=== PATIENT | male | born 1945 | race African-American/Black ===

== ENCOUNTER 2018-11-27 11:47 | Inpatient (IN) | payer MEDICARE, MEDICAID ==
[2018-11-27 12:30] LABS: #Eosinphils 0.1 thou/uL (0.0-0.7); #Lymphocytes 0.9 thou/uL (1.20-3.40); #Monocytes 0.3 thou/uL (0.11-0.59); #Neutrophils 4.3 thou/uL (1.40-6.50); %Basophils 0.2 % (0.0-1.0); %Eosinophils 1.9 % (0.0-10.0); %Lymphocytes 16.8 % (21.0-51.0); %Monocytes 5.3 % (0.0-10.0); %Neutrophils 75.8 % (42.0-75.0); Hemoglobin 13.3 g/dL (14.0-18.0); Mean Corpuscular HGB CONC 33.2 g/dL (32.0-36.0); Mean Corpuscular Hemoglobin 34.6 pg (27.0-31.0); Mean Platelet Volume 7.8 fL (7.4-10.4); Platelet Count 265 thou/uL (130-400); RBC Distribution Width 13.5 % (11.5-14.5); Red Blood Cell (RBC) Count 3.84 mill/uL (4.70-6.10); White Blood Cell (WBC) Count 5.6 thou/uL (4.8-10.8)
[2018-11-27] MEDS ORDERED: Magnesium 2 GM/50 ML BAG (IN WATER) ONE (12:34)
[2018-11-27] MEDS ORDERED: Dexamethasone 4 mg/ml Vial ONE (12:34)
[2018-11-27 12:43] LABS: ALT (SGPT) 41 U/L (8-55); AST (SGOT) 27 U/L (5-34); Albumin 3.7 g/dL (3.4-4.8); Alkaline Phosphatase 59 U/L (40-110); Anion Gap 14 mmol/L (10-20); BUN (Urea Nitrogen) 23 mg/dL (8.4-25.7); Bilirubin, Total 0.5 mg/dL (0.2-1.2); CK (CPK) 101 U/L (30-200); Calc. Creatinine Clearance 0 mL/min (70-130); Calcium 9.9 mg/dL (7.8-10.44); Carbon Dioxide 26 mmol/L (23-31); Chloride 103 mmol/L (98-107); Estimated GFR-MDRD 50; Globulin 3.9 g/dL (2.4-3.5); Glucose 93 mg/dL (83-110); Lipase 46 U/L (8-78); Potassium 3.5 mmol/L (3.5-5.1); Protein, Total 7.6 g/dL (5.8-8.1); Sodium 139 mmol/L (136-145)
[2018-11-27 12:49] LABS: Actual Bicarbonate (HCO3a) 24.7 mEq/L (22-28); Analyzer IN Cardio ER; CO2 Tension 36.5 mmHg (35.0-45.0); Calcium, Ionized 1.21 mmol/L (1.12-1.30); Carboxyhemoglobin (COHb) 2.1 gm% (0.0-3.0); Hemoglobin (Hb) 13.6 g/dL (14.0-18.0); O2 Tension (PaO2) 78.7 mmHg (> 70.0); Potassium - ABG Lab 3.58 mmol/L (3.70-5.30); pH, Arterial 7.45 (7.35-7.45)
[2018-11-27 12:50] LABS: ALV-art Gradient 25.405 (0-20); Puncture Site RB
--- NOTE | 2018-11-27 13:20 | CT ---
CT abdomen and pelvis with IV contrast HISTORY: Pelvic pain. FINDINGS: Mild atelectasis at the lung bases. Mild bilateral hydroureteronephrosis without stones or point of transition apparent. Urinary bladder is unremarkable. Dystrophic calcification of the prostate gland. Deformity of the right side of the pubic symphysis has the appearance of an old fract ure. Tiny low-density nodules of each adrenal gland. Probable small adenomas. Hyperdense stones within the gallbladder lumen. No evidence of bowel obstruction. Degenerative changes lumbar spine. No evidence of inguinal hernia. IMPRESSION: Mild bilateral hydroureteronephrosis. Cause is not evident. No stones visualized. Possibl y due to chronic low-grade bladder outlet obstruction. Cholelithiasis. Atherosclerosis.
--- NOTE | 2018-11-27 13:35 | RAD ---
Chest one view HISTORY: Chest and abdomen pain. COMPARISON: 08/21/2015 and 09/07/2016. FINDINGS: Cardiac silhouette is magnified by projection. Pulmonary vasculature slightly engorged. An oval 1.5 cm nodular density projects just lateral to the left hilum. No evidence of pneumothorax. 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 campus monitor leads overlie the chest. IMPRESSION: Possible left lung nodule. Please consider upright PA and lateral views of the chest when patient can undergo that exam. Borderline pulmonary vascular congestion.
[2018-11-27] MEDS ORDERED: Morphine 4 MG/ML VIAL ONE (13:44)
[2018-11-27] MEDS ORDERED: Albuterol Sulfate 2.5 mg/3 ml Neb ONE ×2 (14:13)
[2018-11-27 14:27] LABS: Bacteria/HPF 4+ HPF (None Seen); Bilirubin Negative (Negative); Blood, Urine 2+ (Negative); Clarity Extra Turbid (Clear); Glucose, Urine (Dipstick) Normal (Negative); Leukocyte 500 Leu/uL (Negative); Nitrite Negative (Negative); Protein, Urine (Dipstick) 100 mg/dL (Neg-Trace); RBC/HPF 0-3 HPF (0-3); Squamous Epithelial None Seen HPF (0-3); Urobilinogen Normal mg/dL (Less than 2); WBC/HPF Greater than 50 HPF (0-3)
[2018-11-27] MEDS ORDERED: Sodium Chloride 0.9% 1,000 ML IV SCH (17:25)
[2018-11-27] MEDS ORDERED: Ondansetron PF 4 MG/2 ML Vial IVP PRN ×2 (17:25→20:24)
[2018-11-27] MEDS ORDERED: Acetaminophen 325 MG TAB PO PRN (17:25)
[2018-11-27] MEDS ORDERED: HYDROcodone/Acetaminophen 5/325 mg Tablet PO PRN ×2 (17:25)
[2018-11-27] MEDS ORDERED: Ondansetron ODT 4 MG TAB SL PRN (17:25)
[2018-11-27] MEDS ORDERED: Morphine 4 MG/ML VIAL SLOW IVP PRN (17:34)
[2018-11-27 19:24] VITALS: BMI 27.9
[2018-11-27] MEDS ORDERED: Senokot S 8.6-50 MG TAB PO PRN (20:24)
[2018-11-27] MEDS ORDERED: Acetaminophen 500 MG TAB PO PRN (20:24)
[2018-11-27] MEDS ORDERED: Bisacodyl 5 MG TAB PO PRN (20:24)
[2018-11-27] MEDS ORDERED: Ondansetron ODT 4 MG TAB PO PRN (20:24)
[2018-11-27] MEDS ORDERED: hydrALAZINE 20 MG/ML VIAL SLOW IVP PRN (20:24)
[2018-11-27] MEDS ORDERED: Mometasone/Formoterol 120 PUFF INHALER INH SCH (20:45)
[2018-11-27] MEDS ORDERED: predniSONE 20 MG TAB PO SCH (20:45)
[2018-11-27] MEDS: Sodium Chloride 0.9% 1,000 ML IV SCH (21:10)
[2018-11-27] MEDS: Famotidine 20 MG TAB PO SCH (21:18)
--- NOTE | 2018-11-27 22:15 | HP ---
PRIMARY CARE PROVIDER: Christianne Oneil MD. CHIEF COMPLAINT: Abdominal pain and difficulty urinating. HISTORY OF PRESENT ILLNESS: This is a 73-year-old male who presented to [facility] Emergency Department complaining of penile pain with discharge, difficulty having bowel movements with maximum pain rated 6/10. The patient states that symptoms have been intermittent over the last week, worsening in the last 24 to 48 hours. The patient admits to some difficulty having bowel movements with constipation with last bowel movement in the last 24 hours. The patient denied any blood in the stool or urine recently, but notes he has had decreased oral intake including water in the last 24-48 hours, feeling like he was dehydrated. The patient also admits to increased alcohol use and drinking more soft drinks. The patient states he has had some difficulty with repair of a hydrocele in the past with pain in the scrotal region causing him to have some difficulty with passing of stool. The patient denied any direct trauma injury. Sexual activity with last sexual intercourse over 1 year prior to this evaluation. The patient does state his mobility is limited due to rheumatoid arthritis. Occasionally uses a rolling walker for ambulation. The patient denied any increased cough, shortness of breath, exposure history, recent travel. The patient states he resides in the [facility], living in his mother's home after she . In the emergency room, the patient underwent general evaluation with concern for initial sepsis criteria. The patient received IV Levaquin, morphine sulfate, Decadron, albuterol sulfate, and DuoNeb in addition to magnesium sulfate. The patient was also noted with penile discharge prompting the initiation of antibiotic therapy. Cultures were submitted, however, pending at the time of this dictation. PAST MEDICAL HISTORY: 1. Tobacco abuse. 2. Hydrocele status post repair x2. 3. Chronic obstructive pulmonary disease. 4. Rheumatoid arthritis. 5. Limited mobility. 6. Hypertension. 7. Tobacco abuse. 8. Alcohol abuse. 9. Anxiety/depression. PAST SURGICAL HISTORY: 1. Status post carpal tunnel release on the left. 2. Status post hydrocele repair x2. 3. Status post right shoulder and left heel repair. CURRENT MEDICATIONS: Reviewed; however, the patient will provide an accurate list in the next 24 hours. ALLERGIES: PENICILLIN. FAMILY HISTORY: Positive for hypertension and diabetes mellitus. SOCIAL HISTORY: Resides in [place], [place]. . Smokes up to a pack of cigarettes daily. Drinks alcohol daily. No illicit drug use. Disabled. REVIEW OF SYSTEMS: CONSTITUTIONAL: Negative for weight loss or gain, ability to conduct usual activities. SKIN: Negative for rash, itching. EYES: Negative for double vision, pain. ENT/MOUTH: Negative for nose bleeding, neck stiffness, pain, tenderness. CARDIOVASCULAR: Negative for palpitations, dyspnea on exertion, orthopnea. RESPIRATORY: Negative for shortness of breath, wheezing, cough, hemoptysis, fever or night sweats. GASTROINTESTINAL: Negative for poor appetite, abdominal pain, heartburn, nausea, vomiting, constipation, or diarrhea. GENITOURINARY: Negative for urgency, frequency, dysuria, nocturia. MUSCULOSKELETAL: Negative for pain, swelling. NEUROLOGIC/PSYCHIATRIC: Negative for anxiety, depression. ALLERGY/IMMUNOLOGIC: Negative for skin rash, bleeding tendency. Otherwise negative except as stated per HPI. PHYSICAL EXAMINATION: VITAL SIGNS: On admission, blood pressure 156/83, pulse 96, respiratory rate 18, temperature 97.6 degrees Fahrenheit, O2 saturation 94% on room air. GENERAL APPEARANCE: This is a 73-year-old male, alert and oriented x3, pleasant, responsive, in no acute distress. HEENT: Pupils are equal, round, reactive to light and accommodation. Extraocular muscles are intact. No scleral icterus. No conjunctival injection. Nares patent. OP is clear. Teeth in fair repair. NECK: Supple. No cervical adenopathy. No thyromegaly. No carotid bruits. No JVD appreciated. Cervical spine with full active and passive range of motion. No meningeal signs noted. CHEST: Diminished breath sounds bilaterally with coarse breath sounds and expiratory wheezes bilaterally. CARDIOVASCULAR: S1, S2 with distant heart sounds. No murmur, rub, or gallop appreciated. ABDOMEN: Obese, soft, nontender, and nondistended. Bowel sounds are positive in all 4 quadrants. There is no palpable mass. The landmarks are difficult to palpate due to patient's body habitus. EXTREMITIES: Warm and dry with fair turgor. No clubbing, cyanosis, or asymmetric edema appreciated. Joint deformity noted of the hands and wrists bilaterally, left greater than right. GENITOURINARY: Per ER exam showed purulence coming from the urethral meatus and tip of the uncircumcised penis. VASCULAR: Pulses are palpable distally at the dorsalis pedis, posterior tibial, and popliteal arteries bilaterally. NEUROLOGIC: Cranial nerves 2 through 12 are grossly intact. No focal or lateralizing signs appreciated. The patient not observed ambulatory during this exam. PERTINENT LABORATORY AND X-RAY FINDINGS: Sodium 139, potassium 3.5, chloride 103, CO2 of 26, BUN 23, creatinine 1.65, estimated GFR 50, glucose 93, lactic acid level 1.0, calcium 9.9. LFTs within normal limits. BNP 24. Lipase 46. CBC showed a white blood cell count of 5.6, hemoglobin 13, hematocrit 40, MCV 104, platelet count 265 with 76% neutrophils. ABG at the time of admission 11/27/2018, showed a pH 7.45, pCO2 of 36.5, pO2 of 79, bicarb 24.7, O2 saturation 96% on 21% FiO2. Urinalysis positive for protein, blood, leukocyte esterase with urine wbc's showing greater than 50 per high-powered field and 4+ bacteria. CT of the abdomen and pelvis dated 11/27/2018, showed mild bilateral hydroureteronephrosis. Portable chest x-ray dated 11/27/2018, showed question of left lung nodule. No pneumothorax appreciated. EKG dated 11/27/2018, by my interpretation shows the sinus mechanism with heart rates in the 90s. Normal R-wave progression noted in the precordial leads. Normal axis. No acute ST-T wave changes appreciated. ASSESSMENT AND PLAN: 1. Urinary tract infection. Suspected. Questionable balanitis in addition. Continue Levaquin 750 mg IV q.24 hours. We will consult Urology Service for evaluation and consideration of surgical intervention versus medical management. Blood and urine cultures are pending. GC and chlamydia pending. 2. Acute kidney injury. Suspect secondary to hypovolemia. We will continue intravenous normal saline at 100 mL/h. Avoid nephrotoxic agents and limit contrast exposure. Encourage increased free water intake orally. Repeat creatinine in the a.m. 3. Bilateral hydroureteronephrosis. Suspect chronic condition with questionable bladder outlet obstruction or BPH. Consult Urology Service for evaluation and recommendations for long-term management. 4. Chronic obstructive pulmonary disease. No current evidence to suggest an acute exacerbation. We will continue DuoNebs q.4 hours p.r.n. Add Dulera 2 puffs inhaled b.i.d. Prednisone 40 mg p.o. daily. 5. Constipation. Add Senokot S with Dulcolax and monitor clinical response. 6. Tobacco abuse. We will offer smoking cessation resources prior to discharge. 7. Macrocytic anemia. Chronic after review of electronic medical record. We will repeat CBC in the a.m. and monitor trend. Check folate and B12 level in the a.m. 8. Prophylaxis. SCDs while in bed. Pepcid 20 mg p.o. b.i.d. 9. Code status is full. Surrogate medical decision maker is Keisha Lea. Job ID: [id number]
[2018-11-27] MEDS ORDERED: Dexamethasone 10 MG in Sodium Chloride 0.9% 50 ML IVPB SCH (23:59)
[2018-11-28] MEDS: HYDROcodone/Acetaminophen 5/325 mg Tablet PO PRN ×4 (02:38→17:01)
[2018-11-28] MEDS: Sodium Chloride 0.9% 1,000 ML IV SCH ×3 (04:43→18:15)
[2018-11-28] MEDS: Mometasone/Formoterol 120 PUFF INHALER INH SCH ×2 (06:37→19:29)
[2018-11-28 07:11] LABS: Hemoglobin 12.5 g/dL (14.0-18.0); Mean Corpuscular HGB CONC 33.4 g/dL (32.0-36.0); Mean Corpuscular Hemoglobin 33.9 pg (27.0-31.0); Mean Platelet Volume 7.2 fL (7.4-10.4); Platelet Count 207 thou/uL (130-400); RBC Distribution Width 13.3 % (11.5-14.5)
[2018-11-28 07:45] LABS: Lymphocytes 8 % (21-51); MDiff Complete? YES; Monocytes 2 % (0-10); Neutrophil 90 % (42-75); Platelet Morphology Comment Appears Adequate; Polychromasia SLIGHT = 2-3 cells (100X) (0-2/hpf)
[2018-11-28 07:55] LABS: BUN (Urea Nitrogen) 23 mg/dL (8.4-25.7); Calc. Creatinine Clearance 56 mL/min (70-130); Calcium 7.9 mg/dL (7.8-10.44); Carbon Dioxide 20 mmol/L (23-31); Chloride 105 mmol/L (98-107); Estimated GFR-MDRD 53; Glucose 162 mg/dL (83-110); Potassium 4.3 mmol/L (3.5-5.1); Sodium 135 mmol/L (136-145)
[2018-11-28] MEDS: predniSONE 20 MG TAB PO SCH (08:32)
[2018-11-28 09:15] LABS: Anion Gap 14 mmol/L (10-20)
[2018-11-28] MEDS ORDERED: Non-Formulary Item 1 EACH (Acetaminophen With Codeine [Tylenol With Codeine #4] 1 TABLET) PO PRN (09:40)
[2018-11-28] MEDS ORDERED: Non-Formulary Item 1 EACH (Tramadol Hcl [Tramadol Hcl Er] 300 MG) PO SCH (10:00)
[2018-11-28] MEDS ORDERED: Allopurinol 100 MG TAB PO SCH (11:30)
[2018-11-28] MEDS ORDERED: DULoxetine 60 MG CAP PO SCH (11:30)
--- NOTE | 2018-11-28 16:15 | CON ---
DATE OF CONSULTATION: 11/28/2018 HISTORY OF PRESENT ILLNESS: This is a 73-year-old male, I have been asked to see by Dr. Schultz. He was admitted last night, apparently having trouble with abdominal pain and constipation, who also eight days ago may have had some urethral discharge. On talking with him, he spends a great deal of time talking about his constipation. We talked more about his urinary tract symptoms. He does get up at night about five times. Daytime frequency is not so bad. He does take a diuretic, probably Lasix and he says when he takes that, he voids quite frequently and sometimes has double voiding. He relates that his urinary tract strain is diminished, but he has no blood in the urine. He acknowledge no urinary tract infections. He has a little bit of burning with urination. He does not really have any urinary tract urgency and has no difficulty in putting off although if he needs to. He has no history of prostate cancer. He has no history of kidney stones. He has no history of prostate surgery. He had bilateral hydroceles done by Dr. Man a few years ago, one was done in a few months later another one was done and he has had discomfort, tension, or pulling sensation across his lower abdomen since that time and he seems to relate his constipation to this, although anatomically that does not make sense. He still relates in that way. He is not sexually active. His white count when he came in was normal at 5.6 and his hemoglobin 13.3. His creatinine when he came in 1.65 and it is 1.56 today. Urinalysis showed 0 to 3 red cells, over 50 white cells, and 4+ bacteria. Urine culture has been set up, it is actually no growth at 24 hours. Blood cultures have been done and are pending. He is on Levaquin currently. I cannot see that he actually had any antibiotics given in the ER. His vital signs, he has been afebrile, pulse is 80 to 93, blood pressure is fine, and room air saturations okay. PAST MEDICAL HISTORY: He does have a history of degenerative joint disease and rheumatoid arthritis, COPD, hypertension, and history of some anxiety. He has smoked and drank in the past. PAST SURGICAL HISTORY: He has had a bilateral hydrocele repairs. He has had carpal tunnel surgery. He has had some shoulder surgery. ALLERGIES: HE HAS AN ALLERGY TO PENICILLIN. CURRENT MEDICATIONS: He is on; 1. Hydrocodone. 2. DuoNeb inhaler. 3. Zyloprim. 4. Cymbalta. 5. Neurontin. 6. Apresoline. 7. Prednisone. 8. Zocor. 9. Zanaflex. 10. He is not currently on a diuretic. PHYSICAL EXAMINATION: He is not circumcised. There is no phimosis. There is no penile or scrotal lesions. The testicles descended without mass or tenderness. IMAGING: He has had a CAT scan done, which I reviewed. The CAT scan was read as mild bilateral hydronephrosis. The bladder was mildly distended. There was some prostatic calcification. Bilateral hydronephrosis was very mild. IMPRESSION AND PLAN: 1. Probably a urinary tract infection based on the white cells and bacteria, although the culture is coming back negative. White count was not high and his vital signs are currently stable. 2. Mild bilateral hydronephrosis, which is probably a relatively soft call. I think at this point, we will see if his creatinine improves, maybe we can get a contrast study done. If not, we could do a Lasix renal scan and see if he actually is obstructed on either side. 3. Lower urinary tract symptoms. He gets up at night to go. He has a weak urinary stream. He has some double voiding. He could probably benefit by we starting an alpha pro on him, tamsulosin 0.4 mg one p.o. 30 minutes after supper each day. I will get him started on that. I will follow along with you. We will also go and get a PSA on him and see where that stands. Job ID: [id number]
[2018-11-28] MEDS: Simvastatin 5 MG TAB PO SCH (16:57)
[2018-11-28] MEDS: Tamsulosin HCl 0.4 MG CAP PO SCH (16:57)
[2018-11-28] MEDS ORDERED: Non-Formulary Item 1 EACH (Lovastatin [Lovastatin] 10 MG) PO SCH (17:00)
--- NOTE | 2018-11-28 18:14 | PDOC.HOSPP ---
- Subjective Encounter Date: 11/28/18 Encounter Time: 18:10 Subjective: f/u for suspected UTI, EVELINE and bilat hydronephrosis. Feels better overall but having urinary incontinence. No fever reported. - Objective Vital Signs & Weight: Vital Signs (12 hours) Temp Pulse Resp BP BP BP Pulse Ox 11/28/18 16:00 98.0 F 107 H 20 143/74 H 95 11/28/18 14:44 101 H 16 94 L 11/28/18 10:59 97.9 F 97 20 157/57 H 94 L 11/28/18 10:58 93 L 11/28/18 10:49 90 16 95 11/28/18 08:00 98.0 F 93 20 137/70 137/70 93 L 11/28/18 06:34 87 20 95 Weight Weight 202 lb 13.204 oz I&O: 11/27/18 11/28/18 11/29/18 06:59 06:59 06:59 Intake Total 1 Balance 1 Result Diagrams: 11/28/18 06:40 11/28/18 06:39 Additional Labs: Microbiology 11/27/18 13:55 Urine voided Urine Culture - Preliminary NO GROWTH AT 24 HOURS 11/27/18 12:28 Venous blood - Left Arm Blood Culture - Preliminary Specimen has been received and culture in progress. No Growth to date. 11/27/18 12:10 Venous blood - Left Hand Blood Culture - Preliminary Specimen has been received and culture in progress. No Growth to date. Laboratory Tests 11/27/18 11/27/18 11/27/18 12:10 12:10 12:10 Hgb 13.3 L Neutrophils % 75.8 H Neutrophils % (Manual) Creatinine 1.65 H Lactic Acid B-Natriuretic Peptide 24.1 Vitamin B12 Folate 11/27/18 11/28/18 11/28/18 12:10 06:39 06:39 Hgb Neutrophils % Neutrophils % (Manual) Creatinine Lactic Acid 1.0 B-Natriuretic Peptide Vitamin B12 630 Folate 5.80 L 11/28/18 06:40 Hgb Neutrophils % Neutrophils % (Manual) 90 H Creatinine Lactic Acid B-Natriuretic Peptide Vitamin B12 Folate Hospitalist ROS - Medication Medications: Active Medications Generic Name Dose Route Start Last Admin Trade Name Freq PRN Reason Stop Dose Admin Hydrocodone Bitart/Acetaminophen 1 tab 11/27/18 20:24 11/28/18 17:01 Custer 5/325 PO 1 tab Q4H PRN Administration Moderate Pain (4-6) Albuterol/Ipratropium 3 ml 11/27/18 22:30 11/28/18 14:44 Duoneb NEB 3 ml [id number] MARTA Administration Famotidine 20 mg 11/27/18 21:00 11/27/18 21:18 Pepcid PO 20 mg 2100 MARTA Administration Levofloxacin 750 mg/ Device 150 mls @ 100 mls/hr 11/28/18 14:00 11/28/18 14: 54 IVPB 150 mls 1400 MARTA Administration Mometasone Furoate/Formoterol Fumar 2 puff 11/28/18 06:30 11/28/18 06:37 Dulera 200 Mcg/5 Mcg Inhaler INH 2 puff BID-RT MARTA Administration Prednisone 40 mg 11/28/18 08:00 11/28/18 08:32 Prednisone PO 40 mg QAM-WM MARTA Administration Simvastatin 5 mg 11/28/18 17:00 11/28/18 16:57 Zocor PO 5 mg QPM-WM MARTA Administration Tamsulosin HCl 0.4 mg 11/28/18 17:30 11/28/18 16:57 Flomax PO 0.4 mg 1730 MARTA Administration - Exam General Appearance: NAD, awake alert Eye: PERRL, anicteric sclera ENT: normocephalic atraumatic, no oropharyngeal lesions Neck: supple, symmetric, no JVD, no thyromegaly, no lymphadenopathy Heart: RRR, no murmur, no gallops, no rubs, normal peripheral pulses Respiratory - other findings: few coarse sounds and diminished in bases Gastrointestinal: soft, non-tender, non-distended, normal bowel sounds, no palpable masses Extremities: no cyanosis, 1+ LE edema Skin: normal turgor, no lesions Neurological: cranial nerve grossly intact, no new deficit Musculoskeletal: normal tone, generalized weakness Psychiatric: normal affect, A&O x 3 Hosp A/P (1) UTI (urinary tract infection) Status: Acute Plan: Initial UCx negative @ 24h, continue IV Levaquin another 24h then de-escalate to po option (2) Bilateral hydronephrosis Code(s): N13.30 - UNSPECIFIED HYDRONEPHROSIS Status: Chronic Plan: Likely BPH, continue Flomax, appreciate Urology assistance (3) EVELINE (acute kidney injury) Code(s): N17.9 - ACUTE KIDNEY FAILURE, UNSPECIFIED Status: Acute Plan: Improved, continue low-volume IVF's, avoid nephrotoxic meds and limit contrast exposure (4) Macrocytic anemia Code(s): D53.9 - NUTRITIONAL ANEMIA, UNSPECIFIED Status: Chronic Plan: Folate deficiency noted, start Folate 1mg daily (5) COPD (chronic obstructive pulmonary disease) Status: Chronic Plan: No exacerbation, continue Duonebs, Prednisone and Dulera (6) Tobacco abuse Code(s): Z72.0 - TOBACCO USE Status: Chronic Plan: Tobacco cessation resources - Plan continue antibiotics, PT/OT, foster care social worker, out of bed/ambulate, DVT proph w/ SCDs Stable overall Continue Levaquin Continue IVF's Flomax initiated PT for mobilization Senokot-S/Mag Citrate for constipation AM lab: BMP
[2018-11-28] MEDS ORDERED: Senokot S 8.6-50 MG TAB PO PRN (18:15)
[2018-11-28] MEDS ORDERED: Magnesium Citrate 300 ML BOT PO SCH (18:15)
[2018-11-28] MEDS ORDERED: tiZANidine HCl 4 MG TAB PO PRN (21:00)
[2018-11-28] MEDS: Famotidine 20 MG TAB PO SCH (21:16)
[2018-11-28] MEDS: Gabapentin 400 MG CAP PO SCH (21:16)
[2018-11-29] MEDS: HYDROcodone/Acetaminophen 5/325 mg Tablet PO PRN ×3 (01:48→21:02)
[2018-11-29 07:09] LABS: Anion Gap 12 mmol/L (10-20); BUN (Urea Nitrogen) 25 mg/dL (8.4-25.7); Calc. Creatinine Clearance 66 mL/min (70-130); Calcium 9.2 mg/dL (7.8-10.44); Carbon Dioxide 24 mmol/L (23-31); Chloride 109 mmol/L (98-107); Estimated GFR-MDRD 65; Glucose 102 mg/dL (83-110); Potassium 3.6 mmol/L (3.5-5.1); Sodium 141 mmol/L (136-145)
[2018-11-29] MEDS: Allopurinol 100 MG TAB PO SCH (08:15)
[2018-11-29] MEDS: Gabapentin 100 MG CAP PO SCH (08:15)
[2018-11-29] MEDS: DULoxetine 60 MG CAP PO SCH (08:16)
[2018-11-29] MEDS: predniSONE 20 MG TAB PO SCH (08:16)
[2018-11-29] MEDS: Folic Acid 1 MG TAB PO SCH (08:16)
[2018-11-29] MEDS: Mometasone/Formoterol 120 PUFF INHALER INH SCH ×2 (10:55→19:27)
--- NOTE | 2018-11-29 12:48 | PRG ---
DATE OF SERVICE: 11/29/2018 SUBJECTIVE: I saw this patient today up in room 4432 at [facility]. His vital signs have been stable and good O2 sats. His urine culture came back final negative. Blood cultures are negative so far. White count yesterday returned to normal. His creatinine is now down to 1.32. His PSA was elevated at 16.18. He says he is feeling well. He is having some urgency and occasional urge incontinence he needs to urinate, but no burning. His abdominal pain seems to have resolved. He is eating and drinking without difficulty. He is on tamsulosin and it does not appear he has had any trouble starting that. IMPRESSION AND PLAN: Pyuria with a negative urine culture and had bacteriuria. My suspicion is that this is either bladder infection, where he actually was started on some antibiotics before the culture was taken, which is a possibility that does happen or perhaps this is prostatitis with the PSA being elevated. In any event, I think the most reasonable thing would be to treat him with 2 weeks of Cipro or 2 weeks of Levaquin. I also would appreciate if we could send him home on tamsulosin 0.4 mg to be taken 30 minutes after meal once a day. I am going to arrange followup with him in my office, and we will see him probably in a couple of weeks to see how he is doing, see what his urine looks like and we will readdress the mild bilateral hydronephrosis that was seen on the CAT scan recently. We will address that at that point and recheck his urine and see how his voiding symptoms are after being treated with antibiotics and see what his PSA does after being treated with antibiotics. So, at this point, I will sign off unless there has been any other acute issues that require urologic evaluation during this admission. Job ID: [id number]
[2018-11-29] MEDS: Simvastatin 5 MG TAB PO SCH (15:13)
[2018-11-29] MEDS: Sodium Chloride 0.9% 1,000 ML IV SCH (15:14)
[2018-11-29] MEDS: Tamsulosin HCl 0.4 MG CAP PO SCH (17:01)
--- NOTE | 2018-11-29 17:22 | PDOC.HOSPP ---
- Subjective Encounter Date: 11/29/18 Encounter Time: 17:10 Subjective: f/u for EVELINE, UTI and hydronephrosis. States no BM to date. Appetite ok. No fever or chills. - Objective Vital Signs & Weight: Vital Signs (12 hours) Temp Pulse Resp BP Pulse Ox 11/29/18 15:08 85 22 H 96 11/29/18 10:54 79 20 96 11/29/18 08:00 96 11/29/18 07:38 98.3 F 79 19 153/83 H 96 Weight Weight 202 lb 13.204 oz I&O: 11/28/18 11/29/18 11/30/18 06:59 06:59 06:59 Intake Total 1 2702 900 Output Total 200 Balance 1 2502 900 Result Diagrams: 11/28/18 06:40 11/29/18 05:54 Additional Labs: Microbiology 11/27/18 13:55 Urine voided Urine Culture - Preliminary NO GROWTH AT 24 HOURS 11/27/18 12:28 Venous blood - Left Arm Blood Culture - Preliminary Specimen has been received and culture in progress. No Growth to date. 11/27/18 12:10 Venous blood - Left Hand Blood Culture - Preliminary Specimen has been received and culture in progress. No Growth to date. Laboratory Tests 11/27/18 11/27/18 11/27/18 12:10 12:10 12:10 Hgb 13.3 L Neutrophils % 75.8 H Neutrophils % (Manual) Creatinine 1.65 H Lactic Acid B-Natriuretic Peptide 24.1 Vitamin B12 Folate 11/27/18 11/28/18 11/28/18 12:10 06:39 06:39 Hgb Neutrophils % Neutrophils % (Manual) Creatinine Lactic Acid 1.0 B-Natriuretic Peptide Vitamin B12 630 Folate 5.80 L 11/28/18 06:40 Hgb Neutrophils % Neutrophils % (Manual) 90 H Creatinine Lactic Acid B-Natriuretic Peptide Vitamin B12 Folate Hospitalist ROS - Medication Medications: Active Medications Generic Name Dose Route Start Last Admin Trade Name Freq PRN Reason Stop Dose Admin Hydrocodone Bitart/Acetaminophen 1 tab 11/27/18 20:24 11/29/18 17:04 Morton 5/325 PO 1 tab Q4H PRN Administration Moderate Pain (4-6) Albuterol/Ipratropium 3 ml 11/27/18 22:30 11/29/18 15:08 Duoneb NEB 3 ml [id number] MARTA Administration Allopurinol 100 mg 11/29/18 09:00 11/29/18 08:15 Zyloprim PO 100 mg DAILY MARTA Administration Bisacodyl 10 mg 11/27/18 20:24 11/29/18 08:15 Dulcolax PO 10 mg DAILYPRN PRN Administration Constipation Duloxetine HCl 60 mg 11/29/18 09:00 11/29/18 08:16 Cymbalta PO 60 mg DAILY MARTA Administration Famotidine 20 mg 11/27/18 21:00 11/28/18 21:16 Pepcid PO 20 mg 2100 MARTA Administration Folic Acid 1 mg 11/29/18 09:00 11/29/18 08:16 Folvite PO 1 mg DAILY MARTA Administration Gabapentin 200 mg 11/29/18 09:00 11/29/18 08:15 Neurontin PO 200 mg DAILY MARTA Administration Gabapentin 400 mg 11/28/18 21:00 11/28/18 21:16 Neurontin PO 400 mg HS MARTA Administration Levofloxacin 750 mg/ Device 150 mls @ 100 mls/hr 11/28/18 14:00 11/29/18 15: 13 IVPB 150 mls 1400 MARTA Administration Sodium Chloride 1,000 mls @ 50 mls/hr 11/28/18 18:10 11/29/18 15:14 Normal Saline 0.9% IV 1,000 mls .Q20H MARTA Administration Mometasone Furoate/Formoterol Fumar 2 puff 11/28/18 06:30 11/29/18 10:55 Dulera 200 Mcg/5 Mcg Inhaler INH 2 puff BID-RT MARTA Administration Prednisone 40 mg 11/28/18 08:00 11/29/18 08:16 Prednisone PO 40 mg QAM-WM MARTA Administration Senna/Docusate Sodium 2 tab 11/28/18 18:15 11/29/18 08:15 Senokot S PO 2 tab BIDPRN PRN Administration CONSTIPATION Simvastatin 5 mg 11/28/18 17:00 11/29/18 15:13 Zocor PO 5 mg QPM-WM MARTA Administration Tamsulosin HCl 0.4 mg 11/28/18 17:30 11/29/18 17:01 Flomax PO 0.4 mg 1730 MARTA Administration - Exam General Appearance: NAD, awake alert Eye: PERRL, anicteric sclera ENT: normocephalic atraumatic, no oropharyngeal lesions Neck: supple, symmetric, no JVD, no thyromegaly, no lymphadenopathy Heart: RRR, no murmur, no gallops, no rubs, normal peripheral pulses Respiratory: CTAB, no rales, no ronchi, normal chest expansion Gastrointestinal: soft, normal bowel sounds, no palpable masses Gastrointestinal - other findings: mild distention Extremities: no cyanosis, 1+ LE edema Skin: normal turgor, no lesions Neurological: cranial nerve grossly intact, no new deficit Musculoskeletal: normal tone, generalized weakness Psychiatric: normal affect, A&O x 3 Hosp A/P (1) UTI (urinary tract infection) Status: Acute Plan: Suspected but UCx showing normal reggie, continue abx coverage with plans for 2 weeks post-discharge (2) Bilateral hydronephrosis Code(s): N13.30 - UNSPECIFIED HYDRONEPHROSIS Status: Chronic Plan: Outpt follow and consideration for repeat imaging with Urology (3) EVELINE (acute kidney injury) Code(s): N17.9 - ACUTE KIDNEY FAILURE, UNSPECIFIED Status: Acute Plan: Improved with IVF's, avoid nephrotoxic meds and limit contrast (4) Macrocytic anemia Code(s): D53.9 - NUTRITIONAL ANEMIA, UNSPECIFIED Status: Chronic (5) COPD (chronic obstructive pulmonary disease) Status: Chronic Plan: Stable, general pulm support (6) Tobacco abuse Code(s): Z72.0 - TOBACCO USE Status: Chronic - Plan continue antibiotics, PT/OT, social work program coordinator, respiratory therapy, out of bed/ ambulate Stable overall Continue Levaquin with plans for 2wks coverage after d/c Continue IVF's Flomax initiated PT for mobilization Senokot-S/Mag Citrate for constipation, add Dulcolax supp Likely home in am
[2018-11-29] MEDS: Gabapentin 400 MG CAP PO SCH (20:32)
[2018-11-29] MEDS: Famotidine 20 MG TAB PO SCH (20:33)
[2018-11-29] MEDS: Bisacodyl 10 MG SUPP PR SCH ×2 (21:03→21:19)
[2018-11-30] MEDS: Bisacodyl 10 MG SUPP PR SCH ×2 (05:37→14:31)
[2018-11-30] MEDS: Mometasone/Formoterol 120 PUFF INHALER INH SCH (07:17)
[2018-11-30 07:44] VITALS: BP 155/84; TEMP 96.7
[2018-11-30] MEDS: DULoxetine 60 MG CAP PO SCH (08:23)
[2018-11-30] MEDS: Gabapentin 100 MG CAP PO SCH (08:23)
[2018-11-30] MEDS: Allopurinol 100 MG TAB PO SCH (08:23)
[2018-11-30] MEDS: Folic Acid 1 MG TAB PO SCH (08:23)
[2018-11-30] MEDS: predniSONE 20 MG TAB PO SCH (08:23)
[2018-11-30] MEDS: HYDROcodone/Acetaminophen 5/325 mg Tablet PO PRN (08:24)
[2018-11-30] MEDS: Sodium Chloride 0.9% 1,000 ML IV SCH (11:07)
[2018-12-01 00:03] LABS: Chlam.trachomatis by PCR,Urine Not Detected (NotDetected)
--- NOTE | 2018-12-01 08:47 | PQF ---
PHILLIP PULIDO CHARLES [id number] CLINICAL DOCUMENTATION CLARIFICATION FORM: POST DISCHARGE Addendum to original discharge summary date: ____ Late entry note date: __ DATE: 12-01-2018 ATTN:Alberto Lentz Please exercise your independent, professional judgment in responding to the clarification form. Clinical indicators are provided on the bottom of this form for your review Can you please clarify if Prostatitis is ruled in or ruled out during this encounter? Please check appropriate box(s) to clarify if the following diagnosis has been ruled in or ruled out: Prostatitis [ ] Ruled in diagnosis [ ] Continue to treat [ ] Resolved [ ] Ruled out diagnosis [ x ] Cannot rule out diagnosis [ ] Other diagnosis please specify: [ ] Unable to determine For continuity of documentation, please document condition throughout progress notes and discharge summary. Thank You. CLINICAL INDICATORS: HP1 pg1 Dr. Schultz abdominal pain and difficuty of urinating pg1 Dr. Schultz complianing penile pain with discharge pg4 Dr. Schultz Bilateral hydroureteronephrosis PN 11/[address] Schultz follow up for suspected UTI, EVELINE and bilat hydronephrosis PN 11/[address] Amaral His PSA was elevated at 16.18 PN 11/[address] Amaral possibility that does happen or perhaps this is prostatitis with the PSA being elevated RISK FACTOR: Dr. Schultz-Hydrocele status post repair x2 Dr. Schultz- Hypertenion Dr. Schultz- Limited mobility Dr. Schultz-COPD Dr. Schultz- Constipation TREATMENTS: Imaging 11/27- Abdomen Pelvis CT APR 24- Levaquin IV APR 24- Sodium Chloride IV (This form is maintained as a part of the permanent medical record) 2014 [employer], [email or web address]. All Rights Reserved [email or web address] [not provided] MTDD
--- NOTE | 2018-12-01 09:07 | DIS ---
DATE OF ADMISSION: 11/28/2018 DATE OF DISCHARGE: 11/30/2018 PRIMARY CARE PHYSICIAN: Christianne Oneil MD DISCHARGE DIAGNOSES: 1. Urinary tract infection, suspected urine culture negative. 2. Bilateral ureterohydronephrosis, chronic. 3. Acute kidney injury, improved. 4. Microcytic anemia with folate deficiency. 5. Chronic obstructive pulmonary disease. 6. Tobacco abuse. 7. Rheumatoid arthritis. CONSULTATION: Alberto Amaral MD with Urology Service. PERTINENT LABORATORY AND X-RAY FINDINGS: Creatinine ranged between 1.32 to 1.65, estimated GFR ranged between 50 to 65, and lactic acid level 1.0. LFTs within normal limits. BNP 24.1. PSA 16.18. Vitamin B12 level 630. Folate level 5.8. CBC showed a hemoglobin ranged between 12.5 to 13.3 and MCV ranged between 101 to 104. Blood cultures x2 dated 11/27/2018, showed no growth at 48 hours. Urine culture dated 11/27/2018, showed 25,000 to 50,000 colonies of mixed skin reggie. Portable chest x-ray dated 11/27/2018, showed prominent pulmonary vasculature. A 1.5 cm nodular density in the lateral left hilum. CT of the abdomen and pelvis dated 11/27/2018, showed mild bilateral hydroureteronephrosis. HOSPITAL COURSE: The patient was admitted to the medical floor after initially presenting with abdominal pain and difficulty with urination. The patient was treated for suspected urinary tract infection with IV Levaquin. However, urine culture was unrevealing as to specific organism. The patient with obstructive uropathy with mild bilateral hydroureteronephrosis on CT imaging, prompting Urology consultation. The patient likely with chronic obstructive uropathy due to BPH with recommendations to complete a two-week course of antibiotic therapy and re-evaluate the hydronephrosis with imaging. The patient was evaluated by the Urology Service recommending a PSA showing elevated values. Current recommendations are for serial monitoring and repeat these levels after completion of treatment for urinary tract infection. Overall, the patient did remain clinically stable during the hospital course, tolerating regular oral intake and voiding appropriately. I have examined the patient at the time of discharge and discussed followup instructions. The patient verbalized understanding and agreement ready for discharge on 11/30/2018. DISCHARGE MEDICATIONS: 1. Ciprofloxacin 500 mg 1 tablet p.o. b.i.d. x2 weeks. 2. Flomax 0.4 mg p.o. daily. 3. ProAir HFA one puff inhaled q.4 hours p.r.n. 4. Allopurinol 100 mg p.o. daily. 5. Symbicort 160/4.5 two puffs inhaled b.i.d. 6. Cymbalta 60 mg p.o. daily. 7. Gabapentin 200 mg p.o. q.a.m. and 400 mg p.o. at bedtime. 8. DuoNebs 3 mL nebulized q.i.d. p.r.n. 9. Lovastatin 10 mg p.o. at bedtime. 10. Methotrexate 10 mg p.o. weekly. 11. Tizanidine 4 mg p.o. at bedtime p.r.n. 12. Tramadol extended release 300 mg p.o. daily. 13. Folic acid 1 mg p.o. daily. 14. Lasix 40 mg p.o. daily. 15. Prednisone 20 mg take two tablets p.o. daily x3 days, followed by 1 tablet p.o. daily x3 days, and followed by half a tablet p.o. daily x3 days. FOLLOWUP: The patient may follow up with his primary care provider, Dr. Oneil within 7 days of discharge. The patient will follow up with Dr. Alberto Amaral, with Urology Service within 2 weeks. CONDITION ON DISCHARGE: Stable. ACTIVITY: Ad terra, rolling walker for ambulation. DIET: Regular. CODE STATUS: Full. SPECIAL INSTRUCTIONS: Recommend repeat chest imaging to include PA and lateral views on an outpatient basis. DISPOSITION: Home on 11/30/2018. TIME SPENT: Total time preparing and coordinating discharge 32 minutes. Job ID: [id number]
== END 2018-11-30 14:42 | disposition home or self-care (01) | DRG 728 ==
LOC: ERS 11:47 → T4-B 13:49 → OBSVTOIN 11-28 10:50
PROVIDERS: ADMIT Family Medicine; ATTEND Family Medicine
DX: N41.9 Inflammatory disease of prostate, unspecified (principal); N13.6 Pyonephrosis; N17.9 Acute kidney failure, unspecified; J44.9 Chronic obstructive pulmonary disease, unspecified; M06.9 Rheumatoid arthritis, unspecified; I10 Essential (primary) hypertension; F41.9 Anxiety disorder, unspecified; F32.9 Major depressive disorder, single episode, unspecified; E86.1 Hypovolemia; D53.9 Nutritional anemia, unspecified; K59.00 Constipation, unspecified; R32 Unspecified urinary incontinence; Z88.0 Allergy status to penicillin; Z87.891 Personal history of nicotine dependence; Z79.52 Long term (current) use of systemic steroids; Z79.51 Long term (current) use of inhaled steroids
CPT/HCPCS: 36415; 71045; 74177; 80048; 80053; 81003; 81015; 82550; 82607; 82746; 82805; 83605; 83690; 83880; 84484; 85007; 85025; 85027; 87040; 87086; 87491; 87591; 93005; 94640; 94644; 96365; 96375; G0103; J1100; J1956; J2270; J3475; J7512; J7611; J7620

== ENCOUNTER 2018-12-27 19:11 | Inpatient (IN) | payer MEDICARE, MEDICAID ==
[2018-12-27] MEDS ORDERED: Albuterol Sulfate 2.5 mg/3 ml Neb ONE (19:42)
[2018-12-27] MEDS ORDERED: Furosemide 40 MG/4 ML VIAL ONE (19:47)
[2018-12-27] MEDS ORDERED: Magnesium 2 GM/50 ML BAG (IN WATER) ONE (19:47)
[2018-12-27] MEDS ORDERED: Aspirin 81 mg Enteric Coated Tablet ONE (19:47)
[2018-12-27] MEDS ORDERED: Dexamethasone 10 MG/ML VIAL ONE (19:47)
--- NOTE | 2018-12-27 19:47 | RAD ---
Chest one view HISTORY: Dyspnea. COMPARISON: 11/27/2018 and 12/07/2018. FINDINGS: Cardiac silhouette is magnified by projection. Pulmonary vasculature is unremarkable. Media stinum is midline. No confluent airspace consolidation or evidence of pneumothorax. drier belt conveyor leads overlie the chest. IMPRESSION: No active cardiopulmonary abnormalities are demonstrated.
[2018-12-27 20:16] LABS: Hemoglobin 11.1 g/dL (14.0-18.0); Mean Corpuscular HGB CONC 32.5 g/dL (32.0-36.0); Mean Corpuscular Hemoglobin 33.3 pg (27.0-31.0); Mean Platelet Volume 7.5 fL (7.4-10.4); Platelet Count 228 thou/uL (130-400); Red Blood Cell (RBC) Count 3.33 mill/uL (4.70-6.10); White Blood Cell (WBC) Count 5.6 thou/uL (4.8-10.8)
[2018-12-27 20:17] LABS: Actual Bicarbonate (HCO3a) 30.6 mEq/L (22-28); Analyzer IN Cardio ER; Base Excess (BEa) 6.3 mEq/L (-2.0 to +3.0); CO2 Tension 42.9 mmHg (35.0-45.0); Carboxyhemoglobin (COHb) 1.5 gm% (0.0-3.0); Hemoglobin (Hb) 11.3 g/dL (14.0-18.0); O2 Tension (PaO2) 80.3 mmHg (> 70.0); Potassium - ABG Lab 3.03 mmol/L (3.70-5.30); pH, Arterial 7.47 (7.35-7.45)
[2018-12-27 20:21] LABS: ALV-art Gradient 65.715 (0-20); Puncture Site RBA
[2018-12-27 20:36] LABS: Band 2 % (5-11); Lymphocytes 9 % (21-51); MDiff Complete? YES; Macrocytosis SLIGHT = 6-15 cells (100X) (0-5/hpf); Monocytes 2 % (0-10); Neutrophil 76 % (42-75); Platelet Morphology Comment Appears Adequate; Polychromasia SLIGHT = 2-3 cells (100X) (0-2/hpf); Reactive Lymphocytes 11 % (0-10)
[2018-12-27] MEDS ORDERED: Morphine 4 MG/ML VIAL ONE (20:43)
[2018-12-27 20:52] LABS: ALT (SGPT) 45 U/L (8-55); AST (SGOT) 23 U/L (5-34); Albumin 3.4 g/dL (3.4-4.8); Alkaline Phosphatase 61 U/L (40-110); Anion Gap 11 mmol/L (10-20); BUN (Urea Nitrogen) 14 mg/dL (8.4-25.7); Bilirubin, Total 0.5 mg/dL (0.2-1.2); CK (CPK) 67 U/L (30-200); Calc. Creatinine Clearance 0 mL/min (70-130); Calcium 8.8 mg/dL (7.8-10.44); Carbon Dioxide 33 mmol/L (23-31); Chloride 103 mmol/L (98-107); Estimated GFR-MDRD 84; Globulin 2.7 g/dL (2.4-3.5); Glucose 144 mg/dL (83-110); Lipase 14 U/L (8-78); Potassium 3.2 mmol/L (3.5-5.1); Protein, Total 6.1 g/dL (5.8-8.1); Sodium 144 mmol/L (136-145)
[2018-12-27] MEDS ORDERED: Potassium Chloride 20 MEQ TAB ONE (21:22)
--- NOTE | 2018-12-27 21:28 | ULT ---
Venous duplex sonogram bilateral lower extremity HISTORY: Bilateral leg pain and edema. FINDINGS: Each common femoral vein and greater saphenous junction were evaluated along with each femo ral, deep femoral, popliteal, and posterior tibial vein. There is good color and spectral Doppler flow, compression, and augmentation. IMPRESSION: Normal exam.
[2018-12-27 23:03] LABS: Lactic Acid 1.6 mmol/L (0.5-2.2)
--- NOTE | 2018-12-28 00:06 | HP ---
PRIMARY CARE PROVIDER: Dr. Maria Guadalupe Okeefe. CHIEF COMPLAINT: Shortness of breath and lower extremity swelling. HISTORY OF PRESENT ILLNESS: This is a 73-year-old male, who presented to [facility] Emergency Department complaining of increasing lower extremity edema over the last 2 weeks with associated increased shortness of breath. The patient was recently hospitalized at [facility] from 11/27 through 11/30/2018, for suspected urinary tract infection as well as bilateral ureterohydronephrosis. The patient was treated during that admission for a suspected urinary tract infection with Levaquin and discharged home on ciprofloxacin. The patient was also given tapering prednisone regimen, completing the course per the patient's report. The patient states he has been compliant with his chronic inhalers for his COPD, but denies home oxygen use on a regular basis. The patient states he previously was using nocturnal CPAP, but this was discontinued. The patient denied any specific fever, chills, trauma, injury, or travel history. The patient denies any recent exposure history or change to his chronic medication regimen. The patient denied any associated chest pain, jaw, or left arm discomfort. In the emergency room, the patient underwent general evaluation including chest imaging showing no acute infiltrates. The patient was noted with lower extremity edema, undergoing bilateral venous Doppler study showing no evidence for DVT. The patient was placed on a BiPAP noninvasive mechanical ventilation and given IV vancomycin and Levaquin. The patient also received aspirin 324 mg in addition to morphine sulfate, Lasix, Decadron, magnesium sulfate, and bronchodilator therapy with DuoNeb. PAST MEDICAL HISTORY: 1. Chronic obstructive pulmonary disease. 2. Tobacco abuse. 3. Rheumatoid arthritis. 4. Chronic lower extremity venous stasis. 5. Bilateral ureterohydronephrosis, chronic. 6. Microcytic anemia with folate deficiency. 7. Hydrocele status post repair x2. 8. Limited mobility status, chronic. 9. Hypertension. 10. Anxiety/depression. 11. Alcohol abuse. PAST SURGICAL HISTORY: 1. Status post carpal tunnel release on the left. 2. Status post hydrocele repair x2. 3. Status post right shoulder and left heel repair. CURRENT MEDICATIONS: Based on discharge summary 11/30/2018. 1. Flomax 0.4 mg p.o. daily. 2. ProAir HFA one puff inhaled q.4 hours p.r.n. 3. Allopurinol 100 mg p.o. daily. 4. Symbicort 160/4.5 two puffs inhaled b.i.d. 5. Cymbalta 60 mg p.o. daily. 6. Gabapentin 200 mg p.o. q.a.m. and 400 mg p.o. at bedtime. 7. DuoNeb 3 mL nebulized q.i.d. p.r.n. 8. Lovastatin 10 mg p.o. at bedtime. 9. Methotrexate 10 mg p.o. weekly. 10. Tizanidine 4 mg p.o. at bedtime p.r.n. 11. Tramadol extended release 300 mg p.o. daily. 12. Folic acid 1 mg p.o. daily. 13. Lasix 40 mg p.o. daily. ALLERGIES: PENICILLIN. FAMILY HISTORY: Positive for hypertension and diabetes mellitus. SOCIAL HISTORY: The patient resides in [place], [place]. . Smokes up to a pack of cigarettes daily. Alcohol use daily. No illicit drug use. Disabled. REVIEW OF SYSTEMS: CONSTITUTIONAL: Negative for weight loss or gain, ability to conduct usual activities. SKIN: Negative for rash, itching. EYES: Negative for double vision, pain. ENT/MOUTH: Negative for nose bleeding, neck stiffness, pain, tenderness. CARDIOVASCULAR: Negative for palpitations, dyspnea on exertion, orthopnea. RESPIRATORY: Negative for shortness of breath, wheezing, cough, hemoptysis, fever or night sweats. GASTROINTESTINAL: Negative for poor appetite, abdominal pain, heartburn, nausea, vomiting, constipation, or diarrhea. GENITOURINARY: Negative for urgency, frequency, dysuria, nocturia. MUSCULOSKELETAL: Negative for pain, swelling. NEUROLOGIC/PSYCHIATRIC: Negative for anxiety, depression. ALLERGY/IMMUNOLOGIC: Negative for skin rash, bleeding tendency. Otherwise, negative except as stated per HPI. PHYSICAL EXAMINATION: VITAL SIGNS: On admission, blood pressure 121/89, pulse 111, respiratory rate 28, temperature 98 degrees Fahrenheit, O2 saturation 95% on room air. GENERAL APPEARANCE: This is a 73-year-old male, alert and oriented x3, agitated, responds to questioning on current BiPAP noninvasive mechanical ventilation. HEENT: Pupils are equal, round, reactive to light and accommodation. Extraocular muscles are intact. No scleral icterus. No conjunctival injection. Nares patent. OP is clear. BiPAP noninvasive mechanical ventilation mask in place. NECK: Supple. No cervical adenopathy. No thyromegaly. No carotid bruits. No JVD appreciated. Cervical spine with full active and passive range of motion. No meningeal signs noted. CHEST: Diminished breath sounds bilaterally with prolonged expiratory phase. CARDIOVASCULAR: S1 and S2 with distant heart sounds. No murmur, rub, or gallop appreciated. ABDOMEN: Obese, soft, nontender, and nondistended. Bowel sounds are positive in all 4 quadrants. There is no hepatosplenomegaly. No abdominal bruits. No rebound or guarding appreciated. EXTREMITIES: Pitting edema to the proximal piedra bilaterally. Positive erythema over the entire bilateral lower extremities. Pulses are palpable distally at the dorsalis pedis, posterior tibial, and popliteal arteries bilaterally. Capillary refill less than 2 seconds. NEUROLOGIC: Cranial nerves 2 through 12 are grossly intact. No focal or lateralizing signs appreciated. PERTINENT LABORATORY AND X-RAY FINDINGS: Sodium 144, potassium 3.2, chloride 103, CO2 of 33, BUN 14, creatinine 1.05, estimated GFR of 84, glucose 144. Lactic acid level ranged between 1.6 to 2.4, calcium 8.8. LFTs within normal limits. BNP 52. Troponin I 0.017. Lipase 14. CBC showed a white blood cell count of 5.6, hemoglobin 11, hematocrit 34, MCV 102, platelet count 228 with 76% neutrophils. ABG dated 12/27/2018, showed a pH 7.47, pCO2 of 43, pO2 of 80, bicarb 30.6, O2 saturation 96% on 28% FiO2. Portable chest x-ray dated 12/27/2018, showed no acute cardiopulmonary process. Bilateral lower extremity venous Doppler study dated 12/27/2018, showed no evidence for DVT. EKG dated 12/27/2018, by my interpretation shows sinus mechanism with heart rates in the 90s. Normal R-wave progression noted in the precordial leads. Normal axis. No acute ST-T wave changes appreciated. ASSESSMENT AND PLAN: 1. Acute hypoxic respiratory failure secondary to #2. Continue BiPAP noninvasive mechanical ventilation, weaning as clinically indicated. Suspect chronic obstructive pulmonary disease exacerbation as underlying etiology. See #2 below for management. 2. Acute chronic obstructive pulmonary disease exacerbation. Continue Solu-Medrol 40 mg IV q.6 hours with additional Levaquin 750 mg IV q.24 hours. Continue DuoNeb q.4 hours. 3. Lower extremity edema. Appears chronic. Add Lasix 20 mg IV x1 now and b.i.d. Monitor clinical response. Consider lower extremity compression wraps. 4. Tobacco abuse. We will offer smoking cessation resources prior to discharge. 5. Chronic macrocytic anemia. Stable currently. Continue serial H and H monitoring. No current evidence of active blood loss. 6. Prophylaxis. SCDs while in bed. Pepcid 20 mg p.o. b.i.d. PT evaluation for functional assessment. 7. Code status is full. Surrogate medical decision maker is Keisha Lea. Job ID: [id number]
[2018-12-28] MEDS ORDERED: Morphine 2 MG/ML SYRINGE ONE (00:18)
[2018-12-28] MEDS ORDERED: Ondansetron ODT 4 MG TAB SL PRN (01:04)
[2018-12-28] MEDS ORDERED: Ondansetron PF 4 MG/2 ML Vial IVP PRN ×2 (01:04→01:05)
[2018-12-28] MEDS ORDERED: Acetaminophen 500 MG TAB PO PRN (01:05)
[2018-12-28] MEDS ORDERED: hydrALAZINE 20 MG/ML VIAL SLOW IVP PRN (01:05)
[2018-12-28] MEDS ORDERED: Benzonatate 100 MG CAP PO PRN (01:05)
[2018-12-28] MEDS ORDERED: Ondansetron ODT 4 MG TAB PO PRN (01:05)
[2018-12-28] MEDS ORDERED: Morphine 2 MG/ML SYRINGE SLOW IVP SCH (01:15)
[2018-12-28] MEDS ORDERED: methylPREDNISolone Sod Succ 40 MG VIAL IVP SCH (01:15)
[2018-12-28] MEDS ORDERED: Furosemide 20 MG/2 ML VIAL SLOW IVP SCH (01:15)
[2018-12-28] MEDS ORDERED: CODEINE PO PRN (01:21)
[2018-12-28] MEDS ORDERED: ACETAMINOPHEN PO PRN (01:21)
[2018-12-28 01:34] VITALS: BMI 27.9
[2018-12-28] MEDS: methylPREDNISolone Sod Succ 40 MG VIAL IVP SCH ×3 (02:16→17:31)
[2018-12-28] MEDS: Acetaminophen/Codeine 30-300mg Tablet PO PRN ×2 (02:17→08:50)
[2018-12-28 02:27] LABS: Troponin I Less than 0.010 ng/mL (< 0.028)
[2018-12-28] MEDS: Furosemide 20 MG/2 ML VIAL SLOW IVP SCH ×2 (05:23→14:34)
[2018-12-28] MEDS: Morphine 2 MG/ML SYRINGE SLOW IVP PRN ×3 (05:28→20:59)
[2018-12-28 05:50] LABS: Anion Gap 11 mmol/L (10-20); BUN (Urea Nitrogen) 16 mg/dL (8.4-25.7); Calc. Creatinine Clearance 69 mL/min (70-130); Calcium 9.2 mg/dL (7.8-10.44); Carbon Dioxide 31 mmol/L (23-31); Chloride 100 mmol/L (98-107); Estimated GFR-MDRD 74; Glucose 245 mg/dL (83-110); Potassium 4.2 mmol/L (3.5-5.1); Sodium 138 mmol/L (136-145)
[2018-12-28] MEDS ORDERED: Furosemide 40 MG/4 ML VIAL SLOW IVP SCH (06:00)
[2018-12-28 06:07] LABS: Band 5 % (5-11); Hemoglobin 10.4 g/dL (14.0-18.0); Lymphocytes 10 % (21-51); MDiff Complete? YES; Mean Corpuscular HGB CONC 32.3 g/dL (32.0-36.0); Mean Corpuscular Hemoglobin 33.1 pg (27.0-31.0); Mean Platelet Volume 7.1 fL (7.4-10.4); Monocytes 2 % (0-10); Neutrophil 83 % (42-75); Platelet Count 222 thou/uL (130-400); Red Blood Cell (RBC) Count 3.15 mill/uL (4.70-6.10)
[2018-12-28] MEDS ORDERED: Aspirin 325 MG TAB PO SCH (08:00)
[2018-12-28] MEDS: Famotidine 20 MG TAB PO SCH ×2 (08:42→20:55)
[2018-12-28] MEDS ORDERED: Dexamethasone 10 MG/ML VIAL SLOW IVP SCH (09:00)
[2018-12-28] MEDS ORDERED: FLU VACC TS2019-20(65YR UP)/PF 180 MCG/0.5 ML SYRINGE IM ONE (09:00)
[2018-12-28] MEDS ORDERED: Vancomycin HCl 1 GM in Premix Bag 1 BAG IVPB SCH (09:00)
--- NOTE | 2018-12-28 09:32 | CON ---
DATE OF CONSULTATION: 12/28/2018 CONSULTING PHYSICIAN: Alberto Schultz REASON FOR CONSULTATION: IMCU placement. HISTORY OF PRESENT ILLNESS: The patient is a 73-year-old male, who was admitted last night after presenting with couple of days of increasing lower extremity edema. He was incidentally found to be very short of breath. He was placed on BiPAP for a short amount of time, but I think he has been off that for a while. He says his legs are much better today after receiving diuretics. He is currently being treated with antibiotics, steroids, breathing treatments, and diuretics. PAST MEDICAL HISTORY: 1. COPD, currently still smoking. 2. Rheumatoid arthritis. 3. Lower extremity venous stasis. 4. Ureteral hydronephrosis, which is chronic. 5. Iron deficiency anemia. 6. Hypertension. 7. Anxiety/depression. 8. Alcohol abuse. PAST SURGICAL HISTORY: 1. Carpal tunnel release, left hand. 2. Hydrocele repair x2. 3. Right shoulder surgery. 4. Left heel repair. MEDICATIONS: Prior to admission; 1. Flomax 0.4 mg daily. 2. ProAir HFA metered-dose inhaler every 4 hours as needed. 3. Allopurinol 100 mg daily. 4. Symbicort 160/4.5 two puffs twice daily. 5. Cymbalta 60 mg daily. 6. Gabapentin 200 mg in the morning and 400 mg at night. 7. DuoNeb four times daily as needed. 8. Lovastatin 10 mg nightly. 9. Methotrexate 10 mg daily. 10. Tizanidine 4 mg nightly. 11. Tramadol extended release 300 mg daily. 12. Folate 1 mg daily. 13. Lasix 40 mg daily. ALLERGIES: PENICILLIN. FAMILY MEDICAL HISTORY: Remarkable for hypertension and diabetes. SOCIAL HISTORY: He lives at [facility]. He is . He says he smokes 3 or 4 cigarettes a day, but history and physical indicates he smokes a pack a day. Consumes alcohol daily according to history and physical, although the patient minimized that. REVIEW OF SYSTEMS: Previously diagnosed with sleep apnea, noncompliant, had his machine taken away. PHYSICAL EXAMINATION: VITAL SIGNS: Temperature 97.9, pulse 87, blood pressure 131/79, and O2 saturation 100%. GENERAL: He is awake, alert, in no acute distress. HEENT: He has a class IV Mallampati airway. NECK: No adenopathy or JVD. LUNGS: He has diffuse mild expiratory wheezing bilaterally. CARDIOVASCULAR: S1 and S2 regular without murmur. ABDOMEN: Obese, soft. No hepatosplenomegaly. EXTREMITIES: No clubbing or cyanosis. He has 3+ edema from his knees downward. LABORATORY DATA: White blood cell count of 5, hematocrit 30.3, and platelet count 222. PH of 7.47, pCO2 of 43, and pO2 of 80. Sodium 138, potassium 4.2, chloride 100, CO2 of 31, BUN 16, creatinine 1.2, and glucose 245. ASSESSMENT: 1. Chronic obstructive pulmonary disease with exacerbation. His x-ray looks relatively normal without fluid overload or evidence of pneumonia. 2. Acute hypoxic respiratory failure, which improved after BiPAP. 3. Lower extremity edema, which may be secondary to diastolic heart failure, but may be secondary to cor pulmonale. PLAN: He is safe enough for transfer to the medical floor. He will continue diuretics, steroids, nebulization therapy, and antibiotics. I have stopped the vancomycin. He no longer needs the BiPAP. Job ID: [id number]
--- NOTE | 2018-12-28 18:47 | PDOC.HOSPP ---
- Subjective Encounter Date: 12/28/18 Encounter Time: 10:40 Subjective: Pt seen for followup re: acute hypoxic respiratory failure. Denies chest pain. Shortness of breath is better. - Objective Vital Signs & Weight: Vital Signs (12 hours) Temp Pulse Pulse Resp BP Pulse Ox Pulse Ox 12/28/18 16:00 98.1 F 97 20 109/66 98 12/28/18 15:04 90 18 97 12/28/18 11:09 107 H 95 12/28/18 10:22 87 16 98 12/28/18 10:00 100 12/28/18 09:50 97.6 F 84 20 130/71 100 12/28/18 07:37 96.7 F L 12/28/18 07:35 83 16 100 Pulse Ox 12/28/18 16:00 12/28/18 15:04 12/28/18 11:09 92 L 12/28/18 10:22 12/28/18 10:00 12/28/18 09:50 12/28/18 07:37 12/28/18 07:35 Weight Weight 189 lb 4.8 oz Most Recent Monitor Data Heart Rate from ECG 91 NIBP 94/56 NIBP BP-Mean 68 Respiration from ECG 16 SpO2 100 I&O: 12/27/18 12/28/18 12/29/18 06:59 06:59 06:59 Intake Total 380 1010 Output Total 350 400 Balance 30 610 Result Diagrams: 12/28/18 05:17 12/28/18 05:17 Additional Labs: Labs and MARs reviewed by ct Hospitalist ROS - Review of Systems Respiratory: reports: SOB with excertion. denies: cough, dry, shortness of breath, hemoptysis, pleuritic pain, sputum, wheezing Cardiovascular: reports: other. denies: chest pain, palpitations, orthopnea, paroxysmal noc. dyspnea, edema, light headedness - Medication Medications: Active Medications Generic Name Dose Route Start Last Admin Trade Name Freq PRN Reason Stop Dose Admin Acetaminophen/Codeine Phosphate 1 tab 12/28/18 01:53 12/28/18 08:50 Tylenol #3 PO 1 tab Q6H PRN Administration Severe Pain (7-10) Albuterol/Ipratropium 3 ml 12/28/18 02:30 12/28/18 15:04 Duoneb NEB 3 ml [id number] MARTA Administration Famotidine 20 mg 12/28/18 09:00 12/28/18 08:42 Pepcid PO 20 mg BID MARTA Administration Furosemide 20 mg 12/28/18 06:00 12/28/18 14:34 Lasix SLOW IVP 20 mg 0600,1400 MARTA Administration Methylprednisolone Sodium Succinate 40 mg 12/28/18 06:00 12/28/18 17:31 Solu-Medrol IVP 40 mg Q6HR MARTA Administration Morphine Sulfate 2 mg 12/28/18 01:05 12/28/18 14:44 Morphine SLOW IVP 2 mg Q4H PRN Administration Moderate to Severe Pain (6-10) - Exam General Appearance: NAD Eye: anicteric sclera ENT: moist mucosa Neck: supple Heart: RRR Respiratory: CTAB Gastrointestinal: soft, non-tender Extremities: 2+ LE edema Musculoskeletal: no muscle wasting Psychiatric: normal affect, normal behavior Hosp A/P (1) Acute respiratory failure with hypoxia Code(s): J96.01 - ACUTE RESPIRATORY FAILURE WITH HYPOXIA Status: Acute (2) COPD exacerbation Code(s): J44.1 - CHRONIC OBSTRUCTIVE PULMONARY DISEASE W (ACUTE) EXACERBATION Status: Acute (3) BPH (benign prostatic hyperplasia) Code(s): N40.0 - BENIGN PROSTATIC HYPERPLASIA WITHOUT LOWER URINRY TRACT SYMP Status: Chronic - Plan out of bed/ambulate Continue furosemide. Check 2D echo. Continue steroids and bronchodilators. BPH stable, continue Flomax.
[2018-12-29] MEDS: Morphine 2 MG/ML SYRINGE SLOW IVP PRN (01:15)
[2018-12-29] MEDS: Bacteriostatic Water 30 ML VIAL FS PRN ×2 (01:16→05:43)
[2018-12-29] MEDS: methylPREDNISolone Sod Succ 40 MG VIAL IVP SCH ×2 (01:16→05:43)
[2018-12-29] MEDS: Furosemide 20 MG/2 ML VIAL SLOW IVP SCH ×2 (05:43→14:04)
--- NOTE | 2018-12-29 08:37 | PRG ---
DATE OF SERVICE: 12/29/2018 SUBJECTIVE: Mr. Marshall is about the same. He had no acute complaints. OBJECTIVE: VITAL SIGNS: His temperature is 98.1, pulse 102, respirations 22, O2 saturation 96% and blood pressure 113/53. HEENT: Unremarkable. NECK: No adenopathy or JVD. CHEST: Clear anteriorly. CARDIAC: S1, S2. Regular. ABDOMEN: Soft. EXTREMITIES: Edematous. No new labs are done today. Cultures are sterile. ASSESSMENT: 1. Chronic obstructive pulmonary disease with exacerbation. 2. Acute hypoxic respiratory failure. 3. Lower extremity edema. PLAN: 1. Change to oral steroids. 2. Increase activity as tolerated. 3. Likely stable for discharge soon. 4. He probably has sleep apnea, but he says he has been diagnosed in the past and refuses to wear CPAP. Job ID: [id number]
[2018-12-29] MEDS: Famotidine 20 MG TAB PO SCH ×2 (08:55→20:54)
[2018-12-29] MEDS: predniSONE 20 MG TAB PO SCH (08:58)
[2018-12-29] MEDS: Acetaminophen/Codeine 30-300mg Tablet PO PRN (08:58)
[2018-12-29] MEDS ORDERED: Prevnar 13-Val Conj/PF 0.5 ML SYRINGE IM ONE (09:00)
[2018-12-29] MEDS: traMADol HCl 50 MG TAB PO PRN ×2 (11:09→21:04)
--- NOTE | 2018-12-29 11:36 | PDOC.HOSPP ---
- Subjective Encounter Date: 12/29/18 Encounter Time: 08:20 Subjective: Pt seen for followup re; acute hypoxic respiratory failure. Feels slightly better. - Objective Vital Signs & Weight: Vital Signs (12 hours) Temp Pulse Resp BP BP Pulse Ox 12/29/18 11:12 98.0 F 96 20 115/66 97 12/29/18 10:32 89 20 95 12/29/18 07:52 98.1 F 102 H 22 H 113/53 L 96 12/29/18 06:30 95 18 95 12/29/18 04:00 98.1 F 92 18 101/65 94 L 12/29/18 02:12 99 12 Weight Weight 189 lb 4.8 oz Most Recent Monitor Data Heart Rate from ECG 91 NIBP 94/56 NIBP BP-Mean 68 Respiration from ECG 16 SpO2 100 I&O: 12/28/18 12/29/18 12/30/18 06:59 06:59 06:59 Intake Total 380 1010 Output Total 350 400 Balance 30 610 Result Diagrams: 12/28/18 05:17 12/28/18 05:17 Additional Labs: labs and MARs reviewed by ar Hospitalist ROS - Review of Systems Respiratory: reports: SOB with excertion Cardiovascular: reports: edema. denies: chest pain, palpitations, orthopnea, paroxysmal noc. dyspnea, light headedness Skin: denies: rash, lesions, lidia, bruising - Medication Medications: Active Medications Generic Name Dose Route Start Last Admin Trade Name Freq PRN Reason Stop Dose Admin Acetaminophen/Codeine Phosphate 1 tab 12/28/18 01:53 12/29/18 08:58 Tylenol #3 PO 1 tab Q6H PRN Administration Severe Pain (7-10) Albuterol/Ipratropium 3 ml 12/28/18 02:30 12/29/18 10:32 Duoneb NEB 3 ml [id number] MARTA Administration Famotidine 20 mg 12/28/18 09:00 12/29/18 08:55 Pepcid PO 20 mg BID MARTA Administration Furosemide 20 mg 12/28/18 06:00 12/29/18 05:43 Lasix SLOW IVP 20 mg 0600,1400 MARTA Administration Levofloxacin 750 mg/ Device 150 mls @ 100 mls/hr 12/28/18 20:00 12/28/18 20: 55 IVPB 150 mls 2000 MARTA Administration Morphine Sulfate 2 mg 12/28/18 01:05 12/29/18 01:15 Morphine SLOW IVP 2 mg Q4H PRN Administration Moderate to Severe Pain (6-10) Prednisone 40 mg 12/29/18 09:00 12/29/18 08:58 Prednisone PO 40 mg DAILY MARTA Administration Sterile Water 1 ml 12/28/18 01:13 12/29/18 05:43 Bacteriostatic Water FS 1 ml PRN PRN Administration RECONSTITUTION Tramadol HCl 100 mg 12/28/18 01:53 12/29/18 11:09 Ultram PO 100 mg Q6H PRN Administration Moderate Pain (4-6) - Exam General Appearance: NAD, awake alert Eye: anicteric sclera ENT: moist mucosa Neck: supple, no thyromegaly, no lymphadenopathy Heart: RRR, no rubs Respiratory: CTAB Gastrointestinal: soft, non-tender Extremities: 2+ LE edema Skin - other findings: Wounds as documented Psychiatric: normal affect, normal behavior Hosp A/P (1) Acute respiratory failure with hypoxia Code(s): J96.01 - ACUTE RESPIRATORY FAILURE WITH HYPOXIA Status: Acute (2) COPD exacerbation Code(s): J44.1 - CHRONIC OBSTRUCTIVE PULMONARY DISEASE W (ACUTE) EXACERBATION Status: Acute (3) BPH (benign prostatic hyperplasia) Code(s): N40.0 - BENIGN PROSTATIC HYPERPLASIA WITHOUT LOWER URINRY TRACT SYMP Status: Chronic - Plan out of bed/ambulate Continue furosemide. Await 2D 3echo. On oral steroids and bronchodilators. Continue Flomax.
[2018-12-29 19:08] VITALS: TEMP 98.2
[2018-12-30] MEDS: Furosemide 20 MG/2 ML VIAL SLOW IVP SCH ×2 (05:26→13:27)
[2018-12-30] MEDS: Acetaminophen/Codeine 30-300mg Tablet PO PRN (05:33)
[2018-12-30 07:40] VITALS: BP 113/62
[2018-12-30] MEDS: Famotidine 20 MG TAB PO SCH (08:03)
[2018-12-30] MEDS: predniSONE 20 MG TAB PO SCH (08:03)
[2018-12-30 10:18] LABS: Anion Gap 12 mmol/L (10-20); BUN (Urea Nitrogen) 20 mg/dL (8.4-25.7); Calc. Creatinine Clearance 84 mL/min (70-130); Calcium 9.5 mg/dL (7.8-10.44); Carbon Dioxide 30 mmol/L (23-31); Chloride 102 mmol/L (98-107); Estimated GFR-MDRD Greater than 90; Glucose 75 mg/dL (83-110); Potassium 3.6 mmol/L (3.5-5.1); Sodium 140 mmol/L (136-145)
[2018-12-30 10:33] LABS: Mean Corpuscular HGB CONC 32.9 g/dL (32.0-36.0); Mean Corpuscular Hemoglobin 33.6 pg (27.0-31.0); Mean Platelet Volume 7.1 fL (7.4-10.4); Platelet Count 241 thou/uL (130-400); RBC Distribution Width 14.1 % (11.5-14.5); Red Blood Cell (RBC) Count 3.27 mill/uL (4.70-6.10); White Blood Cell (WBC) Count 13.6 thou/uL (4.8-10.8)
[2018-12-30 11:23] LABS: Band 2 % (5-11); Lymphocytes 7 % (21-51); MDiff Complete? YES; Metamyelocyte 1 % (0-0); Monocytes 8 % (0-10); Myelocyte 3 % (0-0); Neutrophil 79 % (42-75); RBC Morphology Normal
[2018-12-30] MEDS: Morphine 2 MG/ML SYRINGE SLOW IVP PRN (11:27)
--- NOTE | 2018-12-30 19:26 | DIS ---
DATE OF ADMISSION: 12/27/2018 DATE OF DISCHARGE: 12/30/2018 PRIMARY CARE PROVIDER: Dr. Christianne Oneil. DISCHARGE DIAGNOSES: 1. Acute hypoxic respiratory failure. 2. Chronic obstructive pulmonary disease exacerbation. 3. Hypokalemia. CONSULTS DURING THIS HOSPITALIZATION: Pulmonology Dr. Gordon. CONDITION OF PATIENT ON THE DAY OF DISCHARGE: Stable. I assessed Mr. Marshall on the day of discharge. He denies any chest pain. Shortness of breath has improved. Vital signs are stable. S1 and S2 are heard, regular. Lungs are clear to auscultation bilaterally. DISCHARGE MEDICATIONS: Levofloxacin 750 mg daily for 3 more days, oral prednisone taper. Otherwise, no change was made to his pre-admission home medications as dictated by Dr. Schultz in his history and physical note dated 12/27/2018. HOSPITAL COURSE: Mr. Marshall is a pleasant 73-year-old gentleman, who was admitted to [facility] for acute hypoxic respiratory failure on 12/27/2018. He was treated with BiPAP. His presentation was consistent with COPD exacerbation. Consideration for congestive heart failure was also taken into account since the patient presented with lower extremity edema. He received diuretics. BNP was in the normal range at 52.2. 2D echocardiogram showed left ventricular ejection fraction of 55% to 60%, normal left ventricular size, normal left atrium size, mild mitral regurgitation, and mild tricuspid regurgitation. The patient improved clinically with steroids and bronchodilators as well as antibiotics. He is being discharged home in a stable condition with resumption of home health services. POST-DISCHARGE FOLLOWUP: The patient is advised to follow up with primary care provider in 3 to 5 days' time. Many thanks for allowing me to participate in your patient's care. Please feel free to contact me with any questions or concerns. LABORATORY DATA: On the day of discharge, he has sodium of 140, potassium 3.6, creatinine 0.96. White count 13,600, hemoglobin 11, and platelet count 241, 000. ACTIVITY: As tolerated. DIET: Regular. DISCHARGE DESTINATION: Home. TIME SPENT: Total amount of time spent coordinating this discharge: 32 minutes. Job ID: [id number] MTDD
--- NOTE | 2019-01-02 08:56 | PQF ---
PHILLIP PULIDO SCOTT E MD [id number] CLINICAL DOCUMENTATION CLARIFICATION FORM: POST DISCHARGE Addendum to original discharge summary date: ____ Late entry note date: __ DATE: 01/02/2019 ATTN: SHAUN CONROY MD Please exercise your independent, professional judgment in responding to the clarification form. Clinical indicators are provided on the bottom of this form for your review Please check appropriate box(s): DIASTOLIC HEART FAILURE: ACUITY [ ] Acute [ ] Acute on Chronic [ ] Chronic [ ] Other diagnosis [ ] Unable to determine For continuity of documentation, please document condition throughout progress notes and discharge summary. Thank You. CLINICAL INDICATORS - SIGNS / SYMPTOMS / LABS - Lower extremity edema, which may be sec to diastolic heart failure, Consultation report, 12/28, SHAUN CONROY MD - BNP: 52.2- Laboratory, 12/27, - EF is visually estimated at 55-60%- Echocardiogram, 12/29 - Mild mitral regurgitation, Mild tricuspid regurgitation- DS, 12/30, Dick Stern MD RISKS: - Hypertension-H&P, 12/27, Alberto Schultz DO - COPD exacerbation-H&P, 12/27, Alberto Schultz DO TREATMENTS: Lasix.IV 20mg- H&P, 12/27, Alberto Schultz DO (This form is maintained as a part of the permanent medical record) 2014 [employer]. All Rights Reserved Gilles Davies [not provided] [not provided] STEVED
== END 2018-12-30 17:22 | disposition home or self-care (01) | DRG 189 ==
LOC: ERS 19:11 → IMCU/EMU 21:33 → T4-A 12-28 08:15 → IMCU/EMU 12-28 08:27 → T4-A 12-28 10:25
PROVIDERS: ADMIT Family Medicine; ATTEND Family Medicine
DX: J96.01 Acute respiratory failure with hypoxia (principal); J44.1 Chronic obstructive pulmonary disease with (acute) exacerbation; I50.32 Chronic diastolic (congestive) heart failure; N13.30 Unspecified hydronephrosis; E87.6 Hypokalemia; I11.0 Hypertensive heart disease with heart failure; M06.9 Rheumatoid arthritis, unspecified; F32.9 Major depressive disorder, single episode, unspecified; F41.9 Anxiety disorder, unspecified; F17.210 Nicotine dependence, cigarettes, uncomplicated; D50.8 Other iron deficiency anemias; F10.10 Alcohol abuse, uncomplicated; I27.81 Cor pulmonale (chronic); I87.8 Other specified disorders of veins; N40.0 Benign prostatic hyperplasia without lower urinary tract symptoms; Z88.0 Allergy status to penicillin
CPT/HCPCS: 36415; 71045; 80048; 80053; 82550; 82805; 83605; 83690; 83880; 84484; 85007; 85025; 85027; 87040; 93005; 93306; 93970; 94640; 94644; 94660; 96365; 96366; 96367; 96368; 96375; 96376; J1100; J1940; J1956; J2270; J2920; J3370; J3475; J7512; J7611; J7620

== ENCOUNTER 2019-03-27 01:02 | Inpatient (IN) | payer MEDICARE, MEDICAID ==
[2019-03-27] MEDS ORDERED: Albuterol Sulfate 2.5 mg/3 ml Neb ONE ×3 (01:08→02:16)
[2019-03-27 01:29] LABS: Actual Bicarbonate (HCO3a) 32.3 mEq/L (22-28); Analyzer IN Cardio ER; Base Excess (BEa) 0.5 mEq/L (-2.0 to +3.0); Calcium, Ionized 1.25 mmol/L (1.12-1.30); Carboxyhemoglobin (COHb) 1.8 gm% (0.0-3.0); Hemoglobin (Hb) 14.7 g/dL (14.0-18.0); Potassium - ABG Lab 4.16 mmol/L (3.70-5.30)
[2019-03-27] MEDS ORDERED: Succinylcholine Chloride 20 MG/ML 10 ml SYRINGE FS ONE (01:30)
[2019-03-27 01:37] LABS: #Basophils 0.1 thou/uL (0.0-0.2); #Lymphocytes 1.1 thou/uL (1.20-3.40); #Neutrophils 5.6 thou/uL (1.40-6.50); %Basophils 0.7 % (0.0-1.0); %Eosinophils 0.3 % (0.0-10.0); %Lymphocytes 14.5 % (21.0-51.0); %Monocytes 12.7 % (0.0-10.0); %Neutrophils 71.8 % (42.0-75.0); Hemoglobin 14.7 g/dL (14.0-18.0); Mean Corpuscular HGB CONC 32.1 g/dL (32.0-36.0); Mean Corpuscular Hemoglobin 32.6 pg (27.0-31.0); Mean Platelet Volume 8.4 fL (7.4-10.4); Platelet Count 152 thou/uL (130-400); RBC Distribution Width 13.6 % (11.5-14.5); Red Blood Cell (RBC) Count 4.49 mill/uL (4.70-6.10); White Blood Cell (WBC) Count 7.7 thou/uL (4.8-10.8)
[2019-03-27] MEDS ORDERED: fentaNYL Citrate/PF 2,000 MCG in Sodium Chloride 0.9% 60 ML IV SCH (01:51)
[2019-03-27] MEDS ORDERED: Fentanyl 100 MCG/2 ML VIAL ONE (01:52)
[2019-03-27 01:54] LABS: ALT (SGPT) 27 U/L (8-55); AST (SGOT) 29 U/L (5-34); Albumin 3.7 g/dL (3.4-4.8); Alkaline Phosphatase 68 U/L (40-110); Anion Gap 13 mmol/L (10-20); BUN (Urea Nitrogen) 25 mg/dL (8.4-25.7); Bilirubin, Total 0.4 mg/dL (0.2-1.2); CK (CPK) 60 U/L (30-200); Calc. Creatinine Clearance 0 mL/min (70-130); Calcium 9.5 mg/dL (7.8-10.44); Carbon Dioxide 29 mmol/L (23-31); Chloride 99 mmol/L (98-107); Estimated GFR-MDRD 75; Globulin 3.4 g/dL (2.4-3.5); Glucose 121 mg/dL (83-110); Potassium 4.4 mmol/L (3.5-5.1); Protein, Total 7.1 g/dL (5.8-8.1); Sodium 137 mmol/L (136-145)
[2019-03-27] MEDS ORDERED: Vancomycin 1 GM/200 ML BAG ONE (01:57)
[2019-03-27] MEDS ORDERED: CCU Electrolyte Replacement 1 EACH IVPB SCH (02:40)
[2019-03-27] MEDS ORDERED: Ventilator Sedation Protocol 1 EACH FS SCH (02:45)
[2019-03-27 02:52] LABS: Analyzer IN Cardio ER; Calcium, Ionized 1.19 mmol/L (1.12-1.30); Carboxyhemoglobin (COHb) 1.5 gm% (0.0-3.0); Hemoglobin (Hb) 14.7 g/dL (14.0-18.0); O2 Tension (PaO2) 102.7 mmHg (> 70.0); Potassium - ABG Lab 4.63 mmol/L (3.70-5.30)
[2019-03-27] MEDS ORDERED: Fentanyl BOLUS 250 ML IVPB PRN (03:12)
[2019-03-27] MEDS ORDERED: DISCONTINUE PREVIOUS NARCOTIC PAIN MEDICATIONS AND BENZODIAZEPINES FS SCH (03:12)
[2019-03-27] MEDS ORDERED: Propofol BOLUS 1,000 MG/100 ML VIAL IV PRN (03:12)
[2019-03-27] MEDS ORDERED: PHOS-NAK 1 PKT PACK PO PRN ×2 (03:13)
[2019-03-27] MEDS ORDERED: Potassium Phosphate 9 MMOL in Sodium Chloride 0.9% 100 ML IVPB PRN (03:13)
[2019-03-27] MEDS ORDERED: Potassium Chloride 20 MEQ TAB PO PRN (03:13)
[2019-03-27] MEDS ORDERED: CCU ELECTROLYTE REPLACEMENT PROTOCOL FS PRN (03:13)
[2019-03-27] MEDS ORDERED: Potassium Chloride 40 MEQ in Premix Bag 1 BAG IVPB PRN (03:13)
[2019-03-27] MEDS ORDERED: Magnesium Oxide 400 MG TAB PO PRN ×2 (03:13)
[2019-03-27] MEDS ORDERED: Magnesium 2 GM/50 ML 2 GM in Premix Bag 1 BAG IVPB PRN (03:13)
[2019-03-27] MEDS ORDERED: Potassium Phosphate 12 MMOL in Sodium Chloride 0.9% 250 ML 250 ML IV PRN (03:13)
[2019-03-27] MEDS ORDERED: Potassium Chloride 40 MEQ in Sodium Chloride 0.9% 250 ML 250 ML IVPB PRN (03:13)
[2019-03-27] MEDS ORDERED: Potassium Phosphate 15 MMOL in Sodium Chloride 0.9% 250 ML 250 ML IV PRN (03:13)
[2019-03-27 04:12] LABS: CO2 Tension 92.9 mmHg (35.0-45.0); O2 Tension (PaO2) 48.3 mmHg (> 70.0); pH, Arterial 7.16 (7.35-7.45)
[2019-03-27 04:13] LABS: Puncture Site LBA
[2019-03-27 04:14] LABS: ALV-art Gradient 49.475 (0-20)
[2019-03-27 04:16] LABS: pH, Arterial 7.25 (7.35-7.45)
[2019-03-27 04:17] LABS: Puncture Site RBA
--- NOTE | 2019-03-27 04:49 | HP ---
CHIEF COMPLAINT: Shortness of breath. HISTORY OF PRESENT ILLNESS: The patient is a 73-year-old male, with a past medical history of COPD and rheumatoid arthritis and also hypertension, who presents to the hospital with shortness of breath. The patient today called EMS for worsening shortness of breath. At this time per EMS, he was noted to have saturations in the 50s. He was given some epinephrine. He was also given some DuoNeb and magnesium and was put on CPAP. However, when he got to the ER, he appeared to be very tiring out. At this time, the patient was intubated by ER. PAST MEDICAL HISTORY: 1. He has a history of chronic obstructive pulmonary disease. 2. Tobacco abuse. 3. Rheumatoid arthritis. 4. Bilateral ureterohydronephrosis, chronic. 5. Chronic lower extremity venous stasis. 6. Microcytic anemia. 7. Hydrocele. 8. Hypertension. 9. Anxiety and depression. 10. Alcohol abuse. PAST SURGICAL HISTORY: He has had carpal tunnel release in the left, status post hydrocele repair x2, status post right shoulder and heel repair. MEDICATIONS: As per previous discharge. He is on; 1. Flomax 0.4 mg daily. 2. ProAir one puff q.4 hours p.r.n. 3. Allopurinol 100 mg daily. 4. Symbicort 160/4.5 two puffs twice a day. 5. Cymbalta 60 mg daily. 6. Gabapentin 200 mg q.a.m. and 400 mg at bedtime. 7. DuoNeb 3 mL q.i.d. p.r.n. 8. Lovastatin 10 mg at bedtime. 9. Methotrexate 10 mg p.o. weekly. 10. Tizanidine 4 mg p.o. at bedtime. 11. Tramadol as needed. 12. Folic acid one p.o. daily. 13. Lasix 40 mg daily. ALLERGIES: TO PENICILLIN. FAMILY HISTORY: Per notes, positive for hypertension and diabetes. REVIEW OF SYSTEMS: Unable to obtain. The patient is currently intubated. SOCIAL HISTORY: Per prior notes, he still smoked and he used alcohol daily. No drug use. However, I am unable to verify this. CODE STATUS: Unable to determine also. PHYSICAL EXAMINATION: VITAL SIGNS: Are as of the following; temperature of 98.8, respirations are 16, blood pressure 120/80, and heart rate of 80. He is ventilated. GENERAL: He is currently intubated. CARDIOVASCULAR: S1 and S2 present. No murmurs, rubs, or gallops. LUNGS: Clear to auscultation. No rhonchi or wheezes noted. ABDOMEN: Soft. Bowel sounds are present x2. EXTREMITIES: He does have chronic venous stasis. Pedal pulses are present x2. Mild trace pitting edema. NEUROVASCULAR: Neurovascular-page, again he is intubated, unable to obtain a neuro check. His pupils are equal and reactive. LABORATORY RESULTS: As of the following; WBCs of 7.7, hemoglobin of 14.7, hematocrit of 45.6, and platelets of 152. His chemistry sodium of 137, potassium of 4.4, BUN of 25, and creatinine of 1.16. His lactic acid was 3.1. His BNP was 1.9. He had mild elevated troponin. He did have a chest x-ray, which showed possible pneumonia too possible to the right lower lung base. ASSESSMENT AND PLAN: The patient is a 73-year-old male, who presents to the hospital with shortness of breath. 1. Acute hypercapnic respiratory failure. The patient's CO2 was 90 on the blood gas, pH was 7.12. He is currently intubated and sedated. We will start the patient on broad-spectrum antibiotics given the fact that he has rheumatoid arthritis. We will start him on some steroids. We will give DuoNeb. Pulmonology has been consulted. We will also check a flu for influenza. 2. Lactic acidosis, most likely secondary to acute hypercapnic respiratory failure. 3. Mild elevated BNP. His last echocardiogram was in December of 2018, which indicated an ejection fraction of 55% to 60%.. EKG did not show any acute abnormalities. We will continue to monitor. 4. We will put the patient on thiamine and folic acid and also CIWA for alcohol withdrawal. 5. Deep venous thrombosis prophylaxis. We will put the patient on SCDs and subcu Lovenox. Job ID: [id number]
[2019-03-27 04:52] LABS: Lactic Acid 3.3 mmol/L (0.5-2.2)
[2019-03-27 05:05] LABS: Actual Bicarbonate (HCO3a) 27.8 mEq/L (22-28); Base Excess (BEa) -0.1 mEq/L (-2.0 to +3.0); CO2 Tension 59.8 mmHg (35.0-45.0); Calcium, Ionized 1.18 mmol/L (1.12-1.30); Carboxyhemoglobin (COHb) 1.9 gm% (0.0-3.0); Hemoglobin (Hb) 13.9 g/dL (14.0-18.0); O2 Tension (PaO2) 94.6 mmHg (> 70.0); Potassium - ABG Lab 4.64 mmol/L (3.70-5.30); pH, Arterial 7.29 (7.35-7.45)
[2019-03-27 05:06] LABS: Puncture Site R BRACHIAL
--- NOTE | 2019-03-27 07:17 | RAD ---
CHEST 1 VIEW: Date: 03/27/2019 COMPARISON: 12/27/18. HISTORY: Dyspnea. Difficulty breathing. FINDINGS: Portable upright chest demonstrates a normal cardiac silhouette. Patchy interstitial opacities, left greater than right. No pleural effusion. Limited evaluation of pneumothorax due to patient positionin g. IMPRESSION: Patchy interstitial opacities, left greater than right. Correlate for edema or infiltrate. POS: PPP
--- NOTE | 2019-03-27 07:20 | RAD ---
CHEST 1 VIEW: DATE: 03/27/2019 HISTORY: Status post endotracheal tube placement. COMPARISON: 03/27/2019 at 0118 hours. FINDINGS: Endotracheal tube extends down the clavicles. There is also evidence of a nasogastric tube terminatin g in the left upper quadrant. The side hole of the nasogastric tube is difficult to appreciate. There is atherosclerosis of the aorta. Normal cardiac silhouette. Improved aeration of lung parenchyma. Pa tchy interstitial opacities do remain. No pleural effusion or pneumothorax. IMPRESSION: 1. Interval placement of endotracheal tube. 2. Patchy interstitial opacities do remain. Correlate for edema. 3. Nasogastric tube as above. POS: PPP
--- NOTE | 2019-03-27 07:21 | RAD ---
CHEST 1 VIEW: Date: 03/27/2019 HISTORY: Dyspnea. COMPARISON: 03/27/2019 at 0200 hours. FINDINGS: No significant interval change. Redemonstration of endotracheal and nasogastric tube. The overall deg ree of aeration of the lung parenchyma is similar. IMPRESSION: No significant interval change. POS: PPP
[2019-03-27] MEDS: methylPREDNISolone Sod Succ 40 MG VIAL IVP SCH ×4 (07:24→22:59)
[2019-03-27] MEDS: Propofol 1,000 MG/100 ML VIAL IV PRN ×2 (07:24→22:31)
[2019-03-27 08:29] LABS: Troponin I 0.034 ng/mL (< 0.028)
[2019-03-27 08:48] LABS: Actual Bicarbonate (HCO3a) 28.1 mEq/L (22-28); Base Excess (BEa) 1.8 mEq/L (-2.0 to +3.0); CO2 Tension 50.7 mmHg (35.0-45.0); Calcium, Ionized 1.17 mmol/L (1.12-1.30); Carboxyhemoglobin (COHb) 1.2 gm% (0.0-3.0); Hemoglobin (Hb) 13.6 g/dL (14.0-18.0); O2 Tension (PaO2) 95.9 mmHg (> 70.0); Potassium - ABG Lab 4.43 mmol/L (3.70-5.30); pH, Arterial 7.36 (7.35-7.45)
[2019-03-27 08:52] LABS: ALV-art Gradient 125.925 (0-20); Puncture Site LBA
[2019-03-27] MEDS ORDERED: Famotidine/PF 20 mg/2ml Vial SLOW IVP SCH (09:00)
[2019-03-27] MEDS ORDERED: Vancomycin 1 GM in Premix Bag 1 BAG IVPB SCH (09:00)
[2019-03-27] MEDS: Folic Acid 1 MG TAB PO SCH (09:36)
[2019-03-27] MEDS: Saccharomyces boulardii 250 MG CAP PER TUBE SCH (09:36)
[2019-03-27] MEDS: Dextrose 5 % And 0.9 % NaCl 1,000 ML IV SCH ×2 (09:44→19:53)
[2019-03-27] MEDS: Oseltamivir 6 MG/ML ORAL SUSP PER TUBE SCH ×2 (10:11→19:51)
[2019-03-27] MEDS: Vancomycin HCl 750 MG in Sodium Chloride 0.9% 250 ML 250 ML IVPB SCH (13:46)
[2019-03-27] MEDS: Famotidine 20 MG TAB PER TUBE SCH (19:51)
--- NOTE | 2019-03-27 21:13 | CON ---
DATE OF CONSULTATION: 03/27/2019 HISTORY OF PRESENT ILLNESS: Mateus Marshall is a 73-year-old male with chronic obstructive pulmonary disease. He presented with shortness of breath, was intubated. We were consulted because of his presence in the Critical Care Unit. He is awake and alert, mechanically ventilated, and follows commands and nods to questions. PAST MEDICAL HISTORY: Remarkable for; 1. COPD. 2. Rheumatoid arthritis. 3. History of hydronephrosis. 4. History of venous stasis. 5. History of hypertension. 6. History of carpal tunnel release in the left. 7. History of hydrocele repair x2. 8. History of shoulder surgery. 9. History of heel surgery. 10. History of BPH. MEDICATIONS: Prior to admission he was on; 1. Flomax. 2. ProAir. 3. Allopurinol. 4. Symbicort. 5. Cymbalta. 6. Gabapentin. 7. DuoNeb. 8. Lovastatin. 9. Methotrexate. 10. Tizanidine. 11. Tramadol. 12. Folate. FAMILY HISTORY: Negative for lung disease in early age. SOCIAL HISTORY: Not obtained. REVIEW OF SYSTEMS: 10 point review of systems completed, not obtainable. ALLERGIES: HE REPORTS ALLERGIES TO PENICILLIN. PHYSICAL EXAMINATION: GENERAL: He is a pleasant gentleman, in no distress. He nods quickly to questions. VITAL SIGNS: He is afebrile. Heart rates in the 80s, blood pressure 125/64, respiratory rates in the teens to low 20s. HEAD AND NECK: Unremarkable. LUNGS: Clear. HEART: Regular rhythm. S1 and S2 are normal. ABDOMEN: Soft and nontender. EXTREMITIES: Without clubbing, cyanosis, or edema. NEUROLOGIC: Nonfocal. LABORATORY DATA: White count 7.7, hemoglobin 14.7, platelets 152. Electrolytes are normal. He does not have a prolonged expiratory phase reviewing the flow volume loop on the ventilator screen. Chest x-ray shows an increase in interstitial markings. IMPRESSION: Respiratory failure predominantly secondary to chronic obstructive pulmonary disease exacerbation triggered by influenza. His flu screen is positive. His interstitial infiltrates may be influenza mediated. Hopefully, we can consider him for weaning and extubation in 24 to 48 hours. CRITICAL CARE TIME: 30 minutes. Job ID: [id number] MTDD
[2019-03-28] MEDS: Vancomycin HCl 750 MG in Sodium Chloride 0.9% 250 ML 250 ML IVPB SCH (00:58)
[2019-03-28] MEDS: methylPREDNISolone Sod Succ 40 MG VIAL IVP SCH ×3 (05:41→17:05)
[2019-03-28 05:45] LABS: Anion Gap 9 mmol/L (10-20); BUN (Urea Nitrogen) 15 mg/dL (8.4-25.7); Band 2 % (5-11); Calc. Creatinine Clearance 96 mL/min (70-130); Calcium 8.6 mg/dL (7.8-10.44); Carbon Dioxide 27 mmol/L (23-31); Chloride 106 mmol/L (98-107); Estimated GFR-MDRD Greater than 90; Glucose 196 mg/dL (83-110); Hemoglobin 12.7 g/dL (14.0-18.0); Lymphocytes 5 % (21-51); MDiff Complete? YES; Magnesium 2.2 mg/dL (1.6-2.6); Mean Corpuscular HGB CONC 32.5 g/dL (32.0-36.0); Mean Platelet Volume 8.7 fL (7.4-10.4); Monocytes 4 % (0-10); Neutrophil 89 % (42-75); Phosphorus 1.7 mg/dL (2.3-4.7); Platelet Count 138 thou/uL (130-400); Platelet Morphology Comment Appears Adequate; Potassium 4.2 mmol/L (3.5-5.1); RBC Distribution Width 13.8 % (11.5-14.5); Red Blood Cell (RBC) Count 3.85 mill/uL (4.70-6.10); Sodium 138 mmol/L (136-145)
[2019-03-28 07:17] LABS: Actual Bicarbonate (HCO3a) 24.8 mEq/L (22-28); Base Excess (BEa) -1.2 mEq/L (-2.0 to +3.0); CO2 Tension 46.5 mmHg (35.0-45.0); Calcium, Ionized 1.22 mmol/L (1.12-1.30); Carboxyhemoglobin (COHb) 0.9 gm% (0.0-3.0); Hemoglobin (Hb) 13.3 g/dL (14.0-18.0); O2 Tension (PaO2) 125.7 mmHg (> 70.0); Potassium - ABG Lab 4.16 mmol/L (3.70-5.30); pH, Arterial 7.35 (7.35-7.45)
[2019-03-28 07:18] LABS: ALV-art Gradient 101.375 (0-20); Puncture Site LRA
[2019-03-28] MEDS ORDERED: Prevnar 13-Val Conj/PF 0.5 ML SYRINGE IM ONE (08:45)
[2019-03-28] MEDS ORDERED: FLU VACC TS2019-20(65YR UP)/PF 180 MCG/0.5 ML SYRINGE IM ONE (08:45)
[2019-03-28] MEDS: Saccharomyces boulardii 250 MG CAP PER TUBE SCH (09:15)
[2019-03-28] MEDS: Oseltamivir 6 MG/ML ORAL SUSP PER TUBE SCH ×2 (09:15→21:56)
[2019-03-28] MEDS: Folic Acid 1 MG TAB PO SCH (09:15)
[2019-03-28] MEDS: Enoxaparin Sodium 40 MG/0.4 ML SYRINGE SC SCH (09:15)
[2019-03-28] MEDS: Famotidine 20 MG TAB PER TUBE SCH ×2 (09:17→21:56)
[2019-03-28] MEDS: Dextrose 5 % And 0.9 % NaCl 1,000 ML IV SCH ×2 (09:18→21:56)
[2019-03-28] MEDS: Propofol 1,000 MG/100 ML VIAL IV PRN (11:47)
[2019-03-28 13:24] LABS: Vancomycin, Trough 8.3 ug/mL
[2019-03-28] MEDS: Vancomycin 1 GM in Premix Bag 1 BAG IVPB SCH (14:45)
[2019-03-28] MEDS: fentaNYL Citrate/PF 2,000 MCG in Sodium Chloride 0.9% 60 ML IV SCH (15:01)
--- NOTE | 2019-03-28 15:28 | PRG ---
DATE OF SERVICE: 03/28/2019 SUBJECTIVE: Mateus Marshall was given to spontaneous breathing trial this morning. He is awake after his propofol was turned off. He did not pass a leak test. His respiratory rate to tidal volume ratio also was excessive. He tended with some time to calm down with a different ventilator settings, but I felt uncomfortable extubating him without a documented leak. There is no history of traumatic intubation. He is on steroids. We will continue those. OBJECTIVE: VITAL SIGNS: Blood pressure 130/57, heart rate is in the 90s, respiratory rates in the teens, oximetry is 100%. LUNGS: Clear. HEART: Regular rhythm, S1 and S2 are normal. ABDOMEN: Soft and nontender. EXTREMITIES: Without clubbing, cyanosis, or edema. He moves all extremities equally. LABORATORY DATA: White count 7, hemoglobin 12.7, platelets 138. Sodium 138, potassium 4.2, chloride 106, bicarb 27, BUN 15, and creatinine 0.81. PH 7.35, CO2 of 46, PO2 of 125. IMPRESSION: 1. Respiratory failure, most likely secondary to influenza induced chronic obstructive pulmonary disease exacerbation. 2. Chronic obstructive pulmonary disease. 3. Rheumatoid arthritis. 4. Obesity. 5. History of venous stasis. 6. ? vocal cord edema. PLAN: Continue with IV steroids. We will consider weaning and extubation again tomorrow. CRITICAL CARE TIME: 30 minutes. Job ID: [id number]
[2019-03-28] MEDS: Acetaminophen 650 MG Suppository PR PRN (22:55)
[2019-03-29] MEDS: methylPREDNISolone Sod Succ 40 MG VIAL IVP SCH ×5 (00:06→23:53)
[2019-03-29] MEDS: Lorazepam 2 MG/ML VIAL SLOW IVP PRN ×5 (00:19→23:54)
[2019-03-29] MEDS: fentaNYL Citrate/PF 2,000 MCG in Sodium Chloride 0.9% 60 ML IV SCH (01:18)
[2019-03-29] MEDS: Vancomycin 1 GM in Premix Bag 1 BAG IVPB SCH ×2 (02:06→14:16)
[2019-03-29 03:40] LABS: #Lymphocytes 0.2 thou/uL (1.20-3.40); #Monocytes 0.5 thou/uL (0.11-0.59); #Neutrophils 6.5 thou/uL (1.40-6.50); %Basophils 0.5 % (0.0-1.0); %Eosinophils 0.1 % (0.0-10.0); %Monocytes 6.9 % (0.0-10.0); %Neutrophils 89.6 % (42.0-75.0); Hemoglobin 13.6 g/dL (14.0-18.0); Mean Corpuscular HGB CONC 31.7 g/dL (32.0-36.0); Mean Corpuscular Hemoglobin 32.4 pg (27.0-31.0); Mean Platelet Volume 8.3 fL (7.4-10.4); Platelet Count 143 thou/uL (130-400); RBC Distribution Width 13.8 % (11.5-14.5); White Blood Cell (WBC) Count 7.3 thou/uL (4.8-10.8)
[2019-03-29 04:02] LABS: Anion Gap 10 mmol/L (10-20); BUN (Urea Nitrogen) 14 mg/dL (8.4-25.7); Calc. Creatinine Clearance 99 mL/min (70-130); Calcium 9.2 mg/dL (7.8-10.44); Carbon Dioxide 27 mmol/L (23-31); Chloride 107 mmol/L (98-107); Estimated GFR-MDRD Greater than 90; Glucose 193 mg/dL (83-110); Magnesium 2.4 mg/dL (1.6-2.6); Phosphorus 2.4 mg/dL (2.3-4.7); Potassium 4.7 mmol/L (3.5-5.1); Sodium 139 mmol/L (136-145)
[2019-03-29 07:00] LABS: Actual Bicarbonate (HCO3a) 29.1 mEq/L (22-28); Base Excess (BEa) 0.5 mEq/L (-2.0 to +3.0); Calcium, Ionized 1.26 mmol/L (1.12-1.30); Carboxyhemoglobin (COHb) 1.5 gm% (0.0-3.0); Hemoglobin (Hb) 14.2 g/dL (14.0-18.0); O2 Tension (PaO2) 66.8 mmHg (> 70.0); Potassium - ABG Lab 4.96 mmol/L (3.70-5.30); pH, Arterial 7.27 (7.35-7.45)
[2019-03-29 07:34] LABS: CO2 Tension 64.8 mmHg (35.0-45.0); Puncture Site LRA
[2019-03-29] MEDS: Folic Acid 1 MG TAB PO SCH (08:14)
[2019-03-29] MEDS: Saccharomyces boulardii 250 MG CAP PER TUBE SCH (08:14)
[2019-03-29] MEDS: Famotidine 20 MG TAB PER TUBE SCH ×2 (08:14→21:20)
[2019-03-29] MEDS: Enoxaparin Sodium 40 MG/0.4 ML SYRINGE SC SCH (08:14)
--- NOTE | 2019-03-29 08:58 | PDOC.HOSPP ---
- Subjective Encounter Date: 03/28/19 Encounter Time: 10:00 non-verbal Subjective: Patient seen and examined for Resp failure. On Vent. No overnight events - Objective Vital Signs & Weight: Vital Signs (12 hours) Temp Pulse Resp BP Pulse Ox 03/29/19 08:00 99.2 F 13 03/29/19 06:41 109 H 137/87 03/29/19 06:37 100 9 L 99 03/29/19 06:00 12 03/29/19 04:00 97.8 F 11 L 03/29/19 02:45 108 H 10 L 100 03/29/19 02:00 10 L 03/29/19 00:38 105 H 10 L 100 03/29/19 00:00 100.1 F H 11 L 03/28/19 22:07 108 H 15 100 03/28/19 22:00 12 Weight Admit Weight 181 lb Weight 191 lb 9.307 oz Most Recent Monitor Data Heart Rate from ECG 104 NIBP 156/90 NIBP BP-Mean 112 Respiration from ECG 11 SpO2 100 I&O: 03/28/19 03/29/19 03/30/19 06:59 06:59 06:59 Intake Total 2797.2 3317 95.4 Output Total 1129 2113 100 Balance 1668.2 1204 -4.6 Result Diagrams: 03/29/19 03:10 03/29/19 03:10 Radiology Reviewed by me: Yes (CXR - no new changes) EKG Reviewed by me: Yes (Tele SR) Hospitalist ROS - Review of Systems ROS unobtainable: due to endotracheal tube - Medication Medications: Active Medications Generic Name Dose Route Start Last Admin Trade Name Freq PRN Reason Stop Dose Admin Acetaminophen 650 mg 03/27/19 02:40 03/28/19 22:55 Tylenol MN 650 mg Q6H PRN Administration Fever > 101 or Mild Pain Albuterol/Ipratropium 3 ml 03/27/19 10:00 03/29/19 06:37 Duoneb NEB 3 ml [id number] MARTA Administration Enoxaparin Sodium 40 mg 03/28/19 09:00 03/29/19 08:14 Lovenox SC 40 mg 0900 MARTA Administration Famotidine 20 mg 03/27/19 21:00 03/29/19 08:14 Pepcid PER TUBE 20 mg Q12HR MARTA Administration Folic Acid 1 mg 03/27/19 09:00 03/29/19 08:14 Folvite PO 1 mg DAILY MARTA Administration Levofloxacin 500 mg/ Device 100 mls @ 100 mls/hr 03/28/19 04:00 03/29/19 04: 02 IVPB 100 mls Q24HR MARTA Administration Fentanyl Citrate 2,000 mcg/ 100 mls @ 0 mls/hr 03/27/19 03:12 03/29/19 01:18 Sodium Chloride IV 04/26/19 03:12 100 mls INF MARTA Administration Protocol Per Protocol Potassium Phosphate 9 mmol/ 103 mls @ 25.75 mls/hr 03/27/19 03:13 03/28/19 04 :45 Sodium Chloride IVPB 103 mls ASDIR PRN Administration Phosphate 1.0-1.8 Thiamine HCl 100 mg/ Sodium 51 mls @ 100 mls/hr 03/27/19 09:00 03/29/19 08:26 Chloride IVPB 51 mls Q24HR MARTA Administration Dextrose/Sodium Chloride 1,000 mls @ 100 mls/hr 03/27/19 08:45 03/28/19 21:56 D5 0.9% Ns IV 1,000 mls .Q10H MARTA Administration Vancomycin HCl 1 gm/ Device 200 mls @ 200 mls/hr 03/28/19 14:00 03/29/19 02: 06 IVPB 200 mls 0200,1400 MARTA Administration Dexmedetomidine HCl 400 mcg/ 100 mls @ 0 mls/hr 03/28/19 15:30 03/29/19 05:03 Sodium Chloride IVPB 100 mls INF MARTA Administration Protocol Titrate Lorazepam 2 mg 03/27/19 03:12 03/29/19 00:19 Ativan SLOW IVP 04/26/19 03:12 2 mg Q1H PRN Administration Breakthrough agitation Methylprednisolone Sodium Succinate 40 mg 03/27/19 06:00 03/29/19 05:04 Solu-Medrol IVP 40 mg Q6HR MARTA Administration Oseltamivir Phosphate 75 mg 03/27/19 09:00 03/28/19 21:56 Tamiflu PER TUBE 75 mg BID MARTA Administration Propofol 1,000 mg 03/27/19 03:12 03/28/19 11:47 Diprivan IV 04/26/19 03:12 1,000 mg INF PRN Administration TO ACHIEVE GOAL RASS Protocol Saccharomyces Boulardii 250 mg 03/27/19 09:00 03/29/19 08:14 Florastor PER TUBE 250 mg DAILY MARTA Administration - Exam General - other findings: on Mech Vent Heart: RRR, no gallops, no rubs, normal peripheral pulses Respiratory: no wheezes, no rales, normal chest expansion, rhonchi Gastrointestinal: non-tender, non-distended, normal bowel sounds, no palpable masses Extremities: no cyanosis, no clubbing Neurological - other findings: Neuro/Psych - cannot assess due to sedation Hosp A/P - Plan DVT proph w/lovenox, DVT proph w/SCDs Acute hypoxic hypercapneic resp failure on mech vent COPD exacerbation Influenza A Lactic acidosis Obesity BMI 30.9 RA PLAN: Cont Vent support Cont IV Steroids Cont Vancomycin/Levaquin Monitor Vancomycin level Cont Tamiflu Cont other meds AM labs
[2019-03-29] MEDS: Dextrose 5 % And 0.9 % NaCl 1,000 ML IV SCH (10:14)
[2019-03-29] MEDS: Oseltamivir 6 MG/ML ORAL SUSP PER TUBE SCH ×2 (10:14→21:20)
--- NOTE | 2019-03-29 15:18 | PRG ---
DATE OF SERVICE: 03/29/2019 SUBJECTIVE: Mateus Marshall was more bronchospastic this morning. He had a long exhale time and was auto-PEEPing. His ventilator was adjusted. OBJECTIVE: VITAL SIGNS: Heart rate is 101, blood pressure 118/81, respiratory rates in the 20s. LUNGS: Distant with end-expiratory wheezes. HEART: Regular rhythm. ABDOMEN: Soft. EXTREMITIES: Without edema. LABORATORY DATA: White count 7.3, hemoglobin 13.6, platelets 143. Sodium 139, potassium 4.7, chloride 107, bicarb 27, BUN 14, creatinine 0.8. IMPRESSION: Respiratory failure associated with influenza and a chronic obstructive pulmonary disease exacerbation. We will continue mechanical ventilation. He is not weanable based on his significant bronchospasm early this morning that was noticed by the respiratory therapist. Critical care time is 35 minutes Job ID: [id number] MTDD
[2019-03-29] MEDS: hydrALAZINE 20 MG/ML VIAL SLOW IVP PRN (19:34)
[2019-03-29] MEDS: Tamsulosin HCl 0.4 MG CAP PO SCH (21:20)
[2019-03-30 01:32] LABS: Vancomycin, Trough 10.7 ug/mL
[2019-03-30] MEDS: Vancomycin 1 GM in Premix Bag 1 BAG IVPB SCH ×2 (01:33→14:55)
[2019-03-30] MEDS: Dextrose 5 % And 0.9 % NaCl 1,000 ML IV SCH ×3 (04:03→20:13)
[2019-03-30] MEDS: Lorazepam 2 MG/ML VIAL SLOW IVP PRN ×3 (04:14→20:27)
[2019-03-30 04:21] LABS: #Lymphocytes 0.4 thou/uL (1.20-3.40); #Monocytes 0.4 thou/uL (0.11-0.59); %Basophils 0.1 % (0.0-1.0); %Eosinophils 0.1 % (0.0-10.0); %Lymphocytes 5.6 % (21.0-51.0); %Monocytes 5.6 % (0.0-10.0); %Neutrophils 88.6 % (42.0-75.0); Hemoglobin 14.3 g/dL (14.0-18.0); Mean Platelet Volume 8.3 fL (7.4-10.4); Platelet Count 122 thou/uL (130-400); RBC Distribution Width 13.8 % (11.5-14.5); Red Blood Cell (RBC) Count 4.48 mill/uL (4.70-6.10); White Blood Cell (WBC) Count 6.7 thou/uL (4.8-10.8)
[2019-03-30 04:40] LABS: Anion Gap 10 mmol/L (10-20); BUN (Urea Nitrogen) 13 mg/dL (8.4-25.7); Calc. Creatinine Clearance 124 mL/min (70-130); Calcium 9.3 mg/dL (7.8-10.44); Carbon Dioxide 27 mmol/L (23-31); Chloride 106 mmol/L (98-107); Estimated GFR-MDRD Greater than 90; Glucose 201 mg/dL (83-110); Potassium 4.3 mmol/L (3.5-5.1); Sodium 139 mmol/L (136-145)
[2019-03-30] MEDS: methylPREDNISolone Sod Succ 40 MG VIAL IVP SCH ×4 (05:06→23:17)
[2019-03-30] MEDS: hydrALAZINE 20 MG/ML VIAL SLOW IVP PRN ×3 (05:06→23:17)
[2019-03-30 07:14] LABS: Actual Bicarbonate (HCO3a) 30.8 mEq/L (22-28); Base Excess (BEa) 5.6 mEq/L (-2.0 to +3.0); CO2 Tension 46.8 mmHg (35.0-45.0); Calcium, Ionized 1.23 mmol/L (1.12-1.30); Carboxyhemoglobin (COHb) 1.7 gm% (0.0-3.0); Hemoglobin (Hb) 14.5 g/dL (14.0-18.0); Potassium - ABG Lab 3.94 mmol/L (3.70-5.30); pH, Arterial 7.44 (7.35-7.45)
[2019-03-30 07:16] LABS: Puncture Site LRA
[2019-03-30] MEDS: Folic Acid 1 MG TAB PO SCH (08:26)
[2019-03-30] MEDS: DULoxetine 30 MG CAP PER TUBE SCH (08:26)
[2019-03-30] MEDS: Oseltamivir 6 MG/ML ORAL SUSP PER TUBE SCH ×2 (08:26→20:13)
[2019-03-30] MEDS: Saccharomyces boulardii 250 MG CAP PER TUBE SCH (08:26)
[2019-03-30] MEDS: Famotidine 20 MG TAB PER TUBE SCH ×2 (08:26→20:13)
[2019-03-30] MEDS: Enoxaparin Sodium 40 MG/0.4 ML SYRINGE SC SCH (08:26)
--- NOTE | 2019-03-30 08:40 | PDOC.HOSPP ---
- Subjective Encounter Date: 03/29/19 Encounter Time: 10:30 Subjective: Patient seen and examined for resp failure. On Vent. No overnight events - Objective Vital Signs & Weight: Vital Signs (12 hours) Temp Pulse Resp BP Pulse Ox 03/30/19 07:04 110 H 03/30/19 07:02 102 H 24 H 99 03/30/19 07:00 98.1 F 03/30/19 06:00 14 03/30/19 05:06 90 163/93 H 03/30/19 04:00 98.3 F 16 03/30/19 02:51 65 12 100 03/30/19 02:00 12 03/30/19 00:00 98.6 F 19 03/29/19 23:36 101 H 21 H 100 03/29/19 22:07 89 12 100 03/29/19 22:00 12 Weight Admit Weight 181 lb Weight 186 lb 8.177 oz Most Recent Monitor Data Heart Rate from ECG 113 NIBP 144/93 NIBP BP-Mean 110 Respiration from ECG 13 SpO2 100 I&O: 03/29/19 03/30/19 03/31/19 06:59 06:59 06:59 Intake Total 3317 2471.5 Output Total 2113 2250 60 Balance 1204 221.5 -60 Result Diagrams: 03/30/19 04:02 03/30/19 04:02 EKG Reviewed by me: Yes (Tele SR) Hospitalist ROS - Review of Systems ROS unobtainable: due to mental status - Medication Medications: Active Medications Generic Name Dose Route Start Last Admin Trade Name Freq PRN Reason Stop Dose Admin Acetaminophen 650 mg 03/27/19 02:40 03/28/19 22:55 Tylenol MT 650 mg Q6H PRN Administration Fever > 101 or Mild Pain Albuterol/Ipratropium 3 ml 03/27/19 10:00 03/30/19 07:02 Duoneb NEB 3 ml [id number] MARTA Administration Duloxetine HCl 30 mg 03/30/19 09:00 03/30/19 08:26 Cymbalta PER TUBE 30 mg DAILY MARTA Administration Enoxaparin Sodium 40 mg 03/28/19 09:00 03/30/19 08:26 Lovenox SC 40 mg 0900 MARTA Administration Famotidine 20 mg 03/27/19 21:00 03/30/19 08:26 Pepcid PER TUBE 20 mg Q12HR MARTA Administration Folic Acid 1 mg 03/27/19 09:00 03/30/19 08:26 Folvite PO 1 mg DAILY MARTA Administration Hydralazine HCl 10 mg 03/29/19 10:50 03/30/19 05:06 Apresoline SLOW IVP 10 mg Q4H PRN Administration SBP GREATER THAN 160 Levofloxacin 500 mg/ Device 100 mls @ 100 mls/hr 03/28/19 04:00 03/30/19 04: 02 IVPB 100 mls Q24HR MARTA Administration Fentanyl Citrate 2,000 mcg/ 100 mls @ 0 mls/hr 03/27/19 03:12 03/29/19 01:18 Sodium Chloride IV 04/26/19 03:12 100 mls INF MARTA Administration Protocol Per Protocol Potassium Phosphate 9 mmol/ 103 mls @ 25.75 mls/hr 03/27/19 03:13 03/28/19 04 :45 Sodium Chloride IVPB 103 mls ASDIR PRN Administration Phosphate 1.0-1.8 Thiamine HCl 100 mg/ Sodium 51 mls @ 100 mls/hr 03/27/19 09:00 03/30/19 08:27 Chloride IVPB 51 mls Q24HR MARTA Administration Vancomycin HCl 1 gm/ Device 200 mls @ 200 mls/hr 03/28/19 14:00 03/30/19 01: 33 IVPB 200 mls 0200,1400 MARTA Administration Dexmedetomidine HCl 400 mcg/ 100 mls @ 0 mls/hr 03/28/19 15:30 03/30/19 01:33 Sodium Chloride IVPB 100 mls INF MARTA Administration Protocol Titrate Dextrose/Sodium Chloride 1,000 mls @ 50 mls/hr 03/29/19 10:49 03/30/19 04:03 D5 0.9% Ns IV Not Given .Q20H MARTA Lorazepam 2 mg 03/27/19 03:12 03/30/19 04:14 Ativan SLOW IVP 04/26/19 03:12 2 mg Q1H PRN Administration Breakthrough agitation Methylprednisolone Sodium Succinate 40 mg 03/27/19 06:00 03/30/19 05:06 Solu-Medrol IVP 40 mg Q6HR MARTA Administration Oseltamivir Phosphate 75 mg 03/27/19 09:00 03/30/19 08:26 Tamiflu PER TUBE 75 mg BID MARTA Administration Propofol 1,000 mg 03/27/19 03:12 03/28/19 11:47 Diprivan IV 04/26/19 03:12 1,000 mg INF PRN Administration TO ACHIEVE GOAL RASS Protocol Saccharomyces Boulardii 250 mg 03/27/19 09:00 03/30/19 08:26 Florastor PER TUBE 250 mg DAILY MARTA Administration Tamsulosin HCl 0.4 mg 03/29/19 21:00 03/29/19 21:20 Flomax PO 0.4 mg HS MARTA Administration - Exam General - other findings: on Vent Respiratory: rales, rhonchi Gastrointestinal: non-distended, no guarding, no rigidity Extremities: no cyanosis Neurological - other findings: Psych/Neuro - cannot assess due to sedation Hosp A/P - Plan DVT proph w/SCDs Acute hypoxic hypercapneic resp failure on mech vent COPD exacerbation Influenza A Lactic acidosis Obesity BMI 30.9 RA PLAN: Cont Mech Vent Cont Tamiflu Cont Vancomycin/Levaquin/Steroids Monitor Vancomycin level AM labs Cont other meds
[2019-03-30] MEDS: Morphine 2 MG/ML SYRINGE SLOW IVP PRN (17:07)
[2019-03-30] MEDS: Tamsulosin HCl 0.4 MG CAP PO SCH (20:13)
--- NOTE | 2019-03-30 22:46 | PDOC.HOSPP ---
- Subjective Encounter Date: 03/30/19 Encounter Time: 11:00 Subjective: Patient seen and examined for resp failure. On Vent. No overnight events - Objective Vital Signs & Weight: Vital Signs (12 hours) Temp Pulse Resp BP Pulse Ox 03/30/19 22:14 101 H 20 94 L 03/30/19 22:00 16 03/30/19 20:00 19 94 L 03/30/19 19:42 19 03/30/19 19:07 107 H 28 H 100 03/30/19 19:00 97.8 F 03/30/19 18:00 15 03/30/19 16:32 98 03/30/19 16:14 83 178/99 H 03/30/19 16:12 70 12 98 03/30/19 16:00 97.8 F 12 03/30/19 14:00 16 03/30/19 13:24 94 153/92 H 03/30/19 13:21 115 H 27 H 98 03/30/19 12:00 14 03/30/19 11:00 98.5 F Weight Admit Weight 181 lb Weight 186 lb 8.177 oz Most Recent Monitor Data Heart Rate from ECG 85 NIBP 117/71 NIBP BP-Mean 86 Respiration from ECG 17 SpO2 94 I&O: 03/29/19 03/30/19 03/31/19 06:59 06:59 06:59 Intake Total 3317 2471.5 1163 Output Total 2113 2250 860 Balance 1204 221.5 303 Result Diagrams: 03/30/19 04:02 03/30/19 04:02 EKG Reviewed by me: Yes (Tele SR) Hospitalist ROS - Review of Systems ROS unobtainable: due to endotracheal tube - Medication Medications: Active Medications Generic Name Dose Route Start Last Admin Trade Name Freq PRN Reason Stop Dose Admin Acetaminophen 650 mg 03/27/19 02:40 03/28/19 22:55 Tylenol [place] 650 mg Q6H PRN Administration Fever > 101 or Mild Pain Albuterol/Ipratropium 3 ml 03/27/19 10:00 03/30/19 22:14 Duoneb NEB 3 ml [id number] MARTA Administration Duloxetine HCl 30 mg 03/30/19 09:00 03/30/19 08:26 Cymbalta PER TUBE 30 mg DAILY MARTA Administration Enoxaparin Sodium 40 mg 03/28/19 09:00 03/30/19 08:26 Lovenox SC 40 mg 0900 MARTA Administration Famotidine 20 mg 03/27/19 21:00 03/30/19 20:13 Pepcid PER TUBE 20 mg Q12HR MARTA Administration Folic Acid 1 mg 03/27/19 09:00 03/30/19 08:26 Folvite PO 1 mg DAILY MARTA Administration Hydralazine HCl 10 mg 03/29/19 10:50 03/30/19 17:08 Apresoline SLOW IVP 10 mg Q4H PRN Administration SBP GREATER THAN 160 Levofloxacin 500 mg/ Device 100 mls @ 100 mls/hr 03/28/19 04:00 03/30/19 04: 02 IVPB 100 mls Q24HR MARTA Administration Fentanyl Citrate 2,000 mcg/ 100 mls @ 0 mls/hr 03/27/19 03:12 03/29/19 01:18 Sodium Chloride IV 04/26/19 03:12 100 mls INF MARTA Administration Protocol Per Protocol Potassium Phosphate 9 mmol/ 103 mls @ 25.75 mls/hr 03/27/19 03:13 03/28/19 04 :45 Sodium Chloride IVPB 103 mls ASDIR PRN Administration Phosphate 1.0-1.8 Thiamine HCl 100 mg/ Sodium 51 mls @ 100 mls/hr 03/27/19 09:00 03/30/19 08:27 Chloride IVPB 51 mls Q24HR MARTA Administration Vancomycin HCl 1 gm/ Device 200 mls @ 200 mls/hr 03/28/19 14:00 03/30/19 14: 55 IVPB 200 mls 0200,1400 MARTA Administration Dexmedetomidine HCl 400 mcg/ 100 mls @ 0 mls/hr 03/28/19 15:30 03/30/19 20:13 Sodium Chloride IVPB 100 mls INF MARTA Administration Protocol Titrate Dextrose/Sodium Chloride 1,000 mls @ 50 mls/hr 03/29/19 10:49 03/30/19 20:13 D5 0.9% Ns IV Not Given .Q20H MARTA Lorazepam 2 mg 03/27/19 03:12 03/30/19 20:27 Ativan SLOW IVP 04/26/19 03:12 2 mg Q1H PRN Administration Breakthrough agitation Methylprednisolone Sodium Succinate 40 mg 03/27/19 06:00 03/30/19 17:08 Solu-Medrol IVP 40 mg Q6HR MARTA Administration Morphine Sulfate 2 mg 03/27/19 03:12 03/30/19 17:07 Morphine SLOW IVP 04/26/19 03:12 2 mg Q1H PRN Administration BREAKTHROUGH PAIN/Agitation Oseltamivir Phosphate 75 mg 03/27/19 09:00 03/30/19 20:13 Tamiflu PER TUBE 75 mg BID MARTA Administration Propofol 1,000 mg 03/27/19 03:12 03/28/19 11:47 Diprivan IV 04/26/19 03:12 1,000 mg INF PRN Administration TO ACHIEVE GOAL RASS Protocol Saccharomyces Boulardii 250 mg 03/27/19 09:00 03/30/19 08:26 Florastor PER TUBE 250 mg DAILY MARTA Administration Tamsulosin HCl 0.4 mg 03/29/19 21:00 03/30/19 20:13 Flomax PO 0.4 mg HS MARTA Administration - Exam General Appearance: NAD Neck: supple, no JVD Heart: RRR, no gallops Respiratory: rales, rhonchi Gastrointestinal: soft, no guarding, no rigidity Extremities: no cyanosis Hosp A/P - Plan DVT proph w/SCDs Acute hypoxic hypercapneic resp failure on mech vent COPD exacerbation Influenza A Lactic acidosis Obesity BMI 30.9 RA PLAN: Cont Tamiflu Cont Vancomycin with level monitoring Cont Levaquin/Steroids Cont Mech Ventilation Cont other meds AM labs Home meds unclear
[2019-03-31] MEDS: Lorazepam 2 MG/ML VIAL SLOW IVP PRN ×5 (00:59→23:33)
[2019-03-31] MEDS: Vancomycin 1 GM in Premix Bag 1 BAG IVPB SCH ×2 (01:52→14:14)
[2019-03-31 05:09] LABS: Band 4 % (5-11); Hemoglobin 14.6 g/dL (14.0-18.0); Lymphocytes 5 % (21-51); MDiff Complete? YES; Mean Corpuscular HGB CONC 32.4 g/dL (32.0-36.0); Mean Corpuscular Hemoglobin 32.5 pg (27.0-31.0); Mean Platelet Volume 6.5 fL (7.4-10.4); Monocytes 3 % (0-10); Neutrophil 88 % (42-75); Platelet Count 161 thou/uL (130-400); Platelet Morphology Comment Appears Adequate; RBC Distribution Width 13.9 % (11.5-14.5); White Blood Cell (WBC) Count 6.9 thou/uL (4.8-10.8)
[2019-03-31 05:14] LABS: Anion Gap 10 mmol/L (10-20); BUN (Urea Nitrogen) 15 mg/dL (8.4-25.7); Calc. Creatinine Clearance 118 mL/min (70-130); Calcium 8.9 mg/dL (7.8-10.44); Carbon Dioxide 29 mmol/L (23-31); Chloride 105 mmol/L (98-107); Estimated GFR-MDRD Greater than 90; Glucose 215 mg/dL (83-110); Potassium 4.5 mmol/L (3.5-5.1); Sodium 139 mmol/L (136-145)
[2019-03-31] MEDS: methylPREDNISolone Sod Succ 40 MG VIAL IVP SCH ×4 (06:38→23:34)
[2019-03-31 07:41] LABS: Actual Bicarbonate (HCO3a) 28.5 mEq/L (22-28); CO2 Tension 42.3 mmHg (35.0-45.0); Calcium, Ionized 1.29 mmol/L (1.12-1.30); O2 Tension (PaO2) 79.3 mmHg (> 70.0); Potassium - ABG Lab 4.22 mmol/L (3.70-5.30); pH, Arterial 7.45 (7.35-7.45)
[2019-03-31 07:46] LABS: ALV-art Gradient 81.725 (0-20); Puncture Site LRA
[2019-03-31] MEDS: Folic Acid 1 MG TAB PO SCH (08:37)
[2019-03-31] MEDS: Famotidine 20 MG TAB PER TUBE SCH ×2 (08:37→20:21)
[2019-03-31] MEDS: Enoxaparin Sodium 40 MG/0.4 ML SYRINGE SC SCH (08:37)
[2019-03-31] MEDS: DULoxetine 30 MG CAP PER TUBE SCH (08:37)
[2019-03-31] MEDS: Saccharomyces boulardii 250 MG CAP PER TUBE SCH (08:37)
[2019-03-31] MEDS: Oseltamivir 6 MG/ML ORAL SUSP PER TUBE SCH ×2 (08:38→20:21)
--- NOTE | 2019-03-31 09:00 | PRG ---
DATE OF SERVICE: 03/30/2019 SUBJECTIVE: Mateus Marshall still has very long expiratory phase. OBJECTIVE: VITAL SIGNS: Heart rates in the 70s, blood pressure 149/94, respiratory rate is in the 4.5 to 5 seconds at times. LUNGS: Remarkable for wheezes. HEART: Regular rhythm. ABDOMEN: Soft. EXTREMITIES: Without asymmetry. LABORATORY DATA: White count 6.7, hemoglobin 14.3, platelets 122. Sodium 139, potassium 4.3, chloride 106, bicarb 27, BUN 13, and creatinine 0.66. Intake and output positive 221 mL. IMPRESSION: Respiratory failure associated with chronic obstructive pulmonary disease exacerbation, slowly resolving. He is not weanable at this point. nebulizer treatments, steroids, sedation Critical care time is 35 minutes. Job ID: [id number] MTDD
[2019-03-31] MEDS ORDERED: Pancrelipase DR 12000 1 CAP FS PRN (09:42)
[2019-03-31] MEDS ORDERED: Sodium Bicarbonate Tab 325 MG TAB PER TUBE PRN (09:42)
[2019-03-31 13:26] LABS: Vancomycin, Trough 12.8 ug/mL
[2019-03-31] MEDS: Dextrose 5 % And 0.9 % NaCl 1,000 ML IV SCH (17:05)
[2019-03-31] MEDS: Tamsulosin HCl 0.4 MG CAP PO SCH (20:21)
--- NOTE | 2019-03-31 21:44 | PRG ---
DATE OF SERVICE: 03/31/2019 SUBJECTIVE: Mateus Marshall's expiratory phase is better today. OBJECTIVE: VITAL SIGNS: He is afebrile. Respiratory rates in the low 20s. I saw him. LUNGS: Distant clear. HEART: Regular rhythm. ABDOMEN: Soft. EXTREMITIES: Without edema. LABORATORY DATA: White count 6.9, hemoglobin 14.6, platelets 161. Electrolytes are normal, creatinine 0.62. Two blood cultures grew out most likely contaminant. ASSESSMENT AND PLAN: He is getting closer to being at a point where we can possibly extubate him, maybe this weekend. I will recheck a chest radiograph in the morning. Continue to check lab. He did not have audible leak or a change in tidal volume. He has been on steroids for several days, so we will check that again tomorrow as well. Critical care time 40 min. Job ID: [id number] MTDD
[2019-03-31] MEDS ORDERED: Dextrose 50% Abboject 50 ML SYRINGE SLOW IVP PRN (23:11)
[2019-03-31] MEDS ORDERED: Dextrose 5% in Water 1,000 ML IV PRN (23:11)
--- NOTE | 2019-03-31 23:15 | PDOC.HOSPP ---
- Subjective Encounter Date: 03/31/19 Encounter Time: 09:30 non-verbal Subjective: Patient seen and examined for resp failure. On Vent. No overnight events - Objective Vital Signs & Weight: Vital Signs (12 hours) Temp Pulse Resp BP Pulse Ox 03/31/19 22:50 97 143/97 H 03/31/19 22:00 22 H 03/31/19 20:00 97.8 F 30 H 98 03/31/19 19:23 99 03/31/19 19:22 98 03/31/19 19:20 98 03/31/19 18:00 20 03/31/19 16:09 77 103/79 03/31/19 16:08 83 15 97 03/31/19 16:00 97.7 F 18 03/31/19 14:00 16 03/31/19 13:28 78 152/86 H 03/31/19 13:27 84 14 99 03/31/19 13:00 97.8 F 03/31/19 12:00 14 Weight Admit Weight 181 lb Weight 190 lb 7.67 oz Most Recent Monitor Data Heart Rate from ECG 99 NIBP 143/97 NIBP BP-Mean 112 Respiration from ECG 33 SpO2 96 I&O: 03/30/19 03/31/19 04/01/19 06:59 06:59 06:59 Intake Total 2471.5 2160 1055 Output Total 2250 1290 635 Balance 221.5 870 420 Result Diagrams: 03/31/19 03:13 03/31/19 04:43 EKG Reviewed by me: Yes (Tele SR) Hospitalist ROS - Review of Systems ROS unobtainable: due to mental status - Medication Medications: Active Medications Generic Name Dose Route Start Last Admin Trade Name Freq PRN Reason Stop Dose Admin Acetaminophen 650 mg 03/27/19 02:40 03/28/19 22:55 Tylenol [place] 650 mg Q6H PRN Administration Fever > 101 or Mild Pain Albuterol/Ipratropium 3 ml 03/27/19 10:00 03/31/19 22:48 Duoneb NEB 3 ml [id number] MARTA Administration Duloxetine HCl 30 mg 03/30/19 09:00 03/31/19 08:37 Cymbalta PER TUBE 30 mg DAILY MARTA Administration Enoxaparin Sodium 40 mg 03/28/19 09:00 03/31/19 08:37 Lovenox SC 40 mg 0900 MARTA Administration Famotidine 20 mg 03/27/19 21:00 03/31/19 20:21 Pepcid PER TUBE 20 mg Q12HR MARTA Administration Folic Acid 1 mg 03/27/19 09:00 03/31/19 08:37 Folvite PO 1 mg DAILY MARTA Administration Hydralazine HCl 10 mg 03/29/19 10:50 03/30/19 23:17 Apresoline SLOW IVP 10 mg Q4H PRN Administration SBP GREATER THAN 160 Levofloxacin 500 mg/ Device 100 mls @ 100 mls/hr 03/28/19 04:00 03/31/19 03: 58 IVPB 100 mls Q24HR MARTA Administration Fentanyl Citrate 2,000 mcg/ 100 mls @ 0 mls/hr 03/27/19 03:12 03/29/19 01:18 Sodium Chloride IV 04/26/19 03:12 100 mls INF MARTA Administration Protocol Per Protocol Potassium Phosphate 9 mmol/ 103 mls @ 25.75 mls/hr 03/27/19 03:13 03/28/19 04 :45 Sodium Chloride IVPB 103 mls ASDIR PRN Administration Phosphate 1.0-1.8 Thiamine HCl 100 mg/ Sodium 51 mls @ 100 mls/hr 03/27/19 09:00 03/31/19 14:14 Chloride IVPB 51 mls Q24HR MARTA Administration Dexmedetomidine HCl 400 mcg/ 100 mls @ 0 mls/hr 03/28/19 15:30 03/31/19 20:19 Sodium Chloride IVPB 100 mls INF MARTA Administration Protocol Titrate Dextrose/Sodium Chloride 1,000 mls @ 50 mls/hr 03/29/19 10:49 03/31/19 17:05 D5 0.9% Ns IV 1,000 mls .Q20H MARTA Administration Lorazepam 2 mg 03/27/19 03:12 03/31/19 20:18 Ativan SLOW IVP 04/26/19 03:12 2 mg Q1H PRN Administration Breakthrough agitation Methylprednisolone Sodium Succinate 40 mg 03/27/19 06:00 03/31/19 17:05 Solu-Medrol IVP 40 mg Q6HR MARTA Administration Morphine Sulfate 2 mg 03/27/19 03:12 03/30/19 17:07 Morphine SLOW IVP 04/26/19 03:12 2 mg Q1H PRN Administration BREAKTHROUGH PAIN/Agitation Oseltamivir Phosphate 75 mg 03/27/19 09:00 03/31/19 20:21 Tamiflu PER TUBE 75 mg BID MARTA Administration Propofol 1,000 mg 03/27/19 03:12 03/28/19 11:47 Diprivan IV 04/26/19 03:12 1,000 mg INF PRN Administration TO ACHIEVE GOAL RASS Protocol Saccharomyces Boulardii 250 mg 03/27/19 09:00 03/31/19 08:37 Florastor PER TUBE 250 mg DAILY MARTA Administration Tamsulosin HCl 0.4 mg 03/29/19 21:00 03/31/19 20:21 Flomax PO 0.4 mg HS MARTA Administration - Exam General Appearance: NAD Heart: RRR, no gallops Respiratory: no wheezes, normal chest expansion, rhonchi Gastrointestinal: non-tender, non-distended, normal bowel sounds Hosp A/P - Plan DVT proph w/SCDs Acute hypoxic hypercapneic resp failure on mech vent COPD exacerbation Influenza A Lactic acidosis Obesity BMI 30.9 RA Hyperglycemia - prob due to steroids PLAN: Cont Tamiflu/Vancomycin Cont Levaquin Cont Steroids on Mech vent Cont other meds as above Home meds to be verified AM labs
[2019-04-01] MEDS: Vancomycin HCl 1.25 GM in Sodium Chloride 0.9% 250 ML 250 ML IVPB SCH ×2 (02:06→15:56)
[2019-04-01] MEDS: Lorazepam 2 MG/ML VIAL SLOW IVP PRN ×2 (03:49→08:53)
[2019-04-01] MEDS: methylPREDNISolone Sod Succ 40 MG VIAL IVP SCH ×4 (05:23→23:06)
[2019-04-01 05:53] LABS: Hemoglobin 15.7 g/dL (14.0-18.0); Mean Corpuscular HGB CONC 31.8 g/dL (32.0-36.0); Mean Corpuscular Hemoglobin 32.5 pg (27.0-31.0); Mean Platelet Volume 8.7 fL (7.4-10.4); Platelet Count 171 thou/uL (130-400); RBC Distribution Width 13.9 % (11.5-14.5); Red Blood Cell (RBC) Count 4.82 mill/uL (4.70-6.10); White Blood Cell (WBC) Count 8.8 thou/uL (4.8-10.8)
[2019-04-01 06:24] LABS: Anion Gap 13 mmol/L (10-20); BUN (Urea Nitrogen) 18 mg/dL (8.4-25.7); Calc. Creatinine Clearance 127 mL/min (70-130); Calcium 9.1 mg/dL (7.8-10.44); Carbon Dioxide 24 mmol/L (23-31); Chloride 108 mmol/L (98-107); Estimated GFR-MDRD Greater than 90; Glucose 165 mg/dL (83-110); Potassium 4.7 mmol/L (3.5-5.1); Sodium 140 mmol/L (136-145)
[2019-04-01 07:22] LABS: Band 2 % (5-11); Eosinophils 1 % (0-10); Lymphocytes 7 % (21-51); MDiff Complete? YES; Monocytes 1 % (0-10); Neutrophil 89 % (42-75)
[2019-04-01 07:23] LABS: Actual Bicarbonate (HCO3a) 27.9 mEq/L (22-28); Base Excess (BEa) 4.1 mEq/L (-2.0 to +3.0); Calcium, Ionized 1.27 mmol/L (1.12-1.30); Carboxyhemoglobin (COHb) 1.5 gm% (0.0-3.0); Hemoglobin (Hb) 14.9 g/dL (14.0-18.0); O2 Tension (PaO2) 95.8 mmHg (> 70.0); Potassium - ABG Lab 4.25 mmol/L (3.70-5.30); Puncture Site RRA; pH, Arterial 7.47 (7.35-7.45)
[2019-04-01] MEDS: Enoxaparin Sodium 40 MG/0.4 ML SYRINGE SC SCH (08:56)
[2019-04-01] MEDS: DULoxetine 30 MG CAP PER TUBE SCH (08:57)
[2019-04-01] MEDS: Saccharomyces boulardii 250 MG CAP PER TUBE SCH (08:57)
[2019-04-01] MEDS: Oseltamivir 6 MG/ML ORAL SUSP PER TUBE SCH ×2 (08:57→22:55)
[2019-04-01] MEDS: Folic Acid 1 MG TAB PO SCH (08:58)
[2019-04-01] MEDS: Famotidine 20 MG TAB PER TUBE SCH ×2 (08:58→22:21)
--- NOTE | 2019-04-01 10:07 | RAD ---
PORTABLE FRONTAL CHEST RADIOGRAPH: 04/01/2019 HISTORY: Ventilated patient. COMPARISON: 03/27/2019 FINDINGS: Stable endotracheal tube and nasogastric tube. Stable increased linear interstitial density with pulm onary hyperinflation, suggesting air trapping. There is worsening aeration in both lung bases with ne w hazy density within the left base, medially, with partial obscuration of the left hemidiaphragm, as well as new hazy streaky opacity in the right lung base. IMPRESSION: Interstitial prominence and pulmonary hyperinflation with new hazy bibasilar density, which may signi fy volume loss or developing bibasilar infiltrate. A mild degree of edema is a possibility. Follow-up imaging following treatment advised. POS: [facility]
[2019-04-01] MEDS ORDERED: Metoprolol Tartrate 5 MG/5 ML VIAL IVP SCH ×2 (11:00)
[2019-04-01] MEDS: Propofol 1,000 MG/100 ML VIAL IV PRN ×2 (11:54→18:54)
[2019-04-01] MEDS: Diltiazem 125 MG in Sodium Chloride 0.9% 100 ML IVPB SCH (11:54)
[2019-04-01] MEDS: Dextrose 5 % And 0.9 % NaCl 1,000 ML IV SCH (11:56)
--- NOTE | 2019-04-01 17:19 | PDOC.HOSPP ---
- Subjective Encounter Date: 04/01/19 non-verbal (On the ventilator) Subjective: The patient was noted to be tachycardic today. EKG was done showing atrial fibrillation with rapid ventricular response. - Objective Vital Signs & Weight: Vital Signs (12 hours) Pulse Resp BP 04/01/19 13:04 98 113/67 04/01/19 09:54 134 H 04/01/19 08:22 115 H 145/77 H 04/01/19 06:00 17 Weight Admit Weight 181 lb Weight 190 lb 0.615 oz Most Recent Monitor Data Heart Rate from ECG 107 NIBP 142/98 NIBP BP-Mean 112 Respiration from ECG 19 SpO2 100 I&O: 03/31/19 04/01/19 04/02/19 06:59 06:59 06:59 Intake Total 2160 2666 Output Total 1290 940 Balance 870 1726 Result Diagrams: 04/01/19 05:32 04/01/19 05:32 Additional Labs: Accuchecks 04/01/19 05:35 POC Glucose 143 H Hospitalist ROS - Medication Medications: Active Medications Generic Name Dose Route Start Last Admin Trade Name Freq PRN Reason Stop Dose Admin Acetaminophen 650 mg 03/27/19 02:40 03/28/19 22:55 Tylenol [place] 650 mg Q6H PRN Administration Fever > 101 or Mild Pain Albuterol/Ipratropium 3 ml 03/27/19 10:00 04/01/19 13:04 Duoneb NEB 3 ml [id number] MARTA Administration Duloxetine HCl 30 mg 03/30/19 09:00 04/01/19 08:57 Cymbalta PER TUBE 30 mg DAILY MARTA Administration Enoxaparin Sodium 40 mg 03/28/19 09:00 04/01/19 08:56 Lovenox SC 40 mg 0900 MARTA Administration Famotidine 20 mg 03/27/19 21:00 04/01/19 08:58 Pepcid PER TUBE 20 mg Q12HR MARTA Administration Folic Acid 1 mg 03/27/19 09:00 04/01/19 08:58 Folvite PO 1 mg DAILY MARTA Administration Hydralazine HCl 10 mg 03/29/19 10:50 03/30/19 23:17 Apresoline SLOW IVP 10 mg Q4H PRN Administration SBP GREATER THAN 160 Levofloxacin 500 mg/ Device 100 mls @ 100 mls/hr 03/28/19 04:00 04/01/19 05: 23 IVPB 100 mls Q24HR MARTA Administration Fentanyl Citrate 2,000 mcg/ 100 mls @ 0 mls/hr 03/27/19 03:12 03/29/19 01:18 Sodium Chloride IV 04/26/19 03:12 100 mls INF MARTA Administration Protocol Per Protocol Potassium Phosphate 9 mmol/ 103 mls @ 25.75 mls/hr 03/27/19 03:13 03/28/19 04 :45 Sodium Chloride IVPB 103 mls ASDIR PRN Administration Phosphate 1.0-1.8 Thiamine HCl 100 mg/ Sodium 51 mls @ 100 mls/hr 03/27/19 09:00 04/01/19 08:56 Chloride IVPB 51 mls Q24HR MARTA Administration Dexmedetomidine HCl 400 mcg/ 100 mls @ 0 mls/hr 03/28/19 15:30 04/01/19 05:27 Sodium Chloride IVPB 100 mls INF MARTA Administration Protocol Titrate Dextrose/Sodium Chloride 1,000 mls @ 50 mls/hr 03/29/19 10:49 04/01/19 11:56 D5 0.9% Ns IV 1,000 mls .Q20H MARTA Administration Vancomycin HCl 1.25 gm/ Sodium 250 mls @ 166.667 mls/hr 04/01/19 02:00 15:56 Chloride IVPB 250 mls 0200,1400 MARTA Administration Diltiazem HCl 125 mg/ Sodium 125 mls @ 10 mls/hr 04/01/19 11:15 04/01/19 11: 54 Chloride IVPB 125 mls INF MARTA Administration Protocol 10 MG/HR Lorazepam 2 mg 03/27/19 03:12 04/01/19 08:53 Ativan SLOW IVP 04/26/19 03:12 2 mg Q1H PRN Administration Breakthrough agitation Methylprednisolone Sodium Succinate 40 mg 03/27/19 06:00 04/01/19 11:39 Solu-Medrol IVP 40 mg Q6HR MARTA Administration Morphine Sulfate 2 mg 03/27/19 03:12 03/30/19 17:07 Morphine SLOW IVP 04/26/19 03:12 2 mg Q1H PRN Administration BREAKTHROUGH PAIN/Agitation Oseltamivir Phosphate 75 mg 03/27/19 09:00 04/01/19 08:57 Tamiflu PER TUBE 75 mg BID MARTA Administration Propofol 1,000 mg 03/27/19 03:12 04/01/19 11:54 Diprivan IV 04/26/19 03:12 1,000 mg INF PRN Administration TO ACHIEVE GOAL RASS Protocol Saccharomyces Rodolfodii 250 mg 03/27/19 09:00 04/01/19 08:57 Florastor PER TUBE 250 mg DAILY MARTA Administration Tamsulosin HCl 0.4 mg 03/29/19 21:00 03/31/19 20:21 Flomax PO 0.4 mg HS MARTA Administration - Exam General Appearance: NAD ENT: normocephalic atraumatic Neck: supple, no JVD Heart: no murmur, irregular (tachycardia) Respiratory: CTAB, no wheezes Extremities: no cyanosis, no clubbing Hosp A/P (1) Influenza Code(s): J11.1 - FLU DUE TO UNIDENTIFIED INFLUENZA VIRUS W OTH RESP MANIFEST Status: Acute (2) Acute respiratory failure with hypoxia Code(s): J96.01 - ACUTE RESPIRATORY FAILURE WITH HYPOXIA Status: Acute (3) COPD exacerbation Code(s): J44.1 - CHRONIC OBSTRUCTIVE PULMONARY DISEASE W (ACUTE) EXACERBATION Status: Acute (4) Atrial fibrillation with rapid ventricular response Code(s): I48.91 - UNSPECIFIED ATRIAL FIBRILLATION Status: Acute - Plan Continue ventilator management per pulmonology team. Patient was noted to be vomiting earlier today. Tube feeding was held and Zofran will be started. Continue antibiotics for influenza pneumonia. Cardizem drip initiated for A. fib with RVR. Goal is for heart rate less than 110.
--- NOTE | 2019-04-01 17:54 | PRG ---
DATE OF SERVICE: 04/01/2019 SUBJECTIVE: Mateus Marshall is intermittently dyssynchronous with ventilation in spite of Precedex. He is not reliably following commands on the Precedex. OBJECTIVE: VITAL SIGNS: Heart rate is 107, blood pressure 142/98, respiratory rate is 18. LUNGS: Distant clear. His expiratory phase is shorter. HEART: Regular rhythm. ABDOMEN: Soft. EXTREMITIES: Without edema. LABORATORY DATA: White count 8.8, hemoglobin 15.7, platelets 171,000, sodium 140, potassium 4.7, chloride 108, bicarb 24, BUN 18, creatinine 0.64, glucose 165. PH 7.47, CO2 of 39, PO2 of 95. IMPRESSION: Respiratory failure associated with severe chronic obstructive pulmonary disease exacerbation. He is currently not weanable, placed him back on propofol. Chest x-ray shows some haziness in both bases which I suspect is secondary to mucus plugging. We will continue with supportive care. CRITICAL CARE TIME: 30 minutes. Job ID: [id number]
[2019-04-01] MEDS: Ondansetron PF 4 MG/2 ML Vial SLOW IVP PRN (22:21)
[2019-04-01] MEDS: Tamsulosin HCl 0.4 MG CAP PO SCH (22:21)
[2019-04-02] MEDS ORDERED: Metoprolol Tartrate 5 MG/5 ML VIAL IVP PRN (01:56)
[2019-04-02] MEDS: Vancomycin HCl 1.25 GM in Sodium Chloride 0.9% 250 ML 250 ML IVPB SCH ×2 (02:18→16:27)
[2019-04-02] MEDS: Propofol 1,000 MG/100 ML VIAL IV PRN ×4 (02:18→21:16)
[2019-04-02] MEDS: Diltiazem 125 MG in Sodium Chloride 0.9% 100 ML IVPB SCH (02:20)
[2019-04-02 04:14] LABS: Anion Gap 12 mmol/L (10-20); BUN (Urea Nitrogen) 18 mg/dL (8.4-25.7); Calc. Creatinine Clearance 112 mL/min (70-130); Carbon Dioxide 27 mmol/L (23-31); Chloride 106 mmol/L (98-107); Estimated GFR-MDRD Greater than 90; Glucose 186 mg/dL (83-110); Potassium 4.9 mmol/L (3.5-5.1); Sodium 140 mmol/L (136-145)
[2019-04-02 04:16] LABS: Band 2 % (5-11); Hemoglobin 14.8 g/dL (14.0-18.0); Lymphocytes 2 % (21-51); MDiff Complete? YES; Mean Corpuscular HGB CONC 32.4 g/dL (32.0-36.0); Mean Corpuscular Hemoglobin 32.2 pg (27.0-31.0); Mean Corpuscular Volume 99.3 fL (78.0-98.0); Monocytes 3 % (0-10); Neutrophil 92 % (42-75); Platelet Count 231 thou/uL (130-400); Platelet Morphology Comment Appears Adequate; RBC Distribution Width 13.8 % (11.5-14.5); Reactive Lymphocytes 1 % (0-10); Red Blood Cell (RBC) Count 4.61 mill/uL (4.70-6.10); White Blood Cell (WBC) Count 11.4 thou/uL (4.8-10.8)
[2019-04-02] MEDS: methylPREDNISolone Sod Succ 40 MG VIAL IVP SCH ×4 (05:44→23:38)
[2019-04-02] MEDS: Insulin Regular 300 UNITS/3 ML VIAL SC PRN (06:34)
[2019-04-02 07:17] LABS: Actual Bicarbonate (HCO3a) 27.9 mEq/L (22-28); Base Excess (BEa) 4.6 mEq/L (-2.0 to +3.0); CO2 Tension 37.2 mmHg (35.0-45.0); Calcium, Ionized 1.25 mmol/L (1.12-1.30); Carboxyhemoglobin (COHb) 1.5 gm% (0.0-3.0); Hemoglobin (Hb) 14.8 g/dL (14.0-18.0); O2 Tension (PaO2) 71.4 mmHg (> 70.0); Potassium - ABG Lab 4.22 mmol/L (3.70-5.30); pH, Arterial 7.49 (7.35-7.45)
[2019-04-02 07:19] LABS: Puncture Site LRA
--- NOTE | 2019-04-02 08:00 | RAD ---
FRONTAL RADIOGRAPH CHEST: 04/02/2019 HISTORY: Ventilated patient. COMPARISON: 04/01/2019 FINDINGS: Hazy bibasilar density noted with partial obscuration of the hemidiaphragms, right greater than left. Endotracheal tube and nasogastric tube in place. No pneumothorax. Stable pulmonary vascular congesti on. IMPRESSION: 1. Hazy nonspecific bibasilar pleural and parenchymal opacity, not significantly changed. 2. Stable lines and tubes. POS: [facility]
[2019-04-02] MEDS: Dextrose 5 % And 0.9 % NaCl 1,000 ML IV SCH (08:59)
[2019-04-02] MEDS: Enoxaparin Sodium 40 MG/0.4 ML SYRINGE SC SCH (09:04)
[2019-04-02] MEDS: Famotidine 20 MG TAB PER TUBE SCH ×2 (09:07→20:29)
[2019-04-02] MEDS: Folic Acid 1 MG TAB PO SCH (09:07)
[2019-04-02] MEDS: Saccharomyces boulardii 250 MG CAP PER TUBE SCH (09:07)
[2019-04-02] MEDS: DULoxetine 30 MG CAP PER TUBE SCH (09:08)
[2019-04-02] MEDS: Oseltamivir 6 MG/ML ORAL SUSP PER TUBE SCH ×2 (09:55→21:08)
--- NOTE | 2019-04-02 10:54 | PDOC.HOSPP ---
- Subjective Encounter Date: 04/02/19 Subjective: Remains intubated He became more tachypneic and tachycardiac when propophol dose was reduced. Still in Afib w rvr - Objective Vital Signs & Weight: Vital Signs (12 hours) Temp Pulse Resp BP Pulse Ox 04/02/19 10:09 99 112/60 04/02/19 10:00 15 04/02/19 08:00 22 H 95 04/02/19 07:27 93 110/85 04/02/19 07:00 98.5 F 04/02/19 06:00 14 04/02/19 04:04 121 H 118/80 04/02/19 04:00 99.2 F 25 H 04/02/19 02:00 24 H 04/02/19 00:00 99.2 F 20 Weight Admit Weight 181 lb Weight 191 lb 12.835 oz Most Recent Monitor Data Heart Rate from ECG 110 NIBP 156/96 NIBP BP-Mean 116 Respiration from ECG 23 SpO2 94 I&O: 04/01/19 04/02/19 04/03/19 06:59 06:59 06:59 Intake Total 2666 2403.3 50 Output Total 940 2280 280 Balance 1726 123.3 -230 Result Diagrams: 04/02/19 03:26 04/02/19 03:26 Additional Labs: Accuchecks 04/02/19 04/01/19 05:52 23:03 POC Glucose 172 H 150 H Hospitalist ROS - Medication Medications: Active Medications Generic Name Dose Route Start Last Admin Trade Name Freq PRN Reason Stop Dose Admin Acetaminophen 650 mg 03/27/19 02:40 03/28/19 22:55 Tylenol [place] 650 mg Q6H PRN Administration Fever > 101 or Mild Pain Albuterol/Ipratropium 3 ml 03/27/19 10:00 04/02/19 10:09 Duoneb NEB 3 ml [id number] MARTA Administration Duloxetine HCl 30 mg 03/30/19 09:00 04/02/19 09:08 Cymbalta PER TUBE 30 mg DAILY MARTA Administration Enoxaparin Sodium 40 mg 03/28/19 09:00 04/02/19 09:04 Lovenox SC 40 mg 0900 MARTA Administration Famotidine 20 mg 03/27/19 21:00 04/02/19 09:07 Pepcid PER TUBE 20 mg Q12HR MARTA Administration Folic Acid 1 mg 03/27/19 09:00 04/02/19 09:07 Folvite PO 1 mg DAILY MARTA Administration Hydralazine HCl 10 mg 03/29/19 10:50 03/30/19 23:17 Apresoline SLOW IVP 10 mg Q4H PRN Administration SBP GREATER THAN 160 Levofloxacin 500 mg/ Device 100 mls @ 100 mls/hr 03/28/19 04:00 04/02/19 05: 42 IVPB 100 mls Q24HR MARTA Administration Fentanyl Citrate 2,000 mcg/ 100 mls @ 0 mls/hr 03/27/19 03:12 03/29/19 01:18 Sodium Chloride IV 04/26/19 03:12 100 mls INF MARTA Administration Protocol Per Protocol Potassium Phosphate 9 mmol/ 103 mls @ 25.75 mls/hr 03/27/19 03:13 03/28/19 04 :45 Sodium Chloride IVPB 103 mls ASDIR PRN Administration Phosphate 1.0-1.8 Thiamine HCl 100 mg/ Sodium 51 mls @ 100 mls/hr 03/27/19 09:00 04/02/19 09:07 Chloride IVPB 51 mls Q24HR MARTA Administration Dexmedetomidine HCl 400 mcg/ 100 mls @ 0 mls/hr 03/28/19 15:30 04/01/19 05:27 Sodium Chloride IVPB 100 mls INF MARTA Administration Protocol Titrate Dextrose/Sodium Chloride 1,000 mls @ 50 mls/hr 03/29/19 10:49 04/02/19 08:59 D5 0.9% Ns IV 1,000 mls .Q20H MARTA Administration Vancomycin HCl 1.25 gm/ Sodium 250 mls @ 166.667 mls/hr 04/01/19 02:00 02:18 Chloride IVPB 250 mls 0200,1400 MARTA Administration Diltiazem HCl 125 mg/ Sodium 125 mls @ 10 mls/hr 04/01/19 11:15 04/02/19 02: 20 Chloride IVPB 125 mls INF MARTA Administration Protocol 10 MG/HR Insulin Human Regular 0 units 03/31/19 23:11 04/02/19 06:34 Humulin R SC 2 unit .MILD SLIDING SCALE PRN Administration Mild Correctional Scale Lorazepam 2 mg 03/27/19 03:12 02/15/20 08:53 Ativan SLOW IVP 04/26/19 03:12 2 mg Q1H PRN Administration Breakthrough agitation Methylprednisolone Sodium Succinate 40 mg 03/27/19 06:00 04/02/19 05:44 Solu-Medrol IVP 40 mg Q6HR MARTA Administration Metoprolol Tartrate 5 mg 04/02/19 01:56 04/02/19 05:46 Lopressor IVP 04/03/19 08:00 5 mg Q6H PRN Administration HR >120s sustained Morphine Sulfate 2 mg 03/27/19 03:12 03/30/19 17:07 Morphine SLOW IVP 04/26/19 03:12 2 mg Q1H PRN Administration BREAKTHROUGH PAIN/Agitation Ondansetron HCl 4 mg 04/01/19 19:18 04/01/19 22:21 Zofran SLOW IVP 4 mg Q6H PRN Administration Nausea/Vomiting Oseltamivir Phosphate 75 mg 03/27/19 09:00 04/02/19 09:55 Tamiflu PER TUBE 75 mg BID MARTA Administration Propofol 1,000 mg 03/27/19 03:12 04/02/19 09:04 Diprivan IV 04/26/19 03:12 1,000 mg INF PRN Administration TO ACHIEVE GOAL RASS Protocol Saccharomyces Boulardii 250 mg 03/27/19 09:00 04/02/19 09:07 Florastor PER TUBE 250 mg DAILY MARTA Administration Tamsulosin HCl 0.4 mg 03/29/19 21:00 04/01/19 22:21 Flomax PO 0.4 mg HS MARTA Administration - Exam ENT: normocephalic atraumatic Neck: supple Heart: irregular Respiratory: normal chest expansion, tachypneic Gastrointestinal: soft Hosp A/P (1) Influenza Code(s): J11.1 - FLU DUE TO UNIDENTIFIED INFLUENZA VIRUS W OTH RESP MANIFEST Status: Acute (2) Acute respiratory failure with hypoxia Code(s): J96.01 - ACUTE RESPIRATORY FAILURE WITH HYPOXIA Status: Acute (3) COPD exacerbation Code(s): J44.1 - CHRONIC OBSTRUCTIVE PULMONARY DISEASE W (ACUTE) EXACERBATION Status: Acute (4) Atrial fibrillation with rapid ventricular response Code(s): I48.91 - UNSPECIFIED ATRIAL FIBRILLATION Status: Acute (5) Nausea and vomiting Code(s): R11.2 - NAUSEA WITH VOMITING, UNSPECIFIED Status: Acute - Plan Continue ventilator management per pulmonology team. He might not be ready to be weaned off yet. No further episodes of vomiting. 250cc gastric residuals in the past 4hrs Remains on Levoquin and CXR revealed b/l infiltrates. Completed 5 days of Tamiflu. I will defer the decision to DC to pulmonology A. fib with RVR despite maximum Diltiazem drip. Initiate Amiodarone bolus and drip and wean off Diltiazem. Monitor Qtc
[2019-04-02] MEDS ORDERED: Amiodarone 450 MG in Dextrose 5% in Water 250 ML IVPB SCH (11:00)
[2019-04-02] MEDS ORDERED: Amiodarone 150 MG in Dextrose 5% in Water 100 ML IVPB SCH (11:00)
[2019-04-02] MEDS: Lorazepam 2 MG/ML VIAL SLOW IVP PRN (11:46)
[2019-04-02 13:03] LABS: Vancomycin, Trough 16.1 ug/mL
--- NOTE | 2019-04-02 16:59 | PRG ---
DATE OF SERVICE: 04/02/2019 SUBJECTIVE: Maday Marshall is still very tachypneic with the sedatives that are being given to him. His minute volume is too high to consider weaning. OBJECTIVE: VITAL SIGNS: Blood pressure 118/59, heart rate is 102, respiratory rate at times up in the 30s, at times in the teens. LUNGS: Improved from expiratory time standpoint. HEART: Regular rhythm. ABDOMEN: Soft. EXTREMITIES: Without asymmetry. NEURO: Grossly nonfocal. LABORATORY DATA: White count 11.4, hemoglobin 14.8, platelets 231. Sodium 140, potassium 4.9, chloride 106, bicarb 27, BUN 18, and creatinine 0.73. PH 7.49, CO2 of 37, PO2 of 71. IMPRESSION: Respiratory failure secondary to chronic obstructive pulmonary disease exacerbation associated with influenza. Chest radiograph shows bibasilar atelectasis versus pneumonia. Remains on antibiotics. He remains in atrial fibrillation. We will try give him some Haldol every 8 hours to see if this helps facilitate weaning. Job ID: [id number]
[2019-04-02] MEDS: Haloperidol Lactate 5 MG/ML VIAL IM SCH ×2 (18:27→23:38)
[2019-04-02] MEDS: Tamsulosin HCl 0.4 MG CAP PO SCH (20:29)
[2019-04-03] MEDS: Vancomycin HCl 1.25 GM in Sodium Chloride 0.9% 250 ML 250 ML IVPB SCH (02:31)
[2019-04-03] MEDS: Propofol 1,000 MG/100 ML VIAL IV PRN ×4 (03:21→22:16)
[2019-04-03] MEDS: methylPREDNISolone Sod Succ 40 MG VIAL IVP SCH ×4 (05:10→20:18)
[2019-04-03 06:02] LABS: Anion Gap 9 mmol/L (10-20); BUN (Urea Nitrogen) 18 mg/dL (8.4-25.7); Calc. Creatinine Clearance 124 mL/min (70-130); Calcium 8.6 mg/dL (7.8-10.44); Carbon Dioxide 30 mmol/L (23-31); Chloride 107 mmol/L (98-107); Estimated GFR-MDRD Greater than 90; Glucose 198 mg/dL (83-110); Hemoglobin 13.2 g/dL (14.0-18.0); Mean Corpuscular Hemoglobin 32.2 pg (27.0-31.0); Platelet Count 197 thou/uL (130-400); RBC Distribution Width 13.5 % (11.5-14.5); Red Blood Cell (RBC) Count 4.09 mill/uL (4.70-6.10); Sodium 142 mmol/L (136-145); White Blood Cell (WBC) Count 11.7 thou/uL (4.8-10.8)
[2019-04-03 06:09] LABS: Band 1 % (5-11); Lymphocytes 1 % (21-51); MDiff Complete? YES; Monocytes 2 % (0-10); Neutrophil 96 % (42-75)
--- NOTE | 2019-04-03 08:12 | RAD ---
EXAM: CHEST ONE VIEW HISTORY: On ventilator. Follow-up evaluation. COMPARISON: 04/02/2019 FINDINGS: Endotracheal tube and nasogastric tubes remain in place. Again noted are the bibasilar areas of incre ased density which may related to small bilateral pleural effusions and associated atelectasis. However, there is slightly greater increased interstitial opacity seen at the right lung base also si milar to the prior study which could be related to pneumonia. Mild prominence of the perihilar interstitial densities is also present. Postsurgical changes right humerus are again noted. No other interval change. IMPRESSION: 1. Persistent small bilateral pleural effusions with mild increase in perihilar interstitial densitie s which could be related to pulmonary edema versus infectious process. Follow-up to resolution is recommended. 2. Endotracheal tube and nasogastric tube remain in place.
[2019-04-03] MEDS: Haloperidol Lactate 5 MG/ML VIAL IM SCH (08:23)
[2019-04-03] MEDS: DULoxetine 30 MG CAP PER TUBE SCH (08:23)
[2019-04-03] MEDS: Folic Acid 1 MG TAB PO SCH (08:23)
[2019-04-03] MEDS: Saccharomyces boulardii 250 MG CAP PER TUBE SCH (08:23)
[2019-04-03] MEDS: Famotidine 20 MG TAB PER TUBE SCH ×2 (08:23→20:13)
[2019-04-03] MEDS: Dextrose 5 % And 0.9 % NaCl 1,000 ML IV SCH (08:27)
[2019-04-03] MEDS: Lorazepam 2 MG/ML VIAL SLOW IVP PRN ×3 (08:28→23:13)
[2019-04-03] MEDS: Enoxaparin Sodium 40 MG/0.4 ML SYRINGE SC SCH (09:09)
--- NOTE | 2019-04-03 09:16 | PRG ---
DATE OF SERVICE: 04/03/2019 35 minutes critical time. SUBJECTIVE: The patient remains intubated on mechanical ventilation. He will open his eyes, but does not follow any commands for me specifically. OBJECTIVE: VITAL SIGNS: His temperature is 96.9, pulse 101, blood pressure 153/84, currently on no vasopressors. He had been on diltiazem drip that has been stopped. He is on propofol for sedation. He is also receiving scheduled Haldol. HEENT: Unremarkable. NECK: No JVD. LUNGS: Clear anteriorly. CARDIOVASCULAR: S1 and S2. Slightly tachycardic. ABDOMEN: Soft, obese, nontender. EXTREMITIES: No clubbing, cyanosis, or edema. LABORATORY DATA: Sodium 142, potassium 4, chloride 107, CO2 of 30, BUN 18, creatinine 0.6, glucose 198. PH 7.49, pCO2 of 37, pO2 of 71, SIMV rate 12, tidal volume 500, PEEP 5, pressure support 14, and FiO2 30%-that is yesterday's ABG. White blood cell count 11.7, hematocrit 41, platelet count 197. His x-ray shows blunting of both costophrenic angles. ET tube in good position. ASSESSMENT: 1. Acute respiratory failure requiring mechanical ventilation. 2. Chronic obstructive pulmonary disease. 3. Influenza with pneumonia. 4. Chronic atrial fibrillation. PLAN: 1. I will go ahead and stop the scheduled Haldol. 2. Add Reglan for excess residual in tube feeds. 3. Can go ahead and stop Tamiflu as he has had 5 days of that. 4. Stop vancomycin since nothing has grown out that would necessitate treatment with that antibiotic. 5. GI prophylaxis with Pepcid. 6. DVT prophylaxis with enoxaparin. Job ID: [id number]
[2019-04-03] MEDS: Metoclopramide HCl 10 MG/2 ML VIAL IVP SCH ×3 (09:25→20:18)
[2019-04-03] MEDS: Insulin Regular 300 UNITS/3 ML VIAL SC PRN ×3 (12:06→23:21)
--- NOTE | 2019-04-03 12:36 | PRG ---
DATE OF SERVICE: 04/03/2019 SUBJECTIVE: Mr. Marshall will awaken, but is sedated. OBJECTIVE: VITAL SIGNS: His blood pressure is 105/52, heart rate is 83, respiratory rate is 12. LUNGS: Distant, clear. He does not have a long expiratory phase. HEART: Regular rhythm. ABDOMEN: Soft. LABORATORY DATA: White count 11.7, hemoglobin 13.2, platelets 197. Electrolytes are normal. Creatinine is 0.66. Blood gas shows pH 7.49, CO2 of 37, pO2 of 71. Chest x-ray shows haziness in both bases, more so on the right. Intake and output are positive 1335. Intake and output have basically been positive since admission with the exception of 2 days, probably had been about equal to what his insensible losses would be. IMPRESSION: 1. Respiratory failure secondary to influenza and chronic obstructive pulmonary disease exacerbation. 2. Encephalopathy. ? better with Haldol. 3. Atrial fibrillation, on amiodarone. PLAN: We will continue with supportive care. We decreased ventilatory support today. CRITICAL CARE TIME: 30 minutes. Job ID: [id number]
--- NOTE | 2019-04-03 15:13 | PDOC.HOSPP ---
- Subjective Encounter Date: 04/03/19 non-verbal (On the Ventilator) - Objective Vital Signs & Weight: Vital Signs (12 hours) Temp Pulse Resp BP Pulse Ox 04/03/19 14:00 29 H 04/03/19 13:11 88 116/67 04/03/19 13:08 91 23 H 96 04/03/19 12:00 97.7 F 20 04/03/19 10:37 83 105/52 L 04/03/19 10:35 87 12 97 04/03/19 10:00 12 04/03/19 08:26 102 H 168/116 H 04/03/19 08:23 98 26 H 94 L 04/03/19 08:00 98.1 F 31 H 95 04/03/19 06:00 19 04/03/19 04:33 89 04/03/19 04:00 96.9 F L 14 Weight Admit Weight 181 lb Weight 189 lb 9.561 oz Most Recent Monitor Data Heart Rate from ECG 104 NIBP 156/72 NIBP BP-Mean 100 Respiration from ECG 29 SpO2 95 I&O: 04/02/19 04/03/19 04/04/19 06:59 06:59 06:59 Intake Total 2403.3 2477.1 80 Output Total 2280 1142 310 Balance 123.3 1335.1 -230 Result Diagrams: 04/03/19 04:55 04/03/19 04:55 Additional Labs: Accuchecks 04/03/19 04/02/19 04/02/19 12:03 23:52 18:28 POC Glucose 220 H 184 H 158 H Hospitalist ROS - Medication Medications: Active Medications Generic Name Dose Route Start Last Admin Trade Name Freq PRN Reason Stop Dose Admin Acetaminophen 650 mg 03/27/19 02:40 03/28/19 22:55 Tylenol GA 650 mg Q6H PRN Administration Fever > 101 or Mild Pain Albuterol/Ipratropium 3 ml 03/27/19 10:00 04/03/19 13:08 Duoneb NEB 3 ml [id number] MARTA Administration Diltiazem HCl 60 mg 04/02/19 15:00 04/03/19 14:59 Cardizem PO 60 mg TID MARTA Administration Duloxetine HCl 30 mg 03/30/19 09:00 04/03/19 08:23 Cymbalta PER TUBE 30 mg DAILY MARTA Administration Enoxaparin Sodium 40 mg 03/28/19 09:00 04/03/19 09:09 Lovenox SC 40 mg 0900 MARTA Administration Famotidine 20 mg 03/27/19 21:00 04/03/19 08:23 Pepcid PER TUBE 20 mg Q12HR MARTA Administration Folic Acid 1 mg 03/27/19 09:00 04/03/19 08:23 Folvite PO 1 mg DAILY MARTA Administration Hydralazine HCl 10 mg 03/29/19 10:50 03/30/19 23:17 Apresoline SLOW IVP 10 mg Q4H PRN Administration SBP GREATER THAN 160 Levofloxacin 500 mg/ Device 100 mls @ 100 mls/hr 03/28/19 04:00 04/03/19 03: 34 IVPB 100 mls Q24HR MARTA Administration Fentanyl Citrate 2,000 mcg/ 100 mls @ 0 mls/hr 03/27/19 03:12 03/29/19 01:18 Sodium Chloride IV 04/26/19 03:12 100 mls INF MARTA Administration Protocol Per Protocol Potassium Phosphate 9 mmol/ 103 mls @ 25.75 mls/hr 03/27/19 03:13 03/28/19 04 :45 Sodium Chloride IVPB 103 mls ASDIR PRN Administration Phosphate 1.0-1.8 Thiamine HCl 100 mg/ Sodium 51 mls @ 100 mls/hr 03/27/19 09:00 04/03/19 09:04 Chloride IVPB 51 mls Q24HR MARTA Administration Dextrose/Sodium Chloride 1,000 mls @ 50 mls/hr 03/29/19 10:49 04/03/19 08:27 D5 0.9% Ns IV 1,000 mls .Q20H MARTA Administration Insulin Human Regular 0 units 03/31/19 23:11 04/03/19 12:06 Humulin R SC 3 unit .MILD SLIDING SCALE PRN Administration Mild Correctional Scale Lorazepam 2 mg 03/27/19 03:12 04/03/19 08:28 Ativan SLOW IVP 04/26/19 03:12 2 mg Q1H PRN Administration Breakthrough agitation Methylprednisolone Sodium Succinate 20 mg 04/03/19 09:00 04/03/19 15:00 Solu-Medrol IVP 20 mg Q6H MARTA Administration Metoclopramide HCl 10 mg 04/03/19 09:00 04/03/19 15:00 Reglan IVP 10 mg Q6H MARTA Administration Morphine Sulfate 2 mg 03/27/19 03:12 03/30/19 17:07 Morphine SLOW IVP 04/26/19 03:12 2 mg Q1H PRN Administration BREAKTHROUGH PAIN/Agitation Ondansetron HCl 4 mg 04/01/19 19:18 04/01/19 22:21 Zofran SLOW IVP 4 mg Q6H PRN Administration Nausea/Vomiting Propofol 1,000 mg 03/27/19 03:12 04/03/19 10:21 Diprivan IV 04/26/19 03:12 1,000 mg INF PRN Administration TO ACHIEVE GOAL RASS Protocol Saccharomyces Boulardii 250 mg 03/27/19 09:00 04/03/19 08:23 Florastor PER TUBE 250 mg DAILY MARTA Administration Sodium Chloride 10 ml 04/03/19 09:00 04/03/19 09:05 Flush - Normal Saline IVF 10 ml Q12HR MARTA Administration Tamsulosin HCl 0.4 mg 03/29/19 21:00 04/02/19 20:29 Flomax PO 0.4 mg HS MARTA Administration - Exam ENT: normocephalic atraumatic Neck: supple Heart: RRR Respiratory: no tachypnea, rhonchi Gastrointestinal: soft, non-tender, non-distended Hosp A/P (1) Influenza Code(s): J11.1 - FLU DUE TO UNIDENTIFIED INFLUENZA VIRUS W OTH RESP MANIFEST Status: Acute (2) Acute respiratory failure with hypoxia Code(s): J96.01 - ACUTE RESPIRATORY FAILURE WITH HYPOXIA Status: Acute (3) COPD exacerbation Code(s): J44.1 - CHRONIC OBSTRUCTIVE PULMONARY DISEASE W (ACUTE) EXACERBATION Status: Acute (4) Atrial fibrillation with rapid ventricular response Code(s): I48.91 - UNSPECIFIED ATRIAL FIBRILLATION Status: Acute (5) Nausea and vomiting Code(s): R11.2 - NAUSEA WITH VOMITING, UNSPECIFIED Status: Acute - Plan Continue ventilator management per pulmonology team. He might not be ready to be weaned off yet. No further episodes of vomiting. Remains on Levoquin and CXR revealed b/l infiltrates. Completed 5 days of Tamiflu. Afib converted to sinus rythm. HR controlled on Diltiazem PO.
--- NOTE | 2019-04-03 16:51 | EKG ---
Test Reason : Blood Pressure : / mmHG Vent. Rate : 099 BPM Atrial Rate : 078 BPM P-R Int : 000 ms QRS Dur : 078 ms QT Int : 318 ms P-R-T Axes : 000 019 044 degrees QTc Int : 408 ms Atrial fibrillation Low voltage QRS Cannot rule out Inferior infarct , age undetermined Abnormal ECG Confirmed by TANNA HASSAN ([id number]) on 04/03/2019 4:51:32 PM Referred By: CLARE Confirmed By:TANNA HASSAN
[2019-04-03] MEDS: Tamsulosin HCl 0.4 MG CAP PO SCH (20:13)
[2019-04-03] MEDS: hydrALAZINE 20 MG/ML VIAL SLOW IVP PRN (22:16)
[2019-04-04] MEDS: Metoclopramide HCl 10 MG/2 ML VIAL IVP SCH ×4 (01:54→19:50)
[2019-04-04] MEDS: methylPREDNISolone Sod Succ 40 MG VIAL IVP SCH ×4 (01:54→19:50)
[2019-04-04] MEDS: Propofol 1,000 MG/100 ML VIAL IV PRN ×5 (03:14→22:59)
[2019-04-04 05:09] LABS: Anion Gap 7 mmol/L (10-20); BUN (Urea Nitrogen) 21 mg/dL (8.4-25.7); Calc. Creatinine Clearance 113 mL/min (70-130); Calcium 8.9 mg/dL (7.8-10.44); Carbon Dioxide 31 mmol/L (23-31); Chloride 105 mmol/L (98-107); Estimated GFR-MDRD Greater than 90; Glucose 244 mg/dL (83-110); Potassium 4.1 mmol/L (3.5-5.1); Sodium 139 mmol/L (136-145)
[2019-04-04] MEDS: Insulin Regular 300 UNITS/3 ML VIAL SC PRN ×4 (05:55→23:50)
[2019-04-04 06:28] LABS: Band 5 % (5-11); Hemoglobin 13.4 g/dL (14.0-18.0); Lymphocytes 7 % (21-51); MDiff Complete? YES; Mean Corpuscular HGB CONC 32.2 g/dL (32.0-36.0); Mean Corpuscular Hemoglobin 32.3 pg (27.0-31.0); Mean Platelet Volume 8.3 fL (7.4-10.4); Monocytes 2 % (0-10); Neutrophil 86 % (42-75); Platelet Count 199 thou/uL (130-400); RBC Distribution Width 13.5 % (11.5-14.5); Red Blood Cell (RBC) Count 4.16 mill/uL (4.70-6.10); White Blood Cell (WBC) Count 14.6 thou/uL (4.8-10.8)
[2019-04-04 07:02] LABS: Actual Bicarbonate (HCO3a) 28.2 mEq/L (22-28); Base Excess (BEa) 3.8 mEq/L (-2.0 to +3.0); CO2 Tension 41.5 mmHg (35.0-45.0); Calcium, Ionized 1.29 mmol/L (1.12-1.30); Carboxyhemoglobin (COHb) 1.1 gm% (0.0-3.0); Hemoglobin (Hb) 13.9 g/dL (14.0-18.0); O2 Tension (PaO2) 67.1 mmHg (> 70.0); Potassium - ABG Lab 4.22 mmol/L (3.70-5.30); pH, Arterial 7.45 (7.35-7.45)
[2019-04-04 07:10] LABS: ALV-art Gradient 94.925 (0-20); Puncture Site RR
[2019-04-04] MEDS ORDERED: Furosemide 40 MG/4 ML VIAL SLOW IVP SCH (08:15)
[2019-04-04] MEDS: Folic Acid 1 MG TAB PO SCH (08:17)
[2019-04-04] MEDS: Famotidine 20 MG TAB PER TUBE SCH ×2 (08:18→19:19)
[2019-04-04] MEDS: DULoxetine 30 MG CAP PER TUBE SCH (08:18)
[2019-04-04] MEDS: Morphine 2 MG/ML SYRINGE SLOW IVP PRN (08:18)
[2019-04-04] MEDS: Saccharomyces boulardii 250 MG CAP PER TUBE SCH (08:18)
[2019-04-04] MEDS: hydrALAZINE 20 MG/ML VIAL SLOW IVP PRN (08:18)
[2019-04-04] MEDS: Lorazepam 2 MG/ML VIAL SLOW IVP PRN ×2 (08:45→13:10)
[2019-04-04] MEDS: Dextrose 5 % And 0.9 % NaCl 1,000 ML IV SCH (08:56)
--- NOTE | 2019-04-04 08:56 | PRG ---
DATE OF SERVICE: 04/04/2019 Thirty five minutes critical time. SUBJECTIVE: The patient remains intubated on mechanical ventilation. There have been no acute changes overnight. PHYSICAL EXAMINATION: VITAL SIGNS: His temperature is 97, pulse 101, blood pressure 129/75, O2 saturation 94%. 24-hour intake 2045, output 1027. HEENT: Unremarkable. NECK: No JVD. LUNGS: Coarse rhonchi. CARDIOVASCULAR: S1 and S2, slightly tachycardic. ABDOMEN: Soft. EXTREMITIES: Edematous throughout. LABORATORY DATA: White blood cell count 14.6, hematocrit 41.7, and platelet count 199. PH of 7.45, pCO2 of 41, pO2 of 67, on SIMV rate 7, tidal volume 500, PEEP 5, pressure support 8, FiO2 of 30%. Sodium 139, potassium 4.1, chloride 105, CO2 of 31, BUN 21, creatinine 0.7, glucose 244. ASSESSMENT: 1. Acute respiratory failure, requiring mechanical ventilation. 2. Chronic obstructive pulmonary disease. 3. Influenza with pneumonia. 4. Chronic atrial fibrillation. PLAN: He is back on the tube feeds, seems to be doing okay with that. Continue his Levaquin for antibiotic coverage. Tamiflu was stopped yesterday. I do not think we can make much progress in terms of weaning, although I am happier with his level of agitation. We will continue to follow. Job ID: [id number]
[2019-04-04] MEDS ORDERED: Enoxaparin Sodium 40 MG/0.4 ML SYRINGE ONE (09:05)
[2019-04-04] MEDS: Enoxaparin Sodium 40 MG/0.4 ML SYRINGE SC SCH (09:08)
--- NOTE | 2019-04-04 10:39 | RAD ---
PORTABLE CHEST: Date: 04/04/2019 INDICATION: Ventilator and CCU follow-up. COMPARISON: 04/03/2019. FINDINGS/IMPRESSION: ET tube and NG tube remain in place. Mild cardiomegaly and mild vascular congestion. Bibasilar infilt rates and/or atelectasis and small bilateral effusions. Congestive changes appear improved when compared to yesterday's study. POS: [facility]
--- NOTE | 2019-04-04 18:41 | PDOC.HOSPP ---
- Subjective Encounter Date: 04/04/19 non-verbal (On the ventilator) - Objective Vital Signs & Weight: Vital Signs (12 hours) Temp Pulse Resp BP Pulse Ox 04/04/19 18:00 23 H 04/04/19 16:01 87 119/66 04/04/19 16:00 97.7 F 24 H 04/04/19 14:00 27 H 04/04/19 13:13 109 H 133/56 L 04/04/19 12:00 97.8 F 30 H 04/04/19 10:41 97 126/72 04/04/19 10:00 23 H 04/04/19 09:00 97.5 F L 04/04/19 08:18 105 H 179/102 H 04/04/19 08:00 25 H 93 L 04/04/19 06:54 92 150/83 H Weight Admit Weight 181 lb Weight 193 lb 5.526 oz Most Recent Monitor Data Heart Rate from ECG 93 NIBP 141/70 NIBP BP-Mean 93 Respiration from ECG 21 SpO2 95 I&O: 04/03/19 04/04/19 04/05/19 06:59 06:59 06:59 Intake Total 2477.1 2486 914 Output Total 1142 1027 1210 Balance 1335.1 1459 -296 Result Diagrams: 04/04/19 04:35 04/04/19 04:35 Additional Labs: Accuchecks 04/04/19 04/04/19 04/03/19 18:09 13:05 23:12 POC Glucose 255 H 210 H 212 H 04/03/19 18:25 POC Glucose 204 H Hospitalist ROS - Medication Medications: Active Medications Generic Name Dose Route Start Last Admin Trade Name Freq PRN Reason Stop Dose Admin Acetaminophen 650 mg 03/27/19 02:40 03/28/19 22:55 Tylenol ID 650 mg Q6H PRN Administration Fever > 101 or Mild Pain Albuterol/Ipratropium 3 ml 03/27/19 10:00 04/04/19 16:01 Duoneb NEB 3 ml [id number] MARTA Administration Diltiazem HCl 60 mg 04/02/19 15:00 04/04/19 14:37 Cardizem PO 60 mg TID MARTA Administration Duloxetine HCl 30 mg 03/30/19 09:00 04/04/19 08:18 Cymbalta PER TUBE 30 mg DAILY MARTA Administration Enoxaparin Sodium 40 mg 03/28/19 09:00 04/04/19 09:08 Lovenox SC 40 mg 0900 MARTA Administration Famotidine 20 mg 03/27/19 21:00 04/04/19 08:18 Pepcid PER TUBE 20 mg Q12HR MARTA Administration Folic Acid 1 mg 03/27/19 09:00 04/04/19 08:17 Folvite PO 1 mg DAILY MARTA Administration Hydralazine HCl 10 mg 03/29/19 10:50 04/04/19 08:18 Apresoline SLOW IVP 10 mg Q4H PRN Administration SBP GREATER THAN 160 Levofloxacin 500 mg/ Device 100 mls @ 100 mls/hr 03/28/19 04:00 04/04/19 02: 56 IVPB 100 mls Q24HR MARTA Administration Fentanyl Citrate 2,000 mcg/ 100 mls @ 0 mls/hr 03/27/19 03:12 03/29/19 01:18 Sodium Chloride IV 04/26/19 03:12 100 mls INF MARTA Administration Protocol Per Protocol Potassium Phosphate 9 mmol/ 103 mls @ 25.75 mls/hr 03/27/19 03:13 03/28/19 04 :45 Sodium Chloride IVPB 103 mls ASDIR PRN Administration Phosphate 1.0-1.8 Thiamine HCl 100 mg/ Sodium 51 mls @ 100 mls/hr 03/27/19 09:00 04/04/19 08:45 Chloride IVPB 51 mls Q24HR MARTA Administration Insulin Human Regular 0 units 03/31/19 23:11 04/04/19 18:17 Humulin R SC 4 unit .MILD SLIDING SCALE PRN Administration Mild Correctional Scale Lorazepam 2 mg 03/27/19 03:12 04/04/19 13:10 Ativan SLOW IVP 04/26/19 03:12 2 mg Q1H PRN Administration Breakthrough agitation Methylprednisolone Sodium Succinate 20 mg 04/03/19 09:00 04/04/19 14:36 Solu-Medrol IVP 20 mg Q6H MARTA Administration Metoclopramide HCl 10 mg 04/03/19 09:00 04/04/19 14:37 Reglan IVP 10 mg Q6H MARTA Administration Morphine Sulfate 2 mg 03/27/19 03:12 04/04/19 08:18 Morphine SLOW IVP 04/26/19 03:12 2 mg Q1H PRN Administration BREAKTHROUGH PAIN/Agitation Ondansetron HCl 4 mg 04/01/19 19:18 04/01/19 22:21 Zofran SLOW IVP 4 mg Q6H PRN Administration Nausea/Vomiting Propofol 1,000 mg 03/27/19 03:12 04/04/19 13:51 Diprivan IV 04/26/19 03:12 1,000 mg INF PRN Administration TO ACHIEVE GOAL RASS Protocol Saccharomyces Boulardii 250 mg 03/27/19 09:00 04/04/19 08:18 Florastor PER TUBE 250 mg DAILY MARTA Administration Sodium Chloride 10 ml 04/03/19 09:00 04/04/19 08:20 Flush - Normal Saline IVF 10 ml Q12HR MARTA Administration Tamsulosin HCl 0.4 mg 03/29/19 21:00 04/03/19 20:13 Flomax PO 0.4 mg HS MARTA Administration Hosp A/P (1) Influenza Code(s): J11.1 - FLU DUE TO UNIDENTIFIED INFLUENZA VIRUS W OTH RESP MANIFEST Status: Acute (2) Acute respiratory failure with hypoxia Code(s): J96.01 - ACUTE RESPIRATORY FAILURE WITH HYPOXIA Status: Acute (3) COPD exacerbation Code(s): J44.1 - CHRONIC OBSTRUCTIVE PULMONARY DISEASE W (ACUTE) EXACERBATION Status: Acute (4) Atrial fibrillation with rapid ventricular response Code(s): I48.91 - UNSPECIFIED ATRIAL FIBRILLATION Status: Acute (5) Nausea and vomiting Code(s): R11.2 - NAUSEA WITH VOMITING, UNSPECIFIED Status: Acute - Plan Continue ventilator management per pulmonology team. He might not be ready to be weaned off yet. No further episodes of vomiting. Remains on Levoquin and CXR revealed b/l infiltrates. Completed 5 days of Tamiflu. Afib converted to sinus rythm. HR controlled on Diltiazem PO. Tolerating tube feedings.
[2019-04-04] MEDS: Tamsulosin HCl 0.4 MG CAP PO SCH (19:19)
[2019-04-05] MEDS: Metoclopramide HCl 10 MG/2 ML VIAL IVP SCH ×4 (04:11→20:59)
[2019-04-05] MEDS: methylPREDNISolone Sod Succ 40 MG VIAL IVP SCH ×4 (04:11→20:58)
[2019-04-05] MEDS: Propofol 1,000 MG/100 ML VIAL IV PRN ×3 (05:12→18:16)
[2019-04-05 05:36] LABS: Anion Gap 7 mmol/L (10-20); BUN (Urea Nitrogen) 24 mg/dL (8.4-25.7); Calc. Creatinine Clearance 113 mL/min (70-130); Calcium 9.4 mg/dL (7.8-10.44); Carbon Dioxide 33 mmol/L (23-31); Chloride 105 mmol/L (98-107); Estimated GFR-MDRD Greater than 90; Glucose 246 mg/dL (83-110); Potassium 4.2 mmol/L (3.5-5.1); Sodium 141 mmol/L (136-145)
[2019-04-05 05:39] LABS: Band 2 % (5-11); Hemoglobin 13.9 g/dL (14.0-18.0); Lymphocytes 1 % (21-51); MDiff Complete? YES; Mean Corpuscular HGB CONC 32.4 g/dL (32.0-36.0); Mean Corpuscular Hemoglobin 32.7 pg (27.0-31.0); Mean Platelet Volume 8.4 fL (7.4-10.4); Monocytes 4 % (0-10); Neutrophil 93 % (42-75); Platelet Count 221 thou/uL (130-400); RBC Distribution Width 13.6 % (11.5-14.5); Red Blood Cell (RBC) Count 4.26 mill/uL (4.70-6.10); White Blood Cell (WBC) Count 16.2 thou/uL (4.8-10.8)
[2019-04-05] MEDS: Insulin Regular 300 UNITS/3 ML VIAL SC PRN ×4 (05:53→21:15)
[2019-04-05 06:45] LABS: Actual Bicarbonate (HCO3a) 30.6 mEq/L (22-28); Base Excess (BEa) 6.6 mEq/L (-2.0 to +3.0); CO2 Tension 41.2 mmHg (35.0-45.0); Calcium, Ionized 1.31 mmol/L (1.12-1.30); Carboxyhemoglobin (COHb) 0.9 gm% (0.0-3.0); Hemoglobin (Hb) 14.7 g/dL (14.0-18.0); O2 Tension (PaO2) 60.4 mmHg (> 70.0); Potassium - ABG Lab 4.22 mmol/L (3.70-5.30); pH, Arterial 7.49 (7.35-7.45)
[2019-04-05 06:47] LABS: Puncture Site LRA
[2019-04-05] MEDS: hydrALAZINE 20 MG/ML VIAL SLOW IVP PRN ×2 (07:25→13:43)
[2019-04-05] MEDS: Morphine 2 MG/ML SYRINGE SLOW IVP PRN (07:26)
[2019-04-05] MEDS: Famotidine 20 MG TAB PER TUBE SCH ×2 (08:28→20:59)
[2019-04-05] MEDS: Folic Acid 1 MG TAB PO SCH (08:29)
[2019-04-05] MEDS: Enoxaparin Sodium 40 MG/0.4 ML SYRINGE SC SCH (08:29)
[2019-04-05] MEDS: Lorazepam 2 MG/ML VIAL SLOW IVP PRN ×2 (08:29→13:43)
[2019-04-05] MEDS: Saccharomyces boulardii 250 MG CAP PER TUBE SCH (08:30)
[2019-04-05] MEDS: DULoxetine 30 MG CAP PER TUBE SCH (08:38)
--- NOTE | 2019-04-05 08:41 | RAD ---
CHEST 1 VIEW PORTABLE: HISTORY: Respiratory insufficiency. COMPARISON: 04/04/2019. FINDINGS: There is some rotation to the left. NG tube and endotracheal tubes remain in place. There is eviden ce for bilateral vascular congestion with some mostly interstitial perihilar and scattered parenchyma l changes in the mid and lower lung zones with probable small pleural effusions with little change fr om prior study. No new confluent process. IMPRESSION: Overall stable exam. Continue short-term followup. POS: [facility]
--- NOTE | 2019-04-05 08:58 | PRG ---
DATE OF SERVICE: 04/05/2019 35 minutes of critical time. SUBJECTIVE: The patient remains intubated on mechanical ventilation. He is deeply sedated as I am seeing him. OBJECTIVE: VITAL SIGNS: Temperature 98.9, pulse 98, blood pressure 179/97, O2 saturation 95%. 24-hour intake 1700, output 1771. HEENT: Unremarkable. NECK: No adenopathy or JVD. CHEST: Clear anteriorly. CARDIOVASCULAR: S1, S2. Slightly tachycardic. ABDOMEN: Soft, nontender. EXTREMITIES: No clubbing, cyanosis, or edema. LABORATORY DATA: PH 7.49, pCO2 of 41, pO2 of 60, on SIMV rate 5, tidal volume 500, PEEP 5, pressure support 7, FiO2 of 28%. Sodium 141, potassium 4.2, chloride 105, CO2 of 33, BUN 24, creatinine 0.7, glucose 246. White blood cell count 16.2, hematocrit 43.1, and platelet count 221. ASSESSMENT: 1. Acute respiratory failure requiring mechanical ventilation. The patient has basically been weaned down to minimal settings and minimal FiO2. 2. Chronic obstructive pulmonary disease. 3. Influenza with pneumonia. 4. Chronic atrial fibrillation. PLAN: The patient will be brought out of sedation and extubated to high-flow nasal cannula. We will watch him closely in the ICU. His antibiotics can be stopped since he has had 7 days. Job ID: [id number]
[2019-04-05] MEDS ORDERED: Propofol 1,000 MG/100 ML VIAL IV ONE (12:39)
[2019-04-05] MEDS ORDERED: Fentanyl BOLUS 250 ML IVPB PRN (13:18)
[2019-04-05] MEDS ORDERED: Propofol BOLUS 1,000 MG/100 ML VIAL IV PRN (13:18)
[2019-04-05] MEDS ORDERED: Morphine 2 MG/ML SYRINGE SLOW IVP PRN (13:18)
[2019-04-05] MEDS ORDERED: fentaNYL Citrate/PF 2,000 MCG in Sodium Chloride 0.9% 60 ML IV SCH (13:18)
--- NOTE | 2019-04-05 16:09 | PDOC.HOSPP ---
- Subjective Encounter Date: 04/05/19 non-verbal (Remains intubated) - Objective Vital Signs & Weight: Vital Signs (12 hours) Temp Pulse Resp BP Pulse Ox 04/05/19 14:00 22 H 04/05/19 13:43 100 169/109 H 04/05/19 13:19 100 146/68 H 04/05/19 13:17 100 25 H 96 04/05/19 12:00 98.5 F 29 H 04/05/19 10:37 106 H 160/83 H 04/05/19 10:32 107 H 25 H 93 L 04/05/19 10:00 21 H 04/05/19 08:00 98.3 F 94 L 04/05/19 07:25 103 H 182/89 H 04/05/19 06:32 103 H 182/89 H 04/05/19 06:28 105 H 25 H 94 L 04/05/19 06:00 29 H Weight Admit Weight 181 lb Weight 193 lb 9.054 oz Most Recent Monitor Data Heart Rate from ECG 110 NIBP 137/85 NIBP BP-Mean 102 Respiration from ECG 22 SpO2 95 I&O: 04/04/19 04/05/19 04/06/19 06:59 06:59 06:59 Intake Total 2486 1700 220 Output Total 1027 1771 310 Balance 1459 -71 -90 Result Diagrams: 04/05/19 04:22 04/05/19 03:30 Additional Labs: Accuchecks 04/05/19 04/04/19 04/04/19 12:11 23:53 18:09 POC Glucose 171 H 233 H 255 H Hospitalist ROS - Medication Medications: Active Medications Generic Name Dose Route Start Last Admin Trade Name Freq PRN Reason Stop Dose Admin Acetaminophen 650 mg 03/27/19 02:40 03/28/19 22:55 Tylenol NC 650 mg Q6H PRN Administration Fever > 101 or Mild Pain Albuterol/Ipratropium 3 ml 03/27/19 10:00 04/05/19 13:17 Duoneb NEB 3 ml [id number] MARAT Administration Diltiazem HCl 60 mg 04/02/19 15:00 04/05/19 14:53 Cardizem PO 60 mg TID MARTA Administration Duloxetine HCl 30 mg 03/30/19 09:00 04/05/19 08:38 Cymbalta PER TUBE 30 mg DAILY MARTA Administration Enoxaparin Sodium 40 mg 03/28/19 09:00 04/05/19 08:29 Lovenox SC 40 mg 0900 MARTA Administration Famotidine 20 mg 03/27/19 21:00 04/05/19 08:28 Pepcid PER TUBE 20 mg Q12HR MARTA Administration Folic Acid 1 mg 03/27/19 09:00 04/05/19 08:29 Folvite PO 1 mg DAILY MARTA Administration Hydralazine HCl 10 mg 03/29/19 10:50 04/05/19 13:43 Apresoline SLOW IVP 10 mg Q4H PRN Administration SBP GREATER THAN 160 Potassium Phosphate 9 mmol/ 103 mls @ 25.75 mls/hr 03/27/19 03:13 03/28/19 04 :45 Sodium Chloride IVPB 103 mls ASDIR PRN Administration Phosphate 1.0-1.8 Thiamine HCl 100 mg/ Sodium 51 mls @ 100 mls/hr 03/27/19 09:00 04/05/19 08:30 Chloride IVPB 51 mls Q24HR MARTA Administration Insulin Human Regular 0 units 03/31/19 23:11 04/05/19 12:15 Humulin R SC 2 unit .MILD SLIDING SCALE PRN Administration Mild Correctional Scale Lorazepam 2 mg 04/05/19 13:18 04/05/19 13:43 Ativan SLOW IVP 05/05/19 13:18 2 mg Q1H PRN Administration Breakthrough agitation Methylprednisolone Sodium Succinate 20 mg 04/03/19 09:00 04/05/19 14:53 Solu-Medrol IVP 20 mg Q6H MARTA Administration Metoclopramide HCl 10 mg 04/03/19 09:00 04/05/19 14:53 Reglan IVP 10 mg Q6H MARTA Administration Ondansetron HCl 4 mg 04/01/19 19:18 04/01/19 22:21 Zofran SLOW IVP 4 mg Q6H PRN Administration Nausea/Vomiting Propofol 1,000 mg 04/05/19 13:18 04/05/19 13:22 Diprivan IV 05/05/19 13:18 1,000 mg INF PRN Administration TO ACHIEVE GOAL RASS Protocol Saccharomyces Boulardii 250 mg 03/27/19 09:00 04/05/19 08:30 Florastor PER TUBE 250 mg DAILY MARTA Administration Sodium Chloride 10 ml 04/03/19 09:00 04/05/19 08:30 Flush - Normal Saline IVF 10 ml Q12HR MARTA Administration Tamsulosin HCl 0.4 mg 03/29/19 21:00 04/04/19 19:19 Flomax PO 0.4 mg HS MARTA Administration - Exam Heart: RRR, no murmur, no gallops, no rubs Respiratory: no wheezes, rhonchi Gastrointestinal: soft, non-tender, non-distended Hosp A/P (1) Influenza Code(s): J11.1 - FLU DUE TO UNIDENTIFIED INFLUENZA VIRUS W OTH RESP MANIFEST Status: Acute (2) Acute respiratory failure with hypoxia Code(s): J96.01 - ACUTE RESPIRATORY FAILURE WITH HYPOXIA Status: Acute (3) COPD exacerbation Code(s): J44.1 - CHRONIC OBSTRUCTIVE PULMONARY DISEASE W (ACUTE) EXACERBATION Status: Acute (4) Atrial fibrillation with rapid ventricular response Code(s): I48.91 - UNSPECIFIED ATRIAL FIBRILLATION Status: Acute (5) Nausea and vomiting Code(s): R11.2 - NAUSEA WITH VOMITING, UNSPECIFIED Status: Acute - Plan Continue ventilator management per pulmonology team. He might not be ready to be weaned off yet. No further episodes of vomiting. Remains on Levoquin and CXR revealed b/l infiltrates. Completed 5 days of Tamiflu. Afib converted to sinus rythm. HR controlled on Diltiazem PO. Tolerating tube feedings. No new changes in his status.
[2019-04-05] MEDS: Tamsulosin HCl 0.4 MG CAP PO SCH (20:59)
[2019-04-06] MEDS: Propofol 1,000 MG/100 ML VIAL IV PRN ×5 (03:51→23:48)
[2019-04-06] MEDS: Metoclopramide HCl 10 MG/2 ML VIAL IVP SCH ×4 (03:52→19:34)
[2019-04-06] MEDS: methylPREDNISolone Sod Succ 40 MG VIAL IVP SCH ×4 (03:52→19:34)
[2019-04-06] MEDS: Insulin Regular 300 UNITS/3 ML VIAL SC PRN ×4 (03:56→21:05)
[2019-04-06 04:07] LABS: Anion Gap 11 mmol/L (10-20); BUN (Urea Nitrogen) 25 mg/dL (8.4-25.7); Calc. Creatinine Clearance 115 mL/min (70-130); Calcium 9.1 mg/dL (7.8-10.44); Carbon Dioxide 26 mmol/L (23-31); Chloride 107 mmol/L (98-107); Estimated GFR-MDRD Greater than 90; Glucose 240 mg/dL (83-110); Potassium 4.7 mmol/L (3.5-5.1); Sodium 139 mmol/L (136-145)
[2019-04-06 06:56] LABS: Base Excess (BEa) 5.6 mEq/L (-2.0 to +3.0); CO2 Tension 42.9 mmHg (35.0-45.0); Calcium, Ionized 1.31 mmol/L (1.12-1.30); Carboxyhemoglobin (COHb) 0.9 gm% (0.0-3.0); Hemoglobin (Hb) 14.6 g/dL (14.0-18.0); O2 Tension (PaO2) 87.1 mmHg (> 70.0); pH, Arterial 7.46 (7.35-7.45)
[2019-04-06 06:58] LABS: ALV-art Gradient 144.475 (0-20)
--- NOTE | 2019-04-06 07:37 | RAD ---
Portable frontal chest radiograph: 04/06/2019 COMPARISON: 04/05/2019 HISTORY: Ventilated patient FINDINGS: Stable endotracheal tube and nasogastric tube. Stable dense pleural and parenchymal opacity in the left base obscuring the left hemidiaphragm with blunting of left costophrenic angle. Stable hazy increased density noted in the right lung base. No significant interval change. IMPRESSION: Stable portable frontal chest radiograph.
--- NOTE | 2019-04-06 08:48 | PRG ---
DATE OF SERVICE: 04/06/2019 35 minutes critical time. SUBJECTIVE: The patient remains intubated on mechanical ventilation. We did not proceed with extubation yesterday because the patient became agitated and tachypneic. OBJECTIVE: VITAL SIGNS: His temperature is 99.4, pulse 97, blood pressure 151/76, and O2 sat 96%. He is currently on propofol drip. HEENT: Remarkable for conjunctival edema. NECK: No adenopathy or JVD. LUNGS: Fairly clear anteriorly. CARDIOVASCULAR: S1 and S2, regular. ABDOMEN: Soft. EXTREMITIES: No overt edema. LABORATORY DATA: PH 7.46, pCO2 of 42, pO2 of 87 on SIMV rate 8, tidal volume 500, PEEP 5, pressure support 12, and FiO2 40%. Sodium 139, potassium 4.7, chloride 107, CO2 of 26, BUN 25, creatinine 0.7, and glucose 240. DIAGNOSTIC DATA: His chest x-ray shows no significant change. ASSESSMENT: 1. Acute respiratory failure, requiring mechanical ventilation. 2. Metabolic encephalopathy, which is the biggest detriment to wean at this time. 3. Chronic obstructive pulmonary disease. 4. Influenza with pneumonia. 5. Chronic atrial fibrillation. PLAN: We will increase his Cymbalta dose. Add Neurontin as he could be withdrawing from not having the Neurontin he was on previously. I will add some Depakote for manic symptoms. If we do not make progress in regard to his mental status, the patient may end up needing tracheostomy. Job ID: [id number]
[2019-04-06] MEDS: Saccharomyces boulardii 250 MG CAP PER TUBE SCH (09:23)
[2019-04-06] MEDS: Folic Acid 1 MG TAB PO SCH (09:24)
[2019-04-06] MEDS: Enoxaparin Sodium 40 MG/0.4 ML SYRINGE SC SCH (09:24)
[2019-04-06] MEDS: Gabapentin 300 MG CAP PO SCH ×2 (09:24→19:32)
[2019-04-06] MEDS: Famotidine 20 MG TAB PER TUBE SCH ×2 (09:24→19:32)
[2019-04-06] MEDS: Divalproex Sodium 125 mg Sprinkle Capsule PER TUBE SCH ×2 (09:27→19:32)
[2019-04-06] MEDS: DULoxetine 30 MG CAP PER TUBE SCH (09:58)
[2019-04-06 11:07] LABS: Hemoglobin 13.2 g/dL (14.0-18.0); Mean Corpuscular HGB CONC 30.9 g/dL (32.0-36.0); Mean Corpuscular Hemoglobin 31.4 pg (27.0-31.0); Mean Platelet Volume 8.9 fL (7.4-10.4); Platelet Count 186 thou/uL (130-400); RBC Distribution Width 13.6 % (11.5-14.5); Red Blood Cell (RBC) Count 4.19 mill/uL (4.70-6.10); White Blood Cell (WBC) Count 16.5 thou/uL (4.8-10.8)
[2019-04-06 11:09] LABS: Band 3 % (5-11); Lymphocytes 2 % (21-51); MDiff Complete? YES; Metamyelocyte 1 % (0-0); Monocytes 3 % (0-10); Myelocyte 1 % (0-0); Neutrophil 83 % (42-75); RBC Morphology Normal; Reactive Lymphocytes 7 % (0-10)
[2019-04-06] MEDS: hydrALAZINE 20 MG/ML VIAL SLOW IVP PRN (15:30)
[2019-04-06] MEDS: Tamsulosin HCl 0.4 MG CAP PO SCH (19:32)
--- NOTE | 2019-04-06 20:31 | PDOC.HOSPP ---
- Subjective Encounter Date: 04/06/19 non-verbal (Remains intubated) - Objective Vital Signs & Weight: Vital Signs (12 hours) Temp Pulse Resp BP Pulse Ox 04/06/19 20:00 29 H 04/06/19 19:14 100 04/06/19 19:00 98.8 F 04/06/19 18:31 115 H 33 H 99 04/06/19 18:00 24 H 04/06/19 16:23 110 H 172/86 H 04/06/19 16:21 105 H 29 H 95 04/06/19 16:00 25 H 04/06/19 15:30 86 187/88 H 04/06/19 15:00 99.3 F 04/06/19 14:00 17 04/06/19 13:22 86 168/77 H 04/06/19 13:21 85 15 96 04/06/19 12:00 15 04/06/19 11:00 99.4 F 04/06/19 10:19 109 H 154/75 H 04/06/19 10:17 113 H 22 H 97 04/06/19 10:00 30 H Weight Admit Weight 181 lb Weight 187 lb 9.814 oz Most Recent Monitor Data Heart Rate from ECG 112 NIBP 150/76 NIBP BP-Mean 100 Respiration from ECG 26 SpO2 100 I&O: 04/05/19 04/06/19 04/07/19 06:59 06:59 06:59 Intake Total 1700 1630 892 Output Total 1771 995 475 Balance -71 635 417 Result Diagrams: 04/06/19 05:16 04/06/19 03:23 Additional Labs: Accuchecks 04/06/19 04/06/19 04/06/19 15:44 12:21 03:53 POC Glucose 167 H 179 H 203 H 04/05/19 21:17 POC Glucose 204 H Hospitalist ROS - Medication Medications: Active Medications Generic Name Dose Route Start Last Admin Trade Name Freq PRN Reason Stop Dose Admin Acetaminophen 650 mg 03/27/19 02:40 03/28/19 22:55 Tylenol ND 650 mg Q6H PRN Administration Fever > 101 or Mild Pain Albuterol/Ipratropium 3 ml 03/27/19 10:00 04/06/19 18:31 Duoneb NEB 3 ml [id number] MARTA Administration Diltiazem HCl 60 mg 04/02/19 15:00 04/06/19 19:32 Cardizem PO 60 mg TID MARTA Administration Divalproex Sodium 250 mg 04/06/19 09:00 04/06/19 19:32 Depakote Sprinkle PER TUBE 250 mg BID MARTA Administration Duloxetine HCl 60 mg 04/06/19 07:50 04/06/19 09:58 Cymbalta PER TUBE 60 mg DAILY MARTA Administration Enoxaparin Sodium 40 mg 03/28/19 09:00 04/06/19 09:24 Lovenox SC 40 mg 0900 MARTA Administration Famotidine 20 mg 03/27/19 21:00 04/06/19 19:32 Pepcid PER TUBE 20 mg Q12HR MARTA Administration Folic Acid 1 mg 03/27/19 09:00 04/06/19 09:24 Folvite PO 1 mg DAILY MARTA Administration Gabapentin 300 mg 04/06/19 09:00 04/06/19 19:32 Neurontin PO 300 mg BID MARTA Administration Hydralazine HCl 10 mg 03/29/19 10:50 04/06/19 15:30 Apresoline SLOW IVP 10 mg Q4H PRN Administration SBP GREATER THAN 160 Potassium Phosphate 9 mmol/ 103 mls @ 25.75 mls/hr 03/27/19 03:13 03/28/19 04 :45 Sodium Chloride IVPB 103 mls ASDIR PRN Administration Phosphate 1.0-1.8 Thiamine HCl 100 mg/ Sodium 51 mls @ 100 mls/hr 03/27/19 09:00 04/06/19 09:27 Chloride IVPB 51 mls Q24HR MARTA Administration Insulin Human Regular 0 units 03/31/19 23:11 04/06/19 15:44 Humulin R SC 2 unit .MILD SLIDING SCALE PRN Administration Mild Correctional Scale Lorazepam 2 mg 04/05/19 13:18 04/05/19 13:43 Ativan SLOW IVP 05/05/19 13:18 2 mg Q1H PRN Administration Breakthrough agitation Methylprednisolone Sodium Succinate 20 mg 04/03/19 09:00 04/06/19 19:34 Solu-Medrol IVP 20 mg Q6H MARTA Administration Metoclopramide HCl 10 mg 04/03/19 09:00 04/06/19 19:34 Reglan IVP 10 mg Q6H MARTA Administration Ondansetron HCl 4 mg 04/01/19 19:18 04/01/19 22:21 Zofran SLOW IVP 4 mg Q6H PRN Administration Nausea/Vomiting Propofol 1,000 mg 04/05/19 13:18 04/06/19 15:29 Diprivan IV 05/05/19 13:18 1,000 mg INF PRN Administration TO ACHIEVE GOAL RASS Protocol Saccharomyces Boulardii 250 mg 03/27/19 09:00 04/06/19 09:23 Florastor PER TUBE 250 mg DAILY MARTA Administration Sodium Chloride 10 ml 04/03/19 09:00 04/06/19 19:32 Flush - Normal Saline IVF 10 ml Q12HR MARTA Administration Tamsulosin HCl 0.4 mg 03/29/19 21:00 04/06/19 19:32 Flomax PO 0.4 mg HS MARTA Administration - Exam Eye: anicteric sclera ENT: normocephalic atraumatic Neck: supple, no JVD Heart: RRR Respiratory: normal chest expansion, no tachypnea Extremities: no cyanosis Hosp A/P (1) Influenza Code(s): J11.1 - FLU DUE TO UNIDENTIFIED INFLUENZA VIRUS W OTH RESP MANIFEST Status: Acute (2) Acute respiratory failure with hypoxia Code(s): J96.01 - ACUTE RESPIRATORY FAILURE WITH HYPOXIA Status: Acute (3) COPD exacerbation Code(s): J44.1 - CHRONIC OBSTRUCTIVE PULMONARY DISEASE W (ACUTE) EXACERBATION Status: Acute (4) Atrial fibrillation with rapid ventricular response Code(s): I48.91 - UNSPECIFIED ATRIAL FIBRILLATION Status: Acute (5) Nausea and vomiting Code(s): R11.2 - NAUSEA WITH VOMITING, UNSPECIFIED Status: Acute - Plan Continue ventilator management per pulmonology team. The patient is difficult to wean due to his agitation and encephalopathy. Might require tracheostomy if his condition does not improve according to pulmonology service. Remains on Levoquin and CXR revealed b/l infiltrates. Completed 5 days of Tamiflu. Afib converted to sinus rythm. HR controlled on Diltiazem PO. Tolerating tube feedings. No new changes in his status.
[2019-04-07] MEDS: Metoclopramide HCl 10 MG/2 ML VIAL IVP SCH ×4 (02:47→20:46)
[2019-04-07] MEDS: methylPREDNISolone Sod Succ 40 MG VIAL IVP SCH ×4 (02:48→20:47)
[2019-04-07] MEDS: hydrALAZINE 20 MG/ML VIAL SLOW IVP PRN ×3 (03:07→20:46)
[2019-04-07 04:49] LABS: Band 9 % (5-11); Hemoglobin 13.7 g/dL (14.0-18.0); MDiff Complete? YES; Mean Corpuscular HGB CONC 32.5 g/dL (32.0-36.0); Mean Corpuscular Hemoglobin 32.5 pg (27.0-31.0); Mean Corpuscular Volume 99.9 fL (78.0-98.0); Mean Platelet Volume 7.9 fL (7.4-10.4); Monocytes 4 % (0-10); Neutrophil 87 % (42-75); Platelet Count 228 thou/uL (130-400); Platelet Morphology Comment Appears Adequate; RBC Distribution Width 13.6 % (11.5-14.5); Red Blood Cell (RBC) Count 4.21 mill/uL (4.70-6.10); White Blood Cell (WBC) Count 19.3 thou/uL (4.8-10.8)
[2019-04-07 04:50] LABS: Anion Gap 9 mmol/L (10-20); BUN (Urea Nitrogen) 23 mg/dL (8.4-25.7); Calc. Creatinine Clearance 120 mL/min (70-130); Calcium 9.2 mg/dL (7.8-10.44); Carbon Dioxide 30 mmol/L (23-31); Chloride 105 mmol/L (98-107); Estimated GFR-MDRD Greater than 90; Glucose 213 mg/dL (83-110); Potassium 4.3 mmol/L (3.5-5.1); Sodium 140 mmol/L (136-145)
[2019-04-07] MEDS: Propofol 1,000 MG/100 ML VIAL IV PRN ×3 (04:54→20:45)
[2019-04-07] MEDS: Insulin Regular 300 UNITS/3 ML VIAL SC PRN ×2 (04:59→10:27)
[2019-04-07 06:48] LABS: Actual Bicarbonate (HCO3a) 31.9 mEq/L (22-28); Base Excess (BEa) 6.9 mEq/L (-2.0 to +3.0); CO2 Tension 46.8 mmHg (35.0-45.0); Carboxyhemoglobin (COHb) 1.3 gm% (0.0-3.0); Hemoglobin (Hb) 13.2 g/dL (14.0-18.0); O2 Tension (PaO2) 75.2 mmHg (> 70.0); Potassium - ABG Lab 4.33 mmol/L (3.70-5.30); pH, Arterial 7.45 (7.35-7.45)
[2019-04-07 07:13] LABS: Puncture Site RRAD
--- NOTE | 2019-04-07 08:19 | RAD ---
CHEST 1 VIEW: HISTORY: Ventilated patient. COMPARISON: Radiograph of prior day. FINDINGS: The patient is intubated with endotracheal tube tip below the level of the clavicles in good position . Enteric tube tip in the gastric body. There are layering bilateral pleural effusions and bibasilar compressive atelectatic changes. No pne umothorax. Cardiac silhouette and mediastinal contours are similar. IMPRESSION: Similar examination of the chest. POS: CET
[2019-04-07] MEDS: Enoxaparin Sodium 40 MG/0.4 ML SYRINGE SC SCH (08:31)
[2019-04-07] MEDS: Famotidine 20 MG TAB PER TUBE SCH ×2 (08:32→20:45)
[2019-04-07] MEDS: Saccharomyces boulardii 250 MG CAP PER TUBE SCH (08:32)
[2019-04-07] MEDS: Gabapentin 300 MG CAP PO SCH ×2 (08:32→20:46)
[2019-04-07] MEDS: DULoxetine 30 MG CAP PER TUBE SCH (08:32)
[2019-04-07] MEDS: Folic Acid 1 MG TAB PO SCH (08:33)
[2019-04-07] MEDS: Divalproex Sodium 125 mg Sprinkle Capsule PER TUBE SCH ×2 (08:33→20:47)
[2019-04-07] MEDS ORDERED: Furosemide 40 MG/4 ML VIAL SLOW IVP SCH (09:15)
--- NOTE | 2019-04-07 09:26 | PRG ---
DATE OF SERVICE: 04/07/2019 35 minutes of critical care time. SUBJECTIVE: Mr. Marshall remains intubated on mechanical ventilation. His nurse states that he did better on the Depakote and Cymbalta yesterday. OBJECTIVE: VITAL SIGNS: His temperature is 99.1, pulse rate 105, and blood pressure 169/103. 24-hour intake 1532 and output 990. HEENT: Unremarkable. NECK: No adenopathy or JVD. LUNGS: Clear anteriorly. CARDIAC: S1 and S2, regular without murmur. ABDOMEN: Soft. EXTREMITIES: No edema. IMAGING DATA: Chest x-ray shows bilateral small effusions. LABORATORY DATA: Sodium 140, potassium 4.3, BUN 23, creatinine 0.6, glucose 213. PH of 7.45, pCO2 of 46, pO2 of 75 on SIMV rate 8, tidal volume 500, PEEP 5, pressure support 12, FiO2 of 40%. White blood cell count 19.3, hematocrit 42, and platelet count 228. ASSESSMENT: 1. Acute on chronic respiratory failure, requiring mechanical ventilation. 2. Metabolic encephalopathy. 3. Underlying chronic obstructive pulmonary disease. 4. Influenza with pneumonia. 5. Chronic atrial fibrillation. PLAN: The patient is doing better after revising his sedation yesterday. I think he would benefit from some diuresis, so I will give him a dose of Lasix today. He will continue tube feeds and nutritional support. I have placed him on CPAP with a high pressure support with a goal of slowly weaning his pressure support over the weekend. I have reduced the steroid dose. The above encompassed 35 minutes of critical care time. Job ID: [id number]
--- NOTE | 2019-04-07 15:05 | PDOC.HOSPP ---
- Subjective Encounter Date: 04/07/19 non-verbal (On the Vent) - Objective Vital Signs & Weight: Vital Signs (12 hours) Temp Pulse Resp BP Pulse Ox 04/07/19 13:39 110 H 19 100 04/07/19 12:00 19 04/07/19 11:00 99.1 F 04/07/19 10:35 88 04/07/19 10:21 88 11 L 100 04/07/19 10:00 25 H 04/07/19 07:53 21 H 04/07/19 07:41 98 04/07/19 07:11 97 25 H 100 04/07/19 07:00 99.1 F 04/07/19 06:00 13 04/07/19 04:00 21 H 04/07/19 03:07 96 162/124 H Weight Admit Weight 181 lb Weight 193 lb 12.581 oz Most Recent Monitor Data Heart Rate from ECG 113 NIBP 128/71 NIBP BP-Mean 90 Respiration from ECG 32 SpO2 96 I&O: 04/06/19 04/07/19 04/08/19 06:59 06:59 06:59 Intake Total 1630 1532 100 Output Total 917 901 5262 Balance 635 542 1210 Result Diagrams: 04/07/19 03:58 04/07/19 03:58 Additional Labs: Accuchecks 04/07/19 04/06/19 04/06/19 10:30 21:07 15:44 POC Glucose 205 H 170 H 167 H Hospitalist ROS - Medication Medications: Active Medications Generic Name Dose Route Start Last Admin Trade Name Freq PRN Reason Stop Dose Admin Acetaminophen 650 mg 03/27/19 02:40 03/28/19 22:55 Tylenol [place] 650 mg Q6H PRN Administration Fever > 101 or Mild Pain Albuterol/Ipratropium 3 ml 03/27/19 10:00 04/07/19 13:39 Duoneb NEB 3 ml [id number] MARTA Administration Diltiazem HCl 60 mg 04/02/19 15:00 04/07/19 08:33 Cardizem PO 60 mg TID MARTA Administration Divalproex Sodium 250 mg 04/06/19 09:00 04/07/19 08:33 Depakote Sprinkle PER TUBE 250 mg BID MARTA Administration Duloxetine HCl 60 mg 04/06/19 07:50 04/07/19 08:32 Cymbalta PER TUBE 60 mg DAILY MARTA Administration Enoxaparin Sodium 40 mg 03/28/19 09:00 04/07/19 08:31 Lovenox SC 40 mg 0900 MARTA Administration Famotidine 20 mg 03/27/19 21:00 04/07/19 08:32 Pepcid PER TUBE 20 mg Q12HR MARTA Administration Folic Acid 1 mg 03/27/19 09:00 04/07/19 08:33 Folvite PO 1 mg DAILY MARTA Administration Gabapentin 300 mg 04/06/19 09:00 04/07/19 08:32 Neurontin PO 300 mg BID MARTA Administration Hydralazine HCl 10 mg 03/29/19 10:50 04/07/19 10:35 Apresoline SLOW IVP 10 mg Q4H PRN Administration SBP GREATER THAN 160 Potassium Phosphate 9 mmol/ 103 mls @ 25.75 mls/hr 03/27/19 03:13 03/28/19 04 :45 Sodium Chloride IVPB 103 mls ASDIR PRN Administration Phosphate 1.0-1.8 Thiamine HCl 100 mg/ Sodium 51 mls @ 100 mls/hr 03/27/19 09:00 04/07/19 10:21 Chloride IVPB 51 mls Q24HR MARTA Administration Insulin Human Regular 0 units 03/31/19 23:11 04/07/19 10:27 Humulin R SC 3 unit .MILD SLIDING SCALE PRN Administration Mild Correctional Scale Lorazepam 2 mg 04/05/19 13:18 04/05/19 13:43 Ativan SLOW IVP 05/05/19 13:18 2 mg Q1H PRN Administration Breakthrough agitation Methylprednisolone Sodium Succinate 20 mg 04/07/19 09:00 04/07/19 10:20 Solu-Medrol IVP Not Given BID [facility] Metoclopramide HCl 10 mg 04/03/19 09:00 04/07/19 08:31 Reglan IVP 10 mg Q6H MARTA Administration Ondansetron HCl 4 mg 04/01/19 19:18 04/01/19 22:21 Zofran SLOW IVP 4 mg Q6H PRN Administration Nausea/Vomiting Propofol 1,000 mg 04/05/19 13:18 04/07/19 12:50 Diprivan IV 05/05/19 13:18 1,000 mg INF PRN Administration TO ACHIEVE GOAL RASS Protocol Saccharomyces Boulardii 250 mg 03/27/19 09:00 04/07/19 08:32 Florastor PER TUBE 250 mg DAILY MARTA Administration Sodium Chloride 10 ml 04/03/19 09:00 04/07/19 08:33 Flush - Normal Saline IVF 10 ml Q12HR MARTA Administration Tamsulosin HCl 0.4 mg 03/29/19 21:00 04/06/19 19:32 Flomax PO 0.4 mg HS MARTA Administration - Exam Eye: PERRL ENT: normocephalic atraumatic Neck: supple, no JVD Heart: RRR, no murmur, no gallops, no rubs Respiratory: normal chest expansion, no tachypnea, rhonchi Gastrointestinal: soft, non-tender, non-distended, normal bowel sounds Hosp A/P (1) Influenza Code(s): J11.1 - FLU DUE TO UNIDENTIFIED INFLUENZA VIRUS W OTH RESP MANIFEST Status: Acute (2) Acute respiratory failure with hypoxia Code(s): J96.01 - ACUTE RESPIRATORY FAILURE WITH HYPOXIA Status: Acute (3) COPD exacerbation Code(s): J44.1 - CHRONIC OBSTRUCTIVE PULMONARY DISEASE W (ACUTE) EXACERBATION Status: Acute (4) Atrial fibrillation with rapid ventricular response Code(s): I48.91 - UNSPECIFIED ATRIAL FIBRILLATION Status: Acute (5) Nausea and vomiting Code(s): R11.2 - NAUSEA WITH VOMITING, UNSPECIFIED Status: Acute - Plan Continue ventilator management per pulmonology team. The patient is difficult to wean due to his agitation and encephalopathy. He was placed on CPAP with high pressure support this morning. Might require tracheostomy if his condition does not improve according to pulmonology service. Completed 5 days of Tamiflu. Afib converted to sinus rythm. HR controlled on Diltiazem PO. Tolerating tube feedings.
[2019-04-07] MEDS: Tamsulosin HCl 0.4 MG CAP PO SCH (20:45)
[2019-04-08] MEDS: Propofol 1,000 MG/100 ML VIAL IV PRN ×3 (02:16→15:19)
[2019-04-08] MEDS: Metoclopramide HCl 10 MG/2 ML VIAL IVP SCH ×4 (02:17→22:36)
[2019-04-08] MEDS ORDERED: Labetalol HCl 100 MG/20 ML VIAL ONE (04:39)
[2019-04-08 04:56] LABS: Anion Gap 9 mmol/L (10-20); BUN (Urea Nitrogen) 23 mg/dL (8.4-25.7); Calc. Creatinine Clearance 119 mL/min (70-130); Carbon Dioxide 34 mmol/L (23-31); Chloride 102 mmol/L (98-107); Estimated GFR-MDRD Greater than 90; Glucose 184 mg/dL (83-110); Sodium 141 mmol/L (136-145)
[2019-04-08] MEDS: Insulin Regular 300 UNITS/3 ML VIAL SC PRN (05:09)
[2019-04-08 05:14] LABS: Hemoglobin 14.1 g/dL (14.0-18.0); Mean Corpuscular HGB CONC 32.4 g/dL (32.0-36.0); Mean Corpuscular Hemoglobin 32.3 pg (27.0-31.0); Mean Corpuscular Volume 99.7 fL (78.0-98.0); Mean Platelet Volume 8.1 fL (7.4-10.4); Platelet Count 221 thou/uL (130-400); RBC Distribution Width 13.6 % (11.5-14.5); Red Blood Cell (RBC) Count 4.35 mill/uL (4.70-6.10); White Blood Cell (WBC) Count 18.1 thou/uL (4.8-10.8)
[2019-04-08 05:35] LABS: Band 3 % (5-11); Lymphocytes 2 % (21-51); MDiff Complete? YES; Monocytes 9 % (0-10); Neutrophil 86 % (42-75); Platelet Morphology Comment Appears Adequate; RBC Morphology Normal
--- NOTE | 2019-04-08 08:40 | PRG ---
DATE OF SERVICE: 04/08/2019 SUBJECTIVE: The patient is seen and examined at the bedside. He is sedated. He is intubated on a ventilator. He is receiving feeding through nasogastric tube. He has residuals ranging from 100 to 200 mL every 4 hours. OBJECTIVE: VITAL SIGNS: Blood pressure is 149/86, pulse is 115, and respiratory rate is 27. HEENT: His head is normocephalic, atraumatic. Sclerae are nonicteric. Pupils are midline, responding to light properly. Conjunctivae palish. He is orally intubated. LUNGS: Left base with some crackles and decreased breath sounds at both bases. HEART: S1 and S2. Irregularly irregular. No S3. No S4. ABDOMEN: Soft. Mildly distended. Bowel sounds present, sluggish. EXTREMITIES: No clubbing, cyanosis, or edema. NEUROLOGICAL: Postponed since he is on the sedation. LABORATORY DATA: White count of 11.1, hemoglobin of 14.1, hematocrit of 43.4, platelet count is 221,000. Sodium of 141, potassium 4.0, chloride 102, CO2 of 34, BUN 23, creatinine 0.7, and glucose 184. The Accu-Cheks are ranging from 139 to 205, calcium is 9.0. Microbiology, no new findings. IMPRESSION: 1. Respiratory failure, acute with hypoxia secondary to influenza. 2. Influenza. 3. Chronic obstructive pulmonary disease exacerbation. 4. Atrial fibrillation with rapid ventricular response, recurrent. 5. High residuals on tube feeding despite of Reglan use. PLAN: The patient's pulse is ranging around 100 and 110 at this point. He is on Cardizem p.o. We will continue that. If his RVR gets worse and he does not convert on this regimen, we will have Cardiology involved and intensified our treatment. For now, we will continue Cardizem. We will do echocardiogram. We will keep him on aspirin. He will continue his steroids. 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 The patient completed his 5-day regimen of Tamiflu. We will continue his Reglan 10 mg IV push every 6 hours. Job ID: [id number]
[2019-04-08] MEDS: acetaZOLAMIDE Sodium 500 mg Vial IVP SCH ×2 (09:33→22:18)
[2019-04-08] MEDS: DULoxetine 30 MG CAP PER TUBE SCH (09:34)
[2019-04-08] MEDS: Divalproex Sodium 125 mg Sprinkle Capsule PER TUBE SCH ×2 (09:34→20:28)
[2019-04-08] MEDS: Saccharomyces boulardii 250 MG CAP PER TUBE SCH (09:34)
[2019-04-08] MEDS: Polyethylene Glycol 3350 17 GM Packet PER TUBE SCH (09:34)
[2019-04-08] MEDS: Famotidine 20 MG TAB PER TUBE SCH ×2 (09:34→20:28)
[2019-04-08] MEDS: Gabapentin 300 MG CAP PO SCH ×2 (09:34→20:29)
[2019-04-08] MEDS: Enoxaparin Sodium 40 MG/0.4 ML SYRINGE SC SCH (09:35)
[2019-04-08] MEDS: Aspirin 300 MG Suppository PR SCH (09:35)
[2019-04-08] MEDS: Folic Acid 1 MG TAB PO SCH (09:35)
--- NOTE | 2019-04-08 09:52 | PRG ---
DATE OF SERVICE: 04/08/2019 This is 35 minutes critical care time. SUBJECTIVE: This patient remains intubated on mechanical ventilation. There have been no changes overnight. OBJECTIVE: VITAL SIGNS: Temperature 99.2, pulse 120 in atrial fibrillation, blood pressure 173/106. Intake 1202, output 3190. HEENT: He will open his eyes, but does not track very well. NECK: No adenopathy or JVD. LUNGS: Coarse breath sounds. CARDIAC: S1 and S2 regular. ABDOMEN: Soft. EXTREMITIES: Edematous. LABORATORY DATA: White blood cell count 18.1, hematocrit 43.4, platelet count 221. pH of 7.45, pCO2 of 46, PO2 of 75. Sodium 141, potassium 4, chloride 102, CO2 of 34, BUN 23, creatinine 0.7, glucose 184. Chest x-ray was not done today. ASSESSMENT: 1. Acute on chronic respiratory failure, requiring mechanical ventilation. 2. Metabolic encephalopathy. 3. Chronic obstructive pulmonary disease. 4. Influenza with pneumonia. 5. Chronic atrial fibrillation. 6. Developing metabolic alkalosis. PLAN: 1. I will go ahead and give the patient some scheduled Diamox. 2. Does not seem weanable at this point. That is mainly an issue with his encephalopathy more than anything else. My general feeling is that he will need a tracheostomy by early next week. I will go ahead and stop his steroids and see if he can do okay without that. Job ID: [id number]
[2019-04-08] MEDS: methylPREDNISolone Sod Succ 40 MG VIAL IVP SCH (10:20)
[2019-04-08] MEDS: Dronedarone HCl 400 MG TAB PO SCH (16:55)
--- NOTE | 2019-04-08 17:35 | CON ---
DATE OF CONSULTATION: 04/08/2019 REASON FOR CONSULTATION: Atrial fibrillation. HISTORY OF PRESENT ILLNESS: Mr. Marshall is a 73-year-old man. He was admitted to the hospital for respiratory failure due to COPD and influenza. Since he has been here, he has been in and out of atrial fibrillation. I have been consulted today. The patient appears to have been here since the . He is unable to give any history. He is intubated and sedated. CURRENT MEDICATION: He is receiving NG Cardizem. PAST HISTORY: Unknown for any previous cardiac problems. REVIEW OF SYSTEMS: Not obtainable. SOCIAL HISTORY: Not obtainable. PHYSICAL EXAMINATION: GENERAL: On evaluation, this is a 73-year-old gentleman, intubated and sedated. VITAL SIGNS: Blood pressure 120/60, pulse 90 and it is irregularly irregular. LUNGS: Clear. CARDIAC: Irregularly irregular. ABDOMEN: Soft, nontender. EXTREMITIES: Warm, dry. No clubbing, cyanosis, or edema. LABORATORY DATA: EKG reveals that he has been in atrial fibrillation the majority of the time since he has been here ever with an occasional sinus rhythm. Echocardiogram reveals ejection fraction of 60% to 65%. ASSESSMENT: 1. Chronic obstructive pulmonary disease. 2. Paroxysmal atrial fibrillation, predominant primarily. PLAN: 1. Would recommend increasing anticoagulation. 2. We will start low-dose Multaq to see if that helps maintain sinus rhythm. Job ID: [id number]
[2019-04-08] MEDS: Tamsulosin HCl 0.4 MG CAP PO SCH (20:28)
[2019-04-08] MEDS ORDERED: Enoxaparin Sodium 80 MG/0.8 ML SYRINGE SC SCH (21:00)
[2019-04-09] MEDS: Metoclopramide HCl 10 MG/2 ML VIAL IVP SCH ×4 (04:01→20:27)
[2019-04-09 04:51] LABS: Band 5 % (5-11); Hemoglobin 13.1 g/dL (14.0-18.0); Hypochromia SLIGHT = 6-15 cells (100X) (0-5/hpf); Lymphocytes 1 % (21-51); MDiff Complete? YES; Macrocytosis SLIGHT = 6-15 cells (100X) (0-5/hpf); Mean Corpuscular HGB CONC 32.4 g/dL (32.0-36.0); Mean Corpuscular Hemoglobin 32.6 pg (27.0-31.0); Mean Platelet Volume 8.4 fL (7.4-10.4); Monocytes 6 % (0-10); Neutrophil 88 % (42-75); Platelet Count 183 thou/uL (130-400); Platelet Morphology Comment Appears Adequate; RBC Distribution Width 13.7 % (11.5-14.5); Red Blood Cell (RBC) Count 4.02 mill/uL (4.70-6.10); White Blood Cell (WBC) Count 12.4 thou/uL (4.8-10.8)
[2019-04-09 04:58] LABS: Anion Gap 8 mmol/L (10-20); BUN (Urea Nitrogen) 22 mg/dL (8.4-25.7); Calc. Creatinine Clearance 110 mL/min (70-130); Carbon Dioxide 31 mmol/L (23-31); Chloride 105 mmol/L (98-107); Estimated GFR-MDRD Greater than 90; Glucose 123 mg/dL (83-110); Potassium 3.8 mmol/L (3.5-5.1); Sodium 140 mmol/L (136-145)
[2019-04-09] MEDS: Propofol 1,000 MG/100 ML VIAL IV PRN ×3 (06:06→23:51)
[2019-04-09] MEDS: DULoxetine 30 MG CAP PER TUBE SCH (08:46)
[2019-04-09] MEDS: Folic Acid 1 MG TAB PO SCH (08:46)
[2019-04-09] MEDS: Enoxaparin Sodium 80 MG/0.8 ML SYRINGE SC SCH (08:46)
[2019-04-09] MEDS: acetaZOLAMIDE Sodium 500 mg Vial IVP SCH ×2 (08:46→21:24)
[2019-04-09] MEDS: Gabapentin 300 MG CAP PO SCH ×2 (08:46→20:27)
[2019-04-09] MEDS: Dronedarone HCl 400 MG TAB PO SCH ×2 (08:46→17:31)
[2019-04-09] MEDS: Polyethylene Glycol 3350 17 GM Packet PER TUBE SCH (08:46)
[2019-04-09] MEDS: Saccharomyces boulardii 250 MG CAP PER TUBE SCH (08:47)
[2019-04-09] MEDS: Aspirin 300 MG Suppository PR SCH (08:47)
[2019-04-09] MEDS: Famotidine 20 MG TAB PER TUBE SCH ×2 (08:47→20:27)
[2019-04-09] MEDS: Divalproex Sodium 125 mg Sprinkle Capsule PER TUBE SCH ×2 (08:47→20:26)
--- NOTE | 2019-04-09 09:52 | PRG ---
DATE OF SERVICE: 04/09/2019 A 35 minutes of critical care time. SUBJECTIVE: The patient remains intubated on mechanical ventilation today. His sedation was off. He was actually able to follow commands for me and was very calm on mechanical ventilation. OBJECTIVE: VITAL SIGNS: His temperature is 98.3, pulse 96, blood pressure 120/43, and O2 saturation 98%. Intake 1217 and output 3190. HEENT: Unremarkable. NECK: No adenopathy or JVD. LUNGS: Clear anteriorly. CARDIAC: S1 and S2. Regular. ABDOMEN: Soft. EXTREMITIES: No edema. LABORATORY DATA: Sodium 140, potassium 3.8, chloride 105, CO2 of 31, BUN 22, creatinine 0.7, and glucose 123. White blood cell count 12, hematocrit 40, and platelet count 183. A pH of 7.45, pCO2 of 46, and pO2 of 75 on SIMV rate 8, tidal volume 500, PEEP 5, pressure support 12, and FiO2 of 40%. ASSESSMENT: 1. Improved metabolic encephalopathy. 2. Acute respiratory failure requiring mechanical ventilation. 3. Improved pulmonary edema. 4. Improved metabolic alkalosis. 5. Chronic atrial fibrillation. 6. Influenza with pneumonia. PLAN: 1. Continue the Diamox. 2. Place on CPAP. 3. My hope is to extubate him tomorrow if he does well on CPAP today. He is still a little weak on his neurologic exam and I do not want to extubate him on a weekend when no one is around, if he develops problems. Job ID: [id number]
--- NOTE | 2019-04-09 11:02 | PRG ---
DATE OF SERVICE: 04/09/2019 SUBJECTIVE: Mr. Marshall remains intubated and sedated. He is still in atrial fibrillation with controlled rate. Not in sinus rhythm. OBJECTIVE: VITAL SIGNS: Blood pressure 140/70 and pulse 80 to 90, it is irregular. LUNGS: Clear. CARDIAC: Irregularly irregular. ASSESSMENT: 1. Respiratory failure. 2. Atrial fibrillation, persistent. PLAN: 1. The patient is on diltiazem orally. 2. We have added Multaq. 3. He is on increased dose of enoxaparin. 4. If he is still in atrial fibrillation tomorrow, we will stop the Multaq and just rate controlled anticoagulation. Job ID: [id number]
[2019-04-09] MEDS ORDERED: Furosemide 40 MG/4 ML VIAL SLOW IVP SCH (12:30)
--- NOTE | 2019-04-09 13:13 | PRG ---
DATE OF SERVICE: 04/09/2019 SUBJECTIVE: The patient is seen and examined at the bedside. He is intubated and sedated. His residuals on his tube feeding are significantly improved since yesterday. There was no any unexpected events overnight. PHYSICAL EXAMINATION: VITAL SIGNS: Blood pressure is 150/64, pulse is 109, respiratory rate is 22, and O2 saturation is 100% on the ventilator. GENERAL: His pupils are midsize and responding to light properly. Sclerae are nonicteric. He is orally intubated. LUNGS: Breath sounds diminished at both bases. HEART: S1 and S2. Irregularly irregular. No S3. No S4. ABDOMEN: Soft, nondistended. Bowel sounds are sluggish. EXTREMITIES: 1 to 1.5+ peripheral edema on both lower and upper extremities. NEUROLOGICAL: Postponed since he is sedated. LABORATORY DATA: Labs showed white count of 12.4, hemoglobin of 13.1, hematocrit 40.5, and platelet count is 183,000. Normal electrolytes, BUN of 22, creatinine 0.76, glycemia is ranging from 101 to 128, and calcium is 9.0. Echocardiogram showed normal LVEF. IMPRESSION: 1. Respiratory failure with hypoxia secondary to influenza. 2. Influenza. 3. Chronic obstructive pulmonary disease exacerbation. 4. Recurrent atrial fibrillation with rapid ventricular response. 5. High residuals on tube feeding despite of Reglan use, improved. 6. Metabolic alkalosis, improved. PLAN: The patient is on Diamox for his metabolic alkalosis. He is getting prepared for extubation by Dr. Gordon. We will give him one dose of Lasix. He is retaining fluid, although his urine output is good and he is in negative balance for the last couple of days. The patient was seen by director business, Dr. Palmer, who started him on Multaq for his recurrent atrial fibrillation. His Lovenox dose was increased to full dose. He will continue on his DuoNebs and he will continue on his mechanical ventilation until Dr. Gordon makes decision about extubating him. Job ID: [id number]
[2019-04-09] MEDS: Insulin Regular 300 UNITS/3 ML VIAL SC PRN (16:15)
[2019-04-09] MEDS: Tamsulosin HCl 0.4 MG CAP PO SCH (20:27)
[2019-04-10] MEDS: Metoclopramide HCl 10 MG/2 ML VIAL IVP SCH ×4 (03:13→22:28)
[2019-04-10 04:12] LABS: Band 2 % (5-11); Eosinophils 1 % (0-10); Hemoglobin 12.2 g/dL (14.0-18.0); Lymphocytes 2 % (21-51); MDiff Complete? YES; Mean Corpuscular HGB CONC 32.7 g/dL (32.0-36.0); Mean Corpuscular Hemoglobin 32.8 pg (27.0-31.0); Mean Platelet Volume 7.9 fL (7.4-10.4); Monocytes 8 % (0-10); Neutrophil 87 % (42-75); Platelet Count 136 thou/uL (130-400); Platelet Morphology Comment Appears Adequate; RBC Distribution Width 13.6 % (11.5-14.5); Red Blood Cell (RBC) Count 3.73 mill/uL (4.70-6.10); White Blood Cell (WBC) Count 16.3 thou/uL (4.8-10.8)
[2019-04-10 04:22] LABS: Anion Gap 10 mmol/L (10-20); BUN (Urea Nitrogen) 19 mg/dL (8.4-25.7); Calc. Creatinine Clearance 114 mL/min (70-130); Calcium 8.5 mg/dL (7.8-10.44); Carbon Dioxide 27 mmol/L (23-31); Chloride 107 mmol/L (98-107); Estimated GFR-MDRD Greater than 90; Glucose 128 mg/dL (83-110); Sodium 140 mmol/L (136-145)
[2019-04-10] MEDS: Propofol 1,000 MG/100 ML VIAL IV PRN (05:00)
[2019-04-10] MEDS ORDERED: Furosemide 40 MG/4 ML VIAL SLOW IVP SCH ×2 (07:45→22:15)
--- NOTE | 2019-04-10 08:37 | PRG ---
DATE OF SERVICE: 04/10/2019 35 minutes critical care time. SUBJECTIVE: The patient remains intubated on mechanical ventilation. This morning, I was able to get him to wake up and follow all commands for me. OBJECTIVE: VITAL SIGNS: His temperature is 99.7, pulse 99, blood pressure 131/68, O2 saturation 100%. A 24-hour intake 1849, output 3192. Weight 185 pounds. HEENT: Remarkable for NG tube and oral endotracheal tube in place. NECK: No adenopathy or JVD. LUNGS: Fairly clear anteriorly. CARDIOVASCULAR: S1, S2 regular. ABDOMEN: Soft, obese, nontender, nondistended. EXTREMITIES: Trace edema. LABORATORY DATA: Sodium 140, potassium 4, BUN 19, creatinine 0.7, glucose 128. White blood cell count 16.3, hematocrit 37.5, and platelet count 136. ASSESSMENT: 1. Acute respiratory failure requiring mechanical ventilation. 2. Resolved metabolic alkalosis. 3. Improved pulmonary edema as far as in's and out's. 4. Chronic atrial fibrillation. 5. Influenza with pneumonia. PLAN: 1. Extubate to high-flow and observe. 2. Another dose of Lasix. 3. Continue Diamox. Job ID: [id number]
[2019-04-10] MEDS: acetaZOLAMIDE Sodium 500 mg Vial IVP SCH ×2 (08:47→22:28)
[2019-04-10] MEDS: Enoxaparin Sodium 80 MG/0.8 ML SYRINGE SC SCH ×2 (08:47→22:29)
[2019-04-10] MEDS: DULoxetine 30 MG CAP PER TUBE SCH (08:48)
[2019-04-10] MEDS: Aspirin 300 MG Suppository PR SCH (08:48)
[2019-04-10] MEDS: Folic Acid 1 MG TAB PO SCH (08:48)
[2019-04-10] MEDS: Gabapentin 300 MG CAP PO SCH ×2 (08:48→22:28)
[2019-04-10] MEDS: Divalproex Sodium 125 mg Sprinkle Capsule PER TUBE SCH ×2 (08:48→22:29)
[2019-04-10] MEDS: Saccharomyces boulardii 250 MG CAP PER TUBE SCH (08:48)
[2019-04-10] MEDS: Polyethylene Glycol 3350 17 GM Packet PER TUBE SCH (08:48)
[2019-04-10] MEDS: Dronedarone HCl 400 MG TAB PO SCH (08:48)
[2019-04-10] MEDS: Famotidine 20 MG TAB PER TUBE SCH ×2 (08:48→22:28)
--- NOTE | 2019-04-10 09:45 | RAD ---
CHEST 1 VIEW: HISTORY: Followup pneumonia. COMPARISON: 04/07/2019. FINDINGS: Stable life support tubes. Progressive bilateral alveolar and interstitial opacity changes and pleur al effusion changes when compared to the 04/07/2019 study. IMPRESSION: Worsening bilateral alveolar and interstitial opacities involving the lower lobes and extending up in to the mid lung regions. POS: TPC
--- NOTE | 2019-04-10 14:07 | PRG ---
DATE OF SERVICE: 04/10/2019 SUBJECTIVE: Mr. Marshall is resting comfortably. He does not appear to be short of breath. OBJECTIVE: VITAL SIGNS: Blood pressure is 100/69, temperature is 100.3, pulse is in the 80 to 90, it is atrial fibrillation. LUNGS: Clear of any wheezing. CARDIAC: Irregularly irregular. ABDOMEN: Soft, nontender. EXTREMITIES: No edema. ASSESSMENT: 1. Atrial fibrillation, persistent. 2. Respiratory failure. PLAN: 1. Stop Multaq. 2. Use diltiazem and metoprolol to control heart rate and anticoagulate. Job ID: [id number]
--- NOTE | 2019-04-10 18:32 | PDOC.HOSPP ---
- Subjective Encounter Date: 04/10/19 Encounter Time: 09:30 Subjective: Extubated today. ON nasal cannula. Weakness in upper extremities. Following commands albeit slowly. No other overnight issues - Objective Vital Signs & Weight: Vital Signs (12 hours) Temp Pulse Resp BP Pulse Ox 04/10/19 16:00 99.4 F 04/10/19 15:21 99 04/10/19 15:19 104 H 24 H 99 04/10/19 13:25 105 H 24 H 100 04/10/19 12:00 100.3 F H 04/10/19 10:32 109 H 23 H 98 04/10/19 08:00 99.6 F 26 H 98 04/10/19 07:37 99 04/10/19 07:34 99 04/10/19 07:33 112 H 160/80 H Weight Admit Weight 181 lb Weight 185 lb 10.067 oz Most Recent Monitor Data Heart Rate from ECG 103 NIBP 160/89 NIBP BP-Mean 112 Respiration from ECG 29 SpO2 98 I&O: 04/09/19 04/10/19 04/11/19 06:59 06:59 06:59 Intake Total 1217 1849 966 Output Total 7081 6152 1570 [facility] -[phone] -[phone] -604 Result Diagrams: 04/10/19 03:54 04/10/19 03:54 Additional Labs: Accuchecks 04/10/19 04/10/19 04/10/19 16:02 10:01 03:25 POC Glucose 104 140 H 124 H 04/09/19 21:18 POC Glucose 147 H Hospitalist ROS - Review of Systems All other systems reviewed; all pertinent +/- noted in HPI/Subj - Medication Medications: Active Medications Generic Name Dose Route Start Last Admin Trade Name Freq PRN Reason Stop Dose Admin Acetaminophen 650 mg 03/27/19 02:40 03/28/19 22:55 Tylenol WA 650 mg Q6H PRN Administration Fever > 101 or Mild Pain Acetazolamide Sodium 250 mg 04/08/19 10:00 04/10/19 08:47 Diamox IVP 250 mg 1000,2200 MARTA Administration Albuterol/Ipratropium 3 ml 03/27/19 10:00 04/10/19 15:19 Duoneb NEB 3 ml [id number] MARTA Administration Aspirin 300 mg 04/08/19 09:00 04/10/19 08:48 Aspirin WA 300 mg DAILY MARTA Administration Diltiazem HCl 60 mg 04/02/19 15:00 04/10/19 14:55 Cardizem PO 60 mg TID MARTA Administration Divalproex Sodium 250 mg 04/06/19 09:00 04/10/19 08:48 Depakote Sprinkle PER TUBE 250 mg BID MARTA Administration Duloxetine HCl 60 mg 04/06/19 07:50 04/10/19 08:48 Cymbalta PER TUBE 60 mg DAILY MARTA Administration Famotidine 20 mg 03/27/19 21:00 04/10/19 08:48 Pepcid PER TUBE 20 mg Q12HR MARTA Administration Folic Acid 1 mg 03/27/19 09:00 04/10/19 08:48 Folvite PO 1 mg DAILY MARTA Administration Gabapentin 300 mg 04/06/19 09:00 04/10/19 08:48 Neurontin PO 300 mg BID MARTA Administration Hydralazine HCl 10 mg 03/29/19 10:50 04/07/19 20:46 Apresoline SLOW IVP 10 mg Q4H PRN Administration SBP GREATER THAN 160 Potassium Phosphate 9 mmol/ 103 mls @ 25.75 mls/hr 03/27/19 03:13 03/28/19 04 :45 Sodium Chloride IVPB 103 mls ASDIR PRN Administration Phosphate 1.0-1.8 Insulin Human Regular 0 units 03/31/19 23:11 04/09/19 16:15 Humulin R SC 2 unit .MILD SLIDING SCALE PRN Administration Mild Correctional Scale Lorazepam 2 mg 04/05/19 13:18 04/05/19 13:43 Ativan SLOW IVP 05/05/19 13:18 2 mg Q1H PRN Administration Breakthrough agitation Metoclopramide HCl 10 mg 04/03/19 09:00 04/10/19 14:55 Reglan IVP 10 mg Q6H MARTA Administration Ondansetron HCl 4 mg 04/01/19 19:18 04/01/19 22:21 Zofran SLOW IVP 4 mg Q6H PRN Administration Nausea/Vomiting Polyethylene Glycol 17 gm 04/08/19 09:00 04/10/19 08:48 Miralax PER TUBE 17 gm DAILY MARTA Administration Propofol 1,000 mg 04/05/19 13:18 04/10/19 05:00 Diprivan IV 05/05/19 13:18 1,000 mg INF PRN Administration TO ACHIEVE GOAL RASS Protocol Saccharomyces Boulardii 250 mg 03/27/19 09:00 04/10/19 08:48 Florastor PER TUBE 250 mg DAILY MARTA Administration Sodium Chloride 10 ml 04/03/19 09:00 04/10/19 08:47 Flush - Normal Saline IVF 10 ml Q12HR MARTA Administration Tamsulosin HCl 0.4 mg 03/29/19 21:00 04/09/19 20:27 Flomax PO 0.4 mg HS MARTA Administration - Exam General Appearance: awake alert, ill appearing Eye: PERRL, anicteric sclera ENT: normocephalic atraumatic Neck: supple, symmetric, no JVD, JVD Heart: no murmur, no gallops, no rubs, irregular Respiratory: rales, rhonchi, tachypneic Gastrointestinal: soft, non-tender, non-distended, normal bowel sounds Extremities: no cyanosis, 1+ LE edema Neurological: cranial nerve grossly intact, normal sensation to touch, no new deficit Musculoskeletal: generalized weakness, diffuse muscle atrophy Psychiatric: normal behavior, oriented to person Hosp A/P (1) Influenza Code(s): J11.1 - FLU DUE TO UNIDENTIFIED INFLUENZA VIRUS W OTH RESP MANIFEST Status: Acute (2) Acute respiratory failure with hypoxia Code(s): J96.01 - ACUTE RESPIRATORY FAILURE WITH HYPOXIA Status: Acute (3) COPD exacerbation Code(s): J44.1 - CHRONIC OBSTRUCTIVE PULMONARY DISEASE W (ACUTE) EXACERBATION Status: Acute (4) Afib Code(s): I48.91 - UNSPECIFIED ATRIAL FIBRILLATION Status: Acute - Plan Appreciate behavioral health consultant recommendations Extubated today Continue DuoNeb, diuretivcs, and diltiazem Continue other medications from home Continue high flow nasal cannula Likely PT/OT/speech eval tomorrow when patient is more alert Disposition: Extubation today. Continue to optimize post extubation. Has had 2 -week intubation.. Will likely require extensive physical rehabilitation after his illness.
[2019-04-10] MEDS: Metoprolol Tartrate 25 MG TAB PO SCH (22:28)
[2019-04-10] MEDS: Tamsulosin HCl 0.4 MG CAP PO SCH (22:28)
[2019-04-11 03:54] LABS: Hemoglobin 11.8 g/dL (14.0-18.0); Hypochromia SLIGHT = 6-15 cells (100X) (0-5/hpf); Lymphocytes 2 % (21-51); MDiff Complete? YES; Mean Corpuscular Hemoglobin 32.4 pg (27.0-31.0); Mean Platelet Volume 8.8 fL (7.4-10.4); Monocytes 4 % (0-10); Neutrophil 94 % (42-75); Platelet Count 158 thou/uL (130-400); RBC Distribution Width 13.6 % (11.5-14.5); Red Blood Cell (RBC) Count 3.65 mill/uL (4.70-6.10); White Blood Cell (WBC) Count 13.3 thou/uL (4.8-10.8)
[2019-04-11 03:56] LABS: Anion Gap 9 mmol/L (10-20); BUN (Urea Nitrogen) 19 mg/dL (8.4-25.7); Calc. Creatinine Clearance 119 mL/min (70-130); Calcium 9.1 mg/dL (7.8-10.44); Carbon Dioxide 27 mmol/L (23-31); Chloride 107 mmol/L (98-107); Estimated GFR-MDRD Greater than 90; Glucose 119 mg/dL (83-110); Potassium 3.6 mmol/L (3.5-5.1); Sodium 139 mmol/L (136-145)
[2019-04-11] MEDS: Metoclopramide HCl 10 MG/2 ML VIAL IVP SCH ×4 (04:05→20:56)
--- NOTE | 2019-04-11 08:42 | PDOC.HOSPP ---
- Subjective Encounter Date: 04/11/19 Encounter Time: 08:20 Subjective: Has been switched from high flow to nasal cannula this morning. Still has a significant amount of upper airway secretions. Cough reflex seems to be improving compared to yesterday. No overnight events. - Objective Vital Signs & Weight: Vital Signs (12 hours) Temp Pulse Resp Pulse Ox 04/11/19 07:16 98 04/11/19 07:13 95 23 H 96 04/11/19 04:00 99.8 F H 04/11/19 03:46 88 18 97 04/11/19 02:33 98 04/11/19 00:47 87 22 H 97 04/10/19 23:00 99.9 F H 04/10/19 21:29 98 24 H 96 Weight Admit Weight 181 lb Weight 185 lb 13.595 oz Most Recent Monitor Data Heart Rate from ECG 97 NIBP 144/77 NIBP BP-Mean 99 Respiration from ECG 24 SpO2 100 I&O: 04/10/19 04/11/19 04/12/19 06:59 06:59 06:59 Intake Total 1849 1675 Output Total 3199 3985 Balance -2645 -9961 Result Diagrams: 04/11/19 03:06 04/11/19 03:06 Additional Labs: Accuchecks 04/11/19 04/10/19 04/10/19 04:01 23:50 16:02 POC Glucose 94 104 104 04/10/19 10:01 POC Glucose 140 H Hospitalist ROS - Review of Systems All other systems reviewed; all pertinent +/- noted in HPI/Subj - Medication Medications: Active Medications Generic Name Dose Route Start Last Admin Trade Name Kendellq PRN Reason Stop Dose Admin Acetaminophen 650 mg 03/27/19 02:40 03/28/19 22:55 Tylenol [place] 650 mg Q6H PRN Administration Fever > 101 or Mild Pain Acetazolamide Sodium 250 mg 04/08/19 10:00 04/10/19 22:28 Diamox IVP 250 mg 1000,2200 MARTA Administration Aspirin 300 mg 04/08/19 09:00 04/10/19 08:48 Aspirin NH 300 mg DAILY MARTA Administration Diltiazem HCl 60 mg 04/02/19 15:00 04/10/19 22:28 Cardizem PO 60 mg TID MARTA Administration Divalproex Sodium 250 mg 04/06/19 09:00 04/10/19 22:29 Depakote Sprinkle PER TUBE 250 mg BID MARTA Administration Duloxetine HCl 60 mg 04/06/19 07:50 04/10/19 08:48 Cymbalta PER TUBE 60 mg DAILY MARTA Administration Enoxaparin Sodium 80 mg 04/10/19 21:00 04/10/19 22:29 Lovenox SC 80 mg 0900,2100 MARTA Administration Famotidine 20 mg 03/27/19 21:00 04/10/19 22:28 Pepcid PER TUBE 20 mg Q12HR MARTA Administration Folic Acid 1 mg 03/27/19 09:00 04/10/19 08:48 Folvite PO 1 mg DAILY MARTA Administration Gabapentin 300 mg 04/06/19 09:00 04/10/19 22:28 Neurontin PO 300 mg BID MARTA Administration Hydralazine HCl 10 mg 03/29/19 10:50 04/07/19 20:46 Apresoline SLOW IVP 10 mg Q4H PRN Administration SBP GREATER THAN 160 Potassium Phosphate 9 mmol/ 103 mls @ 25.75 mls/hr 03/27/19 03:13 03/28/19 04 :45 Sodium Chloride IVPB 103 mls ASDIR PRN Administration Phosphate 1.0-1.8 Insulin Human Regular 0 units 03/31/19 23:11 04/09/19 16:15 Humulin R SC 2 unit .MILD SLIDING SCALE PRN Administration Mild Correctional Scale Lorazepam 2 mg 04/05/19 13:18 04/05/19 13:43 Ativan SLOW IVP 05/05/19 13:18 2 mg Q1H PRN Administration Breakthrough agitation Metoclopramide HCl 10 mg 04/03/19 09:00 04/11/19 04:05 Reglan IVP 10 mg Q6H MARTA Administration Metoprolol Tartrate 25 mg 04/10/19 21:00 04/10/19 22:28 Lopressor PO 25 mg BID MARTA Administration Ondansetron HCl 4 mg 04/01/19 19:18 04/01/19 22:21 Zofran SLOW IVP 4 mg Q6H PRN Administration Nausea/Vomiting Polyethylene Glycol 17 gm 04/08/19 09:00 04/10/19 08:48 Miralax PER TUBE 17 gm DAILY MARTA Administration Propofol 1,000 mg 04/05/19 13:18 04/10/19 05:00 Diprivan IV 05/05/19 13:18 1,000 mg INF PRN Administration TO ACHIEVE GOAL RASS Protocol Saccharomyces Boulardii 250 mg 03/27/19 09:00 04/10/19 08:48 Florastor PER TUBE 250 mg DAILY MARTA Administration Sodium Chloride 10 ml 04/03/19 09:00 04/10/19 22:29 Flush - Normal Saline IVF 10 ml Q12HR MARTA Administration Tamsulosin HCl 0.4 mg 03/29/19 21:00 04/10/19 22:28 Flomax PO 0.4 mg HS MARTA Administration - Exam General Appearance: ill appearing Eye: PERRL ENT: normocephalic atraumatic Neck: no JVD, no carotid bruit, JVD Heart: no murmur, no gallops, irregular Respiratory: normal chest expansion, rhonchi, tachypneic Gastrointestinal: soft, non-tender, non-distended, normal bowel sounds Extremities: 1+ LE edema Skin: normal turgor, no lesions, no rashes Neurological: normal sensation to touch Musculoskeletal: generalized weakness, diffuse muscle atrophy Psychiatric: normal behavior, A&O x 3, oriented to person, oriented to place Hosp A/P (1) Influenza Code(s): J11.1 - FLU DUE TO UNIDENTIFIED INFLUENZA VIRUS W OTH RESP MANIFEST Status: Acute (2) Acute respiratory failure with hypoxia Code(s): J96.01 - ACUTE RESPIRATORY FAILURE WITH HYPOXIA Status: Acute (3) COPD exacerbation Code(s): J44.1 - CHRONIC OBSTRUCTIVE PULMONARY DISEASE W (ACUTE) EXACERBATION Status: Acute (4) Afib Code(s): I48.91 - UNSPECIFIED ATRIAL FIBRILLATION Status: Acute - Plan Appreciate windows consultant recommendations Extubated 04/10 Continue DuoNeb, diuretivcs, and diltiazem Continue other medications from home Continue nasal cannula Likely PT/OT/speech eval Disposition: Extubation today. Continue to optimize secretions post extubation. Has had 2-week intubation.. Will likely require extensive physical rehabilitation after his illness.
--- NOTE | 2019-04-11 08:46 | PRG ---
DATE OF SERVICE: 04/11/2019 SUBJECTIVE: The patient was extubated yesterday, so far has done marginally well. He is awake, but not able to talk to me. OBJECTIVE: VITAL SIGNS: Temperature is 99.8 with a T-max of 100.3, pulse 97, blood pressure 144/77, and O2 sat 100%. 24-hour intake 1675, output 3985. HEENT: Unremarkable except for the NG tube in place. NECK: No JVD. LUNGS: Distant, but clear. CARDIAC: S1 and S2, irregular. ABDOMEN: Obese, soft, and nontender. EXTREMITIES: Edematous. LABORATORY DATA: Sodium 139, potassium 3.6, chloride 107, CO2 of 27, BUN 19, creatinine 0.7, and glucose 119. White blood cell count 13, hematocrit 36.9, and platelet count 158. ASSESSMENT: 1. Acute respiratory failure, now status post mechanical ventilation. 2. Pulmonary edema. 3. Chronic atrial fibrillation. 4. Influenza with pneumonia with continued low-grade temperatures. PLAN: Continue ICU care for the time being. I will put him on scheduled dose of Lasix, but we have to keep in mind he is also on acetazolamide. His respiratory status is too marginal to move out of the ICU at this time. He is on therapeutic anticoagulation for his atrial fibrillation. He is also on nebulization treatments. We will use high-flow oxygen as needed. Initiate physical therapy. Job ID: [id number]
[2019-04-11] MEDS: Divalproex Sodium 125 mg Sprinkle Capsule PER TUBE SCH ×2 (08:57→20:55)
[2019-04-11] MEDS: acetaZOLAMIDE Sodium 500 mg Vial IVP SCH ×2 (08:58→20:59)
[2019-04-11] MEDS: DULoxetine 30 MG CAP PER TUBE SCH (08:58)
[2019-04-11] MEDS: Polyethylene Glycol 3350 17 GM Packet PER TUBE SCH (08:58)
[2019-04-11] MEDS: Enoxaparin Sodium 80 MG/0.8 ML SYRINGE SC SCH ×2 (08:58→20:55)
[2019-04-11] MEDS: Saccharomyces boulardii 250 MG CAP PER TUBE SCH (08:59)
[2019-04-11] MEDS: Famotidine 20 MG TAB PER TUBE SCH ×2 (08:59→20:54)
[2019-04-11] MEDS: Folic Acid 1 MG TAB PO SCH (08:59)
[2019-04-11] MEDS: Aspirin 300 MG Suppository PR SCH (08:59)
[2019-04-11] MEDS: Metoprolol Tartrate 25 MG TAB PO SCH ×2 (08:59→20:54)
[2019-04-11] MEDS: Gabapentin 300 MG CAP PO SCH ×2 (08:59→20:54)
[2019-04-11] MEDS ORDERED: Furosemide 40 MG/4 ML VIAL SLOW IVP SCH (09:00)
--- NOTE | 2019-04-11 10:11 | EKG ---
Test Reason : Blood Pressure : / mmHG Vent. Rate : 101 BPM Atrial Rate : 117 BPM P-R Int : 000 ms QRS Dur : 078 ms QT Int : 344 ms P-R-T Axes : 000 048 075 degrees QTc Int : 446 ms Atrial fibrillation with rapid ventricular response with premature ventricular or aberrantly conducte d complexes Septal infarct , age undetermined cannot be excluded Abnormal ECG Confirmed by TANNA HASSAN ([id number]) on 04/11/2019 10:11:36 AM Referred By: DARLYN Confirmed By:TANNA HASSAN
[2019-04-11] MEDS: Insulin Regular 300 UNITS/3 ML VIAL SC PRN (17:19)
[2019-04-11] MEDS: Acetaminophen 650 MG Suppository PR PRN (17:20)
[2019-04-11] MEDS: Tamsulosin HCl 0.4 MG CAP PO SCH (20:54)
[2019-04-12] MEDS: Metoclopramide HCl 10 MG/2 ML VIAL IVP SCH ×4 (03:04→20:35)
[2019-04-12] MEDS: Insulin Regular 300 UNITS/3 ML VIAL SC PRN ×2 (04:10→16:10)
[2019-04-12 04:56] LABS: Band 1 % (5-11); Eosinophils 1 % (0-10); Hemoglobin 11.1 g/dL (14.0-18.0); Lymphocytes 4 % (21-51); MDiff Complete? YES; Mean Corpuscular HGB CONC 31.4 g/dL (32.0-36.0); Mean Corpuscular Hemoglobin 31.9 pg (27.0-31.0); Mean Platelet Volume 9.2 fL (7.4-10.4); Metamyelocyte 1 % (0-0); Monocytes 10 % (0-10); Neutrophil 83 % (42-75); Platelet Count 180 thou/uL (130-400); Platelet Morphology Comment Appears Adequate; RBC Distribution Width 13.4 % (11.5-14.5); Red Blood Cell (RBC) Count 3.49 mill/uL (4.70-6.10); White Blood Cell (WBC) Count 9.9 thou/uL (4.8-10.8)
[2019-04-12 05:05] LABS: Anion Gap 7 mmol/L (10-20); BUN (Urea Nitrogen) 20 mg/dL (8.4-25.7); Calc. Creatinine Clearance 115 mL/min (70-130); Calcium 9.2 mg/dL (7.8-10.44); Carbon Dioxide 28 mmol/L (23-31); Chloride 110 mmol/L (98-107); Estimated GFR-MDRD Greater than 90; Glucose 179 mg/dL (83-110); Potassium 3.4 mmol/L (3.5-5.1); Sodium 142 mmol/L (136-145)
--- NOTE | 2019-04-12 07:58 | PRG ---
DATE OF SERVICE: 04/12/2019 SUBJECTIVE: The patient remains in the ICU. He has very tenuous respiratory status. OBJECTIVE: VITAL SIGNS: His temperature is 98, pulse 122, blood pressure 159/72, O2 saturation 98%. Intake 1816, output 2955. HEENT: Unremarkable. NECK: No JVD. LUNGS: Fairly clear. CARDIAC: S1, S2. Regular. ABDOMEN: Using abdominal muscles to help him breathe. EXTREMITIES: No clubbing or cyanosis. Trace edema throughout. LABORATORY DATA: White blood cell count 9.9, hematocrit 35.4, and platelet count 180. Sodium 142, potassium 3.4, chloride 110, CO2 of 28, BUN 20, creatinine 0.7, glucose 179. ASSESSMENT: 1. Acute respiratory failure, now status post mechanical ventilation, with very tenuous respiratory status. 2. Pulmonary edema. 3. Chronic atrial fibrillation, now with rapid ventricular response. 4. Influenza with pneumonia. PLAN: This is a very difficult situation. I think the patient's cardiopulmonary status is extremely compromised and he has high risk for having a setback and ending back on mechanical ventilation again. I suppose he would be a candidate to go to [facility]. I think that we need to focus on medical decision making for the patient. I would advise working towards a DNR status as his prognosis seems extremely poor. In terms of his diuretics, we will continue with the acetazolamide, but for the time being, I will hold the Lasix as his BUN is starting to creep upwards. Prognosis is very poor. Job ID: [id number]
[2019-04-12] MEDS ORDERED: Potassium Chloride 40 MEQ in Premix Bag 1 BAG IVPB SCH (09:15)
[2019-04-12] MEDS ORDERED: Furosemide 40 MG/4 ML VIAL SLOW IVP SCH (09:15)
--- NOTE | 2019-04-12 09:27 | PRG ---
DATE OF SERVICE: 04/12/2019 SUBJECTIVE: Mr. Marshall looks worse today. His respiratory rate increased. His heart rate is up to 134. His blood pressure is 200 systolic. He looks more short of breath. OBJECTIVE: LUNGS: Quick shallow breaths. CARDIAC: Tachycardic and irregular. ABDOMEN: Soft and nontender. EXTREMITIES: No edema. ASSESSMENT: 1. Atrial fibrillation, now with increased ventricular rate. 2. Probably has a diastolic heart failure. 3. Severe chronic obstructive pulmonary disease. 4. I suspect he is not absorbing the oral diltiazem. PLAN: 1. Change to intravenous diltiazem. 2. Give him one more dose of Lasix. He has likely pulmonary edema. 3. Chest x-ray. 4. Prognosis appears poor. This gentleman looks worse today. 5. He is also continued to be anticoagulated for his atrial fibrillation. Job ID: [id number]
[2019-04-12] MEDS: Divalproex Sodium 125 mg Sprinkle Capsule PER TUBE SCH ×2 (09:53→20:35)
[2019-04-12] MEDS: Aspirin 300 MG Suppository PR SCH (09:54)
[2019-04-12] MEDS: Famotidine 20 MG TAB PER TUBE SCH ×2 (09:54→20:36)
[2019-04-12] MEDS: DULoxetine 30 MG CAP PER TUBE SCH (09:54)
[2019-04-12] MEDS: Enoxaparin Sodium 80 MG/0.8 ML SYRINGE SC SCH ×2 (09:54→20:36)
[2019-04-12] MEDS: Folic Acid 1 MG TAB PO SCH (09:55)
[2019-04-12] MEDS: Gabapentin 300 MG CAP PO SCH ×2 (09:55→20:36)
[2019-04-12] MEDS: Metoprolol Tartrate 25 MG TAB PO SCH ×2 (09:55→20:36)
[2019-04-12] MEDS: Saccharomyces boulardii 250 MG CAP PER TUBE SCH (09:56)
--- NOTE | 2019-04-12 10:05 | PDOC.HOSPP ---
- Subjective Encounter Date: 04/12/19 Encounter Time: 10:03 Subjective: Tachypneic this AM. He is on nasal cannula this AM. - Objective Vital Signs & Weight: Vital Signs (12 hours) Temp Pulse Resp Pulse Ox 04/12/19 06:25 98 04/12/19 06:23 120 H 28 H 98 04/12/19 04:00 98.0 F 04/12/19 01:55 96 04/12/19 01:52 110 H 25 H 100 04/12/19 00:00 99.4 F 04/11/19 22:09 84 22 H 100 Weight Admit Weight 181 lb Weight 180 lb 1.883 oz Most Recent Monitor Data Heart Rate from ECG 122 NIBP 159/72 NIBP BP-Mean 101 Respiration from ECG 31 SpO2 98 I&O: 04/11/19 04/12/19 04/13/19 06:59 06:59 06:59 Intake Total 1675 1816 Output Total 3985 2955 Balance -1387 -5143 Result Diagrams: 04/12/19 03:40 04/12/19 03:40 Additional Labs: Accuchecks 04/12/19 04/11/19 04/11/19 03:45 21:15 16:30 POC Glucose 169 H 120 H 161 H 04/11/19 10:34 POC Glucose 107 Hospitalist ROS - Review of Systems All other systems reviewed; all pertinent +/- noted in HPI/Subj - Medication Medications: Active Medications Generic Name Dose Route Start Last Admin Trade Name Freq PRN Reason Stop Dose Admin Acetaminophen 650 mg 03/27/19 02:40 04/11/19 17:20 Tylenol SD 650 mg Q6H PRN Administration Fever > 101 or Mild Pain Acetazolamide Sodium 250 mg 04/08/19 10:00 04/11/19 20:59 Diamox IVP 250 mg 1000,2200 MARTA Administration Albuterol/Ipratropium 3 ml 04/11/19 10:30 04/12/19 06:23 Duoneb NEB 3 ml [id number] MARTA Administration Aspirin 300 mg 04/08/19 09:00 04/11/19 08:59 Aspirin SD 300 mg DAILY MARTA Administration Divalproex Sodium 250 mg 04/06/19 09:00 04/11/19 20:55 Depakote Sprinkle PER TUBE 250 mg BID MARTA Administration Duloxetine HCl 60 mg 04/06/19 07:50 04/11/19 08:58 Cymbalta PER TUBE 60 mg DAILY MARTA Administration Enoxaparin Sodium 80 mg 04/10/19 21:00 04/11/19 20:55 Lovenox SC 80 mg 0900,2100 MARTA Administration Famotidine 20 mg 03/27/19 21:00 04/11/19 20:54 Pepcid PER TUBE 20 mg Q12HR MARTA Administration Folic Acid 1 mg 03/27/19 09:00 04/11/19 08:59 Folvite PO 1 mg DAILY MARTA Administration Gabapentin 300 mg 04/06/19 09:00 04/11/19 20:54 Neurontin PO 300 mg BID MARTA Administration Hydralazine HCl 10 mg 03/29/19 10:50 04/07/19 20:46 Apresoline SLOW IVP 10 mg Q4H PRN Administration SBP GREATER THAN 160 Potassium Phosphate 9 mmol/ 103 mls @ 25.75 mls/hr 03/27/19 03:13 03/28/19 04 :45 Sodium Chloride IVPB 103 mls ASDIR PRN Administration Phosphate 1.0-1.8 Insulin Human Regular 0 units 03/31/19 23:11 04/12/19 04:10 Humulin R SC 2 unit .MILD SLIDING SCALE PRN Administration Mild Correctional Scale Lorazepam 2 mg 04/05/19 13:18 04/05/19 13:43 Ativan SLOW IVP 05/05/19 13:18 2 mg Q1H PRN Administration Breakthrough agitation Metoclopramide HCl 10 mg 04/03/19 09:00 04/12/19 03:04 Reglan IVP 10 mg Q6H MARTA Administration Metoprolol Tartrate 25 mg 04/10/19 21:00 04/11/19 20:54 Lopressor PO 25 mg BID MARTA Administration Ondansetron HCl 4 mg 04/01/19 19:18 04/01/19 22:21 Zofran SLOW IVP 4 mg Q6H PRN Administration Nausea/Vomiting Polyethylene Glycol 17 gm 04/08/19 09:00 04/11/19 08:58 Miralax PER TUBE 17 gm DAILY MARTA Administration Potassium Chloride 40 meq 03/27/19 03:13 04/12/19 05:59 Klor-Con PER TUBE 40 meq ASDIR PRN Administration FOR SERUM K+ 2.5-3.5 Propofol 1,000 mg 04/05/19 13:18 04/10/19 05:00 Diprivan IV 05/05/19 13:18 1,000 mg INF PRN Administration TO ACHIEVE GOAL RASS Protocol Saccharomyces Rodolfodii 250 mg 03/27/19 09:00 04/11/19 08:59 Florastor PER TUBE 250 mg DAILY MARTA Administration Sodium Chloride 10 ml 04/03/19 09:00 04/11/19 20:55 Flush - Normal Saline IVF 10 ml Q12HR MARTA Administration Tamsulosin HCl 0.4 mg 03/29/19 21:00 04/11/19 20:54 Flomax PO 0.4 mg HS MARTA Administration - Exam General Appearance: NAD, awake alert, ill appearing General - other findings: elderly, frail Eye: PERRL, anicteric sclera ENT: normocephalic atraumatic, no oropharyngeal lesions, moist mucosa Neck: supple, symmetric, no JVD, no thyromegaly, no lymphadenopathy, no carotid bruit Heart: RRR, no murmur, no gallops, no rubs, normal peripheral pulses Respiratory: rales, rhonchi, tachypneic Gastrointestinal: soft, non-tender, non-distended, normal bowel sounds, no palpable masses, no hepatomegaly, no splenomegaly, no bruit Extremities: no cyanosis, no clubbing, no edema Skin: normal turgor, no lesions, no rashes Neurological: cranial nerve grossly intact, normal sensation to touch, no weakness, no focal deficits, no new deficit Musculoskeletal: normal tone, normal strength, no muscle wasting Psychiatric: normal affect, normal behavior, A&O x 3 Hosp A/P (1) Influenza Code(s): J11.1 - FLU DUE TO UNIDENTIFIED INFLUENZA VIRUS W OTH RESP MANIFEST Status: Acute (2) Acute respiratory failure with hypoxia Code(s): J96.01 - ACUTE RESPIRATORY FAILURE WITH HYPOXIA Status: Acute (3) COPD exacerbation Code(s): J44.1 - CHRONIC OBSTRUCTIVE PULMONARY DISEASE W (ACUTE) EXACERBATION Status: Acute (4) Afib Code(s): I48.91 - UNSPECIFIED ATRIAL FIBRILLATION Status: Acute - Plan Appreciate managing consultant recommendations Extubated 04/10 Continue DuoNeb, diuretivcs, and diltiazem Continue other medications from home Continue nasal cannula, would alternate between NC and high flow to give him some rest Likely PT/OT/speech eval Disposition: . Continue to optimize secretions post extubation. Has had 2- week intubation.. Will likely require extensive physical rehabilitation after his illness. Very poor prognosis due to poor respiratory reserve. Unable to find a surrogate decision maker, may consider two physicians DNR.
[2019-04-12] MEDS: Diltiazem 125 MG in Sodium Chloride 0.9% 100 ML IVPB SCH (10:08)
--- NOTE | 2019-04-12 10:23 | RAD ---
XR Chest 1 View Portable History: Congestive heart failure Comparison: Radiograph 2 days prior Findings: Layering effusions and bibasilar atelectasis is slightly improved. No pneumothorax. Intrape ritoneal right humerus. Enteric tube tip below diaphragm although out of field of view. Impression: Mild improved aeration of the lung bases.
[2019-04-12] MEDS ORDERED: Morphine 2 MG/ML SYRINGE SLOW IVP SCH (10:45)
[2019-04-12] MEDS: Polyethylene Glycol 3350 17 GM Packet PER TUBE SCH (11:10)
[2019-04-12] MEDS ORDERED: Potassium Chloride 40 MEQ in Sodium Chloride 0.9% 250 ML 250 ML IVPB SCH (12:00)
[2019-04-12] MEDS: acetaZOLAMIDE Sodium 500 mg Vial IVP SCH ×2 (12:06→22:35)
[2019-04-12] MEDS ORDERED: Sterile Water 10 ML ONE (12:08)
[2019-04-12] MEDS: Tamsulosin HCl 0.4 MG CAP PO SCH (20:35)
[2019-04-13] MEDS: Metoclopramide HCl 10 MG/2 ML VIAL IVP SCH ×4 (03:11→21:17)
[2019-04-13 05:20] LABS: Band 5 % (5-11); Hemoglobin 11.4 g/dL (14.0-18.0); Lymphocytes 5 % (21-51); MDiff Complete? YES; Mean Corpuscular HGB CONC 32.2 g/dL (32.0-36.0); Mean Corpuscular Hemoglobin 32.5 pg (27.0-31.0); Mean Platelet Volume 8.3 fL (7.4-10.4); Metamyelocyte 2 % (0-0); Monocytes 14 % (0-10); Neutrophil 74 % (42-75); Platelet Count 204 thou/uL (130-400); Platelet Morphology Comment Appears Adequate; RBC Distribution Width 13.3 % (11.5-14.5); Red Blood Cell (RBC) Count 3.52 mill/uL (4.70-6.10); White Blood Cell (WBC) Count 8.3 thou/uL (4.8-10.8)
[2019-04-13 05:25] LABS: Anion Gap 10 mmol/L (10-20); BUN (Urea Nitrogen) 17 mg/dL (8.4-25.7); Calc. Creatinine Clearance 119 mL/min (70-130); Calcium 9.4 mg/dL (7.8-10.44); Carbon Dioxide 26 mmol/L (23-31); Chloride 112 mmol/L (98-107); Estimated GFR-MDRD Greater than 90; Glucose 203 mg/dL (83-110); Potassium 3.8 mmol/L (3.5-5.1); Sodium 144 mmol/L (136-145)
[2019-04-13 07:20] LABS: Actual Bicarbonate (HCO3a) 26.6 mEq/L (22-28); Base Excess (BEa) 1.7 mEq/L (-2.0 to +3.0); CO2 Tension 42.9 mmHg (35.0-45.0); Carboxyhemoglobin (COHb) 2.3 gm% (0.0-3.0); Hemoglobin (Hb) 11.8 g/dL (14.0-18.0); O2 Tension (PaO2) 65.8 mmHg (> 70.0); Potassium - ABG Lab 3.88 mmol/L (3.70-5.30); pH, Arterial 7.41 (7.35-7.45)
[2019-04-13 07:22] LABS: ALV-art Gradient 73.085 (0-20); Puncture Site LRA
[2019-04-13] MEDS: hydrALAZINE 20 MG/ML VIAL SLOW IVP PRN (07:56)
[2019-04-13] MEDS: Divalproex Sodium 125 mg Sprinkle Capsule PER TUBE SCH ×2 (08:56→21:18)
[2019-04-13] MEDS: Saccharomyces boulardii 250 MG CAP PER TUBE SCH (09:04)
[2019-04-13] MEDS: Metoprolol Tartrate 25 MG TAB PO SCH ×2 (09:08→21:17)
[2019-04-13] MEDS: Folic Acid 1 MG TAB PO SCH (09:10)
--- NOTE | 2019-04-13 09:22 | PRG ---
DATE OF SERVICE: 04/13/2019 Thirty five minutes critical care time. SUBJECTIVE: The patient is back in respiratory extremis this morning. I had to put him on BiPAP. PHYSICAL EXAMINATION: VITAL SIGNS: Temperature 99.2, pulse 118, blood pressure 119/87. HEENT: Unremarkable. NECK: No adenopathy or JVD. LUNGS: Coarse breath sounds. CARDIAC: S1 and S2, tachycardic. ABDOMEN: Soft. EXTREMITIES: No edema. LABORATORY DATA: Sodium 144, potassium 3.8, chloride 112, CO2 of 26, BUN 17, creatinine 0.6, glucose 203. White blood cell count 8.3, hematocrit 35.5, and platelet count 204.. ASSESSMENT: 1. Continued multifactorial respiratory failure, now requiring noninvasive ventilation. 2. Previous influenza with pneumonia. 3. Chronic atrial fibrillation with rapid ventricular response. 4. Chronic systolic/diastolic heart failure. PLAN: I believe that this patient has a little hope for functional recovery. He needs to be made DNR. Unfortunately, there are no family members or medical [id number] that can make this decision for him. Given the hopelessness in this situation, I have advocated that we go ahead with a two attending DNR. This was agreed upon by the [facility] [place] physician yesterday. I have signed my part in the chart. We will await their part. Job ID: [id number]
[2019-04-13] MEDS: Famotidine 20 MG TAB PER TUBE SCH ×2 (09:37→21:17)
[2019-04-13] MEDS: Aspirin 300 MG Suppository PR SCH (09:38)
[2019-04-13] MEDS: Gabapentin 300 MG CAP PO SCH ×2 (09:38→21:18)
[2019-04-13] MEDS: Enoxaparin Sodium 80 MG/0.8 ML SYRINGE SC SCH ×2 (09:38→21:18)
[2019-04-13] MEDS: Polyethylene Glycol 3350 17 GM Packet PER TUBE SCH (09:38)
[2019-04-13] MEDS: DULoxetine 30 MG CAP PER TUBE SCH (09:52)
[2019-04-13] MEDS: Morphine 2 MG/ML SYRINGE SLOW IVP PRN ×4 (10:01→23:33)
[2019-04-13] MEDS ORDERED: Sterile Water 10 ML ONE (11:57)
[2019-04-13] MEDS: acetaZOLAMIDE Sodium 500 mg Vial IVP SCH ×2 (12:02→21:17)
[2019-04-13] MEDS: Diltiazem 125 MG in Sodium Chloride 0.9% 100 ML IVPB SCH (13:03)
--- NOTE | 2019-04-13 15:01 | PDOC.HOSPP ---
- Subjective Encounter Date: 04/13/19 Encounter Time: 08:00 Subjective: Tachypneic this AM. Continues with BiPAP. Poor respiratory reserve, and continues coughing. - Objective Vital Signs & Weight: Vital Signs (12 hours) Temp Pulse Resp BP Pulse Ox 04/13/19 14:47 89 04/13/19 14:46 85 25 H 99 04/13/19 13:00 98.4 F 04/13/19 12:00 100 04/13/19 10:47 82 04/13/19 10:46 83 24 H 99 04/13/19 08:40 125 H 04/13/19 08:00 99.2 F 100 04/13/19 07:56 121 H 185/96 H 04/13/19 07:14 99 04/13/19 07:09 121 H 31 H 99 04/13/19 04:00 98.8 F Weight Admit Weight 171 lb 11.841 oz Weight 177 lb 4.8 oz Most Recent Monitor Data Heart Rate from ECG 90 NIBP 153/84 NIBP BP-Mean 107 Respiration from ECG 25 SpO2 100 I&O: 04/12/19 04/13/19 04/14/19 06:59 06:59 06:59 Intake Total 1816 1494 110 Output Total 9794 5035 845 [id number] Result Diagrams: 04/13/19 04:45 04/13/19 04:45 Additional Labs: Accuchecks 04/13/19 04/13/19 04/12/19 10:04 04:48 21:31 POC Glucose 140 H 191 H 181 H 04/12/19 16:13 POC Glucose 191 H Hospitalist ROS - Review of Systems All other systems reviewed; all pertinent +/- noted in HPI/Subj - Medication Medications: Active Medications Generic Name Dose Route Start Last Admin Trade Name Freq PRN Reason Stop Dose Admin Acetaminophen 650 mg 03/27/19 02:40 04/11/19 17:20 Tylenol [place] 650 mg Q6H PRN Administration Fever > 101 or Mild Pain Acetazolamide Sodium 250 mg 04/08/19 10:00 04/13/19 12:02 Diamox IVP 250 mg 1000,2200 MARTA Administration Albuterol/Ipratropium 3 ml 04/11/19 10:30 04/13/19 14:46 Duoneb NEB 3 ml [id number] MARTA Administration Aspirin 300 mg 04/08/19 09:00 04/13/19 09:38 Aspirin LA 300 mg DAILY MARTA Administration Divalproex Sodium 250 mg 04/06/19 09:00 04/13/19 08:56 Depakote Sprinkle PER TUBE 250 mg BID MARTA Administration Duloxetine HCl 60 mg 04/06/19 07:50 04/13/19 09:52 Cymbalta PER TUBE 60 mg DAILY MARTA Administration Enoxaparin Sodium 80 mg 04/10/19 21:00 04/13/19 09:38 Lovenox SC 80 mg 09,2099 MARTA Administration Famotidine 20 mg 03/27/19 21:00 04/13/19 09:37 Pepcid PER TUBE 20 mg Q12HR MARTA Administration Folic Acid 1 mg 03/27/19 09:00 04/13/19 09:10 Folvite PO 1 mg DAILY MARTA Administration Gabapentin 300 mg 04/06/19 09:00 04/13/19 09:38 Neurontin PO 300 mg BID MARTA Administration Hydralazine HCl 10 mg 03/29/19 10:50 04/13/19 07:56 Apresoline SLOW IVP 10 mg Q4H PRN Administration SBP GREATER THAN 160 Potassium Phosphate 9 mmol/ 103 mls @ 25.75 mls/hr 03/27/19 03:13 03/28/19 04 :45 Sodium Chloride IVPB 103 mls ASDIR PRN Administration Phosphate 1.0-1.8 Diltiazem HCl 125 mg/ Sodium 125 mls @ 10 mls/hr 04/12/19 09:15 04/13/19 13: 03 Chloride IVPB 125 mls INF MARTA Administration Protocol 10 MG/HR Insulin Human Regular 0 units 03/31/19 23:11 04/12/19 16:10 Humulin R SC 2 unit .MILD SLIDING SCALE PRN Administration Mild Correctional Scale Lorazepam 2 mg 04/05/19 13:18 04/05/19 13:43 Ativan SLOW IVP 05/05/19 13:18 2 mg Q1H PRN Administration Breakthrough agitation Metoclopramide HCl 10 mg 04/03/19 09:00 04/13/19 10:41 Reglan IVP 10 mg Q6H MARTA Administration Metoprolol Tartrate 25 mg 04/10/19 21:00 04/13/19 09:08 Lopressor PO 25 mg BID MARTA Administration Morphine Sulfate 1 mg 04/13/19 09:13 04/13/19 10:01 Morphine SLOW IVP 1 mg Q3H PRN Administration Dyspnea Ondansetron HCl 4 mg 04/01/19 19:18 04/01/19 22:21 Zofran SLOW IVP 4 mg Q6H PRN Administration Nausea/Vomiting Polyethylene Glycol 17 gm 04/08/19 09:00 04/13/19 09:38 Miralax PER TUBE 17 gm DAILY MARTA Administration Potassium Chloride 40 meq 03/27/19 03:13 04/12/19 05:59 Klor-Con PER TUBE 40 meq ASDIR PRN Administration FOR SERUM K+ 2.5-3.5 Propofol 1,000 mg 04/05/19 13:18 04/10/19 05:00 Diprivan IV 05/05/19 13:18 1,000 mg INF PRN Administration TO ACHIEVE GOAL RASS Protocol Saccharomyces Boulardii 250 mg 03/27/19 09:00 04/13/19 09:04 Florastor PER TUBE 250 mg DAILY MARTA Administration Sodium Chloride 10 ml 04/03/19 09:00 04/13/19 10:04 Flush - Normal Saline IVF 10 ml Q12HR MARTA Administration Tamsulosin HCl 0.4 mg 03/29/19 21:00 04/12/19 20:35 Flomax PO 0.4 mg HS MARTA Administration - Exam General Appearance: NAD, awake alert, ill appearing Eye: PERRL, anicteric sclera ENT: normocephalic atraumatic, no oropharyngeal lesions, moist mucosa Neck: supple, symmetric, no JVD, no thyromegaly, no lymphadenopathy, no carotid bruit Heart: no murmur, no gallops, no rubs, normal peripheral pulses, irregular Respiratory: CTAB, normal chest expansion, no tachypnea, normal percussion, rales, rhonchi, tachypneic Respiratory - other findings: on bipap Gastrointestinal: soft, non-tender, non-distended, normal bowel sounds, no palpable masses, no hepatomegaly, no splenomegaly, no bruit Extremities: no cyanosis, no clubbing, no edema Skin: normal turgor, no lesions, no rashes Neurological: cranial nerve grossly intact, normal sensation to touch, no weakness, no focal deficits, no new deficit Musculoskeletal: normal tone, normal strength, no muscle wasting Psychiatric: normal affect, normal behavior, A&O x 3 Hosp A/P (1) Influenza Code(s): J11.1 - FLU DUE TO UNIDENTIFIED INFLUENZA VIRUS W OTH RESP MANIFEST Status: Acute (2) Acute respiratory failure with hypoxia Code(s): J96.01 - ACUTE RESPIRATORY FAILURE WITH HYPOXIA Status: Acute (3) COPD exacerbation Code(s): J44.1 - CHRONIC OBSTRUCTIVE PULMONARY DISEASE W (ACUTE) EXACERBATION Status: Acute (4) Afib Code(s): I48.91 - UNSPECIFIED ATRIAL FIBRILLATION Status: Acute - Plan Appreciate systems consultant recommendations Extubated 04/10 Continue DuoNeb, diuretivcs, and diltiazem Continue other medications from home Continue nasal cannula, would alternate between NC and high flow/bipap to give him some rest Likely PT/OT/speech eval Disposition: Continue to optimize secretions post extubation. Has had 2-week intubation.. Will likely require extensive physical rehabilitation after his illness. Very poor prognosis due to poor respiratory reserve. Unable to find a surrogate decision maker (palliative on board), two physicians DNR completed .
[2019-04-13] MEDS: Insulin Regular 300 UNITS/3 ML VIAL SC PRN (16:20)
[2019-04-13] MEDS: Tamsulosin HCl 0.4 MG CAP PO SCH (21:18)
[2019-04-14] MEDS: Metoclopramide HCl 10 MG/2 ML VIAL IVP SCH ×4 (03:48→21:54)
[2019-04-14] MEDS: Morphine 2 MG/ML SYRINGE SLOW IVP PRN ×4 (03:49→20:07)
[2019-04-14 04:09] LABS: Anion Gap 11 mmol/L (10-20); BUN (Urea Nitrogen) 18 mg/dL (8.4-25.7); Calc. Creatinine Clearance 121 mL/min (70-130); Calcium 9.3 mg/dL (7.8-10.44); Carbon Dioxide 23 mmol/L (23-31); Chloride 116 mmol/L (98-107); Estimated GFR-MDRD Greater than 90; Glucose 210 mg/dL (83-110); Sodium 146 mmol/L (136-145)
[2019-04-14 05:39] LABS: Mean Corpuscular HGB CONC 32.7 g/dL (32.0-36.0); Mean Corpuscular Hemoglobin 33.1 pg (27.0-31.0); Mean Platelet Volume 8.3 fL (7.4-10.4); Platelet Count 183 thou/uL (130-400); RBC Distribution Width 13.4 % (11.5-14.5); Red Blood Cell (RBC) Count 3.32 mill/uL (4.70-6.10); White Blood Cell (WBC) Count 8.7 thou/uL (4.8-10.8)
[2019-04-14 05:52] LABS: Band 8 % (5-11); Eosinophils 1 % (0-10); Lymphocytes 2 % (21-51); MDiff Complete? YES; Monocytes 19 % (0-10); Myelocyte 3 % (0-0); Neutrophil 67 % (42-75)
[2019-04-14] MEDS ORDERED: Furosemide 40 MG/4 ML VIAL SLOW IVP SCH (08:15)
--- NOTE | 2019-04-14 08:24 | PRG ---
DATE OF SERVICE: 04/14/2019 SUBJECTIVE: Mr. Marshall looks somewhat better today, still on the BiPAP. OBJECTIVE: VITAL SIGNS: His blood pressure 140/76, pulse is 110 and occasional sinus beats with short runs of atrial fibrillation and frequent PACs. LUNGS: No wheezing. CARDIAC: Irregularly irregular. ABDOMEN: Soft and nontender. EXTREMITIES: Mild edema. The patient did have a good response to intravenous Lasix dose yesterday. ASSESSMENT: 1. Chronic obstructive pulmonary disease. 2. Diastolic heart failure. PLAN: 1. He is receiving a dose of intravenous Lasix this morning. 2. He is on Diamox. 3. We will order a dose of Lasix tomorrow morning. 4. Prognosis remains guarded. 5. He is also on anticoagulation, diltiazem, and metoprolol. Job ID: [id number]
[2019-04-14] MEDS: Lorazepam 2 MG/ML VIAL SLOW IVP PRN (08:25)
[2019-04-14] MEDS: Divalproex Sodium 125 mg Sprinkle Capsule PER TUBE SCH ×2 (08:27→21:51)
[2019-04-14] MEDS: Enoxaparin Sodium 80 MG/0.8 ML SYRINGE SC SCH ×2 (08:27→21:50)
[2019-04-14] MEDS: Polyethylene Glycol 3350 17 GM Packet PER TUBE SCH (08:27)
[2019-04-14] MEDS: DULoxetine 30 MG CAP PER TUBE SCH (08:27)
[2019-04-14] MEDS: Folic Acid 1 MG TAB PO SCH (08:28)
[2019-04-14] MEDS: Metoprolol Tartrate 25 MG TAB PO SCH ×2 (08:28→21:50)
[2019-04-14] MEDS: Gabapentin 300 MG CAP PO SCH ×2 (08:28→21:50)
[2019-04-14] MEDS: Famotidine 20 MG TAB PER TUBE SCH ×2 (08:28→21:50)
[2019-04-14] MEDS: Saccharomyces boulardii 250 MG CAP PER TUBE SCH (08:28)
--- NOTE | 2019-04-14 08:42 | PRG ---
DATE OF SERVICE: 04/14/2019 SUBJECTIVE: Mr. Marshall continues to do quite poorly. He has been made a DNR. He was moved to the B side yesterday. He is requiring noninvasive ventilation. Additionally, he is on a Cardizem drip. OBJECTIVE: VITAL SIGNS: Temperature 97.7, pulse 117, blood pressure 140/66, and O2 saturation 100%. Intake, 1516 and output, 1955. HEENT: Unremarkable. NECK: No adenopathy or JVD. LUNGS: Fairly clear. He has synchronous air movement while on the BiPAP. CARDIAC: S1 and S2, irregular on a Cardizem. ABDOMEN: Soft. EXTREMITIES: No edema. LABORATORY DATA: Sodium 146, potassium 4, chloride 116, CO2 of 23, BUN 18, creatinine 0.6, glucose 210. White count 8.7, hematocrit 33.6, and platelet count 183. ASSESSMENT: 1. Continued respiratory failure, requiring mechanical ventilation. 2. Status post influenza pneumonia. 3. Chronic atrial fibrillation with rapid ventricular response, chronic diastolic/systolic heart failure. PLAN: I have instructed respiratory therapist to trial high-flow oxygen later today to see if we can wean him off the noninvasive ventilation. He is continuing the Cardizem drip. He has been on acetazolamide. He is starting to get a little bit of a metabolic acidosis from that, so I will stop that and put him back on a low dose of furosemide. We will need to watch the development of a respiratory alkalosis very closely. Job ID: [id number]
[2019-04-14] MEDS: Aspirin 325 MG TAB PER TUBE SCH (09:49)
--- NOTE | 2019-04-14 13:52 | PDOC.HOSPP ---
- Subjective Encounter Date: 04/14/19 Encounter Time: 10:30 Subjective: Patient seen and examined. pt is on bipap, No overnight events - Objective Vital Signs & Weight: Vital Signs (12 hours) Pulse Pulse Pulse Resp BP BP Pulse Ox 04/14/19 13:20 100 04/14/19 11:10 94 04/14/19 09:29 98 95 156/83 H 166/93 H 04/14/19 08:00 100 04/14/19 07:11 112 H 04/14/19 01:51 103 H 21 H 100 Pulse Ox Pulse Ox 04/14/19 13:20 04/14/19 11:10 04/14/19 09:29 99 99 04/14/19 08:00 04/14/19 07:11 04/14/19 01:51 Weight Admit Weight 181 lb 3.52 oz Weight 174 lb 4.8 oz Most Recent Monitor Data Heart Rate from ECG 96 NIBP 138/75 NIBP BP-Mean 96 Respiration from ECG 25 SpO2 100 I&O: 04/13/19 04/14/19 04/15/19 06:59 06:59 06:59 Intake Total 1494 1569.3 Output Total 5035 1955 Balance -3541 -385.7 Result Diagrams: 04/14/19 03:34 04/14/19 03:34 Additional Labs: Accuchecks 04/14/19 04/13/19 06:10 16:13 POC Glucose 184 H 197 H Hospitalist ROS - Review of Systems ROS unobtainable: due to mental status - Medication Medications: Active Medications Generic Name Dose Route Start Last Admin Trade Name Freq PRN Reason Stop Dose Admin Acetaminophen 650 mg 03/27/19 02:40 04/11/19 17:20 Tylenol [place] 650 mg Q6H PRN Administration Fever > 101 or Mild Pain Albuterol/Ipratropium 3 ml 04/11/19 10:30 04/14/19 11:10 Duoneb NEB 3 ml [id number] MARTA Administration Aspirin 325 mg 04/14/19 09:00 04/14/19 09:49 Aspirin PER TUBE 325 mg DAILY MARTA Administration Divalproex Sodium 250 mg 04/06/19 09:00 04/14/19 08:27 Depakote Sprinkle PER TUBE 250 mg BID MARTA Administration Duloxetine HCl 60 mg 04/06/19 07:50 04/14/19 08:27 Cymbalta PER TUBE 60 mg DAILY MARTA Administration Enoxaparin Sodium 80 mg 04/10/19 21:00 04/14/19 08:27 Lovenox SC 80 mg 0900,2100 MARTA Administration Famotidine 20 mg 03/27/19 21:00 04/14/19 08:28 Pepcid PER TUBE 20 mg Q12HR MARTA Administration Folic Acid 1 mg 03/27/19 09:00 04/14/19 08:28 Folvite PO 1 mg DAILY MARTA Administration Gabapentin 300 mg 04/06/19 09:00 04/14/19 08:28 Neurontin PO 300 mg BID MARTA Administration Hydralazine HCl 10 mg 03/29/19 10:50 04/13/19 07:56 Apresoline SLOW IVP 10 mg Q4H PRN Administration SBP GREATER THAN 160 Potassium Phosphate 9 mmol/ 103 mls @ 25.75 mls/hr 03/27/19 03:13 03/28/19 04 :45 Sodium Chloride IVPB 103 mls ASDIR PRN Administration Phosphate 1.0-1.8 Diltiazem HCl 125 mg/ Sodium 125 mls @ 10 mls/hr 04/12/19 09:15 04/13/19 13: 03 Chloride IVPB 125 mls INF MARTA Administration Protocol 10 MG/HR Insulin Human Regular 0 units 03/31/19 23:11 04/13/19 16:20 Humulin R SC 2 unit .MILD SLIDING SCALE PRN Administration Mild Correctional Scale Lorazepam 2 mg 04/05/19 13:18 04/05/19 13:43 Ativan SLOW IVP 05/05/19 13:18 2 mg Q1H PRN Administration Breakthrough agitation Metoclopramide HCl 10 mg 04/03/19 09:00 04/14/19 09:51 Reglan IVP 10 mg Q6H MARTA Administration Metoprolol Tartrate 25 mg 04/10/19 21:00 04/14/19 08:28 Lopressor PO 25 mg BID MARTA Administration Morphine Sulfate 1 mg 04/13/19 09:13 04/14/19 03:49 Morphine SLOW IVP 1 mg Q3H PRN Administration Dyspnea Ondansetron HCl 4 mg 04/01/19 19:18 04/01/19 22:21 Zofran SLOW IVP 4 mg Q6H PRN Administration Nausea/Vomiting Polyethylene Glycol 17 gm 04/08/19 09:00 04/14/19 08:27 Miralax PER TUBE 17 gm DAILY MARTA Administration Potassium Chloride 40 meq 03/27/19 03:13 04/12/19 05:59 Klor-Con PER TUBE 40 meq ASDIR PRN Administration FOR SERUM K+ 2.5-3.5 Propofol 1,000 mg 04/05/19 13:18 04/10/19 05:00 Diprivan IV 05/05/19 13:18 1,000 mg INF PRN Administration TO ACHIEVE GOAL RASS Protocol Saccharomyces Boulardii 250 mg 03/27/19 09:00 04/14/19 08:28 Florastor PER TUBE 250 mg DAILY MARTA Administration Sodium Chloride 10 ml 04/03/19 09:00 04/14/19 08:30 Flush - Normal Saline IVF 10 ml Q12HR MARTA Administration Tamsulosin HCl 0.4 mg 03/29/19 21:00 04/13/19 21:18 Flomax PO 0.4 mg HS MARTA Administration - Exam General Appearance: ill appearing Eye: PERRL, anicteric sclera ENT: dry oral mucosa Neck: supple, symmetric, no JVD, no thyromegaly Heart: RRR, no murmur, no gallops, no rubs Respiratory: CTAB, no wheezes, no rales Gastrointestinal: soft, non-distended, normal bowel sounds Extremities: 1+ LE edema Skin: normal turgor Musculoskeletal: normal tone, normal strength Hosp A/P (1) Acute metabolic encephalopathy Code(s): G93.41 - METABOLIC ENCEPHALOPATHY Status: Acute (2) Afib Code(s): I48.91 - UNSPECIFIED ATRIAL FIBRILLATION Status: Acute Qualifiers: Atrial fibrillation type: paroxysmal Qualified Code(s): I48.0 - Paroxysmal atrial fibrillation (3) Acute respiratory failure with hypoxia Code(s): J96.01 - ACUTE RESPIRATORY FAILURE WITH HYPOXIA Status: Acute (4) COPD exacerbation Code(s): J44.1 - CHRONIC OBSTRUCTIVE PULMONARY DISEASE W (ACUTE) EXACERBATION Status: Acute (5) BPH (benign prostatic hyperplasia) Code(s): N40.0 - BENIGN PROSTATIC HYPERPLASIA WITHOUT LOWER URINRY TRACT SYMP Status: Chronic (6) COPD (chronic obstructive pulmonary disease) Status: Chronic (7) Macrocytic anemia Code(s): D53.9 - NUTRITIONAL ANEMIA, UNSPECIFIED Status: Chronic (8) Tobacco abuse Code(s): Z72.0 - TOBACCO USE Status: Chronic - Plan old records reviewed/req, hospital social worker, speech therapy continue bipap as tolerated prognosis is poor wean off bipap and start high flow oxygen as tolerated medication reviewed and continue to provide supportive care oral care
[2019-04-14] MEDS ORDERED: Potassium Chloride 20 MEQ TAB PO SCH (14:00)
[2019-04-14] MEDS: Furosemide 20 MG/2 ML VIAL SLOW IVP SCH (16:00)
[2019-04-14] MEDS: Tamsulosin HCl 0.4 MG CAP PO SCH (21:50)
[2019-04-15] MEDS: Morphine 2 MG/ML SYRINGE SLOW IVP PRN ×3 (00:54→09:26)
[2019-04-15] MEDS: Diltiazem 125 MG in Sodium Chloride 0.9% 100 ML IVPB SCH ×2 (01:44→22:22)
[2019-04-15] MEDS: Metoclopramide HCl 10 MG/2 ML VIAL IVP SCH ×4 (04:15→20:43)
[2019-04-15 04:30] LABS: Anion Gap 11 mmol/L (10-20); BUN (Urea Nitrogen) 17 mg/dL (8.4-25.7); Calc. Creatinine Clearance 115 mL/min (70-130); Calcium 9.1 mg/dL (7.8-10.44); Carbon Dioxide 27 mmol/L (23-31); Chloride 115 mmol/L (98-107); Estimated GFR-MDRD Greater than 90; Glucose 183 mg/dL (83-110); Potassium 3.9 mmol/L (3.5-5.1); Sodium 149 mmol/L (136-145)
[2019-04-15 05:29] LABS: Band 10 % (5-11); Eosinophils 1 % (0-10); Hemoglobin 10.3 g/dL (14.0-18.0); Hypochromia SLIGHT = 6-15 cells (100X) (0-5/hpf); Lymphocytes 11 % (21-51); MDiff Complete? YES; Macrocytosis SLIGHT = 6-15 cells (100X) (0-5/hpf); Mean Corpuscular HGB CONC 32.2 g/dL (32.0-36.0); Mean Corpuscular Hemoglobin 32.9 pg (27.0-31.0); Mean Platelet Volume 8.8 fL (7.4-10.4); Monocytes 9 % (0-10); Neutrophil 69 % (42-75); Nucleated RBC 1 % (0); Platelet Count 201 thou/uL (130-400); Platelet Morphology Comment Appears Adequate; Polychromasia SLIGHT = 2-3 cells (100X) (0-2/hpf); RBC Distribution Width 13.5 % (11.5-14.5); Red Blood Cell (RBC) Count 3.15 mill/uL (4.70-6.10); White Blood Cell (WBC) Count 6.2 thou/uL (4.8-10.8)
[2019-04-15] MEDS: Furosemide 20 MG/2 ML VIAL SLOW IVP SCH ×2 (06:08→15:09)
[2019-04-15] MEDS: Aspirin 325 MG TAB PER TUBE SCH (09:05)
[2019-04-15] MEDS: DULoxetine 30 MG CAP PER TUBE SCH (09:05)
[2019-04-15] MEDS: Potassium Chloride 10 MEQ TAB PO SCH ×2 (09:05→18:20)
[2019-04-15] MEDS: Divalproex Sodium 125 mg Sprinkle Capsule PER TUBE SCH ×2 (09:06→20:43)
[2019-04-15] MEDS: Enoxaparin Sodium 80 MG/0.8 ML SYRINGE SC SCH ×2 (09:06→20:43)
[2019-04-15] MEDS: Saccharomyces boulardii 250 MG CAP PER TUBE SCH (09:07)
[2019-04-15] MEDS: Metoprolol Tartrate 25 MG TAB PO SCH ×2 (09:07→20:43)
[2019-04-15] MEDS: Folic Acid 1 MG TAB PO SCH (09:07)
[2019-04-15] MEDS: Famotidine 20 MG TAB PER TUBE SCH ×2 (09:07→20:43)
[2019-04-15] MEDS: Polyethylene Glycol 3350 17 GM Packet PER TUBE SCH (09:07)
[2019-04-15] MEDS: Gabapentin 300 MG CAP PO SCH ×2 (09:07→20:43)
[2019-04-15] MEDS: Acetaminophen 650 MG/20.3 ML UDCUP PO PRN ×3 (09:08→20:43)
[2019-04-15 14:36] LABS: Bilirubin Negative (Negative); Blood, Urine 2+ (Negative); Clarity Turbid (Clear); Glucose, Urine (Dipstick) Normal (Negative); Leukocyte 75 Leu/uL (Negative); Nitrite Negative (Negative); Protein, Urine (Dipstick) 50 mg/dL (Neg-Trace); RBC/HPF Greater than 50 HPF (0-3); Squamous Epithelial 0-3 HPF (0-3); WBC/HPF 21-50 HPF (0-3)
[2019-04-15 14:37] LABS: Bacteria/HPF 1+ HPF (None Seen)
[2019-04-15 14:39] LABS: Urine Culture Reflex Yes Yes
[2019-04-15] MEDS: Dextrose 5% in Water 1,000 ML IV SCH (14:48)
--- NOTE | 2019-04-15 14:50 | RAD ---
Portable chest: HISTORY: Sepsis COMPARISON: 04/12/2019 FINDINGS:Borderline cardiomegaly is stable. Hazy infiltrate in the right lung base again noted. There is increased interstitial and hazy infiltrate in the right upper lung today. Left lung remains clear. IMPRESSION:Right lung infiltrate.
--- NOTE | 2019-04-15 14:52 | PRG ---
DATE OF SERVICE: 04/15/2019 SERVICE: Pulmonary Medicine. INTERVAL HISTORY: The patient remains encephalopathic. He cannot provide any additional elements of the history. In attempting putting him on high-flow nasal cannula yesterday instead of BiPAP, it did not work. In less than 5 minutes, he had significant discomfort. His band count is going up, he spiked a temperature today. Panculture was sent. Otherwise, there is no interval change to his condition. PHYSICAL EXAMINATION: VITAL SIGNS: T-max 101.3, pulse 101, blood pressure 132/66, respirations 31, saturation 98% on 28% FiO2 delivered via BiPAP. GENERAL: The patient is encephalopathic. He may be very close to his baseline. HEENT: Normocephalic and atraumatic. Sclerae white. Conjunctivae pink. Oral mucosa is moist without lesions. LUNGS: Good air entry bilaterally. Extensive rhonchi are present. There is a slightly prolonged expiratory phase, but not much wheezing. HEART: Normal rate, regular. ABDOMEN: Distended. Bowel sounds are hyperactive. MUSCULOSKELETAL: No cyanosis or clubbing. No pitting in the bilateral lower extremities. NEUROLOGIC: Grossly nonfocal. He is moving everything. That being said, he is not following commands currently. LABORATORY DATA: WBC 6.2, hemoglobin 10.3, platelets 201,000. Sodium 149, chloride 115. Basic metabolic profile is otherwise unremarkable. Blood culture is growing micrococcus organisms in 2/2. Influenza A is present. ASSESSMENT: 1. Severe sepsis. 2. Metabolic encephalopathy. 3. Community-acquired pneumonia secondary to influenza A. 4. Bacteremia secondary to micrococcus species. 5. Atrial fibrillation with rapid ventricular response. 6. Acute on chronic diastolic heart failure. 7. Hypernatremia. 8. Diarrhea. 9. Recrudescence in sepsis profile. 10. Acute hypoxic respiratory failure. DISCUSSION AND PLAN: Panculture has already been done. We will send C diff off. IV fluids will be introduced with D5 water at 75 per hour. The patient remains a DNR. Pulmonary/Critical Care will follow very closely. Should the patient have significant clinical deterioration, he will be unlikely to survive this hospital stay. For the next 24 hours, tube feeds will be interrupted. Job ID: [id number] [facility]
[2019-04-15] MEDS: Insulin Regular 300 UNITS/3 ML VIAL SC PRN (14:53)
[2019-04-15] MEDS ORDERED: Amlodipine 5 MG TAB PO SCH (17:15)
[2019-04-15] MEDS: Tamsulosin HCl 0.4 MG CAP PO SCH (20:43)
[2019-04-16] MEDS: Acetaminophen 650 MG/20.3 ML UDCUP PO PRN ×2 (00:15→08:24)
[2019-04-16] MEDS ORDERED: Lorazepam 2 MG/ML VIAL SLOW IVP SCH (03:45)
[2019-04-16] MEDS: Metoclopramide HCl 10 MG/2 ML VIAL IVP SCH ×4 (03:55→22:56)
[2019-04-16 03:57] LABS: Hemoglobin 9.1 g/dL (14.0-18.0); Mean Corpuscular HGB CONC 33.1 g/dL (32.0-36.0); Mean Corpuscular Hemoglobin 33.6 pg (27.0-31.0); Mean Platelet Volume 8.7 fL (7.4-10.4); Platelet Count 180 thou/uL (130-400); RBC Distribution Width 13.4 % (11.5-14.5); White Blood Cell (WBC) Count 6.1 thou/uL (4.8-10.8)
[2019-04-16 04:14] LABS: Band 18 % (5-11); Hypochromia SLIGHT = 6-15 cells (100X) (0-5/hpf); Lymphocytes 11 % (21-51); MDiff Complete? YES; Macrocytosis SLIGHT = 6-15 cells (100X) (0-5/hpf); Metamyelocyte 2 % (0-0); Monocytes 11 % (0-10); Neutrophil 58 % (42-75); Platelet Morphology Comment Appears Adequate; Target Cells SLIGHT = 2-5 cells (100X) (0-1/hpf)
[2019-04-16 04:30] LABS: Phosphorus 1.4 mg/dL (2.3-4.7)
[2019-04-16 04:31] LABS: Anion Gap 11 mmol/L (10-20); BUN (Urea Nitrogen) 17 mg/dL (8.4-25.7); Calc. Creatinine Clearance 122 mL/min (70-130); Calcium 8.9 mg/dL (7.8-10.44); Carbon Dioxide 27 mmol/L (23-31); Chloride 113 mmol/L (98-107); Estimated GFR-MDRD Greater than 90; Glucose 149 mg/dL (83-110); Magnesium 2.2 mg/dL (1.6-2.6); Potassium 3.4 mmol/L (3.5-5.1); Sodium 148 mmol/L (136-145)
[2019-04-16] MEDS: Dextrose 5% in Water 1,000 ML IV SCH (05:45)
[2019-04-16] MEDS: Furosemide 40 MG/4 ML VIAL SLOW IVP SCH (05:45)
[2019-04-16] MEDS ORDERED: SODIUM CHLORIDE 0.9% IVPB SCH (06:15)
[2019-04-16] MEDS ORDERED: POTASSIUM PHOSPHATE IVPB SCH (06:15)
--- NOTE | 2019-04-16 07:11 | PDOC.HOSPP ---
- Subjective Encounter Date: 04/15/19 Encounter Time: 17:30 Subjective: Patient seen and examined for resp failure - on NIPPV. RN reported new fever today - cultures were sent. No overnight events - Objective Vital Signs & Weight: Vital Signs (12 hours) Temp Pulse Resp Pulse Ox 04/16/19 06:29 105 H 26 H 98 04/16/19 03:59 99.0 F 04/16/19 02:50 88 23 H 100 04/16/19 02:47 98 04/16/19 01:06 107 H 04/16/19 00:00 99.0 F 04/15/19 22:54 96 22 H 100 04/15/19 20:00 100.0 F H 04/15/19 19:33 110 H 04/15/19 19:32 122 H 32 H 100 Weight Admit Weight 181 lb 3.52 oz Weight 167 lb 9 oz Most Recent Monitor Data Heart Rate from ECG 114 NIBP 137/93 NIBP BP-Mean 107 Respiration from ECG 23 SpO2 100 I&O: 04/15/19 04/16/19 04/17/19 06:59 06:59 06:59 Intake Total 1131.4 1850 Output Total 3300 1800 Balance -2168.6 50 Result Diagrams: 04/16/19 03:43 04/16/19 03:43 Additional Labs: Accuchecks 04/16/19 04/16/19 04/15/19 05:28 00:23 19:47 POC Glucose 145 H 152 H 133 H 04/15/19 12:13 POC Glucose 216 H EKG Reviewed by me: Yes (Tele Afib with RVR) Hospitalist ROS - Review of Systems Gastrointestinal: denies: nausea, vomiting, abdominal pain, diarrhea, constipation, melena, hematochezia, other Genitourinary: denies: dysuria, frequency, incontinence, hematuria, retention, other - Medication Medications: Active Medications Generic Name Dose Route Start Last Admin Trade Name Freq PRN Reason Stop Dose Admin Acetaminophen 650 mg 03/27/19 02:40 04/11/19 17:20 Tylenol [place] 650 mg Q6H PRN Administration Fever > 101 or Mild Pain Acetaminophen 650 mg 04/15/19 08:23 04/16/19 00:15 Tylenol Elixir PO 650 mg Q4H PRN Administration pain/fever Albuterol/Ipratropium 3 ml 02/25/20 10:30 04/16/19 06:29 Duoneb NEB 3 ml [id number] MARTA Administration Aspirin 325 mg 04/14/19 09:00 04/15/19 09:05 Aspirin PER TUBE 325 mg DAILY MARTA Administration Divalproex Sodium 250 mg 04/06/19 09:00 04/15/19 20:43 Depakote Sprinkle PER TUBE 250 mg BID MARTA Administration Duloxetine HCl 60 mg 04/06/19 07:50 04/15/19 09:05 Cymbalta PER TUBE 60 mg DAILY MARTA Administration Enoxaparin Sodium 80 mg 04/10/19 21:00 04/15/19 20:43 Lovenox SC 80 mg 0900,2100 MARTA Administration Famotidine 20 mg 03/27/19 21:00 04/15/19 20:43 Pepcid PER TUBE 20 mg Q12HR MARTA Administration Folic Acid 1 mg 03/27/19 09:00 04/15/19 09:07 Folvite PO 1 mg DAILY MARTA Administration Furosemide 40 mg 04/16/19 06:00 04/16/19 05:45 Lasix SLOW IVP 40 mg 0600 MARTA Administration Gabapentin 300 mg 04/06/19 09:00 04/15/19 20:43 Neurontin PO 300 mg BID MARTA Administration Hydralazine HCl 10 mg 03/29/19 10:50 04/13/19 07:56 Apresoline SLOW IVP 10 mg Q4H PRN Administration SBP GREATER THAN 160 Diltiazem HCl 125 mg/ Sodium 125 mls @ 10 mls/hr 04/12/19 09:15 04/15/19 22: 22 Chloride IVPB 125 mls INF MARTA Administration Protocol 10 MG/HR Dextrose/Water 1,000 mls @ 75 mls/hr 04/15/19 14:30 04/16/19 05:45 D5w IV 1,000 mls .[id number] MARTA Administration Levofloxacin 500 mg/ Device 100 mls @ 100 mls/hr 04/15/19 16:00 04/15/19 16: 32 IVPB 100 mls Q24HR MARTA Administration Potassium Phosphate 13 mmol/ 254.3333 mls @ 63.583 mls/hr 04/16/19 06:15 03/06 06:45 Sodium Chloride IVPB 04/16/19 12:00 254.3333 mls NOW MARTA Administration Insulin Human Regular 0 units 03/31/19 23:11 04/15/19 14:53 Humulin R SC 3 unit .MILD SLIDING SCALE PRN Administration Mild Correctional Scale Metoclopramide HCl 10 mg 04/03/19 09:00 04/16/19 03:55 Reglan IVP 10 mg Q6H MARTA Administration Metoprolol Tartrate 25 mg 04/10/19 21:00 04/15/19 20:43 Lopressor PO 25 mg BID MARTA Administration Ondansetron HCl 4 mg 04/01/19 19:18 04/01/19 22:21 Zofran SLOW IVP 4 mg Q6H PRN Administration Nausea/Vomiting Polyethylene Glycol 17 gm 04/08/19 09:00 04/15/19 09:07 Miralax PER TUBE 17 gm DAILY MARTA Administration Potassium Chloride 10 meq 04/15/19 08:00 04/15/19 18:20 Klor-Con 10 PO 10 meq BID-WM MARTA Administration Saccharomyces Boulardii 250 mg 03/27/19 09:00 04/15/19 09:07 Florastor PER TUBE 250 mg DAILY MARTA Administration Sodium Chloride 10 ml 04/03/19 09:00 04/15/19 20:43 Flush - Normal Saline IVF 10 ml Q12HR MARTA Administration Tamsulosin HCl 0.4 mg 03/29/19 21:00 04/15/19 20:43 Flomax PO 0.4 mg HS MARTA Administration - Exam General Appearance: ill appearing General - other findings: on NIPPV Heart: no gallops, irregular Respiratory: no wheezes, rhonchi Gastrointestinal: non-tender, no guarding, no rigidity Extremities: no cyanosis Hosp A/P - Plan DVT proph w/SCDs New fever suspected due to UTI - cultures sent - r/o C diff Afib with RVR - on Cardizem drip Acute hypoxic hypercapneic resp failure on mech vent COPD exacerbation requiring mech Vent Influenza A - completed Tamiflu Lactic acidosis - resolved Obesity BMI 30.9 RA PLAN: Restart Levaquin Cont NIPPV Cont Cardizem drip Cont other meds as above AM labs
[2019-04-16] MEDS: Divalproex Sodium 125 mg Sprinkle Capsule PER TUBE SCH ×2 (08:26→22:55)
[2019-04-16] MEDS: Gabapentin 300 MG CAP PO SCH ×2 (08:27→22:55)
[2019-04-16] MEDS: Famotidine 20 MG TAB PER TUBE SCH ×2 (08:27→22:54)
[2019-04-16] MEDS: Amlodipine 5 MG TAB PO SCH (08:28)
[2019-04-16] MEDS: Potassium Chloride 10 MEQ TAB PO SCH ×2 (08:29→17:36)
[2019-04-16] MEDS: Aspirin 325 MG TAB PER TUBE SCH (08:29)
[2019-04-16] MEDS: Metoprolol Tartrate 25 MG TAB PO SCH ×2 (08:29→22:55)
[2019-04-16] MEDS: Saccharomyces boulardii 250 MG CAP PER TUBE SCH (08:30)
[2019-04-16] MEDS: Polyethylene Glycol 3350 17 GM Packet PER TUBE SCH ×2 (08:30→18:19)
[2019-04-16] MEDS: Enoxaparin Sodium 80 MG/0.8 ML SYRINGE SC SCH ×2 (08:30→22:54)
[2019-04-16] MEDS: Folic Acid 1 MG TAB PO SCH (08:30)
[2019-04-16] MEDS: DULoxetine 30 MG CAP PER TUBE SCH (08:34)
--- NOTE | 2019-04-16 08:58 | PDOC.HOSPP ---
- Subjective Encounter Date: 04/16/19 Encounter Time: 12:40 Subjective: No events overnight, still requiring BiPAP. Minimally responsive. - Objective Vital Signs & Weight: Vital Signs (12 hours) Temp Pulse Resp BP Pulse Ox 04/16/19 08:28 118 H 136/71 04/16/19 07:23 98.8 F 04/16/19 06:29 105 H 26 H 98 04/16/19 03:59 99.0 F 04/16/19 02:50 88 23 H 100 04/16/19 02:47 98 04/16/19 01:06 107 H 04/16/19 00:00 99.0 F 04/15/19 22:54 96 22 H 100 Weight Admit Weight 181 lb 3.52 oz Weight 167 lb 9 oz Most Recent Monitor Data Heart Rate from ECG 114 NIBP 137/93 NIBP BP-Mean 107 Respiration from ECG 23 SpO2 100 I&O: 04/15/19 04/16/19 04/17/19 06:59 06:59 06:59 Intake Total 1131.4 1850 Output Total 3300 1800 Balance -2168.6 50 Result Diagrams: 04/16/19 03:43 04/16/19 03:43 Additional Labs: Accuchecks 04/16/19 04/16/19 04/15/19 05:28 00:23 19:47 POC Glucose 145 H 152 H 133 H 04/15/19 12:13 POC Glucose 216 H Hospitalist ROS - Review of Systems ROS unobtainable: due to mental status - Medication Medications: Active Medications Generic Name Dose Route Start Last Admin Trade Name Freq PRN Reason Stop Dose Admin Acetaminophen 650 mg 03/27/19 02:40 04/11/19 17:20 Tylenol NE 650 mg Q6H PRN Administration Fever > 101 or Mild Pain Acetaminophen 650 mg 04/15/19 08:23 04/16/19 08:24 Tylenol Elixir PO 650 mg Q4H PRN Administration pain/fever Albuterol/Ipratropium 3 ml 04/11/19 10:30 04/16/19 06:29 Duoneb NEB 3 ml [id number] MARTA Administration Amlodipine Besylate 5 mg 04/16/19 09:00 04/16/19 08:28 Norvasc PO 5 mg DAILY MARTA Administration Aspirin 325 mg 04/14/19 09:00 04/16/19 08:29 Aspirin PER TUBE 325 mg DAILY MARTA Administration Divalproex Sodium 250 mg 04/06/19 09:00 04/16/19 08:26 Depakote Sprinkle PER TUBE 250 mg BID MARTA Administration Duloxetine HCl 60 mg 04/06/19 07:50 04/16/19 08:34 Cymbalta PER TUBE 60 mg DAILY MARTA Administration Enoxaparin Sodium 80 mg 04/10/19 21:00 04/16/19 08:30 Lovenox SC 80 mg 0900,2100 MARTA Administration Famotidine 20 mg 03/27/19 21:00 04/16/19 08:27 Pepcid PER TUBE 20 mg Q12HR MARTA Administration Folic Acid 1 mg 03/27/19 09:00 04/16/19 08:30 Folvite PO 1 mg DAILY MARTA Administration Furosemide 40 mg 04/16/19 06:00 04/16/19 05:45 Lasix SLOW IVP 40 mg 0600 MARTA Administration Gabapentin 300 mg 04/06/19 09:00 04/16/19 08:27 Neurontin PO 300 mg BID MARTA Administration Hydralazine HCl 10 mg 03/29/19 10:50 04/13/19 07:56 Apresoline SLOW IVP 10 mg Q4H PRN Administration SBP GREATER THAN 160 Diltiazem HCl 125 mg/ Sodium 125 mls @ 10 mls/hr 04/12/19 09:15 04/15/19 22: 22 Chloride IVPB 125 mls INF MARTA Administration Protocol 10 MG/HR Dextrose/Water 1,000 mls @ 75 mls/hr 04/15/19 14:30 04/16/19 05:45 D5w IV 1,000 mls .[id number] MARTA Administration Levofloxacin 500 mg/ Device 100 mls @ 100 mls/hr 04/15/19 16:00 04/15/19 16: 32 IVPB 100 mls Q24HR MARTA Administration Potassium Phosphate 13 mmol/ 254.3333 mls @ 63.583 mls/hr 04/16/19 06:15 03/06 06:45 Sodium Chloride IVPB 04/16/19 12:00 254.3333 mls NOW MARTA Administration Insulin Human Regular 0 units 03/31/19 23:11 04/15/19 14:53 Humulin R SC 3 unit .MILD SLIDING SCALE PRN Administration Mild Correctional Scale Metoclopramide HCl 10 mg 04/03/19 09:00 04/16/19 03:55 Reglan IVP 10 mg Q6H MARTA Administration Metoprolol Tartrate 25 mg 04/10/19 21:00 04/16/19 08:29 Lopressor PO 25 mg BID MARTA Administration Ondansetron HCl 4 mg 04/01/19 19:18 04/01/19 22:21 Zofran SLOW IVP 4 mg Q6H PRN Administration Nausea/Vomiting Polyethylene Glycol 17 gm 04/08/19 09:00 04/16/19 08:30 Miralax PER TUBE 17 gm DAILY MARTA Administration Potassium Chloride 10 meq 04/15/19 08:00 04/16/19 08:29 Klor-Con 10 PO 10 meq BID-WM MARTA Administration Saccharomyces Boulardii 250 mg 03/27/19 09:00 04/16/19 08:30 Florastor PER TUBE 250 mg DAILY MARTA Administration Sodium Chloride 10 ml 04/03/19 09:00 04/16/19 08:34 Flush - Normal Saline IVF 10 ml Q12HR MARTA Administration Tamsulosin HCl 0.4 mg 03/29/19 21:00 04/15/19 20:43 Flomax PO 0.4 mg HS MARTA Administration - Exam General Appearance: ill appearing Heart: RRR, no murmur, no gallops, no rubs Respiratory - other findings: coarse breath sounds bilaterally, decent air movement on BIPAP Gastrointestinal: soft, non-tender, non-distended, normal bowel sounds Psychiatric - other findings: minimally responsive, not talking Hosp A/P - Plan Micrococcus bacteremia with Sepsis Post-influenza pneumonia Afib with RVR - on Cardizem drip Acute hypoxic hypercapneic resp failure on non-invasive ventilation COPD exacerbation requiring mech Vent Influenza A - completed Tamiflu Lactic acidosis - resolved Obesity BMI 30.9 RA PLAN: On Levaquin Cont NIPPV Cont Cardizem drip Cont other meds as above AM labs DNAR DVT proph w/SCDs
[2019-04-16] MEDS: Dextrose 5% in Water 500 ML IV SCH ×2 (13:36→20:40)
[2019-04-16] MEDS: Diltiazem 125 MG in Sodium Chloride 0.9% 100 ML IVPB SCH (13:37)
--- NOTE | 2019-04-16 16:42 | RAD ---
EXAM: XR Abdomen 1 View/KUB PROVIDED CLINICAL HISTORY: Enteric catheter placement COMPARISON: None FINDINGS: Visualized lung bases are free of significant opacity. Nonspecific gaseous distention of bowel. Enter ic catheter is noted, tip of which overlies left upper quadrant. The examination is supine is not sensitive for detection of pneumoperitoneum. IMPRESSION: As above.
[2019-04-16] MEDS ORDERED: Potassium Phosphate 30 MMOL in Sodium Chloride 0.9% 250 ML 250 ML IVPB SCH (16:45)
--- NOTE | 2019-04-16 17:29 | PRG ---
DATE OF SERVICE: 04/16/2019 SERVICE: Pulmonary Medicine. INTERVAL HISTORY: The patient is doing pretty well from a respiratory standpoint. His abdominal discomfort has improved significantly. There has been no interval change to his condition otherwise, though his mentation has improved a little bit. He is starting to be a touch more conversive, which is new. PHYSICAL EXAMINATION: VITAL SIGNS: Afebrile with a T-max of 100.0 in the last 24 hours. Pulse 105, blood pressure 129/62, respirations 28, saturation 96%, currently on 2 L nasal cannula. HEENT: Normocephalic, atraumatic. Sclerae white. Conjunctivae pink. Oral mucosa is moist without lesions. LUNGS: Decent air entry bilaterally. There are some dependent crackles present. No rhonchi are present today. HEART: Normal rate, regular. ABDOMEN: Soft, nontender, nondistended. Bowel sounds are positive. MUSCULOSKELETAL: No cyanosis or clubbing. The pitting edema has improved a little bit. NEUROLOGIC: Grossly nonfocal. LABORATORY DATA: Band count continues to trend upward to 18 on top of neutrophil count of 58. That being said, white blood cell count is stable. Hemoglobin 9.1 and has been gently downtrending, platelets are stable. Sodium 148 and gently downtrending, potassium 3.4. Chloride 113, has also improved. Basic metabolic profile is otherwise unremarkable. Magnesium 2.2, phosphorus 1.4. C diff antigen and toxin are both negative. Blood cultures x2 are negative. Most recent urine cultures also unremarkable. IMAGING DATA: Chest x-ray demonstrates right lung infiltrate is present. ASSESSMENT: 1. Acute hypoxic respiratory failure. 2. Community-acquired pneumonia secondary to influenza A. 3. Bacteremia secondary to micrococcus species. 4. Atrial fibrillation with RVR, rate control improving. 5. Severe sepsis. 6. Metabolic encephalopathy, improving. 7. Hypernatremia, improving. 8. Diarrhea, resolved after discontinuation of tube feeds. DISCUSSION AND PLAN: Current antibiotics have once again improved his fever profile. We will replace phosphorus and potassium. I will continue the free water, we will try to keep him euvolemic to 1 L negative over the next 24 hours. Critical Care will continue to follow along. Job ID: [id number]
[2019-04-16] MEDS: Tamsulosin HCl 0.4 MG CAP PO SCH (22:56)
--- NOTE | 2019-04-16 23:38 | RAD ---
EXAM: XR Abdomen 1 View/KUB PROVIDED CLINICAL HISTORY: Feeding tube placement COMPARISON: 04/16/2019 4:05 PM FINDINGS: Enteric catheter is redemonstrated, similar to prior. A Dobbhoff tube is not visualized. Patchy bibas ilar airspace disease. Nonspecific gaseous distention of bowel partially visualized. IMPRESSION: Significant interval change with respect to the prior study is not apparent.
[2019-04-17] MEDS: Diltiazem 125 MG in Sodium Chloride 0.9% 100 ML IVPB SCH ×2 (00:48→20:58)
[2019-04-17] MEDS: Dextrose 5% in Water 500 ML IV SCH (03:53)
[2019-04-17] MEDS: Metoclopramide HCl 10 MG/2 ML VIAL IVP SCH ×4 (04:07→21:59)
[2019-04-17 04:09] LABS: Anion Gap 9 mmol/L (10-20); BUN (Urea Nitrogen) 12 mg/dL (8.4-25.7); Calc. Creatinine Clearance 128 mL/min (70-130); Calcium 8.6 mg/dL (7.8-10.44); Carbon Dioxide 29 mmol/L (23-31); Chloride 112 mmol/L (98-107); Estimated GFR-MDRD Greater than 90; Glucose 111 mg/dL (83-110); Potassium 3.5 mmol/L (3.5-5.1); Sodium 146 mmol/L (136-145)
[2019-04-17 04:45] LABS: Phosphorus 2.3 mg/dL (2.3-4.7)
[2019-04-17 04:54] LABS: Band 29 % (5-11); Hemoglobin 9.4 g/dL (14.0-18.0); Lymphocytes 10 % (21-51); MDiff Complete? YES; Mean Corpuscular HGB CONC 33.5 g/dL (32.0-36.0); Mean Corpuscular Hemoglobin 33.4 pg (27.0-31.0); Mean Corpuscular Volume 99.8 fL (78.0-98.0); Mean Platelet Volume 9.3 fL (7.4-10.4); Monocytes 9 % (0-10); Myelocyte 1 % (0-0); Neutrophil 50 % (42-75); Platelet Count 213 thou/uL (130-400); RBC Distribution Width 13.3 % (11.5-14.5); Red Blood Cell (RBC) Count 2.81 mill/uL (4.70-6.10); White Blood Cell (WBC) Count 5.9 thou/uL (4.8-10.8)
[2019-04-17] MEDS: Furosemide 40 MG/4 ML VIAL SLOW IVP SCH (06:30)
--- NOTE | 2019-04-17 08:57 | PRG ---
DATE OF SERVICE: 04/17/2019 SUBJECTIVE: The patient is off BiPAP. Currently, he looks about as good as I have seen him during the hospitalization. OBJECTIVE: VITAL SIGNS: Temperature 99.3, pulse 103, blood pressure 163/90. GENERAL: He is dyspneic with any speech. HEENT: Dry oral mucous membranes. NECK: No JVD. LUNGS: Coarse breath sounds. CARDIAC: S1 and S2. Irregular. ABDOMEN: Soft. EXTREMITIES: No edema. LABORATORY DATA: Sodium 146, potassium 3.5, chloride 112, CO2 of 29, BUN 12, creatinine 0.5, glucose 111. White blood cell count 5.9, hematocrit 28.1, and platelet count 213. ASSESSMENT: 1. [id number] respiratory failure, requiring intermittent noninvasive ventilation. 2. Diastolic heart failure. 3. Overall, failure to thrive. PLAN: He was placed back on free water this weekend. I would be very careful with that as he tends to become fluid overloaded easily. I would favor just continuing the tube feeds and perhaps lowering the dose of diuretic. We will follow. Job ID: [id number]
[2019-04-17] MEDS ORDERED: Furosemide 20 MG/2 ML VIAL SLOW IVP SCH (09:15)
[2019-04-17] MEDS ORDERED: Digoxin 0.5 MG/2 ML AMP SLOW IVP SCH (09:30)
--- NOTE | 2019-04-17 09:43 | PRG ---
DATE OF SERVICE: 04/17/2019 SUBJECTIVE: Mr. Marshall is awake, somewhat more alert, not complaining of chest pain. OBJECTIVE: VITAL SIGNS: Blood pressure is elevated at 160/90, pulse is 114, it is atrial fibrillation. LUNGS: Clear without any wheezing, but there are rhonchi. CARDIAC: Irregularly irregular. ABDOMEN: Soft, nontender. EXTREMITIES: No edema. ASSESSMENT: 1. Atrial fibrillation. 2. Chronic obstructive pulmonary disease. 3. Diastolic congestive heart failure as evidenced by increased BNP. PLAN: 1. He is on intravenous Cardizem. 2. He is anticoagulated. 3. We will add digoxin. 4. We will add routine diuretics. He was on that until today, may need to resume tomorrow. Job ID: [id number]
[2019-04-17] MEDS: DULoxetine 30 MG CAP PER TUBE SCH (10:23)
[2019-04-17] MEDS: Divalproex Sodium 125 mg Sprinkle Capsule PER TUBE SCH ×2 (10:24→21:58)
[2019-04-17] MEDS: Famotidine 20 MG TAB PER TUBE SCH ×2 (10:24→21:59)
[2019-04-17] MEDS: Aspirin 325 MG TAB PER TUBE SCH (10:25)
[2019-04-17] MEDS: Amlodipine 5 MG TAB PO SCH (10:25)
[2019-04-17] MEDS: Potassium Chloride 10 MEQ TAB PO SCH ×2 (10:25→16:19)
[2019-04-17] MEDS: Saccharomyces boulardii 250 MG CAP PER TUBE SCH (10:25)
[2019-04-17] MEDS: Folic Acid 1 MG TAB PO SCH (10:25)
[2019-04-17] MEDS: Metoprolol Tartrate 25 MG TAB PO SCH ×2 (10:25→21:59)
[2019-04-17] MEDS: Gabapentin 300 MG CAP PO SCH ×2 (10:50→21:59)
[2019-04-17] MEDS: Polyethylene Glycol 3350 17 GM Packet PER TUBE SCH (10:51)
[2019-04-17] MEDS: Enoxaparin Sodium 80 MG/0.8 ML SYRINGE SC SCH ×2 (10:51→21:59)
--- NOTE | 2019-04-17 20:55 | PDOC.HOSPP ---
- Subjective Encounter Date: 04/17/19 Subjective: He was awake. Says he is ok. Says he doesn't have any family that he is aware of. - Objective Vital Signs & Weight: Vital Signs (12 hours) Temp Pulse Pulse Pulse Resp BP BP 04/17/19 19:41 97.2 F L 04/17/19 18:53 123 H 37 H 04/17/19 15:33 130 H 35 H 04/17/19 15:31 98.1 F 04/17/19 11:54 116 H 30 H 04/17/19 11:34 98.6 F 04/17/19 10:54 109 H 04/17/19 10:25 109 H 04/17/19 09:00 85 90 107/79 132/72 Pulse Ox Pulse Ox Pulse Ox 04/17/19 19:41 04/17/19 18:53 94 L 04/17/19 15:33 99 04/17/19 15:31 04/17/19 11:54 96 04/17/19 11:34 04/17/19 10:54 04/17/19 10:25 04/17/19 09:00 100 100 Weight Admit Weight 181 lb 3.52 oz Weight 167 lb 1.6 oz Most Recent Monitor Data Heart Rate from ECG 140 NIBP 132/74 NIBP BP-Mean 93 Respiration from ECG 37 SpO2 92 I&O: 04/16/19 04/17/19 04/18/19 06:59 06:59 06:59 Intake Total 1850 1225.5 Output Total 1800 1600 Balance 50 -374.5 Result Diagrams: 04/17/19 03:41 04/17/19 03:43 Additional Labs: Accuchecks 04/17/19 04/17/19 04/17/19 20:28 18:32 12:17 POC Glucose 98 105 106 04/17/19 04/16/19 05:40 23:44 POC Glucose 127 H 107 Hospitalist ROS - Medication Medications: Active Medications Generic Name Dose Route Start Last Admin Trade Name Freq PRN Reason Stop Dose Admin Acetaminophen 650 mg 03/27/19 02:40 04/11/19 17:20 Tylenol MO 650 mg Q6H PRN Administration Fever > 101 or Mild Pain Acetaminophen 650 mg 04/15/19 08:23 04/16/19 08:24 Tylenol Elixir PO 650 mg Q4H PRN Administration pain/fever Albuterol/Ipratropium 3 ml 04/11/19 10:30 04/17/19 18:53 Duoneb NEB 3 ml [id number] MARTA Administration Amlodipine Besylate 5 mg 04/16/19 09:00 04/17/19 10:25 Norvasc PO 5 mg DAILY MARTA Administration Aspirin 325 mg 04/14/19 09:00 04/17/19 10:25 Aspirin PER TUBE 325 mg DAILY MARTA Administration Divalproex Sodium 250 mg 04/06/19 09:00 04/17/19 10:24 Depakote Sprinkle PER TUBE 250 mg BID MARTA Administration Duloxetine HCl 60 mg 04/06/19 07:50 04/17/19 10:23 Cymbalta PER TUBE 60 mg DAILY MARTA Administration Enoxaparin Sodium 80 mg 04/10/19 21:00 04/17/19 10:51 Lovenox SC 80 mg 0900,2100 MARTA Administration Famotidine 20 mg 03/27/19 21:00 04/17/19 10:24 Pepcid PER TUBE 20 mg Q12HR MARTA Administration Folic Acid 1 mg 03/27/19 09:00 04/17/19 10:25 Folvite PO 1 mg DAILY MARTA Administration Gabapentin 300 mg 04/06/19 09:00 04/17/19 10:50 Neurontin PO 300 mg BID MARTA Administration Hydralazine HCl 10 mg 03/29/19 10:50 04/13/19 07:56 Apresoline SLOW IVP 10 mg Q4H PRN Administration SBP GREATER THAN 160 Levofloxacin 500 mg/ Device 100 mls @ 100 mls/hr 04/15/19 16:00 04/17/19 16: 26 IVPB 100 mls Q24HR MARTA Administration Insulin Human Regular 0 units 03/31/19 23:11 04/15/19 14:53 Humulin R SC 3 unit .MILD SLIDING SCALE PRN Administration Mild Correctional Scale Metoclopramide HCl 10 mg 04/03/19 09:00 04/17/19 15:56 Reglan IVP 10 mg Q6H MARTA Administration Metoprolol Tartrate 25 mg 04/10/19 21:00 04/17/19 10:25 Lopressor PO 25 mg BID MARTA Administration Ondansetron HCl 4 mg 04/01/19 19:18 04/01/19 22:21 Zofran SLOW IVP 4 mg Q6H PRN Administration Nausea/Vomiting Polyethylene Glycol 17 gm 04/08/19 09:00 04/17/19 10:51 Miralax PER TUBE Not Given DAILY MARTA Potassium Chloride 10 meq 04/15/19 08:00 04/17/19 16:19 Klor-Con 10 PO 10 meq BID-WM MARTA Administration Saccharomyces Boulardii 250 mg 03/27/19 09:00 04/17/19 10:25 Florastor PER TUBE 250 mg DAILY MARTA Administration Sodium Chloride 10 ml 04/03/19 09:00 04/17/19 10:51 Flush - Normal Saline IVF 10 ml Q12HR MARTA Administration Tamsulosin HCl 0.4 mg 03/29/19 21:00 04/16/19 22:56 Flomax PO 0.4 mg HS MARTA Administration - Exam General Appearance: ill appearing General - other findings: Tachypneic Heart: no murmur, no gallops, irregular Respiratory: rales, rhonchi, tachypneic, wheezes Gastrointestinal: soft, non-tender, non-distended, normal bowel sounds, no palpable masses, no hepatomegaly, no splenomegaly, no bruit Extremities: no cyanosis, no clubbing, no edema Skin: normal turgor Musculoskeletal: generalized weakness Psychiatric - other findings: Oriented to place and person. Hosp A/P (1) Acute metabolic encephalopathy Code(s): G93.41 - METABOLIC ENCEPHALOPATHY Status: Acute (2) Atrial fibrillation with rapid ventricular response Code(s): I48.91 - UNSPECIFIED ATRIAL FIBRILLATION Status: Acute (3) Influenza Code(s): J11.1 - FLU DUE TO UNIDENTIFIED INFLUENZA VIRUS W OTH RESP MANIFEST Status: Acute (4) EVELINE (acute kidney injury) Code(s): N17.9 - ACUTE KIDNEY FAILURE, UNSPECIFIED Status: Acute (5) Acute respiratory failure with hypoxia Code(s): J96.01 - ACUTE RESPIRATORY FAILURE WITH HYPOXIA Status: Acute (6) COPD exacerbation Code(s): J44.1 - CHRONIC OBSTRUCTIVE PULMONARY DISEASE W (ACUTE) EXACERBATION Status: Acute (7) Sepsis Code(s): A41.9 - SEPSIS, UNSPECIFIED ORGANISM Status: Acute (8) Bacteremia Code(s): R78.81 - BACTEREMIA Status: Acute (9) Acute respiratory failure with hypoxia and hypercapnia Code(s): J96.01 - ACUTE RESPIRATORY FAILURE WITH HYPOXIA; J96.02 - ACUTE RESPIRATORY FAILURE WITH HYPERCAPNIA Status: Acute (10) Rheumatoid arthritis Code(s): M06.9 - RHEUMATOID ARTHRITIS, UNSPECIFIED Status: Acute (11) History of alcohol abuse Code(s): F10.11 - ALCOHOL ABUSE, IN REMISSION Status: Acute - Plan Seems to doing a little better. Waking up and encephalopathy appears to be resolving a little. Pulm following. Cardio following. On cardizem gtt. Continue abx. Continue oxygen support. May need to readdress code status as he becomes more awake and appropriate.
[2019-04-17] MEDS: Tamsulosin HCl 0.4 MG CAP PO SCH (21:59)
[2019-04-18] MEDS: Metoclopramide HCl 10 MG/2 ML VIAL IVP SCH ×4 (03:54→20:46)
[2019-04-18] MEDS: Diltiazem 125 MG in Sodium Chloride 0.9% 100 ML IVPB SCH (03:56)
[2019-04-18 04:37] LABS: Anion Gap 11 mmol/L (10-20); BUN (Urea Nitrogen) 11 mg/dL (8.4-25.7); Calc. Creatinine Clearance 128 mL/min (70-130); Calcium 8.9 mg/dL (7.8-10.44); Carbon Dioxide 32 mmol/L (23-31); Chloride 104 mmol/L (98-107); Estimated GFR-MDRD Greater than 90; Glucose 99 mg/dL (83-110); Sodium 144 mmol/L (136-145)
[2019-04-18 04:40] LABS: Band 11 % (5-11); Lymphocytes 9 % (21-51); MDiff Complete? YES; Mean Corpuscular HGB CONC 30.8 g/dL (32.0-36.0); Mean Corpuscular Hemoglobin 30.5 pg (27.0-31.0); Mean Platelet Volume 8.5 fL (7.4-10.4); Monocytes 6 % (0-10); Myelocyte 1 % (0-0); Neutrophil 73 % (42-75); Nucleated RBC 1 % (0); Platelet Count 263 thou/uL (130-400); RBC Distribution Width 13.2 % (11.5-14.5); White Blood Cell (WBC) Count 4.9 thou/uL (4.8-10.8)
[2019-04-18 04:42] LABS: Potassium 2.8 mmol/L (3.5-5.1)
[2019-04-18 04:55] LABS: Phosphorus 1.6 mg/dL (2.3-4.7)
[2019-04-18] MEDS ORDERED: Potassium Chloride 20 MEQ TAB PO PRN (05:18)
[2019-04-18] MEDS ORDERED: Potassium Chloride 40 MEQ in Premix Bag 1 BAG IVPB PRN (05:18)
[2019-04-18] MEDS ORDERED: CCU ELECTROLYTE REPLACEMENT PROTOCOL FS PRN (05:18)
[2019-04-18] MEDS ORDERED: PHOS-NAK 1 PKT PACK PO PRN (05:18)
[2019-04-18] MEDS ORDERED: Magnesium 2 GM/50 ML 2 GM in Premix Bag 1 BAG IVPB PRN (05:18)
[2019-04-18] MEDS ORDERED: Magnesium Oxide 400 MG TAB PO PRN ×2 (05:18)
[2019-04-18] MEDS ORDERED: Potassium Phosphate 12 MMOL in Sodium Chloride 0.9% 250 ML 250 ML IV PRN (05:18)
[2019-04-18] MEDS ORDERED: Potassium Phosphate 15 MMOL in Sodium Chloride 0.9% 250 ML 250 ML IV PRN (05:18)
[2019-04-18] MEDS ORDERED: Furosemide 20 MG/2 ML VIAL SLOW IVP SCH (06:00)
[2019-04-18] MEDS ORDERED: Furosemide 40 MG/4 ML VIAL SLOW IVP SCH (06:00)
[2019-04-18] MEDS: PHOS-NAK 1 PKT PACK PO PRN (06:10)
[2019-04-18] MEDS: Lorazepam 2 MG/ML VIAL SLOW IVP PRN (07:26)
[2019-04-18] MEDS: Acetaminophen 650 MG/20.3 ML UDCUP PO PRN (07:27)
[2019-04-18] MEDS ORDERED: Digoxin 0.5 MG/2 ML AMP SLOW IVP SCH (09:00)
[2019-04-18] MEDS: Saccharomyces boulardii 250 MG CAP PER TUBE SCH (10:05)
[2019-04-18] MEDS: Divalproex Sodium 125 mg Sprinkle Capsule PER TUBE SCH ×2 (10:05→20:45)
[2019-04-18] MEDS: Aspirin 325 MG TAB PER TUBE SCH (10:05)
[2019-04-18] MEDS: DULoxetine 30 MG CAP PER TUBE SCH (10:05)
[2019-04-18] MEDS: Potassium Chloride 10 MEQ TAB PO SCH ×2 (10:05→15:58)
[2019-04-18] MEDS: Famotidine 20 MG TAB PER TUBE SCH ×2 (10:05→20:45)
[2019-04-18] MEDS: Amlodipine 5 MG TAB PO SCH (10:06)
[2019-04-18] MEDS: Metoprolol Tartrate 25 MG TAB PO SCH ×2 (10:07→20:46)
[2019-04-18] MEDS: Gabapentin 300 MG CAP PO SCH ×2 (10:07→20:45)
[2019-04-18] MEDS: Enoxaparin Sodium 80 MG/0.8 ML SYRINGE SC SCH ×2 (10:07→20:45)
[2019-04-18] MEDS: Folic Acid 1 MG TAB PO SCH (10:07)
--- NOTE | 2019-04-18 10:27 | PRG ---
DATE OF SERVICE: 04/18/2019 SUBJECTIVE: Mr. Marshall looks horrible today. He is having difficulty with his upper airway secretions. He has a nasal trumpet in place. OBJECTIVE: VITAL SIGNS: On exam, temperature 97.8, pulse 124, and blood pressure 125/89. HEENT: Remarkable for loud upper airway noises. NECK: No JVD. LUNGS: Coarse rhonchi. CARDIAC: S1 and S2. Irregularly irregular. Tachycardic. ABDOMEN: Soft and nontender. EXTREMITIES: No edema. LABORATORY DATA: White blood cell count 4.9, hematocrit 32, and platelet count 263. Sodium 144, potassium 2.8, chloride 104, CO2 of 32, BUN 11, creatinine 0.5, and glucose 99. ASSESSMENT: 1. Acute on chronic respiratory failure. Inciting event seem to be influenza with pneumonia. We have not seen any evidence of good recovery. 2. Diastolic heart failure. PLAN: I really think we are in a situation with this patient is not going to improve and is likely to succumb in the next few days. I would advise transitioning to comfort care. Job ID: [id number]
--- NOTE | 2019-04-18 10:52 | PRG ---
DATE OF SERVICE: 04/18/2019 SUBJECTIVE: Mr. Marshall remains very tachycardic, heart rate 140, irregular, it is atrial fibrillation. This is despite diltiazem, digoxin, beta-pro, and Cardizem. The patient is extubated, still somewhat confused. OBJECTIVE: VITAL SIGNS: Blood pressure is 120 systolic. LUNGS: No wheezing. CARDIAC: Irregularly irregular. Tachycardiac. ABDOMEN: Soft and nontender. EXTREMITIES: No edema. ASSESSMENT: 1. Chronic obstructive pulmonary disease with respiratory failure. 2. Atrial fibrillation with a still uncontrolled rate despite multiple medicines as outlined above. PLAN: 1. We are going to start intravenous amiodarone. 2. We will stop digoxin. 3. Hopefully, if rates come down, decrease and wean off the diltiazem. Job ID: [id number]
[2019-04-18] MEDS: Polyethylene Glycol 3350 17 GM Packet PER TUBE SCH (10:56)
[2019-04-18] MEDS: Amiodarone 450 MG in Dextrose 5% in Water 250 ML IVPB SCH (11:15)
[2019-04-18 11:58] LABS: Potassium 3.4 mmol/L (3.5-5.1)
[2019-04-18] MEDS: Furosemide 20 MG/2 ML VIAL SLOW IVP SCH (13:25)
--- NOTE | 2019-04-18 14:19 | PDOC.PALCO ---
Palliative Care Consult - Consult Details Requesting Physician: Dr Sibley Reason for Consult: goals of care, advance directives assistance Family Members Present: None - Pertinent HPI Mr Marshall prior to admission lived at [facility] living apartment, with paid provider services to assist with ADL. However initial conversation with friend of Mr Marshall reported that the paid caregiver had been ill, and may have not been to care for Mr Marshall for an unknown period of time. Mr Marshall called EMS secondary to shortness of breath, EMS arrived and he was placed on CPAP and medical management initiated upon transport to the hospital, upon arrival to the emergency room he was subsequently intubated. Mr Marshall was admitted to CCU and has continued difficulty with recovery secondary to multiple morbidities. Palliative Care RN has attempted to locate family, please refer to PC notes in note section. Currently Mr Marshall is extubated, but unable to communicate. - Pertinent PMH COPD, Tobacco abuse, Rheumatoid arthritis, Chronic Ureterohydronephrosis, anemia , Hypertension, anxiety and depression, alcohol abuse, hydrocele, - Social History Smoking Status: Current every day smoker (As per significant other report initially) Alcohol Use: daily Drug Use History: none Living Situation: independent - Medications MAR Reviewed: Yes - Allergies Allergies/Adverse Reactions: Allergies Allergy/AdvReac Type Severity Reaction Status Date / Time Penicillins Allergy Verified 12/28/18 01:30 Sulfa (Sulfonamide Allergy Verified 04/09/19 21:33 Antibiotics) - Subjective Encephalopathic, nasal trumpet in place left nare - ROS Non Response: due to mental status - Objective Vital Signs: Vital Signs - Most Recent Temp Pulse Resp BP Pulse Ox 97.6 F 145 H 40 H 111/69 97 04/18/19 11:50 04/18/19 10:55 04/18/19 10:55 04/18/19 09:49 04/18/19 10:55 Palliative Performance Scale: 20 - Advance Directives Medical Power of Syruper: unable to locate - Physical Exam Constitutional: encephalitic, ill appearing Respiratory: labored respirations, tachypnea Deviation from normal: Adventicious lung sounds bilaterally Cardiovascular: irregular Gastrointestinal: incontinent Genitourinary: de jesus catheter Musculoskeletal: muscle wasting Skin: fragile Deviation from normal: encephalopathic - Problem List (1) Palliative care encounter Code(s): Z51.5 - ENCOUNTER FOR PALLIATIVE CARE Current Visit: Yes Status: Acute (2) Physical deconditioning Code(s): R53.81 - OTHER MALAISE Current Visit: Yes Status: Acute (3) Acute metabolic encephalopathy Code(s): G93.41 - METABOLIC ENCEPHALOPATHY Current Visit: Yes Status: Acute (4) Acute respiratory failure with hypoxia and hypercapnia Code(s): J96.01 - ACUTE RESPIRATORY FAILURE WITH HYPOXIA; J96.02 - ACUTE RESPIRATORY FAILURE WITH HYPERCAPNIA Current Visit: Yes Status: Acute (5) Afib Code(s): I48.91 - UNSPECIFIED ATRIAL FIBRILLATION Current Visit: Yes Status : Acute Qualifiers: Atrial fibrillation type: paroxysmal Qualified Code(s): I48.0 - Paroxysmal atrial fibrillation (6) COPD exacerbation Code(s): J44.1 - CHRONIC OBSTRUCTIVE PULMONARY DISEASE W (ACUTE) EXACERBATION Current Visit: No Status: Acute (7) COPD (chronic obstructive pulmonary disease) Current Visit: No Status: Chronic - Plan/Recommendations Plan: Unable to discuss with patient wishes in relation to goal of care and resuscitation status, secondary to encephalopathy. Palliative Care team unable to communicate with family to serve as surrogate decision makers, please refer to PC nurse notes in note section *Scopolamine patch to mitigate secretions *Biotene for after oral care to ensure moist mucous membranes *Palliative Care will follow up 04/19/2019 for hopeful conversation with patient to discuss wishes and possible decision maker. *Communicated with Dr Goyal [40] minutes spent on this encounter with >50% of the time in counseling and coordination of care. Thank you for this very appropriate consult.
[2019-04-18] MEDS: Scopolamine 1.5 mg/72 hour Patch TD SCH (15:59)
[2019-04-18] MEDS: BIOTENE MOUTH SPRAY 44.3 ML PO SCH ×2 (16:26→23:11)
--- NOTE | 2019-04-18 20:16 | PDOC.HOSPP ---
- Subjective Encounter Date: 04/18/19 Subjective: Non-verbal. - Objective Vital Signs & Weight: Vital Signs (12 hours) Temp Pulse Pulse Pulse Resp BP BP 04/18/19 19:22 98.2 F 04/18/19 18:49 104 H 28 H 04/18/19 14:36 103 H 29 H 04/18/19 11:50 97.6 F 04/18/19 10:55 145 H 40 H 04/18/19 10:06 132 H 04/18/19 09:49 110 H 120 H 111/69 98/73 Pulse Ox Pulse Ox Pulse Ox 04/18/19 19:22 04/18/19 18:49 98 04/18/19 14:36 99 04/18/19 11:50 04/18/19 10:55 97 04/18/19 10:06 04/18/19 09:49 95 94 L Weight Admit Weight 181 lb 3.52 oz Weight 164 lb 3 oz Most Recent Monitor Data Heart Rate from ECG 115 NIBP 135/67 NIBP BP-Mean 89 Respiration from ECG 30 SpO2 99 I&O: 04/17/19 04/18/19 04/19/19 06:59 06:59 06:59 Intake Total 1225.5 800 350 Output Total 1600 1300 650 Balance -374.5 -500 -300 Result Diagrams: 04/18/19 03:48 04/18/19 11:36 Additional Labs: Accuchecks 04/18/19 04/18/19 04/17/19 06:11 00:55 20:28 POC Glucose 93 88 98 Hospitalist ROS - Medication Medications: Active Medications Generic Name Dose Route Start Last Admin Trade Name Kendellq PRN Reason Stop Dose Admin Acetaminophen 650 mg 03/27/19 02:40 04/11/19 17:20 Tylenol MD 650 mg Q6H PRN Administration Fever > 101 or Mild Pain Acetaminophen 650 mg 04/15/19 08:23 04/18/19 07:27 Tylenol Elixir PO 650 mg Q4H PRN Administration pain/fever Albuterol/Ipratropium 3 ml 04/11/19 10:30 04/18/19 18:49 Duoneb NEB 3 ml [id number] MARTA Administration Amlodipine Besylate 5 mg 04/16/19 09:00 04/18/19 10:06 Norvasc PO 5 mg DAILY MARTA Administration Aspirin 325 mg 04/14/19 09:00 04/18/19 10:05 Aspirin PER TUBE 325 mg DAILY MARTA Administration Divalproex Sodium 250 mg 04/06/19 09:00 04/18/19 10:05 Depakote Sprinkle PER TUBE 250 mg BID MARTA Administration Duloxetine HCl 60 mg 04/06/19 07:50 04/18/19 10:05 Cymbalta PER TUBE 60 mg DAILY MARTA Administration Enoxaparin Sodium 80 mg 04/10/19 21:00 04/18/19 10:07 Lovenox SC 80 mg 0900,2100 MARTA Administration Famotidine 20 mg 03/27/19 21:00 04/18/19 10:05 Pepcid PER TUBE 20 mg Q12HR MARTA Administration Folic Acid 1 mg 03/27/19 09:00 04/18/19 10:07 Folvite PO 1 mg DAILY MARTA Administration Furosemide 20 mg 04/18/19 14:00 04/18/19 13:25 Lasix SLOW IVP 20 mg 0600,1400 MARTA Administration Gabapentin 300 mg 04/06/19 09:00 04/18/19 10:07 Neurontin PO 300 mg BID MARTA Administration Hydralazine HCl 10 mg 03/29/19 10:50 04/13/19 07:56 Apresoline SLOW IVP 10 mg Q4H PRN Administration SBP GREATER THAN 160 Levofloxacin 500 mg/ Device 100 mls @ 100 mls/hr 04/15/19 16:00 04/18/19 16: 24 IVPB 100 mls Q24HR MARTA Administration Diltiazem HCl 125 mg/ Sodium 125 mls @ 15 mls/hr 04/17/19 09:30 04/18/19 03: 56 Chloride IVPB 125 mls INF MARTA Administration Protocol 15 MG/HR Amiodarone HCl 450 mg/ 259 mls @ 0 mls/hr 04/18/19 10:30 04/18/19 11:15 Dextrose/Water IVPB 259 mls INF MARTA Administration Protocol Per Protocol Insulin Human Regular 0 units 03/31/19 23:11 04/15/19 14:53 Humulin R SC 3 unit .MILD SLIDING SCALE PRN Administration Mild Correctional Scale Lorazepam 0.5 mg 04/16/19 08:56 04/18/19 07:26 Ativan SLOW IVP 0.5 mg Q6H PRN Administration Anxiety/Agitation Metoclopramide HCl 10 mg 04/03/19 09:00 04/18/19 16:01 Reglan IVP 10 mg Q6H MARTA Administration Metoprolol Tartrate 25 mg 04/10/19 21:00 04/18/19 10:07 Lopressor PO 25 mg BID MARTA Administration Miscellaneous Medication 1 pkt 04/18/19 05:18 04/18/19 06:10 Phos-Nak PO 1 pkt TIDPRN PRN Administration FOR PHOS LEVEL 1.0 - 1.8 Miscellaneous Medication 0 ml 04/18/19 18:00 04/18/19 16:26 Biotene Moisturizing Mouth PO 1 spr Q6HR MARTA Administration Ondansetron HCl 4 mg 04/01/19 19:18 04/01/19 22:21 Zofran SLOW IVP 4 mg Q6H PRN Administration Nausea/Vomiting Polyethylene Glycol 17 gm 04/08/19 09:00 04/18/19 10:56 Miralax PER TUBE Not Given DAILY MARTA Potassium Chloride 10 meq 04/15/19 08:00 04/18/19 15:58 Klor-Con 10 PO 10 meq BID-WM MARTA Administration Potassium Chloride 40 meq 04/18/19 05:18 04/18/19 06:09 Klor-Con PER TUBE 40 meq ASDIR PRN Administration FOR SERUM K+ 2.5-3.5 Saccharomyces Boulardii 250 mg 03/27/19 09:00 04/18/19 10:05 Florastor PER TUBE 250 mg DAILY MARTA Administration Scopolamine 1.5 mg 04/18/19 15:00 04/18/19 15:59 Transderm Scop TD 1.5 mg Q3D MARTA Administration Sodium Chloride 10 ml 04/03/19 09:00 04/18/19 10:14 Flush - Normal Saline IVF 10 ml Q12HR MARTA Administration Tamsulosin HCl 0.4 mg 03/29/19 21:00 04/17/19 21:59 Flomax PO 0.4 mg HS MARTA Administration - Exam General Appearance: NAD, awake alert Heart: irregular Heart - other findings: Tachy Respiratory: rales, rhonchi, tachypneic, wheezes Gastrointestinal: soft, non-distended, normal bowel sounds Extremities: no cyanosis, no clubbing, no edema Skin: normal turgor Musculoskeletal: generalized weakness Hosp A/P (1) Acute metabolic encephalopathy Code(s): G93.41 - METABOLIC ENCEPHALOPATHY Status: Acute (2) Atrial fibrillation with rapid ventricular response Code(s): I48.91 - UNSPECIFIED ATRIAL FIBRILLATION Status: Acute (3) Influenza Code(s): J11.1 - FLU DUE TO UNIDENTIFIED INFLUENZA VIRUS W OTH RESP MANIFEST Status: Acute (4) EVELINE (acute kidney injury) Code(s): N17.9 - ACUTE KIDNEY FAILURE, UNSPECIFIED Status: Acute (5) Acute respiratory failure with hypoxia Code(s): J96.01 - ACUTE RESPIRATORY FAILURE WITH HYPOXIA Status: Acute (6) COPD exacerbation Code(s): J44.1 - CHRONIC OBSTRUCTIVE PULMONARY DISEASE W (ACUTE) EXACERBATION Status: Acute (7) Sepsis Code(s): A41.9 - SEPSIS, UNSPECIFIED ORGANISM Status: Acute (8) Bacteremia Code(s): R78.81 - BACTEREMIA Status: Acute (9) Acute respiratory failure with hypoxia and hypercapnia Code(s): J96.01 - ACUTE RESPIRATORY FAILURE WITH HYPOXIA; J96.02 - ACUTE RESPIRATORY FAILURE WITH HYPERCAPNIA Status: Acute (10) Rheumatoid arthritis Code(s): M06.9 - RHEUMATOID ARTHRITIS, UNSPECIFIED Status: Acute (11) History of alcohol abuse Code(s): F10.11 - ALCOHOL ABUSE, IN REMISSION Status: Acute - Plan Not doing as well with his encephalopathy today. Pulm following. Continues to have some hypoxic respiratory failure. PCT added scopolamine patch. Appears to have some retained secretions. Cannot be cleared with suction adequately. Cardio following. On cardizem gtt. Now on amio as well. Off dig. Rate a little better. Prognosis remains very poor. Severe cardiopulmonary illness and encephalopathy.
[2019-04-18] MEDS: Tamsulosin HCl 0.4 MG CAP PO SCH (20:45)
[2019-04-19] MEDS: Metoclopramide HCl 10 MG/2 ML VIAL IVP SCH ×4 (02:44→20:56)
[2019-04-19 03:23] LABS: Band 13 % (5-11); Hemoglobin 10.1 g/dL (14.0-18.0); Lymphocytes 17 % (21-51); MDiff Complete? YES; Mean Corpuscular HGB CONC 32.5 g/dL (32.0-36.0); Mean Corpuscular Hemoglobin 32.6 pg (27.0-31.0); Mean Platelet Volume 8.2 fL (7.4-10.4); Monocytes 5 % (0-10); Neutrophil 64 % (42-75); Platelet Count 300 thou/uL (130-400); RBC Distribution Width 13.8 % (11.5-14.5); Red Blood Cell (RBC) Count 3.09 mill/uL (4.70-6.10); White Blood Cell (WBC) Count 6.9 thou/uL (4.8-10.8)
[2019-04-19 03:31] LABS: Anion Gap 10 mmol/L (10-20); BUN (Urea Nitrogen) 12 mg/dL (8.4-25.7); Calc. Creatinine Clearance 108 mL/min (70-130); Calcium 8.9 mg/dL (7.8-10.44); Carbon Dioxide 33 mmol/L (23-31); Chloride 104 mmol/L (98-107); Estimated GFR-MDRD Greater than 90; Glucose 95 mg/dL (83-110); Potassium 3.4 mmol/L (3.5-5.1); Sodium 144 mmol/L (136-145)
[2019-04-19] MEDS: Diltiazem 125 MG in Sodium Chloride 0.9% 100 ML IVPB SCH (04:02)
[2019-04-19] MEDS: BIOTENE MOUTH SPRAY 44.3 ML PO SCH ×3 (06:17→18:06)
[2019-04-19] MEDS: Furosemide 20 MG/2 ML VIAL SLOW IVP SCH ×2 (06:17→15:28)
--- NOTE | 2019-04-19 09:03 | PRG ---
DATE OF SERVICE: 04/19/2019 SUBJECTIVE: Mr. Marshall is awake, responds to verbal stimuli. REVIEW OF SYSTEMS: Not obtainable. OBJECTIVE: VITAL SIGNS: Temperature 100.4; pulse is variable from 100 to 120, it is mostly atrial fibrillation with occasional more regular SVT with the rate of about 120. LUNGS: Rhonchi, but no wheezing. He continues to have a foul smelling breath despite oral care multiple times per day. CARDIAC: Tachycardiac. ABDOMEN: Soft and nontender. EXTREMITIES: No edema. ASSESSMENT: 1. Respiratory failure. 2. Atrial arrhythmias, persistent. PLAN: 1. He is on amiodarone. We started that yesterday. 2. He is on diltiazem, we will need to increase the dose to try to control heart rate. 3. He is on low-dose beta blockers. 4. Stop digoxin. Long-term prognosis guarded to poor. Job ID: [id number]
--- NOTE | 2019-04-19 09:15 | PRG ---
DATE OF SERVICE: 04/19/2019 SUBJECTIVE: He continues to be in very terrible shape. OBJECTIVE: VITAL SIGNS: Temperature is 100.4, pulse 114, blood pressure 143/66, O2 saturation 99%. Intake 760, output 1050. HEENT: Dry oral mucous membranes. NECK: No JVD. LUNGS: Clear. CARDIAC: S1-S2 tachycardic. ABDOMEN: Distended. LABORATORY DATA: White blood cell count 6.9, hematocrit 31, and platelet count 300. Sodium 144, potassium 3.4, chloride 104, CO2 of 33, BUN 12, creatinine 0.6, glucose 90. ASSESSMENT: 1. Chronic aspiration. 2. Generalized failure to thrive. 3. Diastolic heart failure. RECOMMENDATIONS: Again, I do not see hope for much recovery in this case, no recommendations at this time. Job ID: [id number]
[2019-04-19] MEDS: Gabapentin 300 MG CAP PO SCH ×2 (09:43→20:57)
[2019-04-19] MEDS: Divalproex Sodium 125 mg Sprinkle Capsule PER TUBE SCH ×2 (09:43→20:57)
[2019-04-19] MEDS: Famotidine 20 MG TAB PER TUBE SCH ×2 (09:43→20:57)
[2019-04-19] MEDS: DULoxetine 30 MG CAP PER TUBE SCH (09:43)
[2019-04-19] MEDS: Enoxaparin Sodium 80 MG/0.8 ML SYRINGE SC SCH ×2 (09:43→20:56)
[2019-04-19] MEDS: Amlodipine 5 MG TAB PO SCH (09:43)
[2019-04-19] MEDS: Metoprolol Tartrate 25 MG TAB PO SCH ×2 (09:43→20:57)
[2019-04-19] MEDS: Aspirin 325 MG TAB PER TUBE SCH (09:50)
[2019-04-19] MEDS: Folic Acid 1 MG TAB PO SCH (09:50)
[2019-04-19] MEDS: Saccharomyces boulardii 250 MG CAP PER TUBE SCH (09:50)
[2019-04-19] MEDS: Polyethylene Glycol 3350 17 GM Packet PER TUBE SCH (09:50)
[2019-04-19] MEDS: Potassium Chloride 10 MEQ TAB PO SCH ×2 (09:50→15:28)
--- NOTE | 2019-04-19 14:04 | PQF ---
DATE: 04-19-19 ATTN: DR. WINDY BARRETT Please exercise your independent, professional judgment in responding to the clarification form. Clinical indicators are provided on the bottom of this form for your review Diagnosis: SEVERE SEPSIS Present on Admission (POA): [ ] Yes [ ] No [ ] Unable to determine For continuity of documentation, please document condition throughout progress notes and discharge summary. Thank You. CLINICAL INDICATORS - SIGNS / SYMPTOMS / LABS/ RESULTS AND LOCATION IN MR: ER DX: 03-27-19: PNEUMONIA, RESPIRATORY FAILURE LACTIC ACID: 03-27-19: 3.1 03-27-19: 3.3 WBC: 220: 11.4 220: 11.7 220: 14.6 220: 16.2 20: 16.5 2-20: 19.3 220: 18.1 220: 12.4 2-20: 16.3 220: 13.3 BANDS: 2--20: 2 214-20: 4 222-20: 3 2-20: 1 3--20: 18 3-20: 29 20: [address] ODEN 04-16-19: MICROCOCCUS BACTEREMIA WITH SEPSIS, POST INFLUENZA PNEUMONIA, ACUTE HYPOXIC HYPERCAPNIC RESPIRATORY FAILURE ON NON-INVASIVE VENTILATION, CONSULT NOTE DR. MILAN 04-16-19: BACTEREMIA SECONDARY TO MICROCOCCUS SPECIES, SEVERE SEPSIS RISK FACTORS / RESULTS AND LOCATION IN MR: ER DX: 03-27-19: PNEUMONIA, RESPIRATORY FAILURE PN DR. ODEN 04-16-19: MICROCOCCUS BACTEREMIA WITH SEPSIS, POST INFLUENZA PNEUMONIA, ACUTE HYPOXIC HYPERCAPNIC RESPIRATORY FAILURE ON NON-INVASIVE VENTILATION, TREATMENT / RESULTS AND LOCATION IN MR: ER NOTES 03-27-19: LEVAQUIN IV, VANCOMYCIN IV, IVF NS (This form is maintained as a part of the permanent medical record) 2014 [employer] All Rights Reserved NICHOLAS [email or web address] Office: [phone] [facility]ENTERLong
--- NOTE | 2019-04-19 15:07 | PDOC.HOSPP ---
- Subjective Encounter Date: 04/19/19 Subjective: Can get awake enough to answer a question, but unclear that he is fully understanding the question. Says he is cold and that is about all I can get. - Objective Vital Signs & Weight: Vital Signs (12 hours) Temp Pulse Pulse Resp BP Pulse Ox Pulse Ox 04/19/19 14:05 80 28 H 97 04/19/19 13:32 123 H 185/92 H 95 04/19/19 11:20 100.2 F H 04/19/19 10:47 121 H 34 H 97 04/19/19 09:43 112 H 04/19/19 08:00 98 04/19/19 07:46 100.4 F H 04/19/19 07:28 100 04/19/19 07:27 112 H 31 H 100 04/19/19 03:23 98.0 F Pulse Ox 04/19/19 14:05 04/19/19 13:32 96 04/19/19 11:20 04/19/19 10:47 04/19/19 09:43 04/19/19 08:00 04/19/19 07:46 04/19/19 07:28 04/19/19 07:27 04/19/19 03:23 Weight Admit Weight 181 lb 3.52 oz Weight 163 lb 6.4 oz Most Recent Monitor Data Heart Rate from ECG 94 NIBP 158/93 NIBP BP-Mean 114 Respiration from ECG 31 SpO2 97 I&O: 04/18/19 04/19/19 04/20/19 06:59 06:59 06:59 Intake Total 800 760.4 30 Output Total 1300 1050 Balance -500 -289.6 30 Result Diagrams: 04/19/19 02:45 04/19/19 02:45 Additional Labs: Accuchecks 04/19/19 04/19/19 04/19/19 12:05 06:35 00:09 POC Glucose 94 92 99 Hospitalist ROS - Medication Medications: Active Medications Generic Name Dose Route Start Last Admin Trade Name Freq PRN Reason Stop Dose Admin Acetaminophen 650 mg 03/27/19 02:40 04/11/19 17:20 Tylenol [place] 650 mg Q6H PRN Administration Fever > 101 or Mild Pain Acetaminophen 650 mg 04/15/19 08:23 04/18/19 07:27 Tylenol Elixir PO 650 mg Q4H PRN Administration pain/fever Albuterol/Ipratropium 3 ml 04/11/19 10:30 04/19/19 14:05 Duoneb NEB 3 ml [id number] MARTA Administration Amlodipine Besylate 5 mg 04/16/19 09:00 04/19/19 09:43 Norvasc PO 5 mg DAILY MARTA Administration Lipase/Protease/Amylase 1 cap 03/31/19 09:42 04/18/19 23:10 Creon [id number] FS 1 cap .PER PROTOCOL PRN Administration TUBE OCCLUSION PROTOCOL Aspirin 325 mg 04/14/19 09:00 04/19/19 09:50 Aspirin PER TUBE 325 mg DAILY MARTA Administration Divalproex Sodium 250 mg 04/06/19 09:00 04/19/19 09:43 Depakote Sprinkle PER TUBE 250 mg BID MARTA Administration Duloxetine HCl 60 mg 04/06/19 07:50 04/19/19 09:43 Cymbalta PER TUBE 60 mg DAILY MARTA Administration Enoxaparin Sodium 80 mg 04/10/19 21:00 04/19/19 09:43 Lovenox SC 80 mg 0900,2100 MARTA Administration Famotidine 20 mg 03/27/19 21:00 04/19/19 09:43 Pepcid PER TUBE 20 mg Q12HR MARTA Administration Folic Acid 1 mg 03/27/19 09:00 04/19/19 09:50 Folvite PO 1 mg DAILY MARTA Administration Furosemide 20 mg 04/18/19 14:00 04/19/19 06:17 Lasix SLOW IVP 20 mg 0600,1400 MARTA Administration Gabapentin 300 mg 04/06/19 09:00 04/19/19 09:43 Neurontin PO 300 mg BID MARTA Administration Hydralazine HCl 10 mg 03/29/19 10:50 04/13/19 07:56 Apresoline SLOW IVP 10 mg Q4H PRN Administration SBP GREATER THAN 160 Levofloxacin 500 mg/ Device 100 mls @ 100 mls/hr 04/15/19 16:00 04/18/19 16: 24 IVPB 100 mls Q24HR MARTA Administration Diltiazem HCl 125 mg/ Sodium 125 mls @ 15 mls/hr 04/17/19 09:30 04/19/19 04: 02 Chloride IVPB 125 mls INF MARTA Administration Protocol 15 MG/HR Amiodarone HCl 450 mg/ 259 mls @ 0 mls/hr 04/18/19 10:30 04/18/19 11:15 Dextrose/Water IVPB 259 mls INF MARTA Administration Protocol Per Protocol Insulin Human Regular 0 units 03/31/19 23:11 04/15/19 14:53 Humulin R SC 3 unit .MILD SLIDING SCALE PRN Administration Mild Correctional Scale Lorazepam 0.5 mg 04/16/19 08:56 04/18/19 07:26 Ativan SLOW IVP 0.5 mg Q6H PRN Administration Anxiety/Agitation Metoclopramide HCl 10 mg 04/03/19 09:00 04/19/19 09:43 Reglan IVP 10 mg Q6H MARTA Administration Metoprolol Tartrate 25 mg 04/10/19 21:00 04/19/19 09:43 Lopressor PO 25 mg BID MARTA Administration Miscellaneous Medication 1 pkt 04/18/19 05:18 04/18/19 06:10 Phos-Nak PO 1 pkt TIDPRN PRN Administration FOR PHOS LEVEL 1.0 - 1.8 Miscellaneous Medication 0 ml 04/18/19 18:00 04/19/19 12:08 Biotene Moisturizing Mouth PO 1 spr Q6HR MARTA Administration Ondansetron HCl 4 mg 04/01/19 19:18 04/01/19 22:21 Zofran SLOW IVP 4 mg Q6H PRN Administration Nausea/Vomiting Polyethylene Glycol 17 gm 04/08/19 09:00 04/19/19 09:50 Miralax PER TUBE Not Given DAILY MARTA Potassium Chloride 10 meq 04/15/19 08:00 04/19/19 09:50 Klor-Con 10 PO 10 meq BID-WM MARTA Administration Potassium Chloride 40 meq 04/18/19 05:18 04/18/19 06:09 Klor-Con PER TUBE 40 meq ASDIR PRN Administration FOR SERUM K+ 2.5-3.5 Saccharomyces Boulardii 250 mg 03/27/19 09:00 04/19/19 09:50 Florastor PER TUBE 250 mg DAILY MARTA Administration Scopolamine 1.5 mg 04/18/19 15:00 04/18/19 15:59 Transderm Scop TD 1.5 mg Q3D MARTA Administration Sodium Chloride 10 ml 04/03/19 09:00 04/19/19 09:51 Flush - Normal Saline IVF 10 ml Q12HR MARTA Administration Tamsulosin HCl 0.4 mg 03/29/19 21:00 04/18/19 20:45 Flomax PO 0.4 mg HS MARTA Administration - Exam General Appearance: NAD, awake alert ENT - other findings: L nasal trumpet, R NGT. Heart: no murmur, no gallops, no rubs, normal peripheral pulses, irregular Respiratory: rales, rhonchi, tachypneic, wheezes Gastrointestinal: soft, non-tender, non-distended, normal bowel sounds (but diminished in frequency.), no palpable masses Gastrointestinal - other findings: Liquid stool from the rectal tube. Extremities: no cyanosis, no clubbing, no edema Skin: normal turgor Psychiatric: not oriented, somnolent Hosp A/P (1) Acute metabolic encephalopathy Code(s): G93.41 - METABOLIC ENCEPHALOPATHY Status: Acute (2) Atrial fibrillation with rapid ventricular response Code(s): I48.91 - UNSPECIFIED ATRIAL FIBRILLATION Status: Acute (3) Influenza Code(s): J11.1 - FLU DUE TO UNIDENTIFIED INFLUENZA VIRUS W OTH RESP MANIFEST Status: Acute (4) EVELINE (acute kidney injury) Code(s): N17.9 - ACUTE KIDNEY FAILURE, UNSPECIFIED Status: Acute (5) Acute respiratory failure with hypoxia Code(s): J96.01 - ACUTE RESPIRATORY FAILURE WITH HYPOXIA Status: Acute (6) COPD exacerbation Code(s): J44.1 - CHRONIC OBSTRUCTIVE PULMONARY DISEASE W (ACUTE) EXACERBATION Status: Acute (7) Sepsis Code(s): A41.9 - SEPSIS, UNSPECIFIED ORGANISM Status: Acute (8) Bacteremia Code(s): R78.81 - BACTEREMIA Status: Acute (9) Acute respiratory failure with hypoxia and hypercapnia Code(s): J96.01 - ACUTE RESPIRATORY FAILURE WITH HYPOXIA; J96.02 - ACUTE RESPIRATORY FAILURE WITH HYPERCAPNIA Status: Acute (10) Rheumatoid arthritis Code(s): M06.9 - RHEUMATOID ARTHRITIS, UNSPECIFIED Status: Acute (11) History of alcohol abuse Code(s): F10.11 - ALCOHOL ABUSE, IN REMISSION Status: Acute (12) Severe sepsis Code(s): A41.9 - SEPSIS, UNSPECIFIED ORGANISM; R65.20 - SEVERE SEPSIS WITHOUT SEPTIC SHOCK Status: Acute (13) Pneumonia Code(s): J18.9 - PNEUMONIA, UNSPECIFIED ORGANISM Status: Acute (14) Diarrhea Code(s): R19.7 - DIARRHEA, UNSPECIFIED Status: Acute (15) Bilateral hydronephrosis Code(s): N13.30 - UNSPECIFIED HYDRONEPHROSIS Status: Chronic - Plan Not doing as well with his encephalopathy today. Does not have decision making capacity. Overall prognosis remains very poor based upon the recurrent aspiration, recalcitrant afib with RVR, Chronic respiratory failure and chronic encephalopathy. APS asked to eval the patient. May need court appointed guardian as he has no family. In the meantime, trying to make appropriate and ethical decisions regarding his care. Pulm following. Continues to have some hypoxic respiratory failure. Continue supportive oxygen. PCT added scopolamine patch. Appears to have some retained secretions. Cannot be cleared with suction adequately. Cardio following. On cardizem gtt. Titrating as needed. Now on amio as well. Off dig. Rate a little better. Failed swallow study. Feeds held due to high volume diarrhea. Diarrhea did not resolve when enteral feeds were DC'd. Will resume feeds for now via NGT. C diff was negative. Alcohol use was reported as daily. Unclear if he has alcohol related encephalopathy that might have been present prior to admission.
--- NOTE | 2019-04-19 16:17 | RAD ---
Radiograph abdomen one view: DATE: 04/19/2019 HISTORY: 73-year-old male with abdominal distention and diarrhea. COMPARISON: Large amount of bowel gas within prominent loops of large intestine and small intestine, including re ctosigmoid. Esophagogastric tube remains with distal tip in lateral aspect of left upper quadrant. No evidence of organomegaly. Vertically oriented catheter at lower pelvis. No obvious interval change . There appears to be a large air-filled device in the rectum. (The lower portion of the abdomen was not included on prior KUBs) IMPRESSION: 1. Large amount of bowel gas. 2. No interval change.
[2019-04-19] MEDS: Tamsulosin HCl 0.4 MG CAP PO SCH (20:57)
[2019-04-20] MEDS: BIOTENE MOUTH SPRAY 44.3 ML PO SCH ×5 (00:34→23:37)
[2019-04-20] MEDS: Insulin Regular 300 UNITS/3 ML VIAL SC PRN ×5 (00:34→23:42)
[2019-04-20] MEDS: Acetaminophen 650 MG/20.3 ML UDCUP PO PRN (00:35)
[2019-04-20] MEDS: Metoclopramide HCl 10 MG/2 ML VIAL IVP SCH (02:25)
[2019-04-20 03:11] LABS: Anion Gap 10 mmol/L (10-20); BUN (Urea Nitrogen) 13 mg/dL (8.4-25.7); Calc. Creatinine Clearance 95 mL/min (70-130); Calcium 9.1 mg/dL (7.8-10.44); Carbon Dioxide 36 mmol/L (23-31); Chloride 104 mmol/L (98-107); Estimated GFR-MDRD Greater than 90; Glucose 162 mg/dL (83-110); Potassium 3.3 mmol/L (3.5-5.1); Sodium 147 mmol/L (136-145)
[2019-04-20 03:14] LABS: Phosphorus 1.7 mg/dL (2.3-4.7)
[2019-04-20] MEDS: PHOS-NAK 1 PKT PACK PO PRN ×2 (03:48→20:33)
[2019-04-20] MEDS: Amiodarone 450 MG in Dextrose 5% in Water 250 ML IVPB SCH ×2 (03:48→20:29)
[2019-04-20 04:16] LABS: Hemoglobin 9.8 g/dL (14.0-18.0); Mean Corpuscular HGB CONC 31.3 g/dL (32.0-36.0); Mean Corpuscular Hemoglobin 31.8 pg (27.0-31.0); Mean Platelet Volume 8.4 fL (7.4-10.4); Platelet Count 300 thou/uL (130-400); RBC Distribution Width 14.2 % (11.5-14.5); Red Blood Cell (RBC) Count 3.09 mill/uL (4.70-6.10); White Blood Cell (WBC) Count 6.7 thou/uL (4.8-10.8)
[2019-04-20 04:21] LABS: Band 6 % (5-11); Lymphocytes 10 % (21-51); MDiff Complete? YES; Metamyelocyte 1 % (0-0); Monocytes 5 % (0-10); Myelocyte 3 % (0-0); Neutrophil 74 % (42-75)
[2019-04-20] MEDS: Ondansetron PF 4 MG/2 ML Vial SLOW IVP PRN (04:59)
[2019-04-20] MEDS: Diltiazem 125 MG in Sodium Chloride 0.9% 100 ML IVPB SCH ×2 (04:59→20:29)
[2019-04-20] MEDS: Furosemide 20 MG/2 ML VIAL SLOW IVP SCH ×2 (05:00→15:00)
[2019-04-20] MEDS ORDERED: Potassium Chloride 20 MEQ TAB PO SCH (08:00)
--- NOTE | 2019-04-20 08:46 | PRG ---
DATE OF SERVICE: 04/20/2019 SUBJECTIVE: The patient continues to be encephalopathic. OBJECTIVE: VITAL SIGNS: His temperature is 100.4, pulse rate 91, blood pressure 119/60, and O2 saturation 97%. A 24-hour intake is 760 and output 1050. HEENT: Unremarkable. NECK: No adenopathy or JVD. LUNGS: Coarse breath sounds. CARDIAC: S1 and S2. Regular. ABDOMEN: Soft and slightly distended. EXTREMITIES: No edema. LABORATORY DATA: Sodium 147, potassium 3.3, chloride 104, CO2 of 36, BUN 13, creatinine 0.7 glucose 162, phosphorus 1.7. White blood cell count 6.7, hematocrit 31.4, and platelet count 300. ASSESSMENT: 1. Continued encephalopathy. 2. Status post respiratory failure requiring mechanical ventilation, inciting influenza. RECOMMENDATIONS: 1. At this point, I would probably go ahead and stop Levaquin as it can have an adverse effect in some older people. 2. I will go ahead and stop his Cymbalta and also stop the Reglan. Job ID: [id number]
--- NOTE | 2019-04-20 08:53 | PRG ---
DATE OF SERVICE: 04/20/2019 SUBJECTIVE: Mr. Marshall is sleeping, but arousable. OBJECTIVE: VITAL SIGNS: His blood pressure 119/61, pulse is 100 and it is irregular. LUNGS: Some rhonchi. CARDIAC: Irregularly irregular. ABDOMEN: Soft and nontender. EXTREMITIES: Mild edema. LABORATORY DATA: Potassium is low at 3.3. ASSESSMENT: 1. Atrial fibrillation, now with controlled rate. 2. Hypernatremic. PLAN: 1. Give him a dose of potassium in the NG tube. 2. Continue amiodarone and diltiazem. I will be out the next few days. My partners will be following. The patient unfortunately is not making much progress. Job ID: [id number]
[2019-04-20] MEDS: Potassium Chloride 10 MEQ TAB PO SCH ×2 (08:56→17:03)
[2019-04-20] MEDS: Polyethylene Glycol 3350 17 GM Packet PER TUBE SCH (08:57)
--- NOTE | 2019-04-20 08:59 | PRG ---
DATE OF SERVICE: 04/20/2019 SUBJECTIVE: The patient is seen and examined at the bedside. He is somewhat comatose, but he is arousable. He follows my simple commands. OBJECTIVE: VITAL SIGNS: Blood pressure is 119/61; pulse is 91; temperature is 100.4, that is his maximal temperature; respiratory rate is 30; O2 saturation is 97%. He has NG tube in his right nostril. LUNGS: Bilateral rales at both bases present. HEART: S1 and S2. Irregularly irregular. No S3. No S4. ABDOMEN: Soft, nontender, and nondistended. Bowel sounds sluggish. EXTREMITIES: 1+ peripheral edema on upper and lower extremities. NEUROLOGIC: He tries to follow my commands. He is somewhat comatose. He is not fully able to cooperate. LABORATORY DATA: Showed white count of 6.7, hemoglobin of 9.8, hematocrit 31.4, platelet count is 300. Sodium of 147, potassium 3.3, chloride 104, CO2 of 36, BUN 13, creatinine 0.74, glycemia is ranging from 92 to 216, phosphorus 1.7. Microbiology: No new findings. IMPRESSION: 1. Acute metabolic encephalopathy. 2. Atrial fibrillation with rapid ventricular response. 3. Influenza, status post treatment. 4. Acute kidney injury, improved. 5. Acute respiratory failure with hypoxia. 6. Chronic obstructive pulmonary disease exacerbation. 7. Sepsis. 8. History of rheumatoid arthritis. 9. History of alcohol abuse. PLAN: It is very difficult situation since the patient's encephalopathy is not getting much better. It looks like it is metabolic. His Reglan and other essentially working agents were stopped to rule out medications effect on central nervous system, but we do not see any improvement at this point. He had high residuals on his feeds. We will try some feeding today and see how he responds. We will check his ammonia level, and we will start him on D5 water at 75 mL/hour. We will replace his potassium and phosphorus. Apparently, Adult Protective Services were notified, and we are looking for court-appointed guardian to make decision for him. For now, he is DNR. Job ID: [id number]
[2019-04-20] MEDS: Amlodipine 5 MG TAB PO SCH (09:27)
[2019-04-20] MEDS: Folic Acid 1 MG TAB PO SCH (09:27)
[2019-04-20] MEDS: Famotidine 20 MG TAB PER TUBE SCH ×2 (09:28→20:33)
[2019-04-20] MEDS: Aspirin 325 MG TAB PER TUBE SCH (09:28)
[2019-04-20] MEDS: Saccharomyces boulardii 250 MG CAP PER TUBE SCH (09:28)
[2019-04-20] MEDS: Divalproex Sodium 125 mg Sprinkle Capsule PER TUBE SCH ×2 (09:29→20:34)
[2019-04-20] MEDS: Lorazepam 2 MG/ML VIAL SLOW IVP PRN ×2 (09:29→20:27)
[2019-04-20] MEDS: Enoxaparin Sodium 80 MG/0.8 ML SYRINGE SC SCH ×2 (09:29→20:33)
[2019-04-20] MEDS: Metoprolol Tartrate 25 MG TAB PO SCH ×2 (09:34→20:33)
[2019-04-20] MEDS: Dextrose 5% in Water 1,000 ML IV SCH ×2 (10:45→23:39)
[2019-04-20] MEDS: Acetaminophen 325 MG TAB PO PRN (17:07)
[2019-04-20] MEDS: Tamsulosin HCl 0.4 MG CAP PO SCH (20:33)
[2019-04-21] MEDS: Acetaminophen 650 MG/20.3 ML UDCUP PO PRN ×3 (02:06→23:29)
[2019-04-21] MEDS: Lorazepam 2 MG/ML VIAL SLOW IVP PRN ×3 (02:13→22:40)
[2019-04-21 02:52] LABS: Band 10 % (5-11); Hemoglobin 8.5 g/dL (14.0-18.0); Lymphocytes 9 % (21-51); MDiff Complete? YES; Mean Corpuscular HGB CONC 31.3 g/dL (32.0-36.0); Mean Corpuscular Hemoglobin 32.2 pg (27.0-31.0); Mean Platelet Volume 8.1 fL (7.4-10.4); Metamyelocyte 2 % (0-0); Monocytes 10 % (0-10); Neutrophil 68 % (42-75); Platelet Count 260 thou/uL (130-400); Platelet Morphology Comment Appears Adequate; RBC Distribution Width 14.1 % (11.5-14.5); Reactive Lymphocytes 1 % (0-10); Red Blood Cell (RBC) Count 2.63 mill/uL (4.70-6.10)
[2019-04-21 02:57] LABS: BUN (Urea Nitrogen) 11 mg/dL (8.4-25.7); Calc. Creatinine Clearance 100 mL/min (70-130); Calcium 8.7 mg/dL (7.8-10.44); Estimated GFR-MDRD Greater than 90; Glucose 195 mg/dL (83-110)
[2019-04-21 03:02] LABS: Phosphorus 1.9 mg/dL (2.3-4.7)
[2019-04-21 03:06] LABS: Anion Gap 10 mmol/L (10-20); Carbon Dioxide 34 mmol/L (23-31); Chloride 101 mmol/L (98-107); Potassium 3.2 mmol/L (3.5-5.1); Sodium 142 mmol/L (136-145)
[2019-04-21] MEDS: PHOS-NAK 1 PKT PACK PO PRN ×2 (03:50→09:55)
[2019-04-21] MEDS: Furosemide 20 MG/2 ML VIAL SLOW IVP SCH ×2 (06:04→14:28)
[2019-04-21] MEDS: BIOTENE MOUTH SPRAY 44.3 ML PO SCH ×4 (06:04→23:33)
[2019-04-21] MEDS: Insulin Regular 300 UNITS/3 ML VIAL SC PRN ×4 (06:04→23:47)
--- NOTE | 2019-04-21 08:04 | PQF ---
DATE: 04-19-19 ATTN: DR. WINDY BARRETT Please exercise your independent, professional judgment in responding to the clarification form. Clinical indicators are provided on the bottom of this form for your review Diagnosis: SEVERE SEPSIS Present on Admission (POA): [ x ] Yes [ ] No [ ] Unable to determine For continuity of documentation, please document condition throughout progress notes and discharge summary. Thank You. CLINICAL INDICATORS - SIGNS / SYMPTOMS / LABS/ RESULTS AND LOCATION IN MR: ER DX: 03-27-19: PNEUMONIA, RESPIRATORY FAILURE LACTIC ACID 03-27-19: 3.1 2: 3.3 WBC: 21620: 11.4 220: 11.7 220: 14.6 220: 16.2 20: 16.5 2-20: 19.3 220: 18.1 220: 12.4 220: 16.3 220: 13.3 BANDS: 2--20: 2 214-20: 4 222-20: 3 2-20: 1 3-20: 18 3-20: 29 20: [address] ODEN 04-16-19: MICROCOCCUS BACTEREMIA WITH SEPSIS, POST INFLUENZA PNEUMONIA, ACUTE HYPOXIC HYPERCAPNIC RESPIRATORY FAILURE ON NON-INVASIVE VENTILATION, CONSULT NOTE DR. MILAN 04-16-19: BACTEREMIA SECONDARY TO MICROCOCCUS SPECIES, SEVERE SEPSIS RISK FACTORS / RESULTS AND LOCATION IN MR: ER DX: 03-27-19: PNEUMONIA, RESPIRATORY FAILURE PN DR. ODEN 04-16-19: MICROCOCCUS BACTEREMIA WITH SEPSIS, POST INFLUENZA PNEUMONIA, ACUTE HYPOXIC HYPERCAPNIC RESPIRATORY FAILURE ON NON-INVASIVE VENTILATION, TREATMENT / RESULTS AND LOCATION IN MR: ER NOTES 03-27-19: LEVAQUIN IV, VANCOMYCIN IV, IVF NS (This form is maintained as a part of the permanent medical record) 2014 [email or web address]. All Rights Reserved NICHOLAS [email or web address] Office: [phone] [facility]
--- NOTE | 2019-04-21 08:20 | PRG ---
DATE OF SERVICE: 04/21/2019 SUBJECTIVE: The patient is about the same. Continues to have problems with upper airway secretions. OBJECTIVE: VITAL SIGNS: On exam, temperature 99.3, pulse 89, blood pressure 121/65, and O2 saturation 99%. A 24-hour intake 3348, output 1050. HEENT: Unremarkable. NECK: Copious upper airway noises. LUNGS: Coarse rhonchi. CARDIAC: S1 and S2. Regular. ABDOMEN: Soft. EXTREMITIES: No edema. LABORATORY DATA: Sodium 142, potassium 3.2, chloride 101, CO2 of 34, BUN 11, creatinine 0.7, and glucose 195. White blood cell count 6, hematocrit 27.1, and platelet count 260. ASSESSMENT: 1. Acute respiratory failure originally secondary to influenza pneumonia. 2. Metabolic encephalopathy. 3. Atrial fibrillation. 4. Chronic obstructive pulmonary disease. PLAN: Main issue now is encephalopathy and upper airway secretions. He has not improved much over a span of a couple of weeks and I do not expect him to do very well. I did stop much of his psychiatric medications yesterday and need to focus on pulmonary toilet measures. Case Management is working on finding a power of tax attorney for the patient. Currently, he is DNR based on the two attending DNR. Job ID: [id number]
--- NOTE | 2019-04-21 09:26 | PRG ---
DATE OF SERVICE: 04/21/2019 SUBJECTIVE: The patient is seen and examined at the bedside. There is not much change in his current status comparing to what we saw yesterday. He has a feeding tube in his right nostril and he has some periods of deeper faster respirations which looked like Kussmaul breathing to me. OBJECTIVE: VITAL SIGNS: Blood pressure is 145/73, pulse is 95, respiratory rate is 40, O2 saturation is 95% on 2 L by nasal cannula. HEENT: His pupils are responding to light. Sclerae are nonicteric. LUNGS: Breath sounds diminished at both bases with few crackles at both bases bilaterally. HEART: S1, S2. Tachycardic. No S3. No S4. Irregularly irregular. ABDOMEN: Soft. Mildly distended. Bowel sounds present. EXTREMITIES: 1+ peripheral edema similar on the upper and lower extremities. NEUROLOGICAL: He is in coma, he is arousable, but trying to follow my commands briefly. He is able to move his all 4 extremities and there are no any verbal communication with him. LABORATORY DATA: White count of 6.0, hemoglobin 8.5, hematocrit 27.1, platelet count is 260. Sodium of 142, potassium 3.2, chloride 101, CO2 of 34, BUN 11, creatinine 0.69. Glycemia is ranging from 195-268, phosphorus 1.9, calcium 8.7. IMPRESSION: 1. Acute metabolic encephalopathy. 2. Atrial fibrillation with rapid ventricular response, on Cardizem and amiodarone drip. 3. Influenza, status post treatment. 4. Acute kidney injury, improved. 5. Acute respiratory failure with hypoxia. 6. Chronic obstructive pulmonary disease exacerbation. 7. Sepsis. 8. History of rheumatoid arthritis. 9. History of alcohol abuse. 10. We will obtain ABGs to get more information about his metabolic status at this point since he has episodes of very forced breathing. We will continue amiodarone and Cardizem drips which is managed by Cardiology. We will supplement his potassium since he is hypokalemic this morning and we are trying to obtain guardian through the court. The papers were filled out and the correctional counselor/case manager is going to work on that. We will continue his gentle hydration at 75 and this is quite difficult situation since the patient is not really recovering. His condition did not change much since he has been extubated. Job ID: [id number]
[2019-04-21 09:35] LABS: Actual Bicarbonate (HCO3a) 36.9 mEq/L (22-28); Base Excess (BEa) 11.9 mEq/L (-2.0 to +3.0); CO2 Tension 51.2 mmHg (35.0-45.0); Calcium, Ionized 1.16 mmol/L (1.12-1.30); Hemoglobin (Hb) 9.6 g/dL (14.0-18.0); Potassium - ABG Lab 3.77 mmol/L (3.70-5.30); pH, Arterial 7.48 (7.35-7.45)
[2019-04-21 09:40] LABS: O2 Tension (PaO2) 50.3 mmHg (> 70.0); Puncture Site RRAD
[2019-04-21] MEDS: Enoxaparin Sodium 80 MG/0.8 ML SYRINGE SC SCH ×2 (09:50→20:47)
[2019-04-21] MEDS: Saccharomyces boulardii 250 MG CAP PER TUBE SCH (09:55)
[2019-04-21] MEDS: Divalproex Sodium 125 mg Sprinkle Capsule PER TUBE SCH ×2 (09:55→20:48)
[2019-04-21] MEDS: Acetaminophen 325 MG TAB PO PRN (09:55)
[2019-04-21] MEDS: Metoprolol Tartrate 25 MG TAB PO SCH ×2 (09:56→20:47)
[2019-04-21] MEDS: Famotidine 20 MG TAB PER TUBE SCH ×2 (09:56→20:47)
[2019-04-21] MEDS: Amlodipine 5 MG TAB PO SCH (09:56)
[2019-04-21] MEDS: Folic Acid 1 MG TAB PO SCH (09:56)
[2019-04-21] MEDS: Potassium Chloride 10 MEQ TAB PO SCH ×2 (09:56→15:59)
[2019-04-21] MEDS: Aspirin 325 MG TAB PER TUBE SCH (09:56)
[2019-04-21] MEDS: Amiodarone 200 MG TAB PO SCH ×3 (09:58→20:47)
[2019-04-21] MEDS: Polyethylene Glycol 3350 17 GM Packet PER TUBE SCH (09:58)
[2019-04-21] MEDS: Digoxin 0.5 MG/2 ML AMP SLOW IVP SCH (09:59)
[2019-04-21] MEDS: Diltiazem 125 MG in Sodium Chloride 0.9% 100 ML IVPB SCH ×2 (10:00→22:40)
[2019-04-21] MEDS: Dextrose 5% in Water 1,000 ML IV SCH (12:45)
[2019-04-21] MEDS: Scopolamine 1.5 mg/72 hour Patch TD SCH (14:28)
[2019-04-21] MEDS: Tamsulosin HCl 0.4 MG CAP PO SCH (20:47)
[2019-04-22] MEDS: Dextrose 5% in Water 1,000 ML IV SCH ×2 (02:54→15:13)
[2019-04-22 04:04] LABS: Phosphorus 2.3 mg/dL (2.3-4.7)
[2019-04-22 04:05] LABS: Anion Gap 10 mmol/L (10-20); BUN (Urea Nitrogen) 10 mg/dL (8.4-25.7); Calc. Creatinine Clearance 107 mL/min (70-130); Calcium 8.5 mg/dL (7.8-10.44); Carbon Dioxide 34 mmol/L (23-31); Chloride 96 mmol/L (98-107); Estimated GFR-MDRD Greater than 90; Glucose 214 mg/dL (83-110); Potassium 4.1 mmol/L (3.5-5.1); Sodium 136 mmol/L (136-145)
[2019-04-22 04:19] LABS: Band 15 % (5-11); Eosinophils 1 % (0-10); Hemoglobin 8.8 g/dL (14.0-18.0); Hypochromia SLIGHT = 6-15 cells (100X) (0-5/hpf); Lymphocytes 20 % (21-51); MDiff Complete? YES; Macrocytosis SLIGHT = 6-15 cells (100X) (0-5/hpf); Mean Corpuscular HGB CONC 32.9 g/dL (32.0-36.0); Mean Corpuscular Hemoglobin 33.6 pg (27.0-31.0); Mean Platelet Volume 8.5 fL (7.4-10.4); Metamyelocyte 4 % (0-0); Monocytes 13 % (0-10); Neutrophil 47 % (42-75); Platelet Count 196 thou/uL (130-400); Platelet Morphology Comment Appears Adequate; RBC Distribution Width 13.9 % (11.5-14.5); Red Blood Cell (RBC) Count 2.62 mill/uL (4.70-6.10); White Blood Cell (WBC) Count 6.4 thou/uL (4.8-10.8)
[2019-04-22] MEDS: Acetaminophen 650 MG/20.3 ML UDCUP PO PRN (04:39)
[2019-04-22] MEDS: Lorazepam 2 MG/ML VIAL SLOW IVP PRN (05:10)
[2019-04-22] MEDS: Furosemide 20 MG/2 ML VIAL SLOW IVP SCH ×2 (05:14→13:39)
[2019-04-22] MEDS: BIOTENE MOUTH SPRAY 44.3 ML PO SCH ×4 (05:17→23:40)
[2019-04-22] MEDS: Insulin Regular 300 UNITS/3 ML VIAL SC PRN (06:34)
[2019-04-22] MEDS: Polyethylene Glycol 3350 17 GM Packet PER TUBE SCH (09:38)
[2019-04-22] MEDS: Digoxin 0.5 MG/2 ML AMP SLOW IVP SCH (09:42)
[2019-04-22] MEDS: Enoxaparin Sodium 80 MG/0.8 ML SYRINGE SC SCH ×2 (09:42→21:02)
[2019-04-22] MEDS: Diltiazem 125 MG in Sodium Chloride 0.9% 100 ML IVPB SCH ×2 (09:48→21:23)
--- NOTE | 2019-04-22 10:01 | PRG ---
DATE OF SERVICE: 04/22/2019 SUBJECTIVE: Mateus Marshall is a 73-year-old gentleman, who remains encephalopathic, significant respiratory distress. OBJECTIVE: VITAL SIGNS: Temperature 98, sats are 95% on 2 L, respirations 30, pulse 100. CHEST: Extensive rhonchi. CARDIAC: Normal S1, S2. No gallops. ABDOMEN: No masses. LABORATORY DATA: Lytes are normal. H and H unremarkable. ASSESSMENT AND PLAN: Respiratory failure, DNR, encephalopathy. Comfort care. Hospice is going to be consulted on Wednesday for inpatient hospice. I have added low-dose morphine to his present medication regime. Job ID: [id number]
[2019-04-22] MEDS: Morphine 2 MG/ML SYRINGE SLOW IVP PRN ×2 (10:29→15:13)
[2019-04-22] MEDS: Ziprasidone 20 MG VIAL IM PRN ×2 (13:13→17:26)
[2019-04-22] MEDS: Potassium Chloride 10 MEQ TAB PO SCH ×2 (13:33→18:09)
[2019-04-22] MEDS: Amiodarone 200 MG TAB PO SCH ×3 (13:33→21:02)
[2019-04-22] MEDS: Amlodipine 5 MG TAB PO SCH (13:34)
[2019-04-22] MEDS: Folic Acid 1 MG TAB PO SCH (13:34)
[2019-04-22] MEDS: Aspirin 325 MG TAB PER TUBE SCH (13:34)
[2019-04-22] MEDS: Famotidine 20 MG TAB PER TUBE SCH ×2 (13:34→21:03)
[2019-04-22] MEDS: Divalproex Sodium 125 mg Sprinkle Capsule PER TUBE SCH ×2 (13:34→21:02)
[2019-04-22] MEDS: Saccharomyces boulardii 250 MG CAP PER TUBE SCH (13:35)
[2019-04-22] MEDS: Metoprolol Tartrate 25 MG TAB PO SCH ×2 (13:35→21:03)
--- NOTE | 2019-04-22 15:08 | PRG ---
DATE OF SERVICE: 04/22/2019 SUBJECTIVE: The patient is seen and examined at the bedside. He is quite comatose, but he is arousable. He still shows some encephalopathy. OBJECTIVE: VITAL SIGNS: Blood pressure is 120/102; pulse is 111; temperature is 98.2, maximal temperature is 98.3; respiratory rate is 35; and O2 saturation is 94% on 2 L by nasal cannula. GENERAL: He tries to follow my commands, but he falls short quickly. HEENT: His oral mucosa is somewhat dry from tachypnea. LUNGS: Bilateral rales at both bases present. Few wheezes bilaterally. HEART: S1 and S2. Tachycardic. Irregularly irregular. No S3. No S4. ABDOMEN: Soft. Mildly distended. Bowel sounds are present. EXTREMITIES: 1+ to 2+ peripheral edema similar bilaterally on both upper and lower extremities. NEUROLOGIC: As mentioned above. He tries to follow my commands, but he falls short very quickly. He goes back to comatose state, but he is able to move his all 4 extremities. He has rectal tube in place. LABORATORY DATA: White count of 6.4, hemoglobin 8.8, hematocrit 26.7, platelet count is 196. Sodium of 136, potassium 4.1, chloride 96, CO2 of 34, BUN 10, creatinine 0.67, glucose ranging from 102 to 227, calcium 8.5, and phosphorus 2.3. IMPRESSION: 1. Acute metabolic encephalopathy. The patient was seen by Dr. Wilhelm today. He thinks that this is related to his medical condition. There is no primary central nervous system issue at this point. We will use some Geodon for his agitation since he pulled out his IV and Dobhoff from his nostril. 2. Atrial fibrillation with rapid ventricular response. 3. Influenza, status post treatment. 4. Acute respiratory failure with hypoxia, not improved much, although now he is off the ventilator. The patient was on BiPAP for more than 2 weeks. 5. Acute kidney injury, improved. 6. Chronic obstructive pulmonary disease. 7. Sepsis. 8. History of rheumatoid arthritis. 9. History of alcohol abuse. PLAN: We received the message from the bagger and stock handler helper who says that the patient's friend can be appointed as a power of workers compensation attorney person since the office is closed over the weekend. This can be done on Wednesday, but from discussion with the patient's friend, we know that he would not like to continue this kind of treatment if it is not getting much better, so hospice will be consulted on Wednesday. Job ID: [id number]
--- NOTE | 2019-04-22 15:13 | CON ---
DATE OF CONSULTATION: 04/22/2019 CONSULTING PHYSICIAN: Hospitalist Service. IMPRESSION: Mild persistent encephalopathy following a prolonged hospitalization secondary to respiratory failure and pneumonia. PLAN: 1. Continue comfort measures given the patient is deemed ready for DNR status and hospice care. 2. Consider Neodon if there is any nocturnal agitation. HISTORY OF PRESENT ILLNESS: Mr. Marshall is a 73-year-old gentleman who has been in the hospital now for the last 2 weeks. He went into respiratory failure, was intubated, is on prolonged sedation. He was subsequently weaned and on BiPAP for a period of time. He is continued to be a bit lethargic. He has also had some agitation. He pulls his tube. He recently pulled his NG tube out. He is complaining of some diffuse pain in all his extremities. He was given some morphine just prior to my arrival. He had a routine lab work, which included hemoglobin and hematocrit of 8 and 27. His blood sugar has been running in the 200s. His electrolytes otherwise looked normal. His blood gases have shown pCO2 is around 51 and O2 is around 50, currently saturating at 97%. He has had a temperature of 100.8. He reportedly knows where he is at this point. He was able to follow commands. PAST HISTORY: As per chart. ALLERGIES: PENICILLIN AND SULFA. SOCIAL HISTORY: Unremarkable. FAMILY HISTORY: Noncontributory. REVIEW OF SYSTEMS: Ten-system review of systems were unremarkable. PHYSICAL EXAMINATION: GENERAL: He is a well-nourished elderly man, lying in bed with nasal cannula. VITAL SIGNS: Pulse 106 and respirations 24. HEENT: Pupils equal. Conjunctivae clear. Oropharynx is clear. Cranium, normocephalic and atraumatic. NECK: No lymphadenopathy. EXTREMITIES: There is some diffuse edema in the upper extremities with less so in the lower extremities. NEUROLOGIC: He awakened easily. He answered questions. He followed commands. His speech seemed to be fluent and clear. His face appeared to be symmetric. He had equal movement in both the arms and legs, albeit diffusely weak. Sensation was intact to touch. No abnormal movements were present other than some shaking when he is in pain. Gait is not testable. DIAGNOSTIC STUDIES: EKG shows sinus tachycardia. SUMMARY: This is a 73-year-old man with some mild persistent encephalopathy with complaints of diffuse pain. His respiratory status remains tenuous. I do not see any acute neurologic issues that I can address. Job ID: [id number]
--- NOTE | 2019-04-22 15:25 | PDOC.CPN ---
- Subjective Date: 04/22/19 Time: 15:22 Interval history: No new issues. Sleeping but arousable. - Review of Systems ROS unobtainable: due to mental status - Objective Allergies/Adverse Reactions: Allergies Allergy/AdvReac Type Severity Reaction Status Date / Time Penicillins Allergy Verified 12/28/18 01:30 Sulfa (Sulfonamide Allergy Verified 04/09/19 21:33 Antibiotics) Visit Medications: Current Medications Acetaminophen (Tylenol) 650 mg DE Q6H PRN PRN Reason: Fever > 101 or Mild Pain Last Admin: 04/11/19 17:20 Dose: 650 mg Acetaminophen (Tylenol Elixir) 650 mg PO Q4H PRN PRN Reason: pain/fever Last Admin: 04/22/19 04:39 Dose: 650 mg Acetaminophen (Tylenol) 650 mg PO Q4H PRN PRN Reason: Headache/Fever or Mild Pain Last Admin: 04/21/19 09:55 Dose: 650 mg Albuterol/Ipratropium (Duoneb) 3 ml NEB [id number] PRN PRN Reason: SOB &/or Wheezing Albuterol/Ipratropium (Duoneb) 3 ml NEB [id number] [facility] Last Admin: 04/22/19 14:47 Dose: 3 ml Amiodarone HCl (Cordarone) 400 mg PO TID [facility] Last Admin: 04/22/19 14:19 Dose: Not Given Amlodipine Besylate (Norvasc) 5 mg PO DAILY [facility] Last Admin: 04/22/19 13:34 Dose: Not Given Lipase/Protease/Amylase ([place] [id number]) 1 cap FS .PER PROTOCOL PRN PRN Reason: TUBE OCCLUSION PROTOCOL Last Admin: 04/18/19 23:10 Dose: 1 cap Aspirin (Aspirin) 325 mg PER TUBE DAILY [facility] Last Admin: 04/22/19 13:34 Dose: Not Given Dextrose/Water (Dextrose 50%) 25 gm SLOW IVP PRN PRN PRN Reason: Hypoglycemia Digoxin (Lanoxin) 0.25 mg SLOW IVP DAILY [facility] Last Admin: 04/22/19 09:42 Dose: 0.25 mg Divalproex Sodium (Depakote Sprinkle) 250 mg PER TUBE BID [facility] Last Admin: 04/22/19 13:34 Dose: Not Given Enoxaparin Sodium (Lovenox) 80 mg SC 0900,2100 [facility] Last Admin: 04/22/19 09:42 Dose: 80 mg Famotidine (Pepcid) 20 mg PER TUBE Q12HR [facility] Last Admin: 04/22/19 13:34 Dose: Not Given Folic Acid (Folvite) 1 mg PO DAILY [facility] Last Admin: 04/22/19 13:34 Dose: Not Given Furosemide (Lasix) 20 mg SLOW IVP 0600,1400 [facility] Last Admin: 04/22/19 13:39 Dose: 20 mg Glucagon (Glucagon) 1 mg IM PRN PRN PRN Reason: Hypoglycemia Hydralazine HCl (Apresoline) 10 mg SLOW IVP Q4H PRN PRN Reason: SBP GREATER THAN 160 Last Admin: 04/13/19 07:56 Dose: 10 mg Dextrose/Water (D5w) 1,000 mls @ 0 mls/hr IV .Q0M PRN PRN Reason: Hypoglycemia Diltiazem HCl 125 mg/ Sodium (Chloride) 125 mls @ 15 mls/hr IVPB INF [facility]; Protocol Last Admin: 04/22/19 09:48 Dose: 125 mls Potassium Chloride 40 meq/ (Sodium Chloride) 270 mls @ 135 mls/hr IVPB ASDIR PRN PRN Reason: FOR SERUM K+ 2.5 - 3.5 Potassium Chloride 40 meq/ (Device) 100 mls @ 50 mls/hr IVPB ASDIR PRN PRN Reason: FOR SERUM K+ 2.5 - 3.5 Magnesium Sulfate 1 gm/ Sodium (Chloride) 102 mls @ 102 mls/hr IV PRN PRN PRN Reason: MAG LEVEL 1.4 - 2.0 Magnesium Sulfate 2 gm/ Device 50 mls @ 50 mls/hr IVPB ASDIR PRN PRN Reason: MAGNESIUM < 1.4 Potassium Phosphate 9 mmol/ (Sodium Chloride) 103 mls @ 25.75 mls/hr IVPB ASDIR PRN PRN Reason: Phosphate 1.0-1.8 Potassium Phosphate 12 mmol/ (Sodium Chloride) 254 mls @ 63.5 mls/hr IV ASDIR PRN PRN Reason: Serum phosphate 0.5-0.9 Potassium Phosphate 15 mmol/ (Sodium Chloride) 255 mls @ 63.75 mls/hr IV ASDIR PRN PRN Reason: Serum Phos < 0.5 Dextrose/Water (D5w) 1,000 mls @ 75 mls/hr IV .[id number] [facility] Last Admin: 04/22/19 15:13 Dose: 1,000 mls Insulin Human Regular (Humulin R) 0 units SC .MILD SLIDING SCALE PRN PRN Reason: Mild Correctional Scale Last Admin: 04/22/19 06:34 Dose: 3 unit Lorazepam (Ativan) 0.5 mg SLOW IVP Q6H PRN PRN Reason: Anxiety/Agitation Last Admin: 04/22/19 05:10 Dose: 0.5 mg Magnesium Oxide (Magnesium Oxide) 400 mg PO BIDPRN PRN PRN Reason: FOR SERUM MAG 1.4 - 2.0 Magnesium Oxide (Magnesium Oxide) 800 mg PO PRN PRN PRN Reason: FOR SERUM MAG < 1.4 Metoprolol Tartrate (Lopressor) 25 mg PO BID [facility] Last Admin: 04/22/19 13:35 Dose: Not Given Miscellaneous Medication (Ccu Electrolyte Replacement) 1 each IVPB ONE [facility] Stop: 04/26/19 02:41 Miscellaneous Medication (Phos-Nak) 1 pkt PO TIDPRN PRN PRN Reason: FOR PHOS LEVEL 1.0 - 1.8 Last Admin: 04/21/19 09:55 Dose: 1 pkt Miscellaneous Medication (Phos-Nak) 2 pkt PO TIDPRN PRN PRN Reason: FOR PHOS LEVEL 0.5 - 1.0 Miscellaneous Medication (Biotene Moisturizing Mouth) 0 ml PO Q6HR [facility] Last Admin: 04/22/19 13:12 Dose: 1 spr Morphine Sulfate (Morphine) 2 mg SLOW IVP Q4H PRN PRN Reason: Agitation Last Admin: 04/22/19 15:13 Dose: 2 mg Ccu Electrolyte (Replacement Protocol) 0 each FS PRN PRN PRN Reason: FOR ELECTROLYTE REPLACEMENT Ccu Electrolyte (Replacement Protocol) 0 each FS PRN PRN PRN Reason: FOR ELECTROLYTE REPLACEMENT Ondansetron HCl (Zofran) 4 mg SLOW IVP Q6H PRN PRN Reason: Nausea/Vomiting Last Admin: 04/20/19 04:59 Dose: 4 mg Polyethylene Glycol (Miralax) 17 gm PER TUBE DAILY [facility] Last Admin: 04/22/19 09:38 Dose: Not Given Potassium Chloride (Klor-Con 10) 10 meq PO BID-WM [facility] Last Admin: 04/22/19 13:33 Dose: Not Given Potassium Chloride (K-Dur) 40 meq PO ASDIR PRN PRN Reason: FOR SERUM K+ 2.5 - 3.5 Potassium Chloride (Klor-Con) 40 meq PER TUBE ASDIR PRN PRN Reason: FOR SERUM K+ 2.5-3.5 Last Admin: 04/21/19 03:50 Dose: 40 meq Saccharomyces Boulardii (Florastor) 250 mg PER TUBE DAILY [facility] Last Admin: 04/22/19 13:35 Dose: Not Given Scopolamine (Transderm Scop) 1.5 mg TD Q3D [facility] Last Admin: 04/21/19 14:28 Dose: 1.5 mg Sodium Bicarbonate (Bicarbonate, Sodium) 650 mg PER TUBE .PER PROTOCOL PRN PRN Reason: ENTERAL TUBE OCCLUSION Sodium Chloride (Flush - Normal Saline) 10 ml IVF Q12HR [facility] Last Admin: 04/22/19 10:30 Dose: 10 ml Sodium Chloride (Flush - Normal Saline) 10 ml IVF PRN PRN PRN Reason: Saline Flush Last Admin: 04/22/19 05:10 Dose: 10 ml Tamsulosin HCl (Flomax) 0.4 mg PO HS [facility] Last Admin: 04/21/19 20:47 Dose: 0.4 mg Ziprasidone (Geodon) 10 mg IM Q2H PRN PRN Reason: AGITATION Last Admin: 04/22/19 13:13 Dose: 10 mg Vital Signs & Weight: Vital Signs Temp Pulse Resp Pulse Ox 04/22/19 14:47 104 H 34 H 04/22/19 13:34 111 H 04/22/19 11:20 98.2 F 04/22/19 10:11 111 H 35 H 94 L 04/22/19 09:42 99 04/22/19 07:33 95 04/22/19 07:31 98.2 F 04/22/19 06:47 85 30 H 100 04/22/19 04:40 98.3 F Admit Weight 181 lb 3.52 oz Weight 169 lb 4.8 oz - Physical Exam General: no apparent distress HEENT: mucus membranes moist Neck: supple neck Cardiac: irregularly regular Lungs: clear to auscultation Neuro: no lateralizing findings Abdomen: active bowel sounds Extremities: no edema Skin: clear - Labs Result Diagrams: 04/22/19 03:43 04/22/19 03:43 Troponin/CKMB CK-MB (CK-2) 3.0 ng/mL (0-6.6) 03/27/19 01:29 Troponin I 0.034 ng/mL (< 0.028) H 03/27/19 07:37 - Telemetry Supraventricular conduction: atrial fibrillation - Assessment/Plan Assessment/Plan: 1. Atrial fibrillation. 2. Encephalopathy PLAN: - Continue rate control.
[2019-04-22] MEDS: Morphine 4 MG/ML VIAL SLOW IVP PRN ×2 (16:18→23:55)
[2019-04-22] MEDS: Tamsulosin HCl 0.4 MG CAP PO SCH (21:03)
[2019-04-23] MEDS ORDERED: Ketorolac Tromethamine 30 MG/ML VIAL IVP SCH (01:30)
[2019-04-23 03:56] LABS: Hemoglobin 9.5 g/dL (14.0-18.0); Mean Corpuscular HGB CONC 31.9 g/dL (32.0-36.0); Mean Corpuscular Hemoglobin 32.3 pg (27.0-31.0); Mean Platelet Volume 7.9 fL (7.4-10.4); Platelet Count 353 thou/uL (130-400); RBC Distribution Width 14.3 % (11.5-14.5); Red Blood Cell (RBC) Count 2.94 mill/uL (4.70-6.10); White Blood Cell (WBC) Count 7.7 thou/uL (4.8-10.8)
[2019-04-23 03:57] LABS: Band 9 % (5-11); Lymphocytes 16 % (21-51); MDiff Complete? YES; Metamyelocyte 5 % (0-0); Monocytes 11 % (0-10); Neutrophil 59 % (42-75); Nucleated RBC 1 % (0); Platelet Morphology Comment Appears Adequate
[2019-04-23 04:07] LABS: Phosphorus 2.3 mg/dL (2.3-4.7)
[2019-04-23 04:09] LABS: Anion Gap 10 mmol/L (10-20); BUN (Urea Nitrogen) 6 mg/dL (8.4-25.7); Calc. Creatinine Clearance 123 mL/min (70-130); Calcium 8.8 mg/dL (7.8-10.44); Carbon Dioxide 34 mmol/L (23-31); Chloride 95 mmol/L (98-107); Estimated GFR-MDRD Greater than 90; Glucose 95 mg/dL (83-110); Potassium 3.7 mmol/L (3.5-5.1); Sodium 135 mmol/L (136-145)
[2019-04-23] MEDS: Ziprasidone 20 MG VIAL IM PRN ×2 (04:45→08:36)
[2019-04-23] MEDS: BIOTENE MOUTH SPRAY 44.3 ML PO SCH ×4 (06:08→23:17)
[2019-04-23] MEDS: Diltiazem 125 MG in Sodium Chloride 0.9% 100 ML IVPB SCH ×2 (06:15→23:18)
[2019-04-23] MEDS: Furosemide 20 MG/2 ML VIAL SLOW IVP SCH ×2 (06:15→14:03)
[2019-04-23] MEDS: Morphine 4 MG/ML VIAL SLOW IVP PRN ×2 (06:27→21:55)
[2019-04-23] MEDS: Dextrose 5% in Water 1,000 ML IV SCH ×2 (08:35→21:55)
--- NOTE | 2019-04-23 10:33 | PRG ---
DATE OF SERVICE: 04/23/2019 SUBJECTIVE: Mateus Marshall is a 73-year-old gentleman, who remains encephalopathic. OBJECTIVE: VITAL SIGNS: Temperature 99, pulse 115, respiratory rate 33, saturations are 100% on 2 L, blood pressure 148/96. CHEST: Decreased breath sounds. Rhonchi. CARDIAC: Normal S1, S2. No gallops. ABDOMEN: No masses. LABORATORY DATA: Lab was ordered in a DNR patient, which appears to be relatively unremarkable except for some anemia. ASSESSMENT AND PLAN: , respiratory failure, chronic obstructive pulmonary disease, DNR, atrial fibrillation, status post flu. We are trying to get outpatient hospice for the patient. Otherwise, supportive care, comfort care. Job ID: [id number]
[2019-04-23] MEDS: Enoxaparin Sodium 80 MG/0.8 ML SYRINGE SC SCH ×2 (10:44→21:49)
[2019-04-23] MEDS: Digoxin 0.5 MG/2 ML AMP SLOW IVP SCH (10:44)
[2019-04-23] MEDS: Potassium Chloride 10 MEQ TAB PO SCH ×2 (13:53→16:44)
[2019-04-23] MEDS: Amiodarone 200 MG TAB PO SCH ×3 (13:53→21:48)
[2019-04-23] MEDS: Amlodipine 5 MG TAB PO SCH (13:53)
[2019-04-23] MEDS: Aspirin 325 MG TAB PER TUBE SCH (13:53)
[2019-04-23] MEDS: Metoprolol Tartrate 25 MG TAB PO SCH ×2 (13:54→21:48)
[2019-04-23] MEDS: Polyethylene Glycol 3350 17 GM Packet PER TUBE SCH (13:54)
[2019-04-23] MEDS: Saccharomyces boulardii 250 MG CAP PER TUBE SCH (13:54)
[2019-04-23] MEDS: Famotidine 20 MG TAB PER TUBE SCH ×2 (13:54→21:48)
[2019-04-23] MEDS: Divalproex Sodium 125 mg Sprinkle Capsule PER TUBE SCH ×2 (13:54→21:48)
[2019-04-23] MEDS: Folic Acid 1 MG TAB PO SCH (13:54)
[2019-04-23] MEDS: Lorazepam 2 MG/ML VIAL SLOW IVP PRN (14:03)
--- NOTE | 2019-04-23 15:30 | PRG ---
DATE OF SERVICE: 04/23/2019 SUBJECTIVE: The patient is seen and examined at the bedside. There is not much change from his status from yesterday. He has episodes of heavy breathing intermittently with episodes when he calms down and relaxes and his respirations are off. OBJECTIVE: VITAL SIGNS: Blood pressure is 140/73, pulse is 99, respiratory rate is 30 to 45, and O2 saturation is 93%. HEENT: His sclerae are nonicteric. Conjunctivae are pinkish. Oral mucosa is somewhat dry. LUNGS: Breath sounds diminished at both bases. HEART: S1 and S2 normal, but tachycardic and irregular. No S3. No S4. ABDOMEN: Soft and nondistended. Bowel sounds are present. EXTREMITIES: 1 to 2+ peripheral edema on both lower and upper extremities. NEUROLOGICAL: He is comatose, but he is arousable. He tries to follow my commands, but he falls short very quickly, he goes back to his comatose state, although he is able to move his all 4 extremities. Rectal tube is in place. He has diarrhea in the bag. LABORATORY DATA: Labs showed white count of 7.7, hemoglobin 9.5, hematocrit 29.7, MCV 101, and platelet count 353,000. Sodium 135, potassium 3.7, chloride 95, CO2 of 34, BUN 6, creatinine 0.59, glucose is ranging from 90 to 121, and phosphorus 2.3. IMPRESSION: 1. Acute metabolic encephalopathy, which is slightly improved. The neurologist saw the patient and he thinks that this is metabolic in nature, not any primary condition of his central nervous system. 2. Atrial fibrillation with rapid ventricular response. 3. Influenza, status post treatment. 4. Acute respiratory failure with hypoxia. 5. Acute kidney injury, improved. 6. Chronic obstructive pulmonary disease. 7. Sepsis. 8. History of rheumatoid arthritis. 9. History of alcohol abuse. DISCUSSION: The patient is in this condition for multiple days, his body is failing to recover from his illness. We are trying to get the patient's friend to get power of mergers and acquisitions attorney documents and get hospice involved and discharge the patient to inpatient hospice on Wednesday. For now, we will continue current regimen. Job ID: [id number]
--- NOTE | 2019-04-23 16:03 | PDOC.CPN ---
- Subjective Date: 04/23/19 Time: 16:02 Interval history: No new issues. Remains confused. - Review of Systems ROS unobtainable: due to mental status - Objective Allergies/Adverse Reactions: Allergies Allergy/AdvReac Type Severity Reaction Status Date / Time Penicillins Allergy Verified 12/28/18 01:30 Sulfa (Sulfonamide Allergy Verified 04/09/19 21:33 Antibiotics) Visit Medications: Current Medications Acetaminophen (Tylenol) 650 mg ME Q6H PRN PRN Reason: Fever > 101 or Mild Pain Last Admin: 04/11/19 17:20 Dose: 650 mg Acetaminophen (Tylenol Elixir) 650 mg PO Q4H PRN PRN Reason: pain/fever Last Admin: 04/22/19 04:39 Dose: 650 mg Acetaminophen (Tylenol) 650 mg PO Q4H PRN PRN Reason: Headache/Fever or Mild Pain Last Admin: 04/21/19 09:55 Dose: 650 mg Albuterol/Ipratropium (Duoneb) 3 ml NEB Q4H PRN PRN Reason: SOB/WHEEZE Amiodarone HCl (Cordarone) 400 mg PO TID [facility] Last Admin: 04/23/19 13:53 Dose: Not Given Amlodipine Besylate (Norvasc) 5 mg PO DAILY [facility] Last Admin: 04/23/19 13:53 Dose: Not Given Lipase/Protease/Amylase (Rolo Blanco [id number]) 1 cap FS .PER PROTOCOL PRN PRN Reason: TUBE OCCLUSION PROTOCOL Last Admin: 04/18/19 23:10 Dose: 1 cap Aspirin (Aspirin) 325 mg PER TUBE DAILY [facility] Last Admin: 04/23/19 13:53 Dose: Not Given Dextrose/Water (Dextrose 50%) 25 gm SLOW IVP PRN PRN PRN Reason: Hypoglycemia Digoxin (Lanoxin) 0.25 mg SLOW IVP DAILY [facility] Last Admin: 04/23/19 10:44 Dose: 0.25 mg Divalproex Sodium (Depakote Sprinkle) 250 mg PER TUBE BID [facility] Last Admin: 04/23/19 13:54 Dose: Not Given Enoxaparin Sodium (Lovenox) 80 mg SC 0900,2100 [facility] Last Admin: 04/23/19 10:44 Dose: 80 mg Famotidine (Pepcid) 20 mg PER TUBE Q12HR [facility] Last Admin: 04/23/19 13:54 Dose: Not Given Folic Acid (Folvite) 1 mg PO DAILY [facility] Last Admin: 04/23/19 13:54 Dose: Not Given Furosemide (Lasix) 20 mg SLOW IVP 0600,1400 [facility] Last Admin: 04/23/19 14:03 Dose: 20 mg Glucagon (Glucagon) 1 mg IM PRN PRN PRN Reason: Hypoglycemia Hydralazine HCl (Apresoline) 10 mg SLOW IVP Q4H PRN PRN Reason: SBP GREATER THAN 160 Last Admin: 04/13/19 07:56 Dose: 10 mg Dextrose/Water (D5w) 1,000 mls @ 0 mls/hr IV .Q0M PRN PRN Reason: Hypoglycemia Diltiazem HCl 125 mg/ Sodium (Chloride) 125 mls @ 15 mls/hr IVPB INF [facility]; Protocol Last Admin: 04/23/19 06:15 Dose: 125 mls Potassium Chloride 40 meq/ (Sodium Chloride) 270 mls @ 135 mls/hr IVPB ASDIR PRN PRN Reason: FOR SERUM K+ 2.5 - 3.5 Potassium Chloride 40 meq/ (Device) 100 mls @ 50 mls/hr IVPB ASDIR PRN PRN Reason: FOR SERUM K+ 2.5 - 3.5 Magnesium Sulfate 1 gm/ Sodium (Chloride) 102 mls @ 102 mls/hr IV PRN PRN PRN Reason: MAG LEVEL 1.4 - 2.0 Magnesium Sulfate 2 gm/ Device 50 mls @ 50 mls/hr IVPB ASDIR PRN PRN Reason: MAGNESIUM < 1.4 Potassium Phosphate 9 mmol/ (Sodium Chloride) 103 mls @ 25.75 mls/hr IVPB ASDIR PRN PRN Reason: Phosphate 1.0-1.8 Potassium Phosphate 12 mmol/ (Sodium Chloride) 254 mls @ 63.5 mls/hr IV ASDIR PRN PRN Reason: Serum phosphate 0.5-0.9 Potassium Phosphate 15 mmol/ (Sodium Chloride) 255 mls @ 63.75 mls/hr IV ASDIR PRN PRN Reason: Serum Phos < 0.5 Dextrose/Water (D5w) 1,000 mls @ 75 mls/hr IV .[id number] [facility] Last Admin: 04/23/19 08:35 Dose: 1,000 mls Insulin Human Regular (Humulin R) 0 units SC .MILD SLIDING SCALE PRN PRN Reason: Mild Correctional Scale Last Admin: 04/22/19 06:34 Dose: 3 unit Lorazepam (Ativan) 0.5 mg SLOW IVP Q6H PRN PRN Reason: Anxiety/Agitation Last Admin: 04/23/19 14:03 Dose: 0.5 mg Magnesium Oxide (Magnesium Oxide) 400 mg PO BIDPRN PRN PRN Reason: FOR SERUM MAG 1.4 - 2.0 Magnesium Oxide (Magnesium Oxide) 800 mg PO PRN PRN PRN Reason: FOR SERUM MAG < 1.4 Metoprolol Tartrate (Lopressor) 25 mg PO BID [facility] Last Admin: 04/23/19 13:54 Dose: Not Given Miscellaneous Medication (Ccu Electrolyte Replacement) 1 each IVPB ONE [facility] Stop: 04/26/19 02:41 Miscellaneous Medication (Phos-Nak) 1 pkt PO TIDPRN PRN PRN Reason: FOR PHOS LEVEL 1.0 - 1.8 Last Admin: 04/21/19 09:55 Dose: 1 pkt Miscellaneous Medication (Phos-Nak) 2 pkt PO TIDPRN PRN PRN Reason: FOR PHOS LEVEL 0.5 - 1.0 Miscellaneous Medication (Biotene Moisturizing Mouth) 0 ml PO Q6HR [facility] Last Admin: 04/23/19 14:04 Dose: 1 spr Morphine Sulfate (Morphine) 2 mg SLOW IVP Q4H PRN PRN Reason: Agitation Last Admin: 04/22/19 15:13 Dose: 2 mg Morphine Sulfate (Morphine) 4 mg SLOW IVP Q4H PRN PRN Reason: Severe Pain (7-10) Last Admin: 04/23/19 06:27 Dose: 4 mg Ccu Electrolyte (Replacement Protocol) 0 each FS PRN PRN PRN Reason: FOR ELECTROLYTE REPLACEMENT Ccu Electrolyte (Replacement Protocol) 0 each FS PRN PRN PRN Reason: FOR ELECTROLYTE REPLACEMENT Ondansetron HCl (Zofran) 4 mg SLOW IVP Q6H PRN PRN Reason: Nausea/Vomiting Last Admin: 04/20/19 04:59 Dose: 4 mg Polyethylene Glycol (Miralax) 17 gm PER TUBE DAILY [facility] Last Admin: 04/23/19 13:54 Dose: Not Given Potassium Chloride (Klor-Con 10) 10 meq PO BID-WM [facility] Last Admin: 04/23/19 13:53 Dose: Not Given Potassium Chloride (K-Dur) 40 meq PO ASDIR PRN PRN Reason: FOR SERUM K+ 2.5 - 3.5 Potassium Chloride (Klor-Con) 40 meq PER TUBE ASDIR PRN PRN Reason: FOR SERUM K+ 2.5-3.5 Last Admin: 04/21/19 03:50 Dose: 40 meq Saccharomyces Boulardii (Florastor) 250 mg PER TUBE DAILY [facility] Last Admin: 04/23/19 13:54 Dose: Not Given Scopolamine (Transderm Scop) 1.5 mg TD Q3D [facility] Last Admin: 04/21/19 14:28 Dose: 1.5 mg Sodium Bicarbonate (Bicarbonate, Sodium) 650 mg PER TUBE .PER PROTOCOL PRN PRN Reason: ENTERAL TUBE OCCLUSION Sodium Chloride (Flush - Normal Saline) 10 ml IVF Q12HR [facility] Last Admin: 04/23/19 13:54 Dose: Not Given Sodium Chloride (Flush - Normal Saline) 10 ml IVF PRN PRN PRN Reason: Saline Flush Last Admin: 04/23/19 06:28 Dose: 10 ml Tamsulosin HCl (Flomax) 0.4 mg PO HS [facility] Last Admin: 04/22/19 21:03 Dose: Not Given Ziprasidone (Geodon) 10 mg IM Q2H PRN PRN Reason: AGITATION Last Admin: 04/23/19 08:36 Dose: 10 mg Vital Signs & Weight: Vital Signs Temp Pulse Pulse Pulse Resp BP BP 04/23/19 15:33 100.0 F H 04/23/19 13:53 99 04/23/19 11:18 100.6 F H 04/23/19 10:44 99 04/23/19 10:29 107 H 21 H 04/23/19 10:22 102 H 100 113/60 110/55 L 04/23/19 08:00 04/23/19 07:25 99.1 F 04/23/19 06:31 115 H 33 H 04/23/19 05:00 99.1 F Pulse Ox 04/23/19 15:33 04/23/19 13:53 04/23/19 11:18 04/23/19 10:44 04/23/19 10:29 94 L 04/23/19 10:22 04/23/19 08:00 91 L 04/23/19 07:25 04/23/19 06:31 100 04/23/19 05:00 Admit Weight 181 lb 3.52 oz Weight 166 lb 8 oz - Physical Exam General: other (confused.) HEENT: normocephaly Neck: supple neck Cardiac: irregularly regular Lungs: clear to auscultation Neuro: no lateralizing findings Abdomen: active bowel sounds Extremities: no edema Skin: clear Musculoskeletal: no pain - Labs Result Diagrams: 04/23/19 03:36 04/23/19 03:36 Troponin/CKMB CK-MB (CK-2) 3.0 ng/mL (0-6.6) 03/27/19 01:29 Troponin I 0.034 ng/mL (< 0.028) H 03/27/19 07:37 - Telemetry Supraventricular conduction: atrial fibrillation - Assessment/Plan Assessment/Plan: 1. Atrial fibrillation. 2. Encephalopathy PLAN: - Continue rate control. - Dr. Siu to follow tomorrow.
[2019-04-23] MEDS: Tamsulosin HCl 0.4 MG CAP PO SCH (21:49)
[2019-04-24] MEDS: Morphine 4 MG/ML VIAL SLOW IVP PRN ×4 (02:13→20:54)
[2019-04-24] MEDS: Ziprasidone 20 MG VIAL IM PRN ×2 (03:13→22:40)
[2019-04-24 03:45] LABS: Anion Gap 9 mmol/L (10-20); BUN (Urea Nitrogen) 6 mg/dL (8.4-25.7); Calc. Creatinine Clearance 115 mL/min (70-130); Calcium 8.8 mg/dL (7.8-10.44); Carbon Dioxide 34 mmol/L (23-31); Chloride 94 mmol/L (98-107); Estimated GFR-MDRD Greater than 90; Glucose 106 mg/dL (83-110); Phosphorus 2.3 mg/dL (2.3-4.7); Potassium 3.4 mmol/L (3.5-5.1); Sodium 134 mmol/L (136-145)
[2019-04-24 03:53] LABS: Band 2 % (5-11); Hemoglobin 10.6 g/dL (14.0-18.0); Hypochromia SLIGHT = 6-15 cells (100X) (0-5/hpf); Lymphocytes 19 % (21-51); MDiff Complete? YES; Mean Corpuscular Hemoglobin 32.8 pg (27.0-31.0); Mean Corpuscular Volume 99.2 fL (78.0-98.0); Mean Platelet Volume 8.2 fL (7.4-10.4); Metamyelocyte 1 % (0-0); Monocytes 12 % (0-10); Neutrophil 66 % (42-75); Platelet Count 290 thou/uL (130-400); Platelet Morphology Comment Appears Adequate; RBC Distribution Width 14.5 % (11.5-14.5); Red Blood Cell (RBC) Count 3.23 mill/uL (4.70-6.10); White Blood Cell (WBC) Count 7.1 thou/uL (4.8-10.8)
[2019-04-24] MEDS: Furosemide 20 MG/2 ML VIAL SLOW IVP SCH ×2 (06:01→14:29)
[2019-04-24] MEDS: Diltiazem 125 MG in Sodium Chloride 0.9% 100 ML IVPB SCH ×3 (06:52→22:49)
[2019-04-24] MEDS: BIOTENE MOUTH SPRAY 44.3 ML PO SCH ×4 (07:03→22:47)
[2019-04-24] MEDS: Potassium Chloride 10 MEQ TAB PO SCH ×3 (08:09→18:20)
[2019-04-24] MEDS: Polyethylene Glycol 3350 17 GM Packet PER TUBE SCH ×2 (09:09→11:01)
[2019-04-24] MEDS: Digoxin 0.5 MG/2 ML AMP SLOW IVP SCH (09:09)
[2019-04-24] MEDS: Aspirin 325 MG TAB PER TUBE SCH ×2 (09:09→10:59)
[2019-04-24] MEDS: Enoxaparin Sodium 80 MG/0.8 ML SYRINGE SC SCH ×2 (09:09→20:34)
[2019-04-24] MEDS: Amiodarone 200 MG TAB PO SCH ×4 (09:10→20:33)
[2019-04-24] MEDS: Divalproex Sodium 125 mg Sprinkle Capsule PER TUBE SCH ×3 (09:10→20:33)
[2019-04-24] MEDS: Folic Acid 1 MG TAB PO SCH ×2 (09:10→10:59)
[2019-04-24] MEDS: Saccharomyces boulardii 250 MG CAP PER TUBE SCH ×2 (09:10→11:01)
[2019-04-24] MEDS: Amlodipine 5 MG TAB PO SCH (09:10)
[2019-04-24] MEDS: Metoprolol Tartrate 25 MG TAB PO SCH ×3 (09:10→20:33)
[2019-04-24] MEDS: Famotidine 20 MG TAB PER TUBE SCH ×3 (09:11→20:33)
[2019-04-24] MEDS: Dextrose 5% in Water 1,000 ML IV SCH (09:13)
--- NOTE | 2019-04-24 10:54 | CON ---
DATE OF CONSULTATION: 04/23/2019 REASON FOR CONSULTATION: Diarrhea. HISTORY OF PRESENT ILLNESS: Mr. Mateus Marshall is a 73-year-old male, hospitalized couple of weeks ago with respiratory failure and he was on the ventilator for a while. He is off the ventilator and is in IMCU. 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 Amrit Wilhelm in neurology evaluation. The patient appears to have some encephalopathy. He is really not responding to any questions. He is vomiting something and just restless. Apparently, he has been having diarrhea over the last several days. He has a rectal tube and is passing dark green stool. liquid stool in the colostomy bag through rectal tube. The patient is restless, agitated. Cannot obtain proper history from the patient at all. Most of the history was obtained talking to the nurses and also going on admitting history and physical. The patient is also awaiting hospice care. The patient is awake, but does not respond to any questions. He starts mumbling something which is somewhat difficult really to understand at all. ALLERGIES: PENICILLIN, SULFA. MEDICAL ILLNESSES: 1. COPD. 2. Rheumatoid arthritis. 3. Microcytic anemia. 4. Hydrocele. 5. Hypertension. 6. Anxiety, depression. 7. Alcohol abuse. 8. Chronic lower extremity venous stasis. 9. Bilateral hydronephrosis, chronic. MEDICATIONS: Medication list reviewed. Dr. Wilhelm's consult noted. PHYSICAL EXAMINATION: GENERAL: The patient is restless and confused and he does answer some questions, somewhat difficult to understand what he is trying to say. VITAL SIGNS: Temperature 100 degrees Fahrenheit, pulse is 94, blood pressure 101/62. HEENT: Conjunctivae are clear. NECK: Supple. CARDIOVASCULAR: First and second heart sounds heard. LUNGS: Clear to auscultation. ABDOMEN: Soft and nondistended. Abdomen is nontender. No organomegaly. LABORATORY DATA: WBC 7700, hemoglobin 9.5, hematocrit 29.7, platelet count 353,000, polymorphs 59, bands 9. Chem-7 normal lytes, BUN is 6, creatinine is 0.59, glucose is 95, calcium 8.8. Ammonia is done 2 days ago, it is normal at 33. Magnesium 2. CLINICAL IMPRESSION: 1. A 73-year-old male with chronic obstructive pulmonary disease, recent respiratory failure. 2. Metabolic encephalopathy with normal serum ammonia level. 3. Diarrhea, etiology unclear. RECOMMENDATION: He is a DNR and planning hospice care, I would not do any aggressive measures for this patient. Please consider doing some stool studies before discharge and symptomatic treatment. Job ID: [id number]
--- NOTE | 2019-04-24 12:21 | PDOC.HOSPP ---
- Subjective Encounter Date: 04/24/19 Encounter Time: 12:19 Subjective: Mr. Marshall was seen today in follow-up of acute respiratory failure and encephalopathy. He was awake and alert. He appears uncomfortable. He asked if he could be turned, he denies pain however. - Objective Vital Signs & Weight: Vital Signs (12 hours) Temp Pulse Pulse Ox 04/24/19 11:56 99.5 F 04/24/19 09:10 99 04/24/19 09:09 99 04/24/19 08:00 94 L 04/24/19 07:17 99.5 F Weight Admit Weight 181 lb 3.52 oz Weight 164 lb 14.4 oz Most Recent Monitor Data Heart Rate from ECG 97 NIBP 124/60 NIBP BP-Mean 81 Respiration from ECG 34 SpO2 90 I&O: 04/23/19 04/24/19 04/25/19 06:59 06:59 06:59 Intake Total 2163 Output Total 2500 Balance -337 Result Diagrams: 04/24/19 03:11 04/24/19 03:11 Additional Labs: Accuchecks 04/24/19 04/24/19 04/23/19 12:12 05:41 23:42 POC Glucose 144 H 117 H 104 04/23/19 04/23/19 18:30 12:17 POC Glucose 134 H 108 Hospitalist ROS - Medication Medications: Active Medications Generic Name Dose Route Start Last Admin Trade Name Freq PRN Reason Stop Dose Admin Acetaminophen 650 mg 03/27/19 02:40 04/11/19 17:20 Tylenol ND 650 mg Q6H PRN Administration Fever > 101 or Mild Pain Acetaminophen 650 mg 04/15/19 08:23 04/22/19 04:39 Tylenol Elixir PO 650 mg Q4H PRN Administration pain/fever Acetaminophen 650 mg 04/15/19 08:23 04/21/19 09:55 Tylenol PO 650 mg Q4H PRN Administration Headache/Fever or Mild Pain Amiodarone HCl 400 mg 04/21/19 15:00 04/24/19 10:58 Cordarone PO Not Given TID [facility] Lipase/Protease/Amylase 1 cap 03/31/19 09:42 04/18/19 23:10 Rolo Blanco [id number] FS 1 cap .PER PROTOCOL PRN Administration TUBE OCCLUSION PROTOCOL Aspirin 325 mg 04/14/19 09:00 04/24/19 10:59 Aspirin PER TUBE Not Given DAILY [facility] Digoxin 0.25 mg 04/21/19 09:00 04/24/19 09:09 Lanoxin SLOW IVP 0.25 mg DAILY [facility] Administration Divalproex Sodium 250 mg 04/06/19 09:00 04/24/19 10:59 Depakote Sprinkle PER TUBE Not Given BID [facility] Enoxaparin Sodium 80 mg 04/10/19 21:00 04/24/19 09:09 Lovenox SC 80 mg 0900,2100 [facility] Administration Famotidine 20 mg 03/27/19 21:00 04/24/19 10:59 Pepcid PER TUBE Not Given Q12HR [facility] Folic Acid 1 mg 03/27/19 09:00 04/24/19 10:59 Folvite PO Not Given DAILY [facility] Furosemide 20 mg 04/18/19 14:00 04/24/19 06:01 Lasix SLOW IVP 20 mg 0600,1400 [facility] Administration Hydralazine HCl 10 mg 03/29/19 10:50 04/13/19 07:56 Apresoline SLOW IVP 10 mg Q4H PRN Administration SBP GREATER THAN 160 Diltiazem HCl 125 mg/ Sodium 125 mls @ 15 mls/hr 04/17/19 09:30 04/24/19 06: 52 Chloride IVPB 125 mls INF [facility] Administration Protocol 15 MG/HR Dextrose/Water 1,000 mls @ 75 mls/hr 04/20/19 10:45 04/24/19 09:13 D5w IV 1,000 mls .[id number] [facility] Administration Insulin Human Regular 0 units 03/31/19 23:11 04/22/19 06:34 Humulin R SC 3 unit .MILD SLIDING SCALE PRN Administration Mild Correctional Scale Lorazepam 0.5 mg 04/16/19 08:56 04/23/19 14:03 Ativan SLOW IVP 0.5 mg Q6H PRN Administration Anxiety/Agitation Metoprolol Tartrate 25 mg 04/10/19 21:00 04/24/19 11:00 Lopressor PO Not Given BID [facility] Miscellaneous Medication 1 pkt 04/18/19 05:18 04/21/19 09:55 Phos-Nak PO 1 pkt TIDPRN PRN Administration FOR PHOS LEVEL 1.0 - 1.8 Miscellaneous Medication 0 ml 04/18/19 18:00 04/24/19 07:03 Biotene Moisturizing Mouth PO 1 spr Q6HR [facility] Administration Morphine Sulfate 2 mg 04/22/19 09:47 04/22/19 15:13 Morphine SLOW IVP 2 mg Q4H PRN Administration Agitation Morphine Sulfate 4 mg 04/22/19 16:01 04/24/19 06:23 Morphine SLOW IVP 4 mg Q4H PRN Administration Severe Pain (7-10) Ondansetron HCl 4 mg 04/01/19 19:18 04/20/19 04:59 Zofran SLOW IVP 4 mg Q6H PRN Administration Nausea/Vomiting Polyethylene Glycol 17 gm 04/08/19 09:00 04/24/19 11:01 Miralax PER TUBE Not Given DAILY [facility] Potassium Chloride 10 meq 04/15/19 08:00 04/24/19 10:58 Klor-Con 10 PO Not Given BID-WM [facility] Potassium Chloride 40 meq 04/18/19 05:18 04/21/19 03:50 Klor-Con PER TUBE 40 meq ASDIR PRN Administration FOR SERUM K+ 2.5-3.5 Saccharomyces Boulardii 250 mg 03/27/19 09:00 04/24/19 11:01 Florastor PER TUBE Not Given DAILY [facility] Scopolamine 1.5 mg 04/18/19 15:00 04/21/19 14:28 Transderm Scop TD 1.5 mg Q3D [facility] Administration Sodium Chloride 10 ml 04/03/19 09:00 04/24/19 09:13 Flush - Normal Saline IVF 10 ml Q12HR [facility] Administration Sodium Chloride 10 ml 04/03/19 08:45 04/24/19 06:24 Flush - Normal Saline IVF 10 ml PRN PRN Administration Saline Flush Tamsulosin HCl 0.4 mg 03/29/19 21:00 04/23/19 21:49 Flomax PO Not Given HS [facility] Ziprasidone 10 mg 04/22/19 12:44 04/24/19 03:13 Geodon IM 10 mg Q2H PRN Administration AGITATION - Exam Eye: PERRL, anicteric sclera Heart: RRR, no murmur, no gallops, no rubs, normal peripheral pulses Respiratory: CTAB (+ except some) Gastrointestinal: soft, non-tender, non-distended, normal bowel sounds, no palpable masses, no hepatomegaly Extremities: no cyanosis, 1+ LE edema Hosp A/P (1) Acute respiratory failure with hypoxia and hypercapnia Code(s): J96.01 - ACUTE RESPIRATORY FAILURE WITH HYPOXIA; J96.02 - ACUTE RESPIRATORY FAILURE WITH HYPERCAPNIA Status: Acute (2) Afib Code(s): I48.91 - UNSPECIFIED ATRIAL FIBRILLATION Status: Acute Qualifiers: Atrial fibrillation type: paroxysmal Qualified Code(s): I48.0 - Paroxysmal atrial fibrillation (3) History of alcohol abuse Code(s): F10.11 - ALCOHOL ABUSE, IN REMISSION Status: Acute (4) Rheumatoid arthritis Code(s): M06.9 - RHEUMATOID ARTHRITIS, UNSPECIFIED Status: Acute - Plan * Acute metabolic encephalopathy- this has improved some * AFIB with RVR- his heart rate is controlled * COPD- improved * Awaiting disposition. His friend is applying for emergency POA to help facilitate this.
[2019-04-24] MEDS: Scopolamine 1.5 mg/72 hour Patch TD SCH (15:30)
[2019-04-24] MEDS: Tamsulosin HCl 0.4 MG CAP PO SCH (20:33)
[2019-04-24 20:39] VITALS: BP 136/89
[2019-04-25] MEDS: Insulin Regular 300 UNITS/3 ML VIAL SC PRN ×2 (00:58→23:49)
[2019-04-25] MEDS: Dextrose 5% in Water 1,000 ML IV SCH ×2 (01:05→09:04)
[2019-04-25] MEDS: Morphine 4 MG/ML VIAL SLOW IVP PRN (01:46)
[2019-04-25 03:42] LABS: Band 7 % (5-11); Hemoglobin 9.2 g/dL (14.0-18.0); Lymphocytes 13 % (21-51); MDiff Complete? YES; Mean Corpuscular Hemoglobin 32.6 pg (27.0-31.0); Mean Corpuscular Volume 98.8 fL (78.0-98.0); Mean Platelet Volume 7.9 fL (7.4-10.4); Metamyelocyte 3 % (0-0); Monocytes 13 % (0-10); Myelocyte 1 % (0-0); Neutrophil 63 % (42-75); Nucleated RBC 2 % (0); Platelet Count 313 thou/uL (130-400); Platelet Morphology Comment Appears Adequate; Polychromasia SLIGHT = 2-3 cells (100X) (0-2/hpf); RBC Distribution Width 14.5 % (11.5-14.5); Red Blood Cell (RBC) Count 2.83 mill/uL (4.70-6.10); White Blood Cell (WBC) Count 5.5 thou/uL (4.8-10.8)
[2019-04-25 03:43] LABS: Anion Gap 14 mmol/L (10-20); BUN (Urea Nitrogen) 5 mg/dL (8.4-25.7); Calc. Creatinine Clearance 112 mL/min (70-130); Calcium 8.7 mg/dL (7.8-10.44); Carbon Dioxide 28 mmol/L (23-31); Chloride 97 mmol/L (98-107); Estimated GFR-MDRD Greater than 90; Glucose 111 mg/dL (83-110); Phosphorus 2.1 mg/dL (2.3-4.7); Potassium 3.8 mmol/L (3.5-5.1); Sodium 135 mmol/L (136-145)
[2019-04-25] MEDS: BIOTENE MOUTH SPRAY 44.3 ML PO SCH ×4 (05:38→23:50)
[2019-04-25] MEDS: Furosemide 20 MG/2 ML VIAL SLOW IVP SCH ×2 (05:38→18:23)
[2019-04-25] MEDS: Ziprasidone 20 MG VIAL IM PRN (06:12)
[2019-04-25] MEDS: Diltiazem 125 MG in Sodium Chloride 0.9% 100 ML IVPB SCH ×2 (08:59→21:10)
[2019-04-25] MEDS: Digoxin 0.5 MG/2 ML AMP SLOW IVP SCH (09:00)
[2019-04-25] MEDS: Enoxaparin Sodium 80 MG/0.8 ML SYRINGE SC SCH ×2 (09:00→21:11)
[2019-04-25] MEDS: Aspirin 325 MG TAB PER TUBE SCH (09:06)
[2019-04-25] MEDS: Potassium Chloride 10 MEQ TAB PO SCH ×2 (09:06→18:18)
[2019-04-25] MEDS: Divalproex Sodium 125 mg Sprinkle Capsule PER TUBE SCH ×2 (09:06→21:08)
[2019-04-25] MEDS: Amiodarone 200 MG TAB PO SCH ×3 (09:06→21:07)
[2019-04-25] MEDS: Famotidine 20 MG TAB PER TUBE SCH ×2 (09:06→21:08)
[2019-04-25] MEDS: Folic Acid 1 MG TAB PO SCH (09:06)
[2019-04-25] MEDS: Polyethylene Glycol 3350 17 GM Packet PER TUBE SCH (09:07)
[2019-04-25] MEDS: Saccharomyces boulardii 250 MG CAP PER TUBE SCH (09:07)
[2019-04-25] MEDS: Metoprolol Tartrate 25 MG TAB PO SCH ×2 (09:07→21:08)
--- NOTE | 2019-04-25 13:14 | PDOC.HOSPP ---
- Subjective Encounter Date: 04/25/19 Encounter Time: 13:12 Subjective: Mr. Marshall was seen today in follow-up of COPD exacerbation and metabolic encephalopathy. His mental status has improved some, but he is still confused. He denies feeling short of breath, but appears extremely weak. - Objective Vital Signs & Weight: Vital Signs (12 hours) Temp Pulse Pulse Ox 04/25/19 11:39 97.9 F 04/25/19 09:06 99 04/25/19 09:00 99 04/25/19 08:00 98 04/25/19 07:35 96.7 F L Weight Admit Weight 181 lb 3.52 oz Weight 166 lb 1.6 oz Most Recent Monitor Data Heart Rate from ECG 95 NIBP 162/76 NIBP BP-Mean 104 Respiration from ECG 27 SpO2 94 I&O: 04/24/19 04/25/19 04/26/19 06:59 06:59 06:59 Intake Total 2163 1800 Output Total 2500 1950 Balance -337 -150 Result Diagrams: 04/25/19 03:21 04/25/19 03:21 Additional Labs: Accuchecks 04/25/19 04/25/19 04/24/19 12:00 05:45 23:51 POC Glucose 138 H 96 160 H 04/24/19 19:15 POC Glucose 157 H Hospitalist ROS - Medication Medications: Active Medications Generic Name Dose Route Start Last Admin Trade Name Freq PRN Reason Stop Dose Admin Acetaminophen 650 mg 03/27/19 02:40 04/11/19 17:20 Tylenol NE 650 mg Q6H PRN Administration Fever > 101 or Mild Pain Acetaminophen 650 mg 04/15/19 08:23 04/22/19 04:39 Tylenol Elixir PO 650 mg Q4H PRN Administration pain/fever Acetaminophen 650 mg 04/15/19 08:23 04/21/19 09:55 Tylenol PO 650 mg Q4H PRN Administration Headache/Fever or Mild Pain Amiodarone HCl 400 mg 04/21/19 15:00 04/25/19 09:06 Cordarone PO Not Given TID [facility] Lipase/Protease/Amylase 1 cap 03/31/19 09:42 04/18/19 23:10 Rolo Blanco [id number] FS 1 cap .PER PROTOCOL PRN Administration TUBE OCCLUSION PROTOCOL Aspirin 325 mg 04/14/19 09:00 04/25/19 09:06 Aspirin PER TUBE Not Given DAILY [facility] Digoxin 0.25 mg 04/21/19 09:00 04/25/19 09:00 Lanoxin SLOW IVP 0.25 mg DAILY [facility] Administration Diltiazem HCl 120 mg 04/25/19 09:00 04/25/19 09:06 Cardizem Cd PO Not Given DAILY [facility] Divalproex Sodium 250 mg 04/06/19 09:00 04/25/19 09:06 Depakote Sprinkle PER TUBE Not Given BID [facility] Enoxaparin Sodium 80 mg 04/10/19 21:00 04/25/19 09:00 Lovenox SC 80 mg 0900,2100 [facility] Administration Famotidine 20 mg 03/27/19 21:00 04/25/19 09:06 Pepcid PER TUBE Not Given Q12HR [facility] Folic Acid 1 mg 03/27/19 09:00 04/25/19 09:06 Folvite PO Not Given DAILY [facility] Furosemide 20 mg 04/18/19 14:00 04/25/19 05:38 Lasix SLOW IVP 20 mg 0600,1400 [facility] Administration Hydralazine HCl 10 mg 03/29/19 10:50 04/13/19 07:56 Apresoline SLOW IVP 10 mg Q4H PRN Administration SBP GREATER THAN 160 Diltiazem HCl 125 mg/ Sodium 125 mls @ 15 mls/hr 04/17/19 09:30 04/25/19 08: 59 Chloride IVPB 125 mls INF [facility] Administration Protocol 15 MG/HR Dextrose/Water 1,000 mls @ 75 mls/hr 04/20/19 10:45 04/25/19 09:04 D5w IV 1,000 mls .[id number] [facility] Administration Insulin Human Regular 0 units 03/31/19 23:11 04/25/19 00:58 Humulin R SC 2 unit .MILD SLIDING SCALE PRN Administration Mild Correctional Scale Lorazepam 0.5 mg 04/16/19 08:56 04/23/19 14:03 Ativan SLOW IVP 0.5 mg Q6H PRN Administration Anxiety/Agitation Metoprolol Tartrate 25 mg 04/10/19 21:00 04/25/19 09:07 Lopressor PO Not Given BID [facility] Miscellaneous Medication 1 pkt 04/18/19 05:18 04/21/19 09:55 Phos-Nak PO 1 pkt TIDPRN PRN Administration FOR PHOS LEVEL 1.0 - 1.8 Miscellaneous Medication 0 ml 04/18/19 18:00 04/25/19 05:38 Biotene Moisturizing Mouth PO 1 spr Q6HR [facility] Administration Morphine Sulfate 2 mg 04/22/19 09:47 04/22/19 15:13 Morphine SLOW IVP 2 mg Q4H PRN Administration Agitation Morphine Sulfate 4 mg 04/22/19 16:01 04/25/19 01:46 Morphine SLOW IVP 4 mg Q4H PRN Administration Severe Pain (7-10) Ondansetron HCl 4 mg 04/01/19 19:18 04/20/19 04:59 Zofran SLOW IVP 4 mg Q6H PRN Administration Nausea/Vomiting Polyethylene Glycol 17 gm 04/08/19 09:00 04/25/19 09:07 Miralax PER TUBE Not Given DAILY [facility] Potassium Chloride 10 meq 04/15/19 08:00 04/25/19 09:06 Klor-Con 10 PO Not Given BID-WM [facility] Potassium Chloride 40 meq 04/18/19 05:18 04/21/19 03:50 Klor-Con PER TUBE 40 meq ASDIR PRN Administration FOR SERUM K+ 2.5-3.5 Saccharomyces Boulardii 250 mg 03/27/19 09:00 04/25/19 09:07 Florastor PER TUBE Not Given DAILY [facility] Scopolamine 1.5 mg 04/18/19 15:00 04/24/19 15:30 Transderm Scop TD 1.5 mg Q3D [facility] Administration Sodium Chloride 10 ml 04/03/19 09:00 04/25/19 09:07 Flush - Normal Saline IVF Not Given Q12HR [facility] Sodium Chloride 10 ml 04/03/19 08:45 04/25/19 05:39 Flush - Normal Saline IVF 10 ml PRN PRN Administration Saline Flush Tamsulosin HCl 0.4 mg 03/29/19 21:00 04/24/19 20:33 Flomax PO Not Given HS [facility] Ziprasidone 10 mg 04/22/19 12:44 04/25/19 06:12 Geodon IM 10 mg Q2H PRN Administration AGITATION - Exam Eye: PERRL Heart: RRR, no murmur, no gallops, no rubs, normal peripheral pulses Respiratory: CTAB (with the exception of an occasional wheeze and rales at the bases) Gastrointestinal: soft, non-tender, non-distended, normal bowel sounds Extremities: no cyanosis, no edema Hosp A/P (1) Acute respiratory failure with hypoxia and hypercapnia Code(s): J96.01 - ACUTE RESPIRATORY FAILURE WITH HYPOXIA; J96.02 - ACUTE RESPIRATORY FAILURE WITH HYPERCAPNIA Status: Acute (2) Afib Code(s): I48.91 - UNSPECIFIED ATRIAL FIBRILLATION Status: Acute Qualifiers: Atrial fibrillation type: paroxysmal Qualified Code(s): I48.0 - Paroxysmal atrial fibrillation (3) History of alcohol abuse Code(s): F10.11 - ALCOHOL ABUSE, IN REMISSION Status: Acute (4) Rheumatoid arthritis Code(s): M06.9 - RHEUMATOID ARTHRITIS, UNSPECIFIED Status: Acute - Plan * Acute metabolic encephalopathy- some improvement overnight * AFIB with RVR- his heart rate is controlled * COPD-with acute on chronic respiratory failure- improved * Awaiting disposition. His friend is applying for emergency POA to help facilitate this.
[2019-04-25] MEDS ORDERED: Furosemide 40 MG/4 ML VIAL ONE (18:19)
[2019-04-25] MEDS: Tamsulosin HCl 0.4 MG CAP PO SCH (21:08)
[2019-04-26] MEDS: Dextrose 5% in Water 1,000 ML IV SCH ×2 (03:25→20:24)
[2019-04-26 04:52] LABS: Band 2 % (5-11); Eosinophils 1 % (0-10); Hemoglobin 9.4 g/dL (14.0-18.0); Hypochromia SLIGHT = 6-15 cells (100X) (0-5/hpf); Lymphocytes 15 % (21-51); MDiff Complete? YES; Mean Corpuscular HGB CONC 31.8 g/dL (32.0-36.0); Mean Corpuscular Hemoglobin 31.4 pg (27.0-31.0); Mean Corpuscular Volume 98.9 fL (78.0-98.0); Monocytes 11 % (0-10); Neutrophil 71 % (42-75); Platelet Count 490 thou/uL (130-400); Platelet Morphology Comment Appears Increased; Polychromasia SLIGHT = 2-3 cells (100X) (0-2/hpf); RBC Distribution Width 14.7 % (11.5-14.5); Red Blood Cell (RBC) Count 2.99 mill/uL (4.70-6.10); White Blood Cell (WBC) Count 6.9 thou/uL (4.8-10.8)
[2019-04-26 05:05] LABS: Phosphorus 2.1 mg/dL (2.3-4.7)
[2019-04-26 05:07] LABS: Anion Gap 10 mmol/L (10-20); BUN (Urea Nitrogen) 4 mg/dL (8.4-25.7); Calc. Creatinine Clearance 106 mL/min (70-130); Calcium 8.7 mg/dL (7.8-10.44); Carbon Dioxide 33 mmol/L (23-31); Chloride 91 mmol/L (98-107); Estimated GFR-MDRD Greater than 90; Glucose 151 mg/dL (83-110); Potassium 2.9 mmol/L (3.5-5.1); Sodium 131 mmol/L (136-145)
[2019-04-26] MEDS: Diltiazem 125 MG in Sodium Chloride 0.9% 100 ML IVPB SCH ×2 (05:39→23:47)
[2019-04-26] MEDS: Potassium Chloride 40 MEQ in Sodium Chloride 0.9% 250 ML 250 ML IVPB PRN (05:39)
[2019-04-26] MEDS: Furosemide 20 MG/2 ML VIAL SLOW IVP SCH ×2 (05:41→14:37)
[2019-04-26] MEDS: BIOTENE MOUTH SPRAY 44.3 ML PO SCH ×4 (06:04→23:47)
[2019-04-26] MEDS: Potassium Chloride 10 MEQ TAB PO SCH ×2 (09:32→18:08)
[2019-04-26] MEDS: Amiodarone 200 MG TAB PO SCH ×3 (09:32→20:23)
[2019-04-26] MEDS: Aspirin 325 MG TAB PER TUBE SCH (09:32)
[2019-04-26] MEDS: Divalproex Sodium 125 mg Sprinkle Capsule PER TUBE SCH ×2 (09:32→20:23)
[2019-04-26] MEDS: Famotidine 20 MG TAB PER TUBE SCH ×2 (09:33→20:23)
[2019-04-26] MEDS: Enoxaparin Sodium 80 MG/0.8 ML SYRINGE SC SCH ×2 (09:33→20:22)
[2019-04-26] MEDS: Folic Acid 1 MG TAB PO SCH (09:33)
[2019-04-26] MEDS: Polyethylene Glycol 3350 17 GM Packet PER TUBE SCH (09:34)
[2019-04-26] MEDS: Metoprolol Tartrate 25 MG TAB PO SCH ×2 (09:34→20:23)
[2019-04-26] MEDS: Saccharomyces boulardii 250 MG CAP PER TUBE SCH (09:34)
[2019-04-26] MEDS ORDERED: Lorazepam 2 MG/ML VIAL SLOW IVP SCH (09:45)
--- NOTE | 2019-04-26 09:47 | PDOC.HOSPP ---
- Subjective Encounter Date: 04/26/19 Encounter Time: 09:45 Subjective: Mr. Marshall was seen today in follow-up of COPD exacerbation. He appears a bit uncomfortable. He says he has a little abdominal pain and some nausea. - Objective Vital Signs & Weight: Vital Signs (12 hours) Temp Pulse 04/26/19 09:32 99 04/26/19 07:42 98.1 F 04/26/19 04:07 97.8 F 04/25/19 23:45 98.4 F Weight Admit Weight 181 lb 3.52 oz Weight 166 lb 5 oz Most Recent Monitor Data Heart Rate from ECG 102 NIBP 147/71 NIBP BP-Mean 96 Respiration from ECG 35 SpO2 92 I&O: 04/25/19 04/26/19 04/27/19 06:59 06:59 06:59 Intake Total 1800 1597.7 Output Total 1950 1650 Balance -150 -52.3 Result Diagrams: 04/26/19 04:02 04/26/19 04:02 Additional Labs: Accuchecks 04/26/19 04/25/19 04/25/19 05:43 23:24 18:18 POC Glucose 176 H 160 H 145 H 04/25/19 12:00 POC Glucose 138 H Hospitalist ROS - Medication Medications: Active Medications Generic Name Dose Route Start Last Admin Trade Name Freq PRN Reason Stop Dose Admin Acetaminophen 650 mg 03/27/19 02:40 04/11/19 17:20 Tylenol [place] 650 mg Q6H PRN Administration Fever > 101 or Mild Pain Acetaminophen 650 mg 04/15/19 08:23 04/22/19 04:39 Tylenol Elixir PO 650 mg Q4H PRN Administration pain/fever Acetaminophen 650 mg 04/15/19 08:23 04/21/19 09:55 Tylenol PO 650 mg Q4H PRN Administration Headache/Fever or Mild Pain Amiodarone HCl 400 mg 04/21/19 15:00 04/26/19 09:32 Cordarone PO Not Given TID [facility] Lipase/Protease/Amylase 1 cap 03/31/19 09:42 04/18/19 23:10 Rolo Blanco [id number] FS 1 cap .PER PROTOCOL PRN Administration TUBE OCCLUSION PROTOCOL Aspirin 325 mg 04/14/19 09:00 04/26/19 09:32 Aspirin PER TUBE Not Given DAILY [facility] Digoxin 0.25 mg 04/21/19 09:00 04/25/19 09:00 Lanoxin SLOW IVP 0.25 mg DAILY [facility] Administration Diltiazem HCl 120 mg 04/25/19 09:00 04/26/19 09:32 Cardizem Cd PO Not Given DAILY [facility] Divalproex Sodium 250 mg 04/06/19 09:00 04/26/19 09:32 Depakote Sprinkle PER TUBE Not Given BID [facility] Enoxaparin Sodium 80 mg 04/10/19 21:00 04/26/19 09:33 Lovenox SC Not Given 0900,2099 [facility] Famotidine 20 mg 03/27/19 21:00 04/26/19 09:33 Pepcid PER TUBE Not Given Q12HR [facility] Folic Acid 1 mg 03/27/19 09:00 04/26/19 09:33 Folvite PO Not Given DAILY [facility] Furosemide 20 mg 04/18/19 14:00 04/26/19 05:41 Lasix SLOW IVP 20 mg 0600,1400 [facility] Administration Hydralazine HCl 10 mg 03/29/19 10:50 04/13/19 07:56 Apresoline SLOW IVP 10 mg Q4H PRN Administration SBP GREATER THAN 160 Diltiazem HCl 125 mg/ Sodium 125 mls @ 15 mls/hr 04/17/19 09:30 04/26/19 05: 39 Chloride IVPB 125 mls INF [facility] Administration Protocol 15 MG/HR Potassium Chloride 40 meq/ 270 mls @ 135 mls/hr 04/18/19 05:18 04/26/19 05:39 Sodium Chloride IVPB 270 mls ASDIR PRN Administration FOR SERUM K+ 2.5 - 3.5 Dextrose/Water 1,000 mls @ 75 mls/hr 04/20/19 10:45 04/26/19 03:25 D5w IV 1,000 mls .[id number] [facility] Administration Insulin Human Regular 0 units 03/31/19 23:11 04/25/19 00:58 Humulin R SC 2 unit .MILD SLIDING SCALE PRN Administration Mild Correctional Scale Metoprolol Tartrate 25 mg 04/10/19 21:00 04/26/19 09:34 Lopressor PO Not Given BID [facility] Miscellaneous Medication 1 pkt 04/18/19 05:18 04/21/19 09:55 Phos-Nak PO 1 pkt TIDPRN PRN Administration FOR PHOS LEVEL 1.0 - 1.8 Miscellaneous Medication 0 ml 04/18/19 18:00 04/26/19 06:04 Biotene Moisturizing Mouth PO Not Given Q6HR [facility] Morphine Sulfate 2 mg 04/22/19 09:47 04/22/19 15:13 Morphine SLOW IVP 2 mg Q4H PRN Administration Agitation Morphine Sulfate 4 mg 04/22/19 16:01 04/25/19 01:46 Morphine SLOW IVP 4 mg Q4H PRN Administration Severe Pain (7-10) Ondansetron HCl 4 mg 04/01/19 19:18 04/20/19 04:59 Zofran SLOW IVP 4 mg Q6H PRN Administration Nausea/Vomiting Polyethylene Glycol 17 gm 04/08/19 09:00 04/26/19 09:34 Miralax PER TUBE Not Given DAILY [facility] Potassium Chloride 10 meq 04/15/19 08:00 04/26/19 09:32 Klor-Con 10 PO Not Given BID-WM [facility] Potassium Chloride 40 meq 04/18/19 05:18 04/21/19 03:50 Klor-Con PER TUBE 40 meq ASDIR PRN Administration FOR SERUM K+ 2.5-3.5 Saccharomyces Boulardii 250 mg 03/27/19 09:00 04/26/19 09:34 Florastor PER TUBE Not Given DAILY [facility] Scopolamine 1.5 mg 04/18/19 15:00 04/24/19 15:30 Transderm Scop TD 1.5 mg Q3D [facility] Administration Sodium Chloride 10 ml 04/03/19 09:00 04/26/19 09:35 Flush - Normal Saline IVF Not Given Q12HR [facility] Sodium Chloride 10 ml 04/03/19 08:45 04/25/19 05:39 Flush - Normal Saline IVF 10 ml PRN PRN Administration Saline Flush Tamsulosin HCl 0.4 mg 03/29/19 21:00 04/25/19 21:08 Flomax PO Not Given HS [facility] Ziprasidone 10 mg 04/22/19 12:44 04/25/19 06:12 Geodon IM 10 mg Q2H PRN Administration AGITATION - Exam Eye: PERRL Heart: RRR, no murmur, no gallops, no rubs, normal peripheral pulses Respiratory: CTAB, no wheezes Gastrointestinal: soft, non-tender, non-distended, normal bowel sounds, no palpable masses, no hepatomegaly Extremities: no cyanosis, no edema Hosp A/P (1) Acute respiratory failure with hypoxia and hypercapnia Code(s): J96.01 - ACUTE RESPIRATORY FAILURE WITH HYPOXIA; J96.02 - ACUTE RESPIRATORY FAILURE WITH HYPERCAPNIA Status: Acute (2) Afib Code(s): I48.91 - UNSPECIFIED ATRIAL FIBRILLATION Status: Acute Qualifiers: Atrial fibrillation type: paroxysmal Qualified Code(s): I48.0 - Paroxysmal atrial fibrillation (3) History of alcohol abuse Code(s): F10.11 - ALCOHOL ABUSE, IN REMISSION Status: Acute (4) Rheumatoid arthritis Code(s): M06.9 - RHEUMATOID ARTHRITIS, UNSPECIFIED Status: Acute - Plan * Acute metabolic encephalopathy- improved . He answers question appropriately. He appears uncomfortable * AFIB with RVR- his heart rate is controlled * COPD-with acute on chronic respiratory failure- improved * Symptom management * Awaiting disposition.
[2019-04-26] MEDS: Digoxin 0.5 MG/2 ML AMP SLOW IVP SCH (10:08)
[2019-04-26] MEDS: Tamsulosin HCl 0.4 MG CAP PO SCH (20:23)
[2019-04-27] MEDS: Insulin Regular 300 UNITS/3 ML VIAL SC PRN (00:28)
[2019-04-27 04:58] LABS: Band 23 % (5-11); Hemoglobin 9.6 g/dL (14.0-18.0); Lymphocytes 1 % (21-51); MDiff Complete? YES; Mean Corpuscular HGB CONC 32.5 g/dL (32.0-36.0); Mean Corpuscular Hemoglobin 32.2 pg (27.0-31.0); Mean Corpuscular Volume 98.9 fL (78.0-98.0); Mean Platelet Volume 7.4 fL (7.4-10.4); Metamyelocyte 4 % (0-0); Monocytes 10 % (0-10); Neutrophil 62 % (42-75); Nucleated RBC 2 % (0); Platelet Count 482 thou/uL (130-400); Platelet Morphology Comment Appears Increased; RBC Distribution Width 14.7 % (11.5-14.5); Red Blood Cell (RBC) Count 2.97 mill/uL (4.70-6.10); White Blood Cell (WBC) Count 12.3 thou/uL (4.8-10.8)
[2019-04-27 05:02] LABS: Phosphorus 2.3 mg/dL (2.3-4.7)
[2019-04-27 05:10] LABS: Anion Gap 9 mmol/L (10-20); BUN (Urea Nitrogen) 5 mg/dL (8.4-25.7); Calc. Creatinine Clearance 99 mL/min (70-130); Calcium 8.9 mg/dL (7.8-10.44); Carbon Dioxide 34 mmol/L (23-31); Chloride 91 mmol/L (98-107); Estimated GFR-MDRD Greater than 90; Glucose 132 mg/dL (83-110); Potassium 3.3 mmol/L (3.5-5.1); Sodium 131 mmol/L (136-145)
[2019-04-27] MEDS: Ondansetron PF 4 MG/2 ML Vial SLOW IVP PRN (05:34)
[2019-04-27] MEDS: Furosemide 20 MG/2 ML VIAL SLOW IVP SCH ×2 (05:35→14:13)
[2019-04-27] MEDS: BIOTENE MOUTH SPRAY 44.3 ML PO SCH ×3 (05:40→18:57)
[2019-04-27] MEDS: Potassium Chloride 40 MEQ in Sodium Chloride 0.9% 250 ML 250 ML IVPB PRN (06:43)
[2019-04-27] MEDS: Dextrose 5% in Water 1,000 ML IV SCH ×2 (08:11→18:57)
[2019-04-27] MEDS: Potassium Chloride 10 MEQ TAB PO SCH ×2 (08:11→13:18)
[2019-04-27] MEDS: Aspirin 325 MG TAB PER TUBE SCH (08:11)
[2019-04-27] MEDS: Amiodarone 200 MG TAB PO SCH ×3 (08:11→20:29)
[2019-04-27] MEDS: Divalproex Sodium 125 mg Sprinkle Capsule PER TUBE SCH ×2 (08:12→20:29)
[2019-04-27] MEDS: Metoprolol Tartrate 25 MG TAB PO SCH ×2 (08:12→20:29)
[2019-04-27] MEDS: Saccharomyces boulardii 250 MG CAP PER TUBE SCH (08:12)
[2019-04-27] MEDS: Folic Acid 1 MG TAB PO SCH (08:12)
[2019-04-27] MEDS: Polyethylene Glycol 3350 17 GM Packet PER TUBE SCH (08:12)
[2019-04-27] MEDS: Famotidine 20 MG TAB PER TUBE SCH ×2 (08:12→20:29)
[2019-04-27] MEDS: Enoxaparin Sodium 80 MG/0.8 ML SYRINGE SC SCH ×2 (10:16→20:31)
[2019-04-27] MEDS: Digoxin 0.5 MG/2 ML AMP SLOW IVP SCH (10:16)
[2019-04-27] MEDS: Morphine 4 MG/ML VIAL SLOW IVP PRN (10:19)
--- NOTE | 2019-04-27 11:21 | PDOC.HOSPP ---
- Subjective Encounter Date: 04/27/19 Encounter Time: 11:10 Subjective: Mr. Marshall was seen today in follow-up of respiratory failure. He is obtunded this morning. - Objective Vital Signs & Weight: Vital Signs (12 hours) Temp Pulse Pulse Ox 04/27/19 10:16 99 04/27/19 08:12 99 04/27/19 07:50 95 04/27/19 07:40 98.8 F 04/27/19 03:48 100.8 F H 04/26/19 23:12 99.5 F Weight Admit Weight 181 lb 3.52 oz Weight 169 lb 8 oz Most Recent Monitor Data Heart Rate from ECG 75 NIBP 153/55 NIBP BP-Mean 87 Respiration from ECG 29 SpO2 85 I&O: 04/26/19 04/27/19 04/28/19 06:59 06:59 06:59 Intake Total 1597.7 1745 Output Total 1650 1350 Balance -52.3 395 Result Diagrams: 04/27/19 04:27 04/27/19 04:27 Additional Labs: Accuchecks 04/27/19 04/27/19 04/26/19 05:47 00:25 18:04 POC Glucose 141 H 166 H 153 H Hospitalist ROS - Medication Medications: Active Medications Generic Name Dose Route Start Last Admin Trade Name Freq PRN Reason Stop Dose Admin Acetaminophen 650 mg 03/27/19 02:40 04/11/19 17:20 Tylenol [place] 650 mg Q6H PRN Administration Fever > 101 or Mild Pain Acetaminophen 650 mg 04/15/19 08:23 04/22/19 04:39 Tylenol Elixir PO 650 mg Q4H PRN Administration pain/fever Acetaminophen 650 mg 04/15/19 08:23 04/21/19 09:55 Tylenol PO 650 mg Q4H PRN Administration Headache/Fever or Mild Pain Amiodarone HCl 400 mg 04/21/19 15:00 04/27/19 08:11 Cordarone PO Not Given TID [facility] Lipase/Protease/Amylase 1 cap 03/31/19 09:42 04/18/19 23:10 Rolo Blanco [id number] FS 1 cap .PER PROTOCOL PRN Administration TUBE OCCLUSION PROTOCOL Aspirin 325 mg 04/14/19 09:00 04/27/19 08:11 Aspirin PER TUBE Not Given DAILY [facility] Digoxin 0.125 mg 04/27/19 09:00 04/27/19 10:16 Lanoxin SLOW IVP 0.125 mg DAILY [facility] Administration Diltiazem HCl 120 mg 04/25/19 09:00 04/27/19 08:12 Cardizem Cd PO Not Given DAILY [facility] Divalproex Sodium 250 mg 04/06/19 09:00 04/27/19 08:12 Depakote Sprinkle PER TUBE Not Given BID [facility] Enoxaparin Sodium 80 mg 04/10/19 21:00 04/27/19 10:16 Lovenox SC 80 mg 0900,2100 [facility] Administration Famotidine 20 mg 03/27/19 21:00 04/27/19 08:12 Pepcid PER TUBE Not Given Q12HR [facility] Folic Acid 1 mg 03/27/19 09:00 04/27/19 08:12 Folvite PO Not Given DAILY [facility] Furosemide 20 mg 04/18/19 14:00 04/27/19 05:35 Lasix SLOW IVP 20 mg 0600,1400 [facility] Administration Hydralazine HCl 10 mg 03/29/19 10:50 04/13/19 07:56 Apresoline SLOW IVP 10 mg Q4H PRN Administration SBP GREATER THAN 160 Diltiazem HCl 125 mg/ Sodium 125 mls @ 15 mls/hr 04/17/19 09:30 04/26/19 23: 47 Chloride IVPB 125 mls INF [facility] Administration Protocol 15 MG/HR Potassium Chloride 40 meq/ 270 mls @ 135 mls/hr 04/18/19 05:18 04/27/19 06:43 Sodium Chloride IVPB 270 mls ASDIR PRN Administration FOR SERUM K+ 2.5 - 3.5 Dextrose/Water 1,000 mls @ 75 mls/hr 04/20/19 10:45 04/27/19 08:11 D5w IV 1,000 mls .[id number] [facility] Administration Insulin Human Regular 0 units 03/31/19 23:11 04/27/19 00:28 Humulin R SC 2 unit .MILD SLIDING SCALE PRN Administration Mild Correctional Scale Metoprolol Tartrate 25 mg 04/10/19 21:00 04/27/19 08:12 Lopressor PO Not Given BID [facility] Miscellaneous Medication 1 pkt 04/18/19 05:18 04/21/19 09:55 Phos-Nak PO 1 pkt TIDPRN PRN Administration FOR PHOS LEVEL 1.0 - 1.8 Miscellaneous Medication 0 ml 04/18/19 18:00 04/27/19 05:40 Biotene Moisturizing Mouth PO 1 spr Q6HR [facility] Administration Morphine Sulfate 2 mg 04/22/19 09:47 04/22/19 15:13 Morphine SLOW IVP 2 mg Q4H PRN Administration Agitation Morphine Sulfate 4 mg 04/22/19 16:01 04/27/19 10:19 Morphine SLOW IVP 4 mg Q4H PRN Administration Severe Pain (7-10) Ondansetron HCl 4 mg 04/01/19 19:18 04/27/19 05:34 Zofran SLOW IVP 4 mg Q6H PRN Administration Nausea/Vomiting Polyethylene Glycol 17 gm 04/08/19 09:00 04/27/19 08:12 Miralax PER TUBE Not Given DAILY [facility] Potassium Chloride 10 meq 04/15/19 08:00 04/27/19 08:11 Klor-Con 10 PO Not Given BID-WM [facility] Potassium Chloride 40 meq 04/18/19 05:18 04/21/19 03:50 Klor-Con PER TUBE 40 meq ASDIR PRN Administration FOR SERUM K+ 2.5-3.5 Saccharomyces Boulardii 250 mg 03/27/19 09:00 04/27/19 08:12 Florastor PER TUBE Not Given DAILY [facility] Scopolamine 1.5 mg 04/18/19 15:00 04/24/19 15:30 Transderm Scop TD 1.5 mg Q3D [facility] Administration Sodium Chloride 10 ml 04/03/19 09:00 04/27/19 08:12 Flush - Normal Saline IVF 10 ml Q12HR [facility] Administration Sodium Chloride 10 ml 04/03/19 08:45 04/25/19 05:39 Flush - Normal Saline IVF 10 ml PRN PRN Administration Saline Flush Tamsulosin HCl 0.4 mg 03/29/19 21:00 04/26/19 20:23 Flomax PO Not Given HS [facility] Ziprasidone 10 mg 04/22/19 12:44 04/25/19 06:12 Geodon IM 10 mg Q2H PRN Administration AGITATION - Exam Eye: PERRL Heart: RRR, no murmur, no gallops, no rubs Respiratory: CTAB Gastrointestinal: soft, non-tender, non-distended, normal bowel sounds, no palpable masses, no hepatomegaly Extremities: 1+ LE edema Hosp A/P (1) Acute respiratory failure with hypoxia and hypercapnia Code(s): J96.01 - ACUTE RESPIRATORY FAILURE WITH HYPOXIA; J96.02 - ACUTE RESPIRATORY FAILURE WITH HYPERCAPNIA Status: Acute (2) Afib Code(s): I48.91 - UNSPECIFIED ATRIAL FIBRILLATION Status: Acute Qualifiers: Atrial fibrillation type: paroxysmal Qualified Code(s): I48.0 - Paroxysmal atrial fibrillation (3) History of alcohol abuse Code(s): F10.11 - ALCOHOL ABUSE, IN REMISSION Status: Acute (4) Rheumatoid arthritis Code(s): M06.9 - RHEUMATOID ARTHRITIS, UNSPECIFIED Status: Acute - Plan * Acute metabolic encephalopathy- he is obtunded * COPD-advanced- * Symptom management * Continue symptom management
[2019-04-27] MEDS: Lorazepam 2 MG/ML VIAL SLOW IVP PRN (14:14)
[2019-04-27] MEDS: Scopolamine 1.5 mg/72 hour Patch TD SCH (14:15)
--- NOTE | 2019-04-27 14:31 | PRG ---
DATE OF SERVICE: 04/27/2019 SUBJECTIVE: Mr. Marshall is resting comfortably. His heart rate still 110 despite multiple medicines to help him with heart rate control. OBJECTIVE: VITAL SIGNS: His blood pressure is 143/59, pulse is 100 and it is irregular, in atrial fibrillation. LUNGS: Rhonchi. CARDIAC: Irregularly irregular. ASSESSMENT: 1. Persistent atrial fibrillation. 2. Chronic obstructive pulmonary disease. 3. Diastolic heart failure. PLAN: 1. He is on amiodarone. 2. He is still on intravenous Cardizem as well as oral Cardizem. 3. He is on digoxin. Plan, we will increase the Cardizem dose tomorrow and hopefully try to wean some of the intravenous Cardizem. Prognosis guarded in this gentleman. Job ID: [id number]
[2019-04-27] MEDS: Tamsulosin HCl 0.4 MG CAP PO SCH (20:30)
[2019-04-28] MEDS: BIOTENE MOUTH SPRAY 44.3 ML PO SCH ×5 (00:10→23:20)
[2019-04-28 04:01] LABS: Band 27 % (5-11); Eosinophils 1 % (0-10); Hemoglobin 9.7 g/dL (14.0-18.0); Lymphocytes 6 % (21-51); MDiff Complete? YES; Mean Corpuscular HGB CONC 31.4 g/dL (32.0-36.0); Mean Platelet Volume 6.9 fL (7.4-10.4); Metamyelocyte 5 % (0-0); Monocytes 13 % (0-10); Myelocyte 4 % (0-0); Neutrophil 44 % (42-75); Platelet Count 613 thou/uL (130-400); Platelet Morphology Comment Appears Increased; Polychromasia SLIGHT = 2-3 cells (100X) (0-2/hpf); RBC Distribution Width 14.3 % (11.5-14.5); Red Blood Cell (RBC) Count 3.04 mill/uL (4.70-6.10)
[2019-04-28 04:02] LABS: Phosphorus 2.7 mg/dL (2.3-4.7)
[2019-04-28 04:08] LABS: Anion Gap 8 mmol/L (10-20); BUN (Urea Nitrogen) 7 mg/dL (8.4-25.7); Calc. Creatinine Clearance 95 mL/min (70-130); Carbon Dioxide 35 mmol/L (23-31); Chloride 92 mmol/L (98-107); Estimated GFR-MDRD Greater than 90; Glucose 155 mg/dL (83-110); Potassium 3.9 mmol/L (3.5-5.1); Sodium 131 mmol/L (136-145)
[2019-04-28] MEDS: Furosemide 20 MG/2 ML VIAL SLOW IVP SCH ×2 (05:22→14:02)
[2019-04-28] MEDS: Diltiazem 125 MG in Sodium Chloride 0.9% 100 ML IVPB SCH ×2 (05:23→18:12)
[2019-04-28] MEDS: Dextrose 5% in Water 1,000 ML IV SCH ×2 (05:23→18:12)
[2019-04-28] MEDS: Insulin Regular 300 UNITS/3 ML VIAL SC PRN (05:35)
[2019-04-28] MEDS: Digoxin 0.5 MG/2 ML AMP SLOW IVP SCH (09:23)
[2019-04-28] MEDS: Amiodarone 200 MG TAB PO SCH ×3 (09:24→20:45)
[2019-04-28] MEDS: Aspirin 325 MG TAB PER TUBE SCH (09:24)
[2019-04-28] MEDS: Potassium Chloride 10 MEQ TAB PO SCH ×2 (09:24→16:45)
[2019-04-28] MEDS: Divalproex Sodium 125 mg Sprinkle Capsule PER TUBE SCH ×2 (09:26→20:45)
[2019-04-28] MEDS: Metoprolol Tartrate 25 MG TAB PO SCH ×2 (09:26→20:45)
[2019-04-28] MEDS: Enoxaparin Sodium 80 MG/0.8 ML SYRINGE SC SCH (09:26)
[2019-04-28] MEDS: Folic Acid 1 MG TAB PO SCH (09:26)
[2019-04-28] MEDS: Famotidine 20 MG TAB PER TUBE SCH ×2 (09:26→20:45)
[2019-04-28] MEDS: Polyethylene Glycol 3350 17 GM Packet PER TUBE SCH (09:27)
[2019-04-28] MEDS: Saccharomyces boulardii 250 MG CAP PER TUBE SCH (09:27)
--- NOTE | 2019-04-28 11:26 | PDOC.HOSPP ---
- Subjective Encounter Date: 04/28/19 Encounter Time: 11:24 Subjective: Mr. Marshall was seen today in follow-up of COPD exacerbation. He again is essentially obtunded. He will shake his head when I asked if he is in any pain. He has increased work of breathing. - Objective Vital Signs & Weight: Vital Signs (12 hours) Temp Pulse Pulse Ox 04/28/19 09:23 99 04/28/19 08:00 95 04/28/19 07:55 97.6 F 04/28/19 04:00 102.4 F H 04/28/19 00:00 101.8 F H Weight Admit Weight 181 lb 3.52 oz Weight 168 lb 7.982 oz Most Recent Monitor Data Heart Rate from ECG 95 NIBP 111/83 NIBP BP-Mean 92 Respiration from ECG 40 SpO2 96 I&O: 04/27/19 04/28/19 04/29/19 06:59 06:59 06:59 Intake Total 1745 1364 Output Total 1350 1100 Balance 395 264 Result Diagrams: 04/28/19 03:24 04/28/19 03:24 Additional Labs: Accuchecks 04/28/19 04/28/19 04/27/19 05:39 00:17 18:34 POC Glucose 157 H 159 H 118 H 04/27/19 11:22 POC Glucose 115 H Hospitalist ROS - Medication Medications: Active Medications Generic Name Dose Route Start Last Admin Trade Name Freq PRN Reason Stop Dose Admin Acetaminophen 650 mg 03/27/19 02:40 04/11/19 17:20 Tylenol [place] 650 mg Q6H PRN Administration Fever > 101 or Mild Pain Acetaminophen 650 mg 04/15/19 08:23 04/22/19 04:39 Tylenol Elixir PO 650 mg Q4H PRN Administration pain/fever Acetaminophen 650 mg 04/15/19 08:23 04/21/19 09:55 Tylenol PO 650 mg Q4H PRN Administration Headache/Fever or Mild Pain Amiodarone HCl 400 mg 04/21/19 15:00 04/28/19 09:24 Cordarone PO Not Given TID [facility] Lipase/Protease/Amylase 1 cap 03/31/19 09:42 04/18/19 23:10 Rolo Blanco 13291 FS 1 cap .PER PROTOCOL PRN Administration TUBE OCCLUSION PROTOCOL Aspirin 325 mg 04/14/19 09:00 04/28/19 09:24 Aspirin PER TUBE Not Given DAILY [facility] Digoxin 0.125 mg 04/27/19 09:00 04/28/19 09:23 Lanoxin SLOW IVP 0.125 mg DAILY [facility] Administration Diltiazem HCl 180 mg 04/28/19 09:00 04/28/19 09:26 Cardizem Cd PO Not Given DAILY [facility] Divalproex Sodium 250 mg 04/06/19 09:00 04/28/19 09:26 Depakote Sprinkle PER TUBE Not Given BID [facility] Enoxaparin Sodium 80 mg 04/10/19 21:00 04/28/19 09:26 Lovenox SC Not Given 0900,2100 [facility] Famotidine 20 mg 03/27/19 21:00 04/28/19 09:26 Pepcid PER TUBE Not Given Q12HR [facility] Folic Acid 1 mg 03/27/19 09:00 04/28/19 09:26 Folvite PO Not Given DAILY [facility] Furosemide 20 mg 04/18/19 14:00 04/28/19 05:22 Lasix SLOW IVP 20 mg 0600,1400 [facility] Administration Hydralazine HCl 10 mg 03/29/19 10:50 04/13/19 07:56 Apresoline SLOW IVP 10 mg Q4H PRN Administration SBP GREATER THAN 160 Diltiazem HCl 125 mg/ Sodium 125 mls @ 15 mls/hr 04/17/19 09:30 04/28/19 05: 23 Chloride IVPB 125 mls INF [facility] Administration Protocol 15 MG/HR Potassium Chloride 40 meq/ 270 mls @ 135 mls/hr 04/18/19 05:18 04/27/19 06:43 Sodium Chloride IVPB 270 mls ASDIR PRN Administration FOR SERUM K+ 2.5 - 3.5 Dextrose/Water 1,000 mls @ 75 mls/hr 04/20/19 10:45 04/28/19 05:23 D5w IV 1,000 mls .[id number] [facility] Administration Insulin Human Regular 0 units 03/31/19 23:11 04/28/19 05:35 Humulin R SC 2 unit .MILD SLIDING SCALE PRN Administration Mild Correctional Scale Lorazepam 0.5 mg 04/26/19 09:44 04/27/19 14:14 Ativan SLOW IVP 0.5 mg Q6H PRN Administration Anxiety/Agitation Metoprolol Tartrate 25 mg 04/10/19 21:00 04/28/19 09:26 Lopressor PO Not Given BID [facility] Miscellaneous Medication 1 pkt 04/18/19 05:18 04/21/19 09:55 Phos-Nak PO 1 pkt TIDPRN PRN Administration FOR PHOS LEVEL 1.0 - 1.8 Miscellaneous Medication 0 ml 04/18/19 18:00 04/28/19 06:05 Biotene Moisturizing Mouth PO 1 spr Q6HR [facility] Administration Morphine Sulfate 2 mg 04/22/19 09:47 04/22/19 15:13 Morphine SLOW IVP 2 mg Q4H PRN Administration Agitation Morphine Sulfate 4 mg 04/22/19 16:01 04/27/19 10:19 Morphine SLOW IVP 4 mg Q4H PRN Administration Severe Pain (7-10) Ondansetron HCl 4 mg 04/01/19 19:18 04/27/19 05:34 Zofran SLOW IVP 4 mg Q6H PRN Administration Nausea/Vomiting Polyethylene Glycol 17 gm 04/08/19 09:00 04/28/19 09:27 Miralax PER TUBE Not Given DAILY [facility] Potassium Chloride 10 meq 04/15/19 08:00 04/28/19 09:24 Klor-Con 10 PO Not Given BID[facility] Potassium Chloride 40 meq 04/18/19 05:18 04/21/19 03:50 Klor-Con PER TUBE 40 meq ASDIR PRN Administration FOR SERUM K+ 2.5-3.5 Saccharomyces Boulardii 250 mg 03/27/19 09:00 04/28/19 09:27 Florastor PER TUBE Not Given DAILY [facility] Scopolamine 1.5 mg 04/18/19 15:00 04/27/19 14:15 Transderm Scop TD 1.5 mg Q3D [facility] Administration Sodium Chloride 10 ml 04/03/19 09:00 04/28/19 09:27 Flush - Normal Saline IVF Not Given Q12HR [facility] Sodium Chloride 10 ml 04/03/19 08:45 04/25/19 05:39 Flush - Normal Saline IVF 10 ml PRN PRN Administration Saline Flush Tamsulosin HCl 0.4 mg 03/29/19 21:00 04/27/19 20:30 Flomax PO Not Given HS [facility] Ziprasidone 10 mg 04/22/19 12:44 04/25/19 06:12 Geodon IM 10 mg Q2H PRN Administration AGITATION - Exam Eye: PERRL Heart: RRR, no murmur, no gallops, no rubs, normal peripheral pulses Respiratory: wheezes (bilaterally, no rales or rhonchi) Gastrointestinal: soft, non-tender, non-distended, normal bowel sounds, no palpable masses Extremities: no cyanosis, no clubbing, no edema Hosp A/P (1) Acute respiratory failure with hypoxia and hypercapnia Code(s): J96.01 - ACUTE RESPIRATORY FAILURE WITH HYPOXIA; J96.02 - ACUTE RESPIRATORY FAILURE WITH HYPERCAPNIA Status: Acute (2) Afib Code(s): I48.91 - UNSPECIFIED ATRIAL FIBRILLATION Status: Acute Qualifiers: Atrial fibrillation type: paroxysmal Qualified Code(s): I48.0 - Paroxysmal atrial fibrillation (3) History of alcohol abuse Code(s): F10.11 - ALCOHOL ABUSE, IN REMISSION Status: Acute (4) Rheumatoid arthritis Code(s): M06.9 - RHEUMATOID ARTHRITIS, UNSPECIFIED Status: Acute - Plan * Acute metabolic encephalopathy- waxes and wanes * COPD-advanced- continue Duonebs * Severe deconditioning * Symptom management * Anticipate transfer to Hospice status soon
[2019-04-28 13:52] VITALS: BMI 27.1
[2019-04-28] MEDS: Lorazepam 2 MG/ML VIAL SLOW IVP PRN ×2 (14:03→20:10)
--- NOTE | 2019-04-28 14:27 | PRG ---
DATE OF SERVICE: 04/28/2019 SUBJECTIVE: Mr. Marshall continues to have difficulty breathing, was severely hypoxemic last night. The patient has been made a hospice patient, do not resuscitate. OBJECTIVE: VITAL SIGNS: Blood pressure 111/83, pulse is in 90s. LUNGS: Rhonchi. CARDIAC: Irregular. ABDOMEN: Soft, nontender. EXTREMITIES: No edema. ASSESSMENT: 1. Chronic obstructive pulmonary disease and pneumonia. 2. Persistent atrial fibrillation. 3. He is on hospice. PLAN: 1. Reduce intravenous diltiazem. 2. He has not taken any oral medicines. 3. Reduce enoxaparin. 4. The patient is being placed on hospice. 5. We will sign off. Please re-consult if needed. Job ID: [id number]
[2019-04-28] MEDS: Enoxaparin Sodium 40 MG/0.4 ML SYRINGE SC SCH (20:10)
[2019-04-28] MEDS: Tamsulosin HCl 0.4 MG CAP PO SCH (20:45)
[2019-04-29 04:03] LABS: BUN (Urea Nitrogen) 6 mg/dL (8.4-25.7); Calc. Creatinine Clearance 111 mL/min (70-130); Calcium 9.2 mg/dL (7.8-10.44); Estimated GFR-MDRD Greater than 90; Glucose 131 mg/dL (83-110)
[2019-04-29 04:12] LABS: Anion Gap 11 mmol/L (10-20); Carbon Dioxide 34 mmol/L (23-31); Chloride 90 mmol/L (98-107); Phosphorus 1.4 mg/dL (2.3-4.7); Potassium 3.9 mmol/L (3.5-5.1); Sodium 131 mmol/L (136-145)
[2019-04-29 04:17] LABS: Band 26 % (5-11); Hemoglobin 8.9 g/dL (14.0-18.0); Lymphocytes 6 % (21-51); MDiff Complete? YES; Mean Corpuscular HGB CONC 31.1 g/dL (32.0-36.0); Mean Corpuscular Hemoglobin 31.5 pg (27.0-31.0); Mean Platelet Volume 6.6 fL (7.4-10.4); Metamyelocyte 1 % (0-0); Monocytes 10 % (0-10); Myelocyte 3 % (0-0); Neutrophil 54 % (42-75); Platelet Count 571 thou/uL (130-400); Platelet Morphology Comment Appears Increased; Polychromasia SLIGHT = 2-3 cells (100X) (0-2/hpf); RBC Distribution Width 13.8 % (11.5-14.5); Red Blood Cell (RBC) Count 2.81 mill/uL (4.70-6.10); White Blood Cell (WBC) Count 11.8 thou/uL (4.8-10.8)
[2019-04-29] MEDS: Furosemide 20 MG/2 ML VIAL SLOW IVP SCH ×2 (05:18→16:01)
[2019-04-29] MEDS: Lorazepam 2 MG/ML VIAL SLOW IVP PRN ×2 (05:18→20:01)
[2019-04-29] MEDS: BIOTENE MOUTH SPRAY 44.3 ML PO SCH ×3 (05:20→17:02)
[2019-04-29] MEDS: Dextrose 5% in Water 1,000 ML IV SCH ×2 (05:58→20:59)
[2019-04-29] MEDS: Potassium Phosphate 9 MMOL in Sodium Chloride 0.9% 100 ML IVPB PRN (05:58)
[2019-04-29] MEDS: Potassium Chloride 10 MEQ TAB PO SCH ×2 (08:20→15:14)
[2019-04-29] MEDS: Divalproex Sodium 125 mg Sprinkle Capsule PER TUBE SCH ×2 (08:20→20:59)
[2019-04-29] MEDS: Amiodarone 200 MG TAB PO SCH ×3 (08:20→20:59)
[2019-04-29] MEDS: Aspirin 325 MG TAB PER TUBE SCH (08:20)
[2019-04-29] MEDS: Saccharomyces boulardii 250 MG CAP PER TUBE SCH (08:21)
[2019-04-29] MEDS: Polyethylene Glycol 3350 17 GM Packet PER TUBE SCH (08:21)
[2019-04-29] MEDS: Folic Acid 1 MG TAB PO SCH (08:21)
[2019-04-29] MEDS: Metoprolol Tartrate 25 MG TAB PO SCH ×2 (08:21→21:00)
[2019-04-29] MEDS: Famotidine 20 MG TAB PER TUBE SCH ×2 (08:21→21:00)
[2019-04-29] MEDS: Enoxaparin Sodium 40 MG/0.4 ML SYRINGE SC SCH ×2 (11:00→20:02)
[2019-04-29] MEDS: Digoxin 0.5 MG/2 ML AMP SLOW IVP SCH (11:00)
[2019-04-29] MEDS: Morphine 4 MG/ML VIAL SLOW IVP PRN ×2 (11:01→16:01)
--- NOTE | 2019-04-29 13:28 | PDOC.HOSPP ---
- Subjective Encounter Date: 04/29/19 Encounter Time: 10:00 Subjective: obtunded, cannot clear oral secretions with rattling in the throat awakens to touch or sound but soon falls into deep sleep - Objective Vital Signs & Weight: Vital Signs (12 hours) Temp Pulse Pulse Ox 04/29/19 12:00 96.3 F L 04/29/19 11:00 99 04/29/19 07:34 96.6 F L 04/29/19 07:27 90 L Weight Admit Weight 181 lb 3.52 oz Weight 168 lb 1.6 oz Most Recent Monitor Data Heart Rate from ECG 103 NIBP 161/92 NIBP BP-Mean 115 Respiration from ECG 30 SpO2 95 I&O: 04/28/19 04/29/19 04/30/19 06:59 06:59 06:59 Intake Total 1364 850 838 Output Total 1100 1700 Balance 264 -850 838 Result Diagrams: 04/29/19 03:34 04/29/19 03:34 Additional Labs: Accuchecks 04/29/19 04/29/19 04/29/19 12:19 05:33 00:01 POC Glucose 110 124 H 148 H 04/28/19 18:00 POC Glucose 159 H Hospitalist ROS - Medication Medications: Active Medications Generic Name Dose Route Start Last Admin Trade Name Freq PRN Reason Stop Dose Admin Acetaminophen 650 mg 03/27/19 02:40 04/11/19 17:20 Tylenol [place] 650 mg Q6H PRN Administration Fever > 101 or Mild Pain Acetaminophen 650 mg 04/15/19 08:23 04/22/19 04:39 Tylenol Elixir PO 650 mg Q4H PRN Administration pain/fever Acetaminophen 650 mg 04/15/19 08:23 04/21/19 09:55 Tylenol PO 650 mg Q4H PRN Administration Headache/Fever or Mild Pain Amiodarone HCl 200 mg 04/28/19 15:00 04/29/19 08:20 Cordarone PO Not Given TID MARTA Lipase/Protease/Amylase 1 cap 03/31/19 09:42 04/18/19 23:10 Rolo Blanco [id number] FS 1 cap .PER PROTOCOL PRN Administration TUBE OCCLUSION PROTOCOL Aspirin 325 mg 04/14/19 09:00 04/29/19 08:20 Aspirin PER TUBE Not Given DAILY MARTA Digoxin 0.125 mg 04/27/19 09:00 04/29/19 11:00 Lanoxin SLOW IVP 0.125 mg DAILY MARTA Administration Diltiazem HCl 180 mg 04/28/19 09:00 04/29/19 08:20 Cardizem Cd PO Not Given DAILY [facility] Divalproex Sodium 250 mg 04/06/19 09:00 04/29/19 08:20 Depakote Sprinkle PER TUBE Not Given BID [facility] Enoxaparin Sodium 40 mg 04/28/19 21:00 04/29/19 11:00 Lovenox SC 40 mg 0900,2100 MARTA Administration Famotidine 20 mg 03/27/19 21:00 04/29/19 08:21 Pepcid PER TUBE Not Given Q12HR [facility] Folic Acid 1 mg 03/27/19 09:00 04/29/19 08:21 Folvite PO Not Given DAILY [facility] Furosemide 20 mg 04/18/19 14:00 04/29/19 05:18 Lasix SLOW IVP 20 mg 0600,1400 MARTA Administration Hydralazine HCl 10 mg 03/29/19 10:50 04/13/19 07:56 Apresoline SLOW IVP 10 mg Q4H PRN Administration SBP GREATER THAN 160 Potassium Chloride 40 meq/ 270 mls @ 135 mls/hr 04/18/19 05:18 04/27/19 06:43 Sodium Chloride IVPB 270 mls ASDIR PRN Administration FOR SERUM K+ 2.5 - 3.5 Potassium Phosphate 9 mmol/ 103 mls @ 25.75 mls/hr 04/18/19 05:18 04/29/19 05 :58 Sodium Chloride IVPB 103 mls ASDIR PRN Administration Phosphate 1.0-1.8 Dextrose/Water 1,000 mls @ 75 mls/hr 04/20/19 10:45 04/29/19 05:58 D5w IV 1,000 mls .[id number] MARTA Administration Diltiazem HCl 125 mg/ Sodium 125 mls @ 10 mls/hr 04/28/19 14:13 04/28/19 18: 12 Chloride IVPB 125 mls INF MARTA Administration Protocol 10 MG/HR Insulin Human Regular 0 units 03/31/19 23:11 04/28/19 05:35 Humulin R SC 2 unit .MILD SLIDING SCALE PRN Administration Mild Correctional Scale Lorazepam 0.5 mg 04/26/19 09:44 04/29/19 05:18 Ativan SLOW IVP 0.5 mg Q6H PRN Administration Anxiety/Agitation Metoprolol Tartrate 25 mg 04/10/19 21:00 04/29/19 08:21 Lopressor PO Not Given BID MARTA Miscellaneous Medication 1 pkt 04/18/19 05:18 04/21/19 09:55 Phos-Nak PO 1 pkt TIDPRN PRN Administration FOR PHOS LEVEL 1.0 - 1.8 Miscellaneous Medication 0 ml 04/18/19 18:00 04/29/19 11:01 Biotene Moisturizing Mouth PO 1 spr Q6HR MARTA Administration Morphine Sulfate 2 mg 04/22/19 09:47 04/22/19 15:13 Morphine SLOW IVP 2 mg Q4H PRN Administration Agitation Morphine Sulfate 4 mg 04/22/19 16:01 04/29/19 11:01 Morphine SLOW IVP 4 mg Q4H PRN Administration Severe Pain (7-10) Ondansetron HCl 4 mg 04/01/19 19:18 04/27/19 05:34 Zofran SLOW IVP 4 mg Q6H PRN Administration Nausea/Vomiting Polyethylene Glycol 17 gm 04/08/19 09:00 04/29/19 08:21 Miralax PER TUBE Not Given DAILY [facility] Potassium Chloride 10 meq 04/15/19 08:00 04/29/19 08:20 Klor-Con 10 PO Not Given BID[facility] Potassium Chloride 40 meq 04/18/19 05:18 04/21/19 03:50 Klor-Con PER TUBE 40 meq ASDIR PRN Administration FOR SERUM K+ 2.5-3.5 Saccharomyces Boulardii 250 mg 03/27/19 09:00 04/29/19 08:21 Florastor PER TUBE Not Given DAILY MARTA Scopolamine 1.5 mg 04/18/19 15:00 04/27/19 14:15 Transderm Scop TD 1.5 mg Q3D MARTA Administration Sodium Chloride 10 ml 04/03/19 09:00 04/29/19 11:01 Flush - Normal Saline IVF 10 ml Q12HR MARTA Administration Sodium Chloride 10 ml 04/03/19 08:45 04/25/19 05:39 Flush - Normal Saline IVF 10 ml PRN PRN Administration Saline Flush Tamsulosin HCl 0.4 mg 03/29/19 21:00 04/28/19 20:45 Flomax PO Not Given HS MARTA Ziprasidone 10 mg 04/22/19 12:44 04/25/19 06:12 Geodon IM 10 mg Q2H PRN Administration AGITATION - Exam General Appearance: ill appearing Eye: PERRL ENT: no oropharyngeal lesions, moist mucosa Neck: supple, no JVD Heart: no murmur, irregular Respiratory: rhonchi, tachypneic, wheezes Gastrointestinal: soft, non-distended, normal bowel sounds Extremities: no cyanosis, 1+ LE edema Neurological: cranial nerve grossly intact, no focal deficits Hosp A/P (1) Acute respiratory failure with hypoxia and hypercapnia Code(s): J96.01 - ACUTE RESPIRATORY FAILURE WITH HYPOXIA; J96.02 - ACUTE RESPIRATORY FAILURE WITH HYPERCAPNIA Status: Acute (2) COPD exacerbation Code(s): J44.1 - CHRONIC OBSTRUCTIVE PULMONARY DISEASE W (ACUTE) EXACERBATION Status: Acute (3) Acute metabolic encephalopathy Code(s): G93.41 - METABOLIC ENCEPHALOPATHY Status: Acute (4) Afib Code(s): I48.91 - UNSPECIFIED ATRIAL FIBRILLATION Status: Chronic Qualifiers: Atrial fibrillation type: paroxysmal Qualified Code(s): I48.0 - Paroxysmal atrial fibrillation (5) Influenza Code(s): J11.1 - FLU DUE TO UNIDENTIFIED INFLUENZA VIRUS W OTH RESP MANIFEST Status: Resolved (6) Pneumonia Code(s): J18.9 - PNEUMONIA, UNSPECIFIED ORGANISM Status: Acute (7) History of alcohol abuse Code(s): F10.11 - ALCOHOL ABUSE, IN REMISSION Status: Chronic (8) Physical deconditioning Code(s): R53.81 - OTHER MALAISE Status: Acute (9) Rheumatoid arthritis Code(s): M06.9 - RHEUMATOID ARTHRITIS, UNSPECIFIED Status: Chronic Qualifiers: Rheumatoid arthritis location: multiple sites Rheumatoid factor presence: unspecified presence Qualified Code(s): M06.9 - Rheumatoid arthritis, unspecified (10) BPH (benign prostatic hyperplasia) Code(s): N40.0 - BENIGN PROSTATIC HYPERPLASIA WITHOUT LOWER URINRY TRACT SYMP Status: Chronic Qualifiers: Lower urinary tract symptom presence: unspecified whether lower urinary tract symptoms present Qualified Code(s): N40.0 - Benign prostatic hyperplasia without lower urinary tract symptoms (11) Macrocytic anemia Code(s): D53.9 - NUTRITIONAL ANEMIA, UNSPECIFIED Status: Chronic - Plan very poor prognosis, he is obtunded mostly and does not interact or follow he is unable to clear oral secretions either per CM notes he needs court to intervene for him to be placed into hospice, apparently court appointment guardian cannot sign/consent for hospice is not on any oral meds on cardizemd drip, iv fluids was extubated on 04/10/2019 with waxing and waning encephalopathy but now is obtunded totally
[2019-04-29] MEDS: Tamsulosin HCl 0.4 MG CAP PO SCH (21:00)
[2019-04-30] MEDS: BIOTENE MOUTH SPRAY 44.3 ML PO SCH ×4 (00:51→18:23)
[2019-04-30] MEDS: Morphine 4 MG/ML VIAL SLOW IVP PRN ×2 (01:57→09:09)
[2019-04-30] MEDS: Lorazepam 2 MG/ML VIAL SLOW IVP PRN ×2 (03:25→21:00)
[2019-04-30] MEDS: Diltiazem 125 MG in Sodium Chloride 0.9% 100 ML IVPB SCH ×2 (03:26→21:00)
[2019-04-30 04:12] LABS: Anion Gap 9 mmol/L (10-20); BUN (Urea Nitrogen) 5 mg/dL (8.4-25.7); Calc. Creatinine Clearance 113 mL/min (70-130); Calcium 8.9 mg/dL (7.8-10.44); Carbon Dioxide 37 mmol/L (23-31); Chloride 88 mmol/L (98-107); Estimated GFR-MDRD Greater than 90; Glucose 111 mg/dL (83-110); Potassium 3.6 mmol/L (3.5-5.1); Sodium 130 mmol/L (136-145)
[2019-04-30 04:17] LABS: Phosphorus 1.8 mg/dL (2.3-4.7)
[2019-04-30 04:56] LABS: Band 18 % (5-11); Hemoglobin 8.5 g/dL (14.0-18.0); Lymphocytes 8 % (21-51); MDiff Complete? YES; Mean Corpuscular HGB CONC 31.2 g/dL (32.0-36.0); Mean Corpuscular Hemoglobin 31.5 pg (27.0-31.0); Mean Platelet Volume 6.7 fL (7.4-10.4); Metamyelocyte 1 % (0-0); Monocytes 9 % (0-10); Myelocyte 5 % (0-0); Neutrophil 59 % (42-75); Platelet Count 522 thou/uL (130-400); Platelet Morphology Comment Appears Increased; Polychromasia SLIGHT = 2-3 cells (100X) (0-2/hpf); RBC Distribution Width 13.6 % (11.5-14.5); Red Blood Cell (RBC) Count 2.68 mill/uL (4.70-6.10)
[2019-04-30] MEDS: Furosemide 20 MG/2 ML VIAL SLOW IVP SCH ×2 (05:30→15:15)
[2019-04-30] MEDS: Digoxin 0.5 MG/2 ML AMP SLOW IVP SCH (07:56)
[2019-04-30] MEDS: Aspirin 325 MG TAB PER TUBE SCH (07:56)
[2019-04-30] MEDS: Amiodarone 200 MG TAB PO SCH ×3 (07:56→20:46)
[2019-04-30] MEDS: Potassium Chloride 10 MEQ TAB PO SCH ×2 (07:56→17:19)
[2019-04-30] MEDS: Enoxaparin Sodium 40 MG/0.4 ML SYRINGE SC SCH ×2 (07:57→21:00)
[2019-04-30] MEDS: Folic Acid 1 MG TAB PO SCH (07:57)
[2019-04-30] MEDS: Famotidine 20 MG TAB PER TUBE SCH ×2 (07:57→20:46)
[2019-04-30] MEDS: Metoprolol Tartrate 25 MG TAB PO SCH ×2 (07:57→20:46)
[2019-04-30] MEDS: Divalproex Sodium 125 mg Sprinkle Capsule PER TUBE SCH ×2 (07:57→20:46)
[2019-04-30] MEDS: Polyethylene Glycol 3350 17 GM Packet PER TUBE SCH (07:58)
[2019-04-30] MEDS: Saccharomyces boulardii 250 MG CAP PER TUBE SCH (07:58)
[2019-04-30] MEDS: Potassium Phosphate 9 MMOL in Sodium Chloride 0.9% 100 ML IVPB PRN (08:02)
--- NOTE | 2019-04-30 12:50 | PDOC.HOSPP ---
- Subjective Encounter Date: 04/30/19 Encounter Time: 11:00 Subjective: obtunded, in resp distress, tachypneic - Objective Vital Signs & Weight: Vital Signs (12 hours) Temp Pulse Pulse Ox 04/30/19 11:25 102.6 F H 04/30/19 08:00 85 L 04/30/19 07:56 108 H 04/30/19 07:28 100.2 F H Weight Admit Weight 181 lb 3.52 oz Weight 164 lb 8 oz Most Recent Monitor Data Heart Rate from ECG 96 NIBP 128/49 NIBP BP-Mean 75 Respiration from ECG 25 SpO2 88 I&O: 04/29/19 04/30/19 05/01/19 06:59 06:59 06:59 Intake Total 850 2613 Output Total 1700 2120 Balance -850 493 Result Diagrams: 04/30/19 03:32 04/30/19 03:32 Additional Labs: Accuchecks 04/30/19 04/30/19 04/30/19 12:41 05:45 00:13 POC Glucose 132 H 124 H 115 H 04/29/19 20:02 POC Glucose 90 Hospitalist ROS - Medication Medications: Active Medications Generic Name Dose Route Start Last Admin Trade Name Freq PRN Reason Stop Dose Admin Acetaminophen 650 mg 03/27/19 02:40 04/11/19 17:20 Tylenol [place] 650 mg Q6H PRN Administration Fever > 101 or Mild Pain Acetaminophen 650 mg 04/15/19 08:23 04/22/19 04:39 Tylenol Elixir PO 650 mg Q4H PRN Administration pain/fever Acetaminophen 650 mg 04/15/19 08:23 04/21/19 09:55 Tylenol PO 650 mg Q4H PRN Administration Headache/Fever or Mild Pain Amiodarone HCl 200 mg 04/28/19 15:00 04/30/19 07:56 Cordarone PO Not Given TID MARTA Lipase/Protease/Amylase 1 cap 03/31/19 09:42 04/18/19 23:10 Rolo Blanco [id number] FS 1 cap .PER PROTOCOL PRN Administration TUBE OCCLUSION PROTOCOL Aspirin 325 mg 04/14/19 09:00 04/30/19 07:56 Aspirin PER TUBE Not Given DAILY [facility] Digoxin 0.125 mg 04/27/19 09:00 04/30/19 07:56 Lanoxin SLOW IVP 0.125 mg DAILY MARTA Administration Diltiazem HCl 180 mg 04/28/19 09:00 04/30/19 07:57 Cardizem Cd PO Not Given DAILY [facility] Divalproex Sodium 250 mg 04/06/19 09:00 04/30/19 07:57 Depakote Sprinkle PER TUBE Not Given BID [facility] Enoxaparin Sodium 40 mg 04/28/19 21:00 04/30/19 07:57 Lovenox SC 40 mg 0900,2100 MARTA Administration Famotidine 20 mg 03/27/19 21:00 04/30/19 07:57 Pepcid PER TUBE Not Given Q12HR [facility] Folic Acid 1 mg 03/27/19 09:00 04/30/19 07:57 Folvite PO Not Given DAILY [facility] Furosemide 20 mg 04/18/19 14:00 04/30/19 05:30 Lasix SLOW IVP 20 mg 0600,1400 MARTA Administration Hydralazine HCl 10 mg 03/29/19 10:50 04/13/19 07:56 Apresoline SLOW IVP 10 mg Q4H PRN Administration SBP GREATER THAN 160 Potassium Chloride 40 meq/ 270 mls @ 135 mls/hr 04/18/19 05:18 04/27/19 06:43 Sodium Chloride IVPB 270 mls ASDIR PRN Administration FOR SERUM K+ 2.5 - 3.5 Potassium Phosphate 9 mmol/ 103 mls @ 25.75 mls/hr 04/18/19 05:18 04/30/19 08 :02 Sodium Chloride IVPB 103 mls ASDIR PRN Administration Phosphate 1.0-1.8 Dextrose/Water 1,000 mls @ 75 mls/hr 04/20/19 10:45 04/29/19 20:59 D5w IV 1,000 mls .[id number] MARTA Administration Diltiazem HCl 125 mg/ Sodium 125 mls @ 10 mls/hr 04/28/19 14:13 04/30/19 03: 26 Chloride IVPB 125 mls INF MARTA Administration Protocol 10 MG/HR Insulin Human Regular 0 units 03/31/19 23:11 04/28/19 05:35 Humulin R SC 2 unit .MILD SLIDING SCALE PRN Administration Mild Correctional Scale Lorazepam 0.5 mg 04/26/19 09:44 04/30/19 03:25 Ativan SLOW IVP 0.5 mg Q6H PRN Administration Anxiety/Agitation Metoprolol Tartrate 25 mg 04/10/19 21:00 04/30/19 07:57 Lopressor PO Not Given BID MARTA Miscellaneous Medication 1 pkt 04/18/19 05:18 04/21/19 09:55 Phos-Nak PO 1 pkt TIDPRN PRN Administration FOR PHOS LEVEL 1.0 - 1.8 Miscellaneous Medication 0 ml 04/18/19 18:00 04/30/19 05:30 Biotene Moisturizing Mouth PO 1 spr Q6HR MARTA Administration Morphine Sulfate 2 mg 04/22/19 09:47 04/22/19 15:13 Morphine SLOW IVP 2 mg Q4H PRN Administration Agitation Morphine Sulfate 4 mg 04/22/19 16:01 04/30/19 09:09 Morphine SLOW IVP 4 mg Q4H PRN Administration Severe Pain (7-10) Ondansetron HCl 4 mg 04/01/19 19:18 04/27/19 05:34 Zofran SLOW IVP 4 mg Q6H PRN Administration Nausea/Vomiting Polyethylene Glycol 17 gm 04/08/19 09:00 04/30/19 07:58 Miralax PER TUBE Not Given DAILY [facility] Potassium Chloride 10 meq 04/15/19 08:00 04/30/19 07:56 Klor-Con 10 PO Not Given BID-[facility] Potassium Chloride 40 meq 04/18/19 05:18 04/21/19 03:50 Klor-Con PER TUBE 40 meq ASDIR PRN Administration FOR SERUM K+ 2.5-3.5 Saccharomyces Boulardii 250 mg 03/27/19 09:00 04/30/19 07:58 Florastor PER TUBE Not Given DAILY [facility] Scopolamine 1.5 mg 04/18/19 15:00 04/27/19 14:15 Transderm Scop TD 1.5 mg Q3D MARTA Administration Sodium Chloride 10 ml 04/03/19 09:00 04/30/19 07:58 Flush - Normal Saline IVF 10 ml Q12HR MARTA Administration Sodium Chloride 10 ml 04/03/19 08:45 04/25/19 05:39 Flush - Normal Saline IVF 10 ml PRN PRN Administration Saline Flush Tamsulosin HCl 0.4 mg 03/29/19 21:00 04/29/19 21:00 Flomax PO Not Given HS MARTA Ziprasidone 10 mg 04/22/19 12:44 04/25/19 06:12 Geodon IM 10 mg Q2H PRN Administration AGITATION - Exam General Appearance: ill appearing Eye: PERRL, anicteric sclera ENT: no oropharyngeal lesions, dry oral mucosa Neck: supple, no JVD Heart: no murmur, irregular Respiratory: rales, rhonchi, wheezes Gastrointestinal: soft, non-tender, non-distended, normal bowel sounds Extremities: no cyanosis, no edema Neurological: cranial nerve grossly intact, no focal deficits Hosp A/P (1) Acute respiratory failure with hypoxia and hypercapnia Code(s): J96.01 - ACUTE RESPIRATORY FAILURE WITH HYPOXIA; J96.02 - ACUTE RESPIRATORY FAILURE WITH HYPERCAPNIA Status: Acute (2) COPD exacerbation Code(s): J44.1 - CHRONIC OBSTRUCTIVE PULMONARY DISEASE W (ACUTE) EXACERBATION Status: Acute (3) Acute metabolic encephalopathy Code(s): G93.41 - METABOLIC ENCEPHALOPATHY Status: Acute (4) Afib Code(s): I48.91 - UNSPECIFIED ATRIAL FIBRILLATION Status: Chronic Qualifiers: Atrial fibrillation type: paroxysmal Qualified Code(s): I48.0 - Paroxysmal atrial fibrillation (5) Influenza Code(s): J11.1 - FLU DUE TO UNIDENTIFIED INFLUENZA VIRUS W OTH RESP MANIFEST Status: Resolved (6) Pneumonia Code(s): J18.9 - PNEUMONIA, UNSPECIFIED ORGANISM Status: Acute (7) History of alcohol abuse Code(s): F10.11 - ALCOHOL ABUSE, IN REMISSION Status: Chronic (8) Physical deconditioning Code(s): R53.81 - OTHER MALAISE Status: Acute (9) Rheumatoid arthritis Code(s): M06.9 - RHEUMATOID ARTHRITIS, UNSPECIFIED Status: Chronic Qualifiers: Rheumatoid arthritis location: multiple sites Rheumatoid factor presence: unspecified presence Qualified Code(s): M06.9 - Rheumatoid arthritis, unspecified (10) BPH (benign prostatic hyperplasia) Code(s): N40.0 - BENIGN PROSTATIC HYPERPLASIA WITHOUT LOWER URINRY TRACT SYMP Status: Chronic Qualifiers: Lower urinary tract symptom presence: unspecified whether lower urinary tract symptoms present Qualified Code(s): N40.0 - Benign prostatic hyperplasia without lower urinary tract symptoms (11) Macrocytic anemia Code(s): D53.9 - NUTRITIONAL ANEMIA, UNSPECIFIED Status: Chronic - Plan very poor prognosis, he is obtunded mostly and does not interact or follow he is unable to clear oral secretions either per CM notes he needs court to intervene for him to be placed into hospice, apparently court appointment guardian cannot sign/consent for hospice is not on any oral meds on cardizem drip, iv fluids was extubated on 04/10/2019 with waxing and waning encephalopathy but now is obtunded totally
[2019-04-30] MEDS: Dextrose 5% in Water 1,000 ML IV SCH (13:12)
[2019-04-30] MEDS: Scopolamine 1.5 mg/72 hour Patch TD SCH (15:15)
[2019-04-30] MEDS: Tamsulosin HCl 0.4 MG CAP PO SCH (20:46)
[2019-04-30] MEDS: Morphine 2 MG/ML SYRINGE SLOW IVP PRN (21:53)
[2019-05-01] MEDS: Insulin Regular 300 UNITS/3 ML VIAL SC PRN ×2 (00:18→06:05)
[2019-05-01] MEDS: BIOTENE MOUTH SPRAY 44.3 ML PO SCH ×2 (00:24→06:01)
[2019-05-01] MEDS: Dextrose 5% in Water 1,000 ML IV SCH (00:25)
[2019-05-01 04:32] LABS: Phosphorus 7.2 mg/dL (2.3-4.7)
[2019-05-01 04:35] LABS: Anion Gap 12 mmol/L (10-20); BUN (Urea Nitrogen) 14 mg/dL (8.4-25.7); Calc. Creatinine Clearance 42 mL/min (70-130); Calcium 9.2 mg/dL (7.8-10.44); Carbon Dioxide 37 mmol/L (23-31); Chloride 84 mmol/L (98-107); Estimated GFR-MDRD 49; Glucose 230 mg/dL (83-110); Potassium 5.3 mmol/L (3.5-5.1); Sodium 128 mmol/L (136-145)
[2019-05-01 05:10] LABS: Band 22 % (5-11); Hemoglobin 8.4 g/dL (14.0-18.0); Lymphocytes 3 % (21-51); MDiff Complete? YES; Mean Corpuscular HGB CONC 30.4 g/dL (32.0-36.0); Mean Platelet Volume 6.8 fL (7.4-10.4); Metamyelocyte 3 % (0-0); Monocytes 15 % (0-10); Myelocyte 1 % (0-0); Neutrophil 56 % (42-75); Platelet Count 789 thou/uL (130-400); Platelet Morphology Comment Appears Increased; Polychromasia SLIGHT = 2-3 cells (100X) (0-2/hpf); RBC Distribution Width 13.7 % (11.5-14.5); Red Blood Cell (RBC) Count 2.72 mill/uL (4.70-6.10); White Blood Cell (WBC) Count 20.8 thou/uL (4.8-10.8)
[2019-05-01] MEDS: Furosemide 20 MG/2 ML VIAL SLOW IVP SCH (06:01)
[2019-05-01 07:31] VITALS: TEMP 96.1
[2019-05-01] MEDS: Morphine 4 MG/ML VIAL SLOW IVP PRN (08:21)
[2019-05-01] MEDS: Lorazepam 2 MG/ML VIAL SLOW IVP PRN (08:32)
--- NOTE | 2019-05-01 13:20 | DIS ---
DATE OF ADMISSION: 03/27/2019 DATE OF DISCHARGE: 05/01/2019 TIME OF : 9:03 a.m. PRIMARY CAUSES OF : End-stage COPD with exacerbation, 36 days; acute respiratory failure with hypoxia and hypercapnia, 36 days; influenza A infection; pneumonia. SECONDARY CAUSES OF : Chronic atrial fibrillation, history of rheumatoid arthritis, physical deconditioning. BRIEF COURSE DURING HOSPITALIZATION: The patient initially got admitted on the 27 of March with shortness of breath and acute respiratory failure with hypoxia and hypercapnia. He was initially placed on BiPAP, but the patient's saturations were dropping and he was getting tired with the patient going into altered mental state and hence was intubated in the emergency room on arrival. He tested positive for influenza A and had pneumonia. He had a pH of 7.12 on arrival. His pCO2 was 90. The patient has known history of end-stage COPD. He was on Tamiflu along with broad-spectrum antibiotics, steroids, and nebulizations. He has had consultation with Dr. Sibley for Pulmonology. The patient had episodes of atrial fibrillation with RVR and had Cardiology consultation with Dr. Palmer and Dr. Siu. The patient was extubated on 04/10/2019 and was placed on high-flow oxygen. He has had severe physical deconditioning along with acute metabolic encephalopathy with off and on confusion. Mr. Mateus Marshall had end-stage COPD. Due to prolonged hospitalization with severe deconditioning, he was made a do not attempt to resuscitate in view of very poor prognosis. The patient had a court-appointed guardian who was involved with his care. The patient did not have any immediate family members to help with goals of care. Finally, the patient was declared at 9:03 a.m. on 05/01/2019. The body will be released to home per hospital protocol. Job ID: [id number]
== END 2019-05-01 10:30 | disposition expired | DRG 870 ==
LOC: ERS 01:02 → CCU 03:32 → IMCU/EMU 04-13 23:07
PROVIDERS: ADMIT Internal Medicine; ATTEND Internal Medicine
PROC: 5A1955Z Respiratory Ventilation, Greater than 96 Consecutive Hours (ICD-10-PCS; principal; 2019-03-27)
PROC: 0BH17EZ Insertion of Endotracheal Airway into Trachea, Via Natural or Artificial Opening (ICD-10-PCS; 2019-03-27)
PROC: 5A09457 Assistance with Respiratory Ventilation, 24-96 Consecutive Hours, Continuous Positive Airway Pressure (ICD-10-PCS; 2019-04-13)
DX: A41.89 Other specified sepsis (principal); J96.22 Acute and chronic respiratory failure with hypercapnia; J18.9 Pneumonia, unspecified organism; J11.08 Influenza due to unidentified influenza virus with specified pneumonia; G93.41 Metabolic encephalopathy; I50.33 Acute on chronic diastolic (congestive) heart failure; J96.21 Acute and chronic respiratory failure with hypoxia; N13.30 Unspecified hydronephrosis; E87.2 Acidosis; J44.1 Chronic obstructive pulmonary disease with (acute) exacerbation; E87.3 Alkalosis; I48.19 Other persistent atrial fibrillation; E87.0 Hyperosmolality and hypernatremia; N39.0 Urinary tract infection, site not specified; N17.9 Acute kidney failure, unspecified; Z66 Do not resuscitate; Z51.5 Encounter for palliative care; R65.20 Severe sepsis without septic shock; M06.9 Rheumatoid arthritis, unspecified; I87.8 Other specified disorders of veins; E66.9 Obesity, unspecified; D50.9 Iron deficiency anemia, unspecified; R73.9 Hyperglycemia, unspecified; F41.9 Anxiety disorder, unspecified; F32.9 Major depressive disorder, single episode, unspecified; F10.10 Alcohol abuse, uncomplicated; I48.0 Paroxysmal atrial fibrillation; N40.0 Benign prostatic hyperplasia without lower urinary tract symptoms; R19.7 Diarrhea, unspecified; E87.6 Hypokalemia; R53.81 Other malaise; I11.0 Hypertensive heart disease with heart failure; Z88.0 Allergy status to penicillin; Z68.30 Body mass index [BMI] 30.0-30.9, adult; Z79.01 Long term (current) use of anticoagulants; Z88.2 Allergy status to sulfonamides
CPT/HCPCS: 31500; 36415; 36416; 51702; 71045; 74018; 80048; 80053; 80202; 81001; 82140; 82550; 82553; 82805; 83605; 83735; 83880; 84100; 84484; 85007; 85025; 85027; 87040; 87086; 87149; 87324; 87449; 87804; 93005; 93010; 93306; 94002; 94003; 94640; 94660; 96361; 96365; 96375; J0282; J0360; J1120; J1160; J1630; J1650; J1815; J1885; J1940; J1956; J2060; J2270; J2405; J2704; J2765; J2920; J3010; J3370; J3411; J3480; J3486; J3490; J7050; J7070; J7611; J7620; S0028